=== PATIENT | male | born 1960 | race Caucasian/White ===

== ENCOUNTER 2016-05-18 10:57 | Inpatient (IN) | payer BC ==
[2016-05-18 11:50] VITALS: BMI 34.9
--- NOTE | 2016-05-18 12:47 | PDOC ---
History of Present Illness - General History Source: Patient Exam Limitations: No Limitations - History of Present Illness Initial Comments: 05/18/16 19:03 The patient is a 56 year old male, with a significant past medical history of afib, NIDDM, HTN, HLD, hypothyroidism, afib s/p cardiac ablation (by in 2012), nonischemic cardiomyopathy which improved post ablation, nonobstructive CAD who was sent by his PCP and presents to the emergency department with congestion and a O2 sat of 88% with unknown etiology. Patient notes he normally runs very low and notes taking oxygen at home (3L at home and runs 98% when on O2). Patient reports having sinus congestion for about a month. He denies any sick contacts. He denies chest pain and shortness of breath. He denies fever, chills, headache and dizziness. He denies nausea, vomit, diarrhea and constipation. He denies dysuria, frequency, urgency and hematuria. Allergies: NKA Social History: Nonsmoker. Denies EtOH and drug abuse. PCP: Dr.James Cruz <Mitchell Chris - Last Filed: 05/18/16 19:03> - General History Source: Patient Exam Limitations: No Limitations <AureaJovani - Last Filed: 05/18/16 21:41> - General Chief Complaint: Respiratory Stated Complaint: PCP SENT, CONGESTED Time Seen by Provider: 05/18/16 12:11 Past History <Mitchell Chris - Last Filed: 05/18/16 19:03> - Past Medical History Anemia: No Asthma: No Cancer: No Cardiac Disorders: Yes (A FIB/FLUTTER) CVA: No COPD: No CHF: Yes Dementia: No Diabetes: Yes (TYPE II) GI Disorders: No Disorders: No HTN: Yes Hypercholesterolemia: Yes Liver Disease: No Suicide Attempt (Hx): No Seizures: No Thyroid Disease: Yes (HYPO) - Surgical History Abdominal Surgery: No Appendectomy: No Cardiac Surgery: Yes (ABLATION: 2012) Cholecystectomy: No Lung Surgery: No Neurologic Surgery: No Orthopedic Surgery: No - Psycho/Social/Smoking Cessation Hx Anxiety: No Suicidal Ideation: No Smoking Status: No Smoking History: Never smoked Have you smoked in the past 12 months: No Number of Cigarettes Smoked Daily: 0 If you are a former smoker, when did you quit?: 13 YRS AGO Hx Alcohol Use: No Drug/Substance Use Hx: No Substance Use Type: None Hx Substance Use Treatment: No <Jovani Villar - Last Filed: 05/18/16 21:41> - Past Medical History Allergies/Adverse Reactions: Allergies Allergy/AdvReac Type Severity Reaction Status Date / Time No Known Allergies Allergy Verified 05/18/16 11:45 Home Medications: Ambulatory Orders Insulin (Levemir) [Levemir Flexpen -] 45 units SQ AM 07/05/13 Aspirin Coated [Ecotrin -] 325 mg PO DAILY #30 tablet. 08/16/14 Levothyroxine [Synthroid -] 50 mcg PO DAILY@0700 #30 tablet 08/16/14 Albuterol 2.5/Ipratropium 0.5 [Duoneb -] 1 neb NEB Q4H PRN #30 vial 12/26/14 Fenofibrate 160 mg PO DAILY #30 tablet 12/26/14 Canagliflozin [Invokana] 300 mg PO DAILY 05/18/16 Fluticasone/Salmeterol [Advair 250-50 Diskus] 1 each IH BID 05/18/16 Furosemide [Lasix -] 40 mg PO BID 05/18/16 Linagliptin/Metformin HCl [Jentadueto 2.5 mg-500 mg Tab] 1 each PO BID 05/18/16 Metoprolol Tartrate [Lopressor -] 50 mg PO BID 05/18/16 Silodosin [Rapaflo] 8 mg PO DAILY 05/18/16 Review of Systems - Review of Systems Able to Perform ROS?: Yes Comments:: 05/18/16 19:03 CONSTITUTIONAL: No reported: Fever, Chills, Diaphoresis, Generalized Weakness, Malaise, Loss of Appetite HEENT: No reported: Rhinorrhea, Throat Pain, Throat Swelling, Difficulty Swallowing, Mouth Swelling, Ear Pain, Eye Pain, Visual Changes CARDIOVASCULAR: No reported: Chest Pain, Syncope, Palpitations, Irregular Heart Rate, Lightheadedness, Peripheral Edema RESPIRATORY: Reported: hypoxia. No reported: Cough, Shortness of Breath, SOB with Exertion, Orthopnea, Wheezing, Stridor, Hemoptysis GASTROINTESTINAL: No reported: Abdominal pain, Abdominal Distension, Nausea, Vomiting, Diarrhea, Constipation, Melena, Hematochezia GENITOURINARY: No reported: Dysuria, Frequency, Urgency, Hesitancy, Flank Pain, Genital Pain MUSCULOSKELETAL: No reported: Myalgia, Arthralgia, Joint Swelling, Back pain, Neck Pain SKIN: No reported: Rash, Itching, Pallor HEMEATOLOGIC/IMMUNOLOGIC: No reported: Easy Bleeding, Easy Bruising, Lymphadenopathy, Frequent infections ENDOCRINE: No reported: Unexplained Weight Gain, Unexplained Weight Loss, Heat Intolerance , Cold Intolerance NEUROLOGIC: No reported: Headache, Focal Weakness, Paresthesias, Vertigo, Lightheadedness, Unsteady Gait, Seizure, Mental Status Changes, Incontinence PSYCHIATRIC: No reported: Anxiety, Depression <Mitchell Chris - Last Filed: 05/18/16 19:03> *Physical Exam - Vital Signs Last Vital Signs Temp Pulse Resp BP Pulse Ox 98.5 F 84 20 138/75 93 L 05/18/16 11:45 05/18/16 12:43 05/18/16 12:43 05/18/16 11:45 05/18/16 12:43 - Physical Exam Comments: 05/18/16 19:03 GENERAL: The patient is awake, alert, and fully oriented, Nontoxic - in no acute distress. HEAD: Normocephalic, atraumatic. EYES: extraocular movements intact, sclera anicteric, conjunctiva clear. ENT: Normal voice, Moist mucous membranes. NECK: Normal range of motion, supple LUNGS: Scattered wheezing. No rhonchi, no rales. HEART: Regular rate and rhythm, without murmur, rub or gallop. ABDOMEN: Soft, nontender, normoactive bowel sounds. No guarding, no rebound.No CVA tenderness EXTREMITIES: Trace pitting edema bilaterally. Normal range of motion. No clubbing or cyanosis. No cords, erythema, or tenderness. NEUROLOGICAL: No facial asymmetry, Normal speech. PSYCH: Normal mood, normal affect. SKIN: Warm, Dry, normal turgor. <Mitchell Chris - Last Filed: 05/18/16 19:03> - Vital Signs Last Vital Signs Temp Pulse Resp BP Pulse Ox 98.5 F 92 H 20 138/75 91 L 05/18/16 11:45 05/18/16 11:45 05/18/16 11:45 05/18/16 11:45 05/18/16 11:45 <Jovani Villar - Last Filed: 05/18/16 21:41> Heart Score/ECG Review - ECG Impressions Comment:: 05/18/16 21:22 Twelve-lead EKG was performed and reviewed by me. There is normal sinus rhythm with a normal rate. rate of 91 incomplete RBBB nonspecific t wave abnormality prolonged qt <Jovani Villar - Last Filed: 05/18/16 21:41> ED Treatment Course - LABORATORY CBC & Chemistry Diagram: 05/18/16 12:52 05/18/16 12:52 - ADDITIONAL ORDERS Additional order review: Laboratory Results 05/18/16 05/18/16 13:00 12:52 VBG pH 7.41 POC VBG pCO2 60.9 H* POC VBG pO2 42.7 H Sodium 139 Potassium 4.1 Chloride 92 L Carbon Dioxide 38 H Anion Gap 9 BUN 29 H D Creatinine 1.2 D Creat Clearance w eGFR > 60 Random Glucose 149 H Calcium 9.6 Total Bilirubin 0.4 D AST 8 L D ALT 19 D Alkaline Phosphatase 72 D Creatine Kinase 53 Troponin I < 0.02 B-Natriuretic Peptide 202.96 H Total Protein 8.1 Albumin 4.5 D 05/18/16 12:52 RBC 7.67 H D MCV 76.0 L MCHC 30.3 L RDW 18.6 H D MPV 10.1 Neutrophils % 84.0 H Lymphocytes % 8.6 Monocytes % 6.0 Eosinophils % 0.8 Basophils % 0.6 - RADIOLOGY Radiograph Interpretation: 05/18/16 15:15 CHEST PA & LAT impressions reported by : Large heart. Prominent nathalie. No acute chest pathology. CHEST CTA impressions reported by : 1. No evidence 2. Trace pericardial effusion 3. Left basilar atelectasis, no acute pathology within the chest. - Medications Given in the ED: ED Medications Discontinued Medications Generic Name Dose Route Start Last Admin Trade Name Freq PRN Reason Stop Dose Admin Albuterol/Ipratropium 1 amp 05/18/16 13:11 05/18/16 13:47 Duoneb - NEB 05/18/16 13:12 1 amp ONCE ONE Administration <Mitchell Chris - Last Filed: 05/18/16 19:03> - LABORATORY CBC & Chemistry Diagram: 05/18/16 12:52 05/18/16 12:52 <Jovani Villar - Last Filed: 05/18/16 21:41> Medical Decision Making - Medical Decision Making 05/18/16 15:14 Call made to 's office will call back. 05/18/16 16:01 Call made to 's office will call back. 05/18/16 16:17 Call back from case discussed. <Mitchell Chris - Last Filed: 05/18/16 19:03> - Medical Decision Making 05/18/16 13:12 56y M hx of DM, hypothyroidism, htn, afib/flutter s/p ablation, chf, on chronic 3L NC o2 secondary to hypoxia of unkonwn etiology (works in mortuary) sent to the ED from PMD office for hypoxia (pt was off his normal o2). Pt endorses having nasal congestion and cough for appox 1 month, but denies any fever/chills , no new/worsenined RAYMOND, n/v, diaphoresis. On exam pt wll appearing in no acute disteress, with mild wheezing, and trace pitting edema. will obtain xray to r/o pna will give duoneb dr. ortiz was bedside here evaluating the patient. A portion of this note was documented by scribe services under my direction. I have reviewed the details of the note, within reason, and agree with the documentation with the following case summary and management plan written by me 05/18/16 15:18 labs reviewed venous gas shows elevated pco2 cxcr and cta negative will admit for further mangement of hypoxemia and pulm consult will admit under dr. mackey service pt curretly asypohomatic 05/18/16 16:18 case d/w dr. howell agreed with admission stable for tele Case discussed in detail with admitting physician including history, physical exam and ancillary studies. Admitting physician has assumed care for the patient, will follow all pending diagnostics and will complete the evaluation and treatment. <Jovani Villar - Last Filed: 05/18/16 21:41> *DC/Admit/Observation/Transfer - Attestations Scribe Attestion: 05/18/16 19:01 Documentation prepared by Mitchell Chris, acting as medical radiation dosimetrist for Jovani Villar MD. <Mitchell Chris - Last Filed: 05/18/16 19:03> - Discharge Dispostion Admit: Yes <Jovani Villar - Last Filed: 05/18/16 21:41> Diagnosis at time of Disposition: Hypoxia - Discharge Dispostion Condition at time of disposition: Stable - Referrals
--- NOTE | 2016-05-18 12:52 | PN ---
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 Yessy Cruz for hypoxia on room air (85-88%) and several weeks of chest congestion despite outpatient course of abx, oral steroids. IMP: Chronic hypoxia of unclear etiology- possibly occupational lung dz Non-obstructive CAD SHEKHAR on CPAP AFlutter s/p ablation REC: Admit to telemetry Pulmonary consult (with Dr. Cancino, was seeing Dr. Wray in as outpatient). Check BNP. Continue home cardiac meds. Would obtain CT chest. Further work up including possible transfer to [facility] for lung bx after initial diagnostics completed.
[2016-05-18 13:10] LABS: VENOUS BLOOD GAS HCO3 38.1 meq/L (22-29); VENOUS PH 7.41 (7.31-7.41)
[2016-05-18] MEDS ORDERED: ALBUTEROL SO4 2.5/IPRATROPIUM 0.5 INH SOL 3 ML VIAL.NEB. NEB ONE ×2 (13:11→13:16)
[2016-05-18 13:35] LABS: ALBUMIN 4.5 g/dl (3.4-5.0); ANION GAP 9 (8-16); CALCIUM 9.6 mg/dL (8.5-10.1); CO2 38 mmol/L (21-32); CREATININE 1.2 mg/dL (0.7-1.3); GLUCOSE,RANDOM 149 mg/dL (74-106); SGOT/AST 8 U/L (15-37); SGPT/ALT 19 U/L (12-78)
[2016-05-18 13:36] LABS: BILIRUBIN,TOTAL 0.4 mg/dL (0.2-1.0); TOT PROT 8.1 g/dl (6.4-8.2)
[2016-05-18 13:39] LABS: ALK PHOS 72 U/L (45-117); TROPONIN I < 0.02 ng/ml (0.00-0.05)
[2016-05-18 13:42] LABS: BASOPHIL 0.6 % (0-2.0); EOSINOPHIL 0.8 % (0-4.5); MCHC 30.3 g/dl (32.0-35.9); MEAN PLT VOLUME 10.1 fl (7.5-11.1); PLATELET COUNT 194 K/MM3 (134-434); RDW 18.6 % (11.9-15.9); WHITE BLOOD COUNT 11.2 K/mm3 (4.0-10.0)
--- NOTE | 2016-05-18 14:08 | CONS ---
DATE OF CONSULTATION: 05/18/2016 Consultation is requested by Dr. Jovani Villar in the emergency department. The patient is sent from Dr. Brandon Cruz's office for hypoxemia. He is a 56-year-old male with history of hypertension, type 2 diabetes, hyperlipidemia, atrial flutter status post ablation, tachycardia-induced cardiomyopathy, non-ischemic cardiomyopathy, which improved after ablation with normalized EF, nonobstructive CAD, and chronic recurrent hypoxemia of unknown etiology. He has had a full cardiac workup for his hypoxemia, which has been unrevealing. He does have chronic obesity and sleep apnea and uses CPAP. He is on home oxygen but only when he is at home. 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 Today he came in to the office to follow up on several weeks of cough, nonproductive, feeling congested. He was found to be hypoxic on room air at 85% to 88%. He is short of breath with minimal exertion. He denies chest pain, palpitations, lightheadedness, dizziness, syncope or near syncope. He has not had fevers or chills. He denies PND, orthopnea, or increase in lower extremity edema. His medications include aspirin 81 daily, Toprol XL 50 in the morning, 25 in the evening, Lasix 40 b.i.d., Synthroid, fenofibrate, Levemir, Invokana, Jentadueto b.i.d., Rapaflo, Advair b.i.d. He was recently started on oral steroids by Dr. Cruz, and completed an outpatient course of antibiotics with no improvement. He has no known drug allergies. SOCIAL HISTORY: Nonsmoker. No alcohol. No illegal drugs. Works in a [employer] and previously worked in a [employer] but stopped doing that portion of his job for fear of possible toxin exposure. FAMILY HISTORY: No known history of MD or sudden cardiac . PHYSICAL EXAMINATION: General: He is comfortable, alert, oriented, afebrile. Vital signs: Temperature 98.5, pulse 92, blood pressure 138/75, O2 saturation 93 on 3 L. He weighs 230 pounds. Neck: There is no JVD, no bruits. Heart: Regular without murmurs. Chest: Decreased breath sounds bilaterally. No wheezing, no rales. Abdomen: Obese, soft, nontender. Extremities: No significant pitting edema. His EKG showed sinus rhythm at 91 beats per minute with a chronic right bundle-branch block. Chest x-ray and labs are currently pending. IMPRESSION: 1. Chronic hypoxemia of unclear etiology, possibly occupational lung disease. 2. Nonobstructive coronary artery disease. 3. Obstructive sleep apnea, on CPAP. 4. History of atrial flutter, status post ablation. RECOMMENDATIONS: 1. Admit to telemetry with pulmonary consultation. Will ask Dr. Cancino's team to see him for any recommendations as patient was seeing Dr. Wray from [facility] as an outpatient. 2. Check BNP. 3. Will continue home cardiac medications. Does not seem to need IV Lasix at this time. 4. Would obtain CTA of the chest to rule out pulmonary embolism and assess for chronic interstitial/parenchymal lung disease. 5. Further workup including possible transfer to [facility] for lung biopsy after initial diagnostics are completed. Thank you for the consultation. CAITLIN REYES M.D. [id number]
[2016-05-18] MEDS ORDERED: FUROSEMIDE 40 MG TABLET (FP) ONE (14:30)
[2016-05-18] MEDS: FUROSEMIDE 40 MG TABLET (FP) PO SCH (14:34)
[2016-05-19 00:09] LABS: TROPONIN I < 0.02 ng/ml (0.00-0.05)
[2016-05-19] MEDS ORDERED: ALBUTEROL SO4 2.5/IPRATROPIUM 0.5 INH SOL 3 ML VIAL.NEB. NEB PRN (02:15)
[2016-05-19] MEDS ORDERED: ENOXAPARIN NA (PORCINE) 100 MG/1 ML DISP.SYRIN SQ ONE ×2 (03:14→03:19)
[2016-05-19] MEDS ORDERED: METOPROLOL SUCCINATE 50 MG TAB.SR.24H (FP) ONE (03:14)
[2016-05-19] MEDS ORDERED: METOPROLOL SUCCINATE 50 MG TAB.SR.24H (FP) PO ONE (03:18)
[2016-05-19] MEDS ORDERED: FUROSEMIDE 40 MG/4 ML INJECTABLE VIAL ONE (06:58)
[2016-05-19] MEDS: FUROSEMIDE 40 MG TABLET (FP) PO SCH (07:01)
[2016-05-19 07:11] LABS: ALBUMIN 4.3 g/dl (3.4-5.0); ANION GAP 5 (8-16); CALCIUM 9.6 mg/dL (8.5-10.1); CO2 40 mmol/L (21-32); CREATININE 1.2 mg/dL (0.7-1.3); GLUCOSE,RANDOM 126 mg/dL (74-106); SGOT/AST 12 U/L (15-37); SGPT/ALT 21 U/L (12-78)
[2016-05-19 07:13] LABS: ALK PHOS 61 U/L (45-117); BILIRUBIN,TOTAL 0.7 mg/dL (0.2-1.0); TOT PROT 7.6 g/dl (6.4-8.2)
[2016-05-19 07:16] LABS: THYROID STIMULATING HORMONE 6.21 uIU/ml (0.358-3.74); TROPONIN I < 0.02 ng/ml (0.00-0.05)
[2016-05-19 07:35] LABS: BASOPHIL 0.4 % (0-2.0); EOSINOPHIL 2.6 % (0-4.5); MCH 23.1 pg (25.7-33.7); MCHC 30.6 g/dl (32.0-35.9); MEAN CELL VOLUME 75.6 fl (80-96); MEAN PLT VOLUME 9.7 fl (7.5-11.1); NEUTROPHILS 69.4 % (42.8-82.8); PLATELET COUNT 176 K/MM3 (134-434); WHITE BLOOD COUNT 10.5 K/mm3 (4.0-10.0)
--- NOTE | 2016-05-19 08:49 | PN ---
Progress Note, Physician History of Present Illness: seen and examined today in [facility]. states he is feeling better but did not sleep last night as he was in er all night. episodes of tachycardia noted overnight, ekgs c/w SVT likely Aflutter with RVR. - Current Medication List Current Medications: Active Medications Albuterol/Ipratropium (Duoneb -) 1 amp NEB Q6H PRN PRN Reason: SHORTNESS OF BREATH Aspirin (Asa -) 81 mg PO DAILY [facility] Furosemide (Lasix -) 40 mg PO BID@0600,1400 [facility] Last Admin: 05/19/16 07:01 Dose: 40 mg Metoprolol Succinate (Toprol Xl -) 50 mg PO DAILY [facility] Metoprolol Succinate (Toprol Xl -) 25 mg PO DAILY@1800 [facility] - Objective Vital Signs: Vital Signs Temperature 97.8 F 05/19/16 02:59 Pulse Rate 89 05/19/16 03:38 Respiratory Rate 18 05/19/16 02:59 Blood Pressure 119/78 05/19/16 02:59 O2 Sat by Pulse Oximetry (%) 95 05/19/16 02:59 Constitutional: Yes: No Distress, Calm, Obese Eyes: Yes: EOM Intact HENT: Yes: WNL, Atraumatic, Normocephalic Neck: Yes: WNL, Supple, Trachea Midline Cardiovascular: Yes: WNL, Regular Rate and Rhythm, S1, S2. No: Bradycardia, Tachycardia, Pulse Irregular, Bruit, JVD, Gallop, Murmur, Rub, S3, S4, Varicosities Respiratory: Yes: Regular, Diminished, Wheezes. No: Rales, Rhonchi Gastrointestinal: Yes: WNL, Normal Bowel Sounds, Soft. No: Distention, Tenderness Musculoskeletal: Yes: WNL Extremities: Yes: WNL Edema: No Peripheral Pulses WNL: Yes Peripheral Pulses: Left Doralis Pedis: 2+, Right Dorsalis Pedis: 2+ Integumentary: Yes: WNL Neurological: Yes: WNL, Alert, Oriented, Cran Nerves II-XII Intact ...Motor Strength: WNL Psychiatric: Yes: WNL, Alert, Oriented Labs: CBC, BMP 05/19/16 05:45 05/19/16 05:45 - ....Imaging Chest X-ray: Report Reviewed, Image Reviewed EKG: Report Reviewed, Image Reviewed Other: Report Reviewed, Image Reviewed (tele-nsr, episodes of aflutter with rVR) Assessment/Plan IMP: Chronic hypoxia of unclear etiology- possibly occupational lung dz Non-obstructive CAD SHEKHAR on CPAP AFlutter s/p ablation h/o NICM presumed aflutter induced with recovery of LV function after ablation REC: Episodes of tachycardia overnight appears c/w SVT likely aflutter with RVR given 1 dose of Lovenox at 3am, next dose would be for 3pm today, if he is still here at that time would give dose then CTA chest showed no PE, no significant pathology Will transfer to [facility] hospital today for right and left heart cardiac cath Will also be evaluated by EPS for consideration for SVT ablation
[2016-05-19] MEDS ORDERED: ALBUTEROL SO4 2.5/IPRATROPIUM 0.5 INH SOL 3 ML VIAL.NEB. NEB ONE (09:43)
[2016-05-19] MEDS ORDERED: METOPROLOL SUCCINATE 50 MG TAB.SR.24H (FP) PO SCH (10:00)
[2016-05-19] MEDS ORDERED: HEPARIN NA (PORCINE) 5,000 UNITS/ML 1ML VIAL SQ SCH (10:00)
[2016-05-19] MEDS ORDERED: ASPIRIN 81 MG CHEWABLE TABLETS PO SCH (10:00)
--- NOTE | 2016-05-19 11:04 | EKG ---
Test Reason : Blood Pressure : / mmHG Vent. Rate : 091 BPM Atrial Rate : 091 BPM P-R Int : 146 ms QRS Dur : 112 ms QT Int : 380 ms P-R-T Axes : 066 -25 008 degrees QTc Int : 467 ms NORMAL SINUS RHYTHM BIATRIAL ENLARGEMENT INCOMPLETE RIGHT BUNDLE BRANCH BLOCK NONSPECIFIC T WAVE ABNORMALITY PROLONGED QT ABNORMAL ECG WHEN COMPARED WITH ECG OF 23-DEC-2014 08:41, T WAVE INVERSION NOW EVIDENT IN ANTERIOR LEADS Confirmed by HORACIO AYALA MD ([id number]) on 05/19/2016 11:03:25 AM Referred By: Confirmed By:HORACIO AYALA MD
[2016-05-19 11:07] VITALS: BP 123/74; PULSE 89; TEMP 98.1
--- NOTE | 2016-05-19 16:54 | HP ---
Admitting History and Physical - Past Medical History Cardiovascular: Yes: CAD (mild CAD), HTN, Hyperlipdemia, Other (atrial flutter s /p ablation) Pulmonary: Yes: COPD, Sleep Apnea Endocrine: Yes: Diabetes Mellitus - Smoking History Smoking history: Former smoker Have you smoked in the past 12 months: No Aproximately how many cigarettes per day: 0 If you are a former smoker, when did you quit?: 13 YRS AGO - Alcohol/Substance Use Hx Alcohol Use: No History of Substance Use: reports: None - Social History ADL: Independent Occupation: works at [employer] History of Recent Travel: No Home Medications - Allergies Allergies/Adverse Reactions: Allergies Allergy/AdvReac Type Severity Reaction Status Date / Time No Known Allergies Allergy Verified 05/18/16 11:45 - Home Medications Home Medications: Ambulatory Orders Insulin (Levemir) [Levemir Flexpen -] 45 units SQ AM 07/05/13 Aspirin Coated [Ecotrin -] 325 mg PO DAILY #30 tablet. 08/16/14 Levothyroxine [Synthroid -] 50 mcg PO DAILY@0700 #30 tablet 08/16/14 Albuterol 2.5/Ipratropium 0.5 [Duoneb -] 1 neb NEB Q4H PRN #30 vial 12/26/14 Fenofibrate 160 mg PO DAILY #30 tablet 12/26/14 Canagliflozin [Invokana] 300 mg PO DAILY 05/18/16 Fluticasone/Salmeterol [Advair 250-50 Diskus] 1 each IH BID 05/18/16 Furosemide [Lasix -] 40 mg PO BID 05/18/16 Linagliptin/Metformin HCl [Jentadueto 2.5 mg-500 mg Tab] 1 each PO BID 05/18/16 Metoprolol Tartrate [Lopressor -] 50 mg PO BID 05/18/16 Silodosin [Rapaflo] 8 mg PO DAILY 05/18/16 Physical Examination Vital Signs: Vital Signs Temperature 98.1 F 05/19/16 11:05 Pulse Rate 89 05/19/16 11:05 Respiratory Rate 18 05/19/16 11:05 Blood Pressure 123/74 05/19/16 11:05 O2 Sat by Pulse Oximetry (%) 98 05/19/16 11:05 Labs: CBC, BMP 05/19/16 05:45 05/19/16 05:45
[2016-05-19] MEDS ORDERED: METOPROLOL SUCCINATE 25 MG TAB.SR.24H (FP) PO SCH (18:00)
--- NOTE | 2016-05-20 16:33 | EKG ---
Test Reason : Blood Pressure : / mmHG Vent. Rate : 122 BPM Atrial Rate : 131 BPM P-R Int : 000 ms QRS Dur : 130 ms QT Int : 380 ms P-R-T Axes : 000 075 029 degrees QTc Int : 541 ms SUPRAVENTRICULAR TACHYCARDIA NON-SPECIFIC INTRA-VENTRICULAR CONDUCTION BLOCK T WAVE ABNORMALITY, CONSIDER ANTEROLATERAL ISCHEMIA OR DIGITALIS EFFECT ABNORMAL ECG WHEN COMPARED WITH ECG OF 18-MAY-2016 12:12, ATRIAL FIBRILLATION HAS REPLACED SINUS RHYTHM ST ELEVATION NOW PRESENT IN INFERIOR LEADS NON-SPECIFIC CHANGE IN ST SEGMENT IN ANTERIOR LEADS Confirmed by OSIEL HURLEY MD ([id number]) on 05/20/2016 4:32:30 PM Referred By: Confirmed By:OSIEL HURLEY MD
== END 2016-05-19 12:00 | disposition short-term general hospital (02) | DRG 310 ==
LOC: JER 10:57 → JERBED 15:44 → J5S 18:20
PROVIDERS: ADMIT Internal Medicine; ATTEND Internal Medicine
DX: I48.92 Unspecified atrial flutter (principal); R00.0 Tachycardia, unspecified; I25.10 Atherosclerotic heart disease of native coronary artery without angina pectoris; I10 Essential (primary) hypertension; E78.5 Hyperlipidemia, unspecified; J44.9 Chronic obstructive pulmonary disease, unspecified; E11.9 Type 2 diabetes mellitus without complications; G47.30 Sleep apnea, unspecified; I42.8 Other cardiomyopathies; R09.02 Hypoxemia; E03.9 Hypothyroidism, unspecified; Z87.891 Personal history of nicotine dependence; Z99.81 Dependence on supplemental oxygen
CPT/HCPCS: 36415; 71020-TC; 71275-TC; 80053; 82550; 82803; 83880; 84443; 84484; 85025; 93005; 93010; 99285-25

== ENCOUNTER 2017-01-05 11:19 | Day surgery (SDC) | payer BC ==
[2017-01-04 10:13] VITALS: BMI 34.0
--- NOTE | 2017-01-05 09:40 | OP ---
Operative Note - Note: Operative Date: 01/05/17 Pre-Operative Diagnosis: 57yo m gross hematuria and passing clots Operation: cysto bladder bx turbt Post-Operative Diagnosis: Same as Pre-op Surgeon: Mitra Cruz Drains & Tubes with Location: [facility] Operative Report Dictated: Yes
--- NOTE | 2017-01-05 09:43 | PN ---
Progress Note (short form) - Note Progress Note: 57 yom wioth gross hematuria for or today h/o cardiac dz, s/p ablation for cysto bladder bx possible turbt pt has h/o of 2nd hand smoke exposure plan: as above will be d/c on keflex and percocet hold plavix until bleeding stops f/u with pmd 24 hours post d/c f/u in office tuesday
[~2017-01-05 11:19] MED LIST: ALBUTEROL SO4 2.5/IPRATROPIUM 0.5 INH SOL 3 ML VIAL.NEB. NEB PRN; FENOFIBRIC ACID 135 MG CAP PO SCH; FUROSEMIDE 20 MG TABLET (FP) PO SCH; PATIENT'S OWN MEDICATION (NON-FORMULARY) (Canagliflozin [Invokana] 300 MG) PO SCH; TAMSULOSIN HCL 0.4 MG CAP.ER.24H (FP) PO SCH; sitaGLIPtin PHOSPHATE 100 MG TABLET (FP) PO SCH
[2017-01-05] MEDS ORDERED: MIDAZOLAM HCL 2 MG/2 ML SINGLE DOSE VIAL ONE (13:10)
[2017-01-05] MEDS ORDERED: PROPOFOL 20 ML ONE ×2 (14:34)
[2017-01-05] MEDS ORDERED: ETOMIDATE 20 MG/10 ML AMPUL IVPUSH ONE (14:34)
[2017-01-05] MEDS ORDERED: DESFLURANE GAS 240 ML BOTTLE IH ONE (14:38)
[2017-01-05] MEDS ORDERED: ceFAZolin SODIUM 1 GM VIAL ONE (14:40)
[2017-01-05] MEDS ORDERED: ceFAZolin SODIUM 1 GM VIAL IVPB ONE (14:41)
[2017-01-05] MEDS ORDERED: ONDANSETRON 4 MG/2 ML VIAL IVPUSH PRN (15:53)
[2017-01-05] MEDS: CEPHALEXIN MONOHYDRATE 500 MG CAPSULE (UD) PO SCH ×2 (18:53→23:10)
[2017-01-05] MEDS: oxyCODONE HCL 5 MG TABLET PO PRN (20:20)
[2017-01-05] MEDS: ACETAMINOPHEN 325 MG TABLET (FP) PO PRN (20:21)
[2017-01-05] MEDS: LACTATED RINGERS SOLUTION 1,000 ML IV SCH (21:40)
[2017-01-05] MEDS: METOPROLOL TARTRATE 50 MG TABLET (FP) PO SCH (21:42)
[2017-01-05] MEDS ORDERED: INSULIN DETEMIR 100 UNITS/ML MDV SQ SCH (22:00)
[2017-01-05] MEDS: BUDESONIDE/FORMETEROL FUMARATE 80/4.5 mcg INHALER IH SCH (23:09)
[2017-01-06] MEDS: metFORMIN HCL 500 MG TABLET (FP) PO SCH ×2 (06:21→17:17)
[2017-01-06] MEDS: CEPHALEXIN MONOHYDRATE 500 MG CAPSULE (UD) PO SCH (06:22)
[2017-01-06] MEDS: oxyCODONE HCL 5 MG TABLET PO PRN (06:56)
[2017-01-06] MEDS: ACETAMINOPHEN 325 MG TABLET (FP) PO PRN (06:57)
[2017-01-06] MEDS ORDERED: LEVOTHYROXINE NA 50 MCG TABLET (FP) PO SCH (07:00)
--- NOTE | 2017-01-06 09:01 | OP ---
DATE OF OPERATION: 01/05/2017 Patient is a 56-year-old male with history of severe prostatism and several episodes of gross total painless hematuria. SURGEON: Mago Middleton MD PREOPERATIVE DIAGNOSIS: Rule out bladder lesion. POSTOPERATIVE DIAGNOSIS: Deep urethral stricture disease, benign prostatic hypertrophy, bladder trabeculation. OPERATIVE PROCEDURE: Attempted cystoscopy, retrograde urethrogram, cystogram, optical internal urethrotomy, collection of urine for cytology and culture and sensitivity, and placement of 18-[place] Brown catheter. ANESTHESIA: General. DESCRIPTION OF PROCEDURE: Under above stated anesthesia, patient was prepped and draped in the usual sterile manner. He was placed in the dorsal lithotomy position. External genitalia appeared to be within normal limits. The phallus was circumcised and meatus was adequate. Testes were normal in size and consistency. A continuous-flow 30-degree scope was introduced under direct vision. The deep bulbous urethra came to a complete stop. No lumen was noticed. Multiple attempts at passage of the catheter were unsuccessful. Therefore, A Glidewire was passed, and after several attempts, the wire was placed into the bladder. An open-end catheter was placed over the wire and into the bladder. Contrast material was injected. This revealed a normal urinary bladder. Therefore, the urethrotome was inserted, and the stricture area in the deep bulbous urethra was excised at the 12 o'clock position. This was carried on up to the corpora spongiosum. No extravasation or bleeding was noted. The bladder was entered. Approximately 500 mL of dark concentrated urine was drained. This was sent for both cytology as well as culture and sensitivity. Inspection of the bladder revealed a grade 3 trabeculation throughout. Ureteral orifices revealed efflux of clear urine. There were no overt lesions in the bladder. Therefore, the bladder was emptied, the scope was removed, and an 18-[place] 10-mL Brown was inserted. This was connected to a leg bag. The patient tolerated the procedure well. He returned to the recovery room in good condition. MAGO MIDDLETON M.D. [id number]
[2017-01-06] MEDS: BUDESONIDE/FORMETEROL FUMARATE 80/4.5 mcg INHALER IH SCH (09:17)
[2017-01-06] MEDS: METOPROLOL TARTRATE 50 MG TABLET (FP) PO SCH (09:17)
[2017-01-06] MEDS: LACTATED RINGERS SOLUTION 1,000 ML IV SCH (11:00)
--- NOTE | 2017-01-06 11:11 | PN ---
Progress Note (short form) - Note Progress Note: Anesthesia Post op Pt seen and examined S:alert and awake O: Vital Signs Temperature 98.9 F 01/06/17 09:30 Pulse Rate 70 01/06/17 09:30 Respiratory Rate 18 01/06/17 09:30 Blood Pressure 131/71 01/06/17 09:30 O2 Sat by Pulse Oximetry (%) 95 01/05/17 18:30 a/p:s/p cysto urethroscopy Doing well post op Continue current care Jacinto Schmitt
[2017-01-06 19:19] VITALS: BP 131/69; PULSE 77; TEMP 97.5
--- NOTE | 2017-01-07 13:45 | PATH ---
Cytology Non-Gynecological Report Patient Name: MASON GIBBS [facility]. Rec. #: [id number] /Age/Gender: 1960 (Age: 56) / M Account: [id number] Location: AMBULATORY SURG Taken: 01/05/2017 Received: 01/06/2017 Reported: 01/07/2017 Physicians: Mitra Cruz M.D. Specimen(s) Received URINE Clinical History None given Final Diagnosis URINE FOR CYTOLOGY: SATISFACTORY FOR EVALUATION. BENIGN (NO MALIGNANT CELLS IDENTIFIED). ABUNDANT RED BLOOD CELLS, ALONG WITH BENIGN, REACTIVE, AND DEGENERATING UROTHELIAL CELLS PRESENT. Comment: Recommend correlation with clinical and radiologic findings and follow up as clinically indicated. Electronically Signed Nathan Meeks M.D. Gross Description Approximately 100 cc of red fluid received fresh. Two cytofunnel and one cellblock prepared.
== END 2017-01-06 20:11 | disposition home or self-care (01) ==
LOC: JASU-SURG 11:19 → JASUSAT 11:19 → J5S 18:00 → JASUSAT 01-06 20:11
PROVIDERS: ATTEND Urology
PROC: 0TND8ZZ Release Urethra, Via Natural or Artificial Opening Endoscopic (ICD-10-PCS; principal; 2017-01-05 13:00)
DX: N35.9 Urethral stricture, unspecified (principal); N40.0 Benign prostatic hyperplasia without lower urinary tract symptoms; N32.89 Other specified disorders of bladder
CPT/HCPCS: 76000-TC; 88108; 88305-TC; 94010; 94760

== ENCOUNTER 2017-06-15 06:25 | Inpatient (IN) | payer BC ==
[2017-06-15] MEDS ORDERED: LIDOCAINE HCL 2% JELLY 10 ML CARTRIDGE ONE ×2 (08:50→11:00)
--- NOTE | 2017-06-15 08:58 | PDOC ---
History of Present Illness - General Chief Complaint: Urinary Problem Stated Complaint: UNABLE TO URINATE Time Seen by Provider: 06/15/17 07:16 History Source: Patient - History of Present Illness Timing/Duration: reports: getting worse Past History - Past Medical History Allergies/Adverse Reactions: Allergies Allergy/AdvReac Type Severity Reaction Status Date / Time No Known Allergies Allergy Verified 06/15/17 09:13 Home Medications: Ambulatory Orders Insulin (Levemir) [Levemir Flexpen -] 20 units SQ HS 07/05/13 Levothyroxine [Synthroid -] 50 mcg PO DAILY@0700 #30 tablet 08/16/14 Albuterol 2.5/Ipratropium 0.5 [Duoneb -] 1 neb NEB Q4H PRN #30 vial 12/26/14 Fenofibrate 160 mg PO DAILY #30 tablet 12/26/14 Canagliflozin [Invokana] 300 mg PO DAILY 05/18/16 Fluticasone/Salmeterol [Advair 250-50 Diskus] 1 each IH BID 05/18/16 Furosemide [Lasix -] 20 mg PO DAILY 05/18/16 Linagliptin/Metformin HCl [Jentadueto 2.5 mg-500 mg Tab] 1 each PO BID 05/18/16 Metoprolol Tartrate [Lopressor -] 50 mg PO BID 05/18/16 Silodosin [Rapaflo] 8 mg PO DAILY 05/18/16 Aspirin [ASA -] 81 mg PO DAILY 01/04/17 Clopidogrel Bisulfate [Plavix -] 75 mg PO DAILY 01/04/17 Colchicine 0.6 mg PO DAILY 01/05/17 Anemia: No Asthma: No Cancer: No Cardiac Disorders: Yes (A FIB/FLUTTER) CVA: No COPD: No CHF: Yes (ANGIOPLASTY WITH STENT INSERTION X2) Dementia: No Diabetes: Yes (TYPE II) GI Disorders: No Disorders: No HTN: Yes Hypercholesterolemia: Yes Liver Disease: No Seizures: No Thyroid Disease: Yes (HYPO) - Surgical History Abdominal Surgery: No Appendectomy: No Cardiac Surgery: Yes (ABLATION: 2012) Cholecystectomy: No Lung Surgery: No (STENTS X2 05/2016) Neurologic Surgery: No Orthopedic Surgery: No - Suicide/Smoking/Psychosocial Hx Smoking Status: No Smoking History: Never smoked Have you smoked in the past 12 months: No Number of Cigarettes Smoked Daily: 0 If you are a former smoker, when did you quit?: 13 YRS AGO Hx Alcohol Use: No Drug/Substance Use Hx: No Substance Use Type: None Hx Substance Use Treatment: No Review of Systems - Review of Systems Constitutional: No: Chills, Fever ABD/GI: No: Nausea, Vomiting, Abdominal cramping : Yes: Dysuria. No: Flank Pain, Hematuria *Physical Exam - Physical Exam General Appearance: Yes: Appropriately Dressed. No: Apparent Distress HEENT: positive: Normal Voice Neck: positive: Supple Respiratory/Chest: negative: Respiratory Distress Gastrointestinal/Abdominal: positive: Soft. negative: Tender, Distended Musculoskeletal: negative: CVA Tenderness Integumentary: positive: Dry, Warm Neurologic: positive: Fully Oriented, Alert, Normal Mood/Affect ED Treatment Course - LABORATORY CBC & Chemistry Diagram: 06/15/17 09:00 06/15/17 09:00 - RADIOLOGY Radiology Studies Ordered: Category Date Time Status CHEST X-RAY PORTABLE* [RAD] Stat Radiology 06/15/17 08:50 Ordered Medical Decision Making - Medical Decision Making 06/15/17 08:53 57-year-old male history of insulin-dependent diabetes, hypertension, CAD with stents, ?ILD, uses oxygen PRN at home, BPH, on meds, s/p urethral stricture last year, w/ dilation, here with urinary retention 2 weeks and now complaining of dysuria. No hematuria, flank pain, nausea, vomiting, fever or chills. Saw Dr Cruz of urology 3 days ago with significant postvoid residual and states he is scheduled for unknown procedure this Tuesday, but was told to come to ED if symptoms worsen in the interim. No n/v See exam Urinary retention History of stricture in BPH Stable in ED with benign abdomen, but large distended bladder on bedside ultrasound performed with Dr. Dowd -Stephanie ordonez. -Labs - consult -dispo pending 06/15/17 10:30 Retrocardiac opacity seen on chest x-ray. Clinically, no evidence of pneumonia. No cough, shortness of breath, chest pain, fever or chills and no leukocytosis on labs. As noted above, patient has history of possible interstitial lung disease and uses oxygen at home PRN 06/15/17 10:32 Pt able to void ~50cc urine w/ UA with leuks and >400 WBCs. Chem wnl. Bedside ultrasound shows large distended bladder. ED nurse and Dr. Dowd unable to place Brown in ED, despite multiple attempts. At this time still have not heard back from Dr. Cruz after multiple pages. Will hold off on antibiotics until discussed with Ade 06/15/17 10:[address] Mitra Cruz who wants pt listed to Dr Quinones for possible recurrent urethral stricture. States he will be at the bedside in about an hour and requests that I call central supply to set up tray including 16 Telugu coud and lidojet 06/15/17 11:01 06/15/17 11:59 Dr Quinones aware of admission *DC/Admit/Observation/Transfer Diagnosis at time of Disposition: Urinary retention - Discharge Dispostion Disposition: HOME Condition at time of disposition: Fair Admit: Yes - Referrals - Patient Instructions - Post Discharge Activity
[2017-06-15 09:06] LABS: EOS % 0.2 % (0-4.5); LYMPH % 2.8 % (8-40)
[2017-06-15 09:12] VITALS: BMI 34.7
[2017-06-15 09:12] LABS: BASO % 0.3 % (0-2.0); HEMATOCRIT 50.2 % (35.4-49); HEMOGLOBIN 15.4 GM/dL (11.7-16.9); MCH 23.4 pg (25.7-33.7); MCHC 30.7 g/dl (32.0-35.9); MEAN CELL VOLUME 76.1 fl (80-96); MEAN PLT VOLUME 10.1 fl (7.5-11.1); MONO % 5.9 % (3.8-10.2); NEUT % 90.8 % (42.8-82.8); PLATELET COUNT 146 K/MM3 (134-434); RDW 17.9 % (11.9-15.9); WHITE BLOOD COUNT 10.8 K/mm3 (4.0-10.0)
[2017-06-15] MEDS ORDERED: LORazepam 0.5 MG TABLET PO ONE (09:14)
[2017-06-15 09:34] LABS: ALBUMIN 3.7 g/dl (3.4-5.0); ANION GAP 8 (8-16); BLOOD UREA NITROGEN 16 mg/dL (7-18); CHLORIDE 99 mmol/L (98-107); CO2 33 mmol/L (21-32); GLUCOSE,RANDOM 128 mg/dL (74-106); POTASSIUM 4.2 mmol/L (3.5-5.1); SODIUM 140 mmol/L (136-145)
[2017-06-15 09:35] LABS: ALK PHOS 63 U/L (45-117); CREATININE 1.2 mg/dL (0.7-1.3); SGOT/AST 12 U/L (15-37); SGPT/ALT 21 U/L (12-78)
[2017-06-15] MEDS ORDERED: LORazepam 0.5 MG TABLET ONE (09:35)
[2017-06-15] MEDS ORDERED: SULFAMETHOXAZOLE/TRIMETHOPRIM 800MG/160MG D.S. TABLET PO ONE (09:48)
--- NOTE | 2017-06-15 09:49 | PDOC ---
*Physical Exam - Vital Signs Last Vital Signs Temp Pulse Resp BP Pulse Ox 99.1 F 110 H 20 141/83 98 06/15/17 07:00 06/15/17 09:42 06/15/17 09:42 06/15/17 09:42 06/15/17 09:42 - Physical Exam Comments: 06/15/17 09:49 The patient was examined by [CASS Cameron] under my direct supervision. I personally evaluated the patient. I concur with the above findings and the plan of care. ED Treatment Course - LABORATORY CBC & Chemistry Diagram: 06/22/17 05:35 06/22/17 05:35 - ADDITIONAL ORDERS Additional order review: 06/15/17 09:00 RBC 6.60 H MCV 76.1 L MCHC 30.7 L RDW 17.9 H MPV 10.1 Neutrophils % 90.8 H D Lymphocytes % 2.8 L D Monocytes % 5.9 Eosinophils % 0.2 D Basophils % 0.3 *DC/Admit/Observation/Transfer Diagnosis at time of Disposition: Urinary retention - Discharge Dispostion Disposition: HOME Condition at time of disposition: Fair - Referrals - Patient Instructions - Post Discharge Activity
[2017-06-15] MEDS ORDERED: SULFAMETHOXAZOLE/TRIMETHOPRIM 800MG/160MG D.S. TABLET ONE (09:50)
[2017-06-15 10:05] LABS: URINE APPEARANCE CLOUDY; URINE BILIRUBIN NEGATIVE (NEGATIVE); URINE BLOOD 3+ (NEGATIVE); URINE COLOR RED; URINE GLUCOSE (UA) 3+ (NEGATIVE); URINE KETONE NEGATIVE (NEGATIVE); URINE NITRITE NEGATIVE (NEGATIVE); URINE UROBILINOGEN NEGATIVE mg/dL (0.2-1.0)
[2017-06-15 10:11] LABS: URINE LEUK ESTERASE 3+ (NEGATIVE); URINE PROTEIN 1+ (NEGATIVE)
[2017-06-15] MEDS ORDERED: HYDROmorphone HCL CARPU-JECT 2 MG/1 ML DISP.SYRIN ONE (13:13)
[2017-06-15] MEDS ORDERED: HYDROmorphone HCL CARPU-JECT 2 MG/1 ML DISP.SYRIN IM ONE ×2 (13:15→13:43)
--- NOTE | 2017-06-15 13:36 | CONSULT ---
Consult Consult Specialty:: Nephrology Referred by:: Dr Cruz Reason for Consultation:: elevated creatinine - History of Present Illness Chief Complaint: dysuria History of Present Illness: Pt is a 57 year old male with pmhx of DM, HTN, CAD and BPH who presents to ER with dysuria. I was called by urology to evaluate pt as he had elevate creatinine as outpt. He denies history of CKD. He complains of dysuria and hematuria. He does get shortness of breath at times. He denies nsaid use. He denies fevers or chills. He has had urethral strictures in the past. - History Source History Provided By: Patient, Medical Record - Past Medical History Cardio/Vascular: Yes: CAD (mild CAD), HTN, Hyperlipdemia, Other (atrial flutter s/p ablation) Pulmonary: Yes: COPD, Sleep Apnea Endocrine: Yes: Diabetes Mellitus - Alcohol/Substance Use Hx Alcohol Use: No History of Substance Use: reports: None - Smoking History Smoking history: Never smoked Have you smoked in the past 12 months: No Aproximately how many cigarettes per day: 0 If you are a former smoker, when did you quit?: 13 YRS AGO - Social History Usual Living Arrangement: Alone ADL: Independent Occupation: works at [employer] History of Recent Travel: No Home Medications - Allergies Allergies/Adverse Reactions: Allergies Allergy/AdvReac Type Severity Reaction Status Date / Time No Known Allergies Allergy Verified 06/15/17 09:13 - Home Medications Home Medications: Ambulatory Orders Insulin (Levemir) [Levemir Flexpen -] 20 units SQ HS 07/05/13 Levothyroxine [Synthroid -] 50 mcg PO DAILY@0700 #30 tablet 08/16/14 Albuterol 2.5/Ipratropium 0.5 [Duoneb -] 1 neb NEB Q4H PRN #30 vial 12/26/14 Fenofibrate 160 mg PO DAILY #30 tablet 12/26/14 Canagliflozin [Invokana] 300 mg PO DAILY 05/18/16 Fluticasone/Salmeterol [Advair 250-50 Diskus] 1 each IH BID 05/18/16 Furosemide [Lasix -] 20 mg PO DAILY 05/18/16 Linagliptin/Metformin HCl [Jentadueto 2.5 mg-500 mg Tab] 1 each PO BID 05/18/16 Metoprolol Tartrate [Lopressor -] 50 mg PO BID 05/18/16 Silodosin [Rapaflo] 8 mg PO DAILY 05/18/16 Aspirin [ASA -] 81 mg PO DAILY 01/04/17 Clopidogrel Bisulfate [Plavix -] 75 mg PO DAILY 01/04/17 Colchicine 0.6 mg PO DAILY 01/05/17 Family Disease History - Family Disease History Family History: Denies Review of Systems - Review of Systems Constitutional: reports: Malaise Eyes: reports: No Symptoms HENT: reports: No Symptoms Neck: reports: No Symptoms Cardiovascular: reports: No Symptoms Respiratory: reports: Cough, SOB, SOB on Exertion Gastrointestinal: reports: No Symptoms Genitourinary: reports: Dysuria, Hematuria Musculoskeletal: reports: No Symptoms Integumentary: reports: No Symptoms Neurological: reports: No Symptoms Endocrine: reports: No Symptoms Hematology/Lymphatic: reports: No Symptoms Psychiatric: reports: No Symptoms Physical Exam Vital Signs: Vital Signs Temperature 100.1 F H 06/15/17 12:56 Pulse Rate 117 H 06/15/17 12:56 Respiratory Rate 20 06/15/17 12:56 Blood Pressure 126/66 06/15/17 12:56 O2 Sat by Pulse Oximetry (%) 98 06/15/17 09:42 Constitutional: Yes: Calm Eyes: Yes: Conjunctiva Clear HENT: Yes: Atraumatic Neck: Yes: Supple Cardiovascular: Yes: S1, S2 Respiratory: Yes: CTA Bilaterally Gastrointestinal: Yes: Soft, Abdomen, Obese Renal/: Yes: WNL. No: CVA Tenderness - Left, CVA Tenderness - Right Musculoskeletal: Yes: WNL Edema: No Neurological: Yes: WNL Psychiatric: Yes: Oriented Labs: CBC, BMP 06/15/17 09:00 06/15/17 09:00 Laboratory Tests 06/15/17 06/15/17 06/15/17 09:00 09:00 09:50 WBC 10.8 H Hct 50.2 H D Plt Count 146 Sodium 140 Potassium 4.2 Chloride 99 Carbon Dioxide 33 H Anion Gap 8 BUN 16 D Creatinine 1.2 Urine Protein 1+ H Urine Glucose (UA) 3+ H Urine Blood 3+ H Imaging - Results Chest X-ray: Report Reviewed (cardiomegaly) Problem List - Problems (1) Urinary retention Code(s): R33.9 - RETENTION OF URINE, UNSPECIFIED (2) CHF (congestive heart failure) Code(s): I50.9 - HEART FAILURE, UNSPECIFIED (3) HTN (hypertension) Code(s): I10 - ESSENTIAL (PRIMARY) HYPERTENSION Assessment/Plan Impression 1. urinary retention 2. htn 3. DM 4. proteinuria/hematuria 5. CAD Plan - discussed case with and they will place gautam - bedside ultrasound in ER showed distended bladder - check ultrasound kidneys and bladder - repeat labs in am - will need to repeat ua to evaluate proteinuria once urologic issues are resolved - resume home meds - avoid nsaids - monitor urine output after gautam for signs of post obstructive diuresis - will follow Dr Lynn
--- NOTE | 2017-06-15 14:50 | EKG ---
Test Reason : Blood Pressure : / mmHG Vent. Rate : 113 BPM Atrial Rate : 113 BPM P-R Int : 136 ms QRS Dur : 144 ms QT Int : 352 ms P-R-T Axes : 061 242 004 degrees QTc Int : 482 ms SINUS TACHYCARDIA BIATRIAL ENLARGEMENT RIGHT BUNDLE BRANCH BLOCK ANTEROSEPTAL INFARCT , AGE UNDETERMINED ABNORMAL ECG WHEN COMPARED WITH ECG OF 19-MAY-2016 02:58, SINUS RHYTHM HAS REPLACED ATRIAL FIBRILLATION RIGHT BUNDLE BRANCH BLOCK HAS REPLACED NON-SPECIFIC INTRA-VENTRICULAR CONDUCTION BLOCK ANTEROSEPTAL INFARCT IS NOW PRESENT Confirmed by LUCY SIDHU, HORACIO ([id number]) on 06/15/2017 2:50:13 PM Referred By: Confirmed By:HORACIO AYALA MD
[2017-06-15] MEDS ORDERED: SODIUM CHLORIDE 2,000 ML IV STA ×3 (15:01→15:03)
[2017-06-15] MEDS ORDERED: cefTRIAXone 1 GM/50 ML BAG (PRE-DOCKED) IVPB SCH (15:01)
--- NOTE | 2017-06-15 15:08 | CONS ---
DATE OF CONSULTATION: DATE OF DICTATION: 06/15/2017 HISTORY OF PRESENT ILLNESS: The patient is a 57-year-old male admitted via the emergency room in acute urinary retention. Multiple attempts at placement of Brown were unsuccessful due to posterior urethral stricture and/or bladder neck contracture. The patient was seen in my office several days ago, and postvoid residual revealed 800 mL of residual urine. A Brown was recommended, but the patient refused. In the emergency room, the patient's white count was 10.8, hemoglobin 15.4, hematocrit 50.2, platelets 146. The patient was afebrile. His pulse was 110. Blood pressure was 140/83. Chemistries revealed BUN , creatinine 1.2, random glucose 128. PAST MEDICAL HISTORY: The patient does have history of atherosclerotic heart disease. PAST SURGICAL HISTORY: He has undergone angioplasty at [facility] in June 2015, and underwent placement of 2 stents. The patient also had 2 episodes of radiofrequency ablation for supraventricular tachycardia, at [facility] in 2015 and early last year at [facility]. He denies any other surgical procedures. MEDICATIONS: Presently he is on multiple medications, including Levemir, Synthroid, albuterol, fenofibrate, Invokana, fluticasone/salmeterol (Advair), Lasix, Jentadueto, metoprolol, Rapaflo, aspirin, Plavix, and colchicine. HABITS: He denies ethanolism or tobacco. REVIEW OF SYSTEMS: He states he has been having dribbling and as of last night he was unable to void. He no longer has atrial fibrillation or flutter because of the radiofrequency ablations. He does have dyslipidemia and hypothyroidism. PHYSICAL EXAMINATION: Presently his abdomen is globus. His bladder is distended. The patient is in mild distress. After several attempts at Brown placement, a filiform and follower were introduced. The bladder was dilated to 18 [place], and 1000 mL of dusky urine was drained. The filiform and follower were left in the bladder and secured to the urethra and attached to a drainage bag. IMPRESSION: A 57-year-old male with multiple medical problems and acute urinary retention. RECOMMENDATIONS: He will need a stat cystoscopy and urethral dilation, with placement of a Brown catheter. Ade [id number]
[2017-06-15] MEDS ORDERED: CEFTRIAXONE 1 GM in DEXTROSE 5%-WATER - 50 ML IVPB ONE (15:17)
--- NOTE | 2017-06-15 15:17 | RAPID ---
Physical Examination Vital Signs: Vital Signs Temperature 102.7 F H 06/15/17 14:43 Pulse Rate 120 H 06/15/17 14:43 Respiratory Rate 24 06/15/17 14:43 Blood Pressure 125/72 06/15/17 14:43 O2 Sat by Pulse Oximetry (%) 98 06/15/17 09:42 Labs: CBC, BMP 06/15/17 09:00 06/15/17 09:00 Rapid Response - Rapid Response Assessment: Rapid response were called for pt mentioned after his O2 sat drop to 50 % Pt is AAOx3 laying down on his side , in mild distress. was given 2 gm of Dilauded that might cause to suppress his breathing. Vitals: RR 24, pulse 119, tep 102.7 , BP 126/66, PE: General : AAOx 3 Head NC/AT Neck: supple Lungs: CTA B/L Heart : Normal S1, S2 Abdomen , Obese . soft , non distended, non tender , Brown in place Legs with no edema , pulse +2 A/P ABG CXR CBC, CMP Blood cx Urine cx NS 2 L bolus , NS @ 100 CC/hr 2 gm ivbp Ceftriaxone state now , continue on 1 gm daily for 7 days Transfer to ICU consult Pulmonary Consult ID IV tylenol 1 gm
[2017-06-15] MEDS ORDERED: CEFTRIAXONE 2 GM in DEXTROSE 5%-WATER - 100 ML IVPB ONE (15:21)
[2017-06-15 15:25] LABS: ARTERIAL BLD GAS O2 SATURATION 97.8 % (90-98.9); ARTERIAL BLOOD GAS BASE EXCESS 0.7 meq/l (-2-2); ARTERIAL BLOOD GAS pH 7.24 (7.35-7.45)
[2017-06-15 15:28] LABS: ALLENS TEST POSITIVE
[2017-06-15 15:31] LABS: ARTERIAL BLOOD GAS PCO2 75.4 mmHg (35-45)
--- NOTE | 2017-06-15 15:48 | CONSULT ---
Consult Consult Specialty:: Pulm/CCU Referred by:: Joni Reason for Consultation:: Sepsis, UTI - History of Present Illness Chief Complaint: Fever, hypoxia, hypotension History of Present Illness: 57 year old M with pmh of HTN, DM, CAD, Chronic hypoxic respiratory failure, BPH , SHEKHAR, and urethral stricture who presented to the ED with 2 weeks of urinary retention and with dysuria. Patient was admitted to the floor where he had an episode of hypoxia, fever, and mild hypotension (Sbp around 102). Patient was then transferred to the ICU. History difficult to obtain 2/2 to lethargy from 2mg of dilaudid patient received in the ED. - History Source History Provided By: Patient Limitations to Obtaining History: Unresponsive - Past Medical History Cardio/Vascular: Yes: CAD (mild CAD), HTN, Hyperlipdemia, Other (atrial flutter s/p ablation) Pulmonary: Yes: COPD, Sleep Apnea Endocrine: Yes: Diabetes Mellitus - Alcohol/Substance Use Hx Alcohol Use: No History of Substance Use: reports: None - Smoking History Smoking history: Never smoked Have you smoked in the past 12 months: No Aproximately how many cigarettes per day: 0 If you are a former smoker, when did you quit?: 13 YRS AGO - Social History Usual Living Arrangement: Alone ADL: Independent Occupation: works at [employer] History of Recent Travel: No Home Medications - Allergies Allergies/Adverse Reactions: Allergies Allergy/AdvReac Type Severity Reaction Status Date / Time No Known Allergies Allergy Verified 06/15/17 09:13 - Home Medications Home Medications: Ambulatory Orders Insulin (Levemir) [Levemir Flexpen -] 20 units SQ HS 07/05/13 Levothyroxine [Synthroid -] 50 mcg PO DAILY@0700 #30 tablet 08/16/14 Albuterol 2.5/Ipratropium 0.5 [Duoneb -] 1 neb NEB Q4H PRN #30 vial 12/26/14 Fenofibrate 160 mg PO DAILY #30 tablet 12/26/14 Canagliflozin [Invokana] 300 mg PO DAILY 05/18/16 Fluticasone/Salmeterol [Advair 250-50 Diskus] 1 each IH BID 05/18/16 Furosemide [Lasix -] 20 mg PO DAILY 05/18/16 Linagliptin/Metformin HCl [Jentadueto 2.5 mg-500 mg Tab] 1 each PO BID 05/18/16 Metoprolol Tartrate [Lopressor -] 50 mg PO BID 05/18/16 Silodosin [Rapaflo] 8 mg PO DAILY 05/18/16 Aspirin [ASA -] 81 mg PO DAILY 01/04/17 Clopidogrel Bisulfate [Plavix -] 75 mg PO DAILY 01/04/17 Colchicine 0.6 mg PO DAILY 01/05/17 Family Disease History - Family Disease History Family History: Unable to Obtain Review of Systems Unable to obtain ROS, reason: 2/2 to patient lethargy Physical Exam Vital Signs: Vital Signs Temperature 102.7 F H 06/15/17 14:43 Pulse Rate 120 H 06/15/17 14:43 Respiratory Rate 24 06/15/17 14:43 Blood Pressure 125/72 06/15/17 14:43 O2 Sat by Pulse Oximetry (%) 98 06/15/17 09:42 Constitutional: Yes: Well Nourished, Calm, Other (Lethargic, Arousable) Cardiovascular: Yes: Tachycardia, S1, S2. No: JVD, Murmur Respiratory: Yes: Regular, Diminished. No: Rhonchi, Wheezes Gastrointestinal: Yes: Normal Bowel Sounds, Soft, Abdomen, Obese Renal/: Yes: Bladder Distention, Gautam Present, Hematuria, Scrotal Edema Labs: CBC, BMP 06/15/17 09:00 06/15/17 09:00 Assessment/Plan 57 year old M with pmh of HTN, DM, CAD, Chronic hypoxic respiratory failure, BPH , SHEKHAR, and urethral stricture sent to ICU for fever, hypoxia, and hypotenstion. #CV Hx of CAD HTN DM -Cardiac profile pending -Echo pending given cxr finding -O2 NRB #Resp Acute on chronic hypoxic respiratory failure Long time smoker, O2 sats dropped to 50% on floor -Monitor respiratory status -Monitor O2 -On O2 NRB -Avoid narcotics-- given 2mg of dilaudid in ED -F/u CXR #ID UTI ?Sepsis 2/2 to UTI with potential bacteremia -F/u blood cultures -F/u urine cultures -Flu swab pending -Lactic acid pending -Basic labs pending to monitor H/H given blood loss during gautam insertion -Ceftriaxone 2g given -IVF NS @ 100 cc/hr -Dr. Rahman on board # Urinary retention with BPH and urethral strictures -Gautam in place draining bloody output -F/u Scrotum u/s -Dr. Cruz on board #Renal -Cr elevated -Avoid nephrotoxic medications -repeat UA once urologic issues resolved -Monitor urine output, creatinine -F/u ultrasound of kidneys/bladder -Dr. Lynn on board #FEN/GI -IVF NS @ 100 cc/hr -Monitor BMP -Currently NPO #PPx -SCDs #Dispo: Continue ICU level of care
--- NOTE | 2017-06-15 15:54 | PN ---
Teaching Attending Note Name of Resident: Quirino Ca ATTENDING PHYSICIAN STATEMENT I saw and evaluated the patient. I reviewed the resident's note and discussed the case with the resident. I agree with the resident's findings and plan as documented. SUBJECTIVE: Pt seen and examined in the ICU. Briefly, 57yo male with h/o HTN, DM, CAD s/p stents, chronic hypoxic respiratory failure on home O2, SHEKHAR, BPH s/p ureteral stricture who was admitted with urinary retention and dysuria. Febrile to 102.7 today with hypotension, tachyardia and acute hypoxic episode, transferred to the ICU for further monitoring. Currently lethargic but arousable, unable to provide reliable history at this time. Had received pain medications earlier. OBJECTIVE: Last Vital Signs Temp Pulse Resp BP Pulse Ox 102.7 F H 120 H 24 125/72 98 06/15/17 14:43 06/15/17 14:43 06/15/17 14:43 06/15/17 14:43 06/15/17 09:42 Intake & Output 06/12/17 06/13/17 06/14/17 06/15/17 23:59 23:59 23:59 23:59 Weight 106.594 kg Gen: lethargic but arousable, diaphoretic on NRB Heart: tachycardic, regular Lung: distant breath sounds, no wheezes/rhonchi Abd: soft, nontender Ext: no edema CBC, BMP 06/15/17 09:00 06/15/17 09:00 Active Medications Acetaminophen (Ofirmev Injection -) 1,000 mg IVPB ONCE ONE Stop: 06/15/17 15:01 Hydromorphone HCl (Dilaudid Injection -) 2 mg IM ONCE ONE Stop: 06/15/17 13:44 Last Admin: 06/15/17 14:44 Dose: Not Given Sodium Chloride (Normal Saline -) 2,000 mls @ 1,000 mls/hr IV ASDIR STA Stop: 06/15/17 17:01 Sodium Chloride (Normal Saline -) 1,000 mls @ 100 mls/hr IV ASDIR DEIDRE Ceftriaxone Sodium 2 gm/ (Dextrose) 100 mls @ 200 mls/hr IVPB ONCE ONE Stop: 06/15/17 16:11 Oxycodone/Acetaminophen (Percocet 5/325 -) 1 combo PO Q4H PRN PRN Reason: PAIN LEVEL 1-5 Stop: 06/16/17 13:42 ASSESSMENT AND PLAN: UTI r/o Bacteremia Urinary Retention/BPH/ h/o Strictures Sepsis Acute on Chronic Hypoxic Respiratory Failure CAD s/p stents Obstructive Sleep Apnea HTN DM - send blood cultures - f/u urine culture - lactic acid level - check CBC as large volume bloody output reported during gautam placement - IVF resuscitation - monitor urine output, creatinine - O2 to keep SpO2 >90% - minimize narcotics - f/u - echocardiogram given increased interstitial markings and likely pulmonary HTN and chronic hypoxia - mechanical DVT prophylaxis for now - ICU monitoring Thank you for this consult Nathan Huynh MD
[2017-06-15] MEDS ORDERED: ACETAMINOPHEN 1000 MG/100 ML VIAL (NON FORMULARY) IVPB ONE (16:00)
--- NOTE | 2017-06-15 16:12 | CON.ID ---
Consult Consult Specialty:: infectious diseases Reason for Consultation:: sepsis - History of Present Illness History of Present Illness: 57 year old M with pmh of HTN, DM, CAD, Chronic hypoxic respiratory failure, BPH , SHEKHAR, and urethral stricture who presented to the ED with 2 weeks of urinary retention and with dysuria. In the er patient was tired catheterization which failed patient was then catheterized by urologist which according patient had a lot of blood which was drained Patient then became hypoxic on the floor with fever hypotension and was then transferred to the ICU. patient received diluadid on the floor and currently patient is unable to give any history a rapid response was called on the patient - History Source History Provided By: Medical Record Limitations to Obtaining History: Clinical Condition - Past Medical History Cardio/Vascular: Yes: CAD (mild CAD), HTN, Hyperlipdemia, Other (atrial flutter s/p ablation) Pulmonary: Yes: COPD, Sleep Apnea Endocrine: Yes: Diabetes Mellitus - Alcohol/Substance Use Hx Alcohol Use: No History of Substance Use: reports: None - Smoking History Smoking history: Never smoked Have you smoked in the past 12 months: No Aproximately how many cigarettes per day: 0 If you are a former smoker, when did you quit?: 13 YRS AGO - Social History Usual Living Arrangement: Alone ADL: Independent Occupation: works at [employer] History of Recent Travel: No Home Medications - Allergies Allergies/Adverse Reactions: Allergies Allergy/AdvReac Type Severity Reaction Status Date / Time No Known Allergies Allergy Verified 06/15/17 09:13 - Home Medications Home Medications: Ambulatory Orders Insulin (Levemir) [Levemir Flexpen -] 20 units SQ HS 07/05/13 Levothyroxine [Synthroid -] 50 mcg PO DAILY@0700 #30 tablet 08/16/14 Albuterol 2.5/Ipratropium 0.5 [Duoneb -] 1 neb NEB Q4H PRN #30 vial 12/26/14 Fenofibrate 160 mg PO DAILY #30 tablet 12/26/14 Canagliflozin [Invokana] 300 mg PO DAILY 05/18/16 Fluticasone/Salmeterol [Advair 250-50 Diskus] 1 each IH BID 05/18/16 Furosemide [Lasix -] 20 mg PO DAILY 05/18/16 Linagliptin/Metformin HCl [Jentadueto 2.5 mg-500 mg Tab] 1 each PO BID 05/18/16 Metoprolol Tartrate [Lopressor -] 50 mg PO BID 05/18/16 Silodosin [Rapaflo] 8 mg PO DAILY 05/18/16 Aspirin [ASA -] 81 mg PO DAILY 01/04/17 Clopidogrel Bisulfate [Plavix -] 75 mg PO DAILY 01/04/17 Colchicine 0.6 mg PO DAILY 01/05/17 Review of Systems Unable to obtain ROS, reason: unable Physical Exam Vital Signs: Vital Signs Temperature 102.7 F H 06/15/17 14:43 Pulse Rate 120 H 06/15/17 14:43 Respiratory Rate 24 06/15/17 14:43 Blood Pressure 125/72 06/15/17 14:43 O2 Sat by Pulse Oximetry (%) 98 06/15/17 09:42 Constitutional: Yes: Other HENT: Yes: Atraumatic, Normocephalic Neck: Yes: Supple, Trachea Midline Cardiovascular: Yes: Tachycardia, S1, S2 Respiratory: Yes: Regular, On Nasal O2, Poor Air Entry Gastrointestinal: Yes: Normal Bowel Sounds, Soft, Tenderness (suprapubic) Renal/: Yes: Brown Present Musculoskeletal: Yes: WNL Extremities: Yes: WNL Neurological: Yes: Other Labs: CBC, BMP 06/15/17 09:00 06/15/17 09:00 Imaging - Results Chest X-ray: Report Reviewed, Image Reviewed X-ray: Image Reviewed Assessment/Plan ASSESSMENT AND PLAN: UTI bph/strictures r/o bacteremia resp failure sepsis urinary retention hematuria shekhar htn dm plan will start patient on zosyn await for all cx resp support close monitoring monitor wbc await for u/s prostate results hydration as needed rest as per icu cc time 45 min
[2017-06-15] MEDS ORDERED: CEFTRIAXONE IN IS-OSM DEXTROSE 2 GM/50 ML BAG IVPB ONE (16:15)
[2017-06-15 16:17] LABS: BASO % 0.4 % (0-2.0); EOS % 0.1 % (0-4.5); HEMATOCRIT 50.1 % (35.4-49); HEMOGLOBIN 15.5 GM/dL (11.7-16.9); LYMPH % 4.7 % (8-40); MCH 23.8 pg (25.7-33.7); MCHC 30.9 g/dl (32.0-35.9); MEAN CELL VOLUME 76.9 fl (80-96); MEAN PLT VOLUME 9.5 fl (7.5-11.1); NEUT % 86.8 % (42.8-82.8); PLATELET COUNT 140 K/MM3 (134-434); RBC 6.51 M/mm3 (4.00-5.60); RDW 18.5 % (11.9-15.9); WHITE BLOOD COUNT 8.8 K/mm3 (4.0-10.0)
[2017-06-15] MEDS ORDERED: DEXTROSE 5%-0.45% SALINE 1,000 ML IV SCH (16:30)
[2017-06-15] MEDS ORDERED: ALBUTEROL SO4 2.5/IPRATROPIUM 0.5 INH SOL 3 ML VIAL.NEB. NEB PRN (16:30)
[2017-06-15 16:41] LABS: INR 1.33 (0.82-1.09)
[2017-06-15 16:43] LABS: ACTIVATED PTT 32.5 SECONDS (26.9-34.4)
[2017-06-15 16:51] LABS: ALBUMIN 3.9 g/dl (3.4-5.0); ALK PHOS 68 U/L (45-117); ANION GAP 5 (8-16); BILIRUBIN,TOTAL 0.9 mg/dL (0.2-1.0); BLOOD UREA NITROGEN 19 mg/dL (7-18); CHLORIDE 100 mmol/L (98-107); CO2 32 mmol/L (21-32); CREATININE 1.3 mg/dL (0.7-1.3); GLUCOSE,RANDOM 113 mg/dL (74-106); POTASSIUM 4.3 mmol/L (3.5-5.1); SGOT/AST 19 U/L (15-37); SGPT/ALT 26 U/L (12-78); SODIUM 137 mmol/L (136-145)
[2017-06-15] MEDS ORDERED: SODIUM CHLORIDE 1,000 ML IV SCH (17:01)
[2017-06-15] MEDS: PIPERACILLIN/TAZOB 4.5 GM 4.5 GM in DEXTROSE 5%-WATER - 100 ML IVPB SCH (18:36)
--- NOTE | 2017-06-15 21:01 | HP ---
Admitting History and Physical - Admission History of Present Illness: Pt is a 57 y/o male with pmh significnat for HTN, DM, CAD, Chronic hypoxic respiratory failure, BPH, SHEKHAR, and urethral stricture who presented to the ED with 2 weeks of urinary retention and with dysuria. Pt is lethargic and unable to give a history. Patient was admitted to the floor where he had an episode of hypoxia, fever, and mild hypotension (Sbp around 102). Patient was then transferred to the ICU for sepsis. - Past Medical History Cardiovascular: Yes: CAD (mild CAD), HTN, Hyperlipdemia, Other (atrial flutter s /p ablation) Pulmonary: Yes: COPD, Sleep Apnea Renal/: Yes: BPH Endocrine: Yes: Diabetes Mellitus - Past Surgical History Past Surgical History: Yes: None - Smoking History Smoking history: Never smoked Have you smoked in the past 12 months: No Aproximately how many cigarettes per day: 0 If you are a former smoker, when did you quit?: 13 YRS AGO - Alcohol/Substance Use Hx Alcohol Use: No History of Substance Use: reports: None - Social History ADL: Independent Occupation: works at [email or web address] History of Recent Travel: No Home Medications - Allergies Allergies/Adverse Reactions: Allergies Allergy/AdvReac Type Severity Reaction Status Date / Time No Known Allergies Allergy Verified 06/15/17 09:13 - Home Medications Home Medications: Ambulatory Orders Insulin (Levemir) [Levemir Flexpen -] 20 units SQ HS 07/05/13 Levothyroxine [Synthroid -] 50 mcg PO DAILY@0700 #30 tablet 08/16/14 Albuterol 2.5/Ipratropium 0.5 [Duoneb -] 1 neb NEB Q4H PRN #30 vial 12/26/14 Fenofibrate 160 mg PO DAILY #30 tablet 12/26/14 Canagliflozin [Invokana] 300 mg PO DAILY 05/18/16 Fluticasone/Salmeterol [Advair 250-50 Diskus] 1 each IH BID 05/18/16 Furosemide [Lasix -] 20 mg PO DAILY 05/18/16 Linagliptin/Metformin HCl [Jentadueto 2.5 mg-500 mg Tab] 1 each PO BID 05/18/16 Metoprolol Tartrate [Lopressor -] 50 mg PO BID 01/03/17 Silodosin [Rapaflo] 8 mg PO DAILY 05/18/16 Aspirin [ASA -] 81 mg PO DAILY 01/04/17 Family Disease History - Family Disease History Family History: Unable to Obtain (lethargy) Review of Systems Unable to obtain ROS, reason: Lethargy Physical Examination Vital Signs: Vital Signs Temperature 99.4 F 06/15/17 18:00 Pulse Rate 92 H 06/15/17 20:12 Respiratory Rate 17 06/15/17 20:12 Blood Pressure 126/66 06/15/17 20:12 O2 Sat by Pulse Oximetry (%) 98 06/15/17 20:10 Constitutional: Yes: Well Nourished HENT: Yes: WNL Neck: Yes: WNL, Supple Cardiovascular: Yes: Tachycardia Respiratory: Yes: Diminished Gastrointestinal: Yes: WNL, Normal Bowel Sounds, Soft, Abdomen, Obese Extremities: Yes: WNL Edema: No Neurological: Yes: Lethargy ...Motor Strength: WNL Labs: CBC, BMP 06/15/17 15:45 06/15/17 15:45 Problem List - Problems (1) Sepsis Assessment/Plan: Pt w/ BPH and urinary retention Probable urosepsis/UTI Cont to trend lactic acid IV antibxs Follow cultures ID consult Pt transferred to ICU Code(s): A41.9 - SEPSIS, UNSPECIFIED ORGANISM (2) Respiratory failure Assessment/Plan: Multifactorial Pt also has a h/o sleep apnea/COPD Cont duoneb nebulizer/IV solumedrol Code(s): J96.90 - RESPIRATORY FAILURE, UNSP, UNSP W HYPOXIA OR HYPERCAPNIA (3) BPH (benign prostatic hyperplasia) Assessment/Plan: Cont flomax As per uro Code(s): N40.0 - BENIGN PROSTATIC HYPERPLASIA WITHOUT LOWER URINRY TRACT SYMP (4) Atrial flutter Assessment/Plan: Heart rate controlled Cont cardizem Cont xarelto Code(s): I48.92 - UNSPECIFIED ATRIAL FLUTTER (5) CHF (congestive heart failure) Assessment/Plan: Cont lasix Monitor electrolytes Code(s): I50.9 - HEART FAILURE, UNSPECIFIED (6) Diabetes Assessment/Plan: Cont sliding scale Code(s): E11.9 - TYPE 2 DIABETES MELLITUS WITHOUT COMPLICATIONS (7) HTN (hypertension) Code(s): I10 - ESSENTIAL (PRIMARY) HYPERTENSION (8) CAD (coronary artery disease) Code(s): I25.10 - ATHSCL HEART DISEASE OF [place] CORONARY ARTERY W/O ANG PCTRS (9) Obesity Code(s): E66.9 - OBESITY, UNSPECIFIED (10) SHEKHAR (obstructive sleep apnea) Code(s): G47.33 - OBSTRUCTIVE SLEEP APNEA (ADULT) (PEDIATRIC)
[2017-06-15] MEDS: CHLORHEXIDINE GLUCONATE 4% CLEANSER FOR DECOLONIZATION TP SCH (21:19)
[2017-06-15] MEDS: MUPIROCIN 2% TOPICAL OINTMENT FOR DECOLONIZATION NS SCH (21:19)
[2017-06-15] MEDS: INSULIN SLIDING SCALE (NOVOLOG) 1 VIAL SQ SCH (21:20)
[2017-06-15] MEDS ORDERED: MORPHINE SULFATE 10 MG/1 ML *VIAL IVPUSH PRN (22:27)
[2017-06-15] MEDS: SODIUM CHLORIDE 1,000 ML IV SCH (22:30)
[2017-06-16] MEDS: PIPERACILLIN/TAZOB 4.5 GM 4.5 GM in DEXTROSE 5%-WATER - 100 ML IVPB SCH ×3 (02:36→17:34)
[2017-06-16] MEDS ORDERED: PT OWN MED DRAWER 7, Y5N ONE ×3 (05:28→17:23)
[2017-06-16] MEDS: INSULIN SLIDING SCALE (NOVOLOG) 1 VIAL SQ SCH ×4 (06:08→22:52)
[2017-06-16] MEDS: LEVOTHYROXINE NA 50 MCG TABLET (FP) PO SCH (06:10)
[2017-06-16 06:22] LABS: BASO % 0.4 % (0-2.0); EOS % 0.1 % (0-4.5); HEMATOCRIT 50.9 % (35.4-49); HEMOGLOBIN 15.5 GM/dL (11.7-16.9); LYMPH % 3.4 % (8-40); MCH 23.9 pg (25.7-33.7); MCHC 30.4 g/dl (32.0-35.9); MEAN CELL VOLUME 78.5 fl (80-96); MEAN PLT VOLUME 10.1 fl (7.5-11.1); MONO % 8.2 % (3.8-10.2); NEUT % 87.9 % (42.8-82.8); PLATELET COUNT 143 K/MM3 (134-434); RBC 6.48 M/mm3 (4.00-5.60); RDW 18.3 % (11.9-15.9); WHITE BLOOD COUNT 9.9 K/mm3 (4.0-10.0)
[2017-06-16 06:39] LABS: INR 1.31 (0.82-1.09); PROTHROMBIN TIME (PATIENT) 14.8 SEC (9.98-11.88)
[2017-06-16 06:42] LABS: ACTIVATED PTT 34.4 SECONDS (26.9-34.4)
--- NOTE | 2017-06-16 07:42 | PN ---
Physical Exam: SUBJECTIVE: Patient seen and examined. Blood gases worse this morning on NRB oxygen. Patient says uses home O2 at 2.5L as he is chronically SOB. Has never used BIPAP before. No chest pain or cough. No abdominal pain. Gautam catheter in place, bag empty with traces of blood. OBJECTIVE: Vital Signs Period Temp Pulse Resp BP Sys/Cesar Pulse Ox Last 24 Hr 98.9 F-102.7 F 92-120 16-26 113-160/53-84 98-98 Vital Signs Temp 99.6 F 06/16/17 02:00 Pulse 97 H 06/16/17 06:00 Resp 20 06/16/17 06:00 BP 137/77 06/16/17 06:00 Pulse Ox 98 06/15/17 20:10 Intake & Output 06/13/17 06/14/17 06/15/17 06/16/17 23:59 23:59 23:59 23:59 Intake Total 2433 231 Output Total 1000 Balance 1433 231 Weight 106.594 kg 110.223 kg GENERAL: The patient is awake, but drowsy, in mild respiratory distress on NRB oxygen. HEAD: Normal with no signs of trauma. EYES: PERRL, extraocular movements intact, ENT: oropharynx clear without exudates, moist mucous membranes. NECK: supple. LUNGS: reduced breath sounds on L. HEART: Regular rate and rhythm, S1, S2 ABDOMEN: Mildly distended, firm, but tympanitic above suprapubic area. Dullness over suprapubic area, non tender. EXTREMITIES: 2+ pulses, warm, well-perfused, no edema, bilateral SCDS. NEUROLOGICAL: Cranial nerves II through XII grossly intact. Normal speech, gait not observed. PSYCH: Normal mood, normal affect. Lines:NRB mask, SCDs, LUE peripheral line, gautam catheter ABG Results ABG pH 7.17 (7.35-7.45) L* 06/16/17 11:43 ABG pCO2 at Pt Temp 77.4 mmHg (35-45) H* 06/16/17 11:43 ABG pO2 at Pt Temp 71.9 mmHg (80-100) L D 06/16/17 11:43 ABG HCO3 27.3 meq/L (22-26) H 06/16/17 11:43 ABG O2 Sat (Measured) 92.3 % (90-98.9) 06/16/17 11:43 ABG O2 Content 20.1 % vol (15-22) 06/16/17 11:43 ABG Base Excess -3.7 meq/l (-2-2) L 06/16/17 11:43 Laboratory Results - last 24 hr 06/15/17 06/15/17 06/15/17 09:00 09:00 09:00 WBC 10.8 H RBC 6.60 H Hgb 15.4 D Hct 50.2 H D MCV 76.1 L MCH 23.4 L MCHC 30.7 L RDW 17.9 H Plt Count 146 MPV 10.1 Neutrophils % 90.8 H D Lymphocytes % 2.8 L D Monocytes % 5.9 Eosinophils % 0.2 D Basophils % 0.3 PT with INR INR PTT (Actin FS) Puncture Site Patient Temperature ABG pH ABG pCO2 at Pt Temp ABG pO2 at Pt Temp ABG HCO3 ABG O2 Sat (Measured) ABG O2 Content ABG Base Excess [place] Test O2 Delivery Device Oxygen Flow Rate Sodium 140 Potassium 4.2 Chloride 99 Carbon Dioxide 33 H Anion Gap 8 BUN 16 D Creatinine 1.2 Creat Clearance w eGFR > 60 POC Glucometer Random Glucose 128 H Lactic Acid Calcium 9.0 Total Bilirubin 1.0 D AST 12 L ALT 21 Alkaline Phosphatase 63 Creatine Kinase Troponin I Total Protein 7.0 Albumin 3.7 Urine Color Urine Appearance Urine pH Ur Specific [place] Urine Protein Urine Glucose (UA) Urine Ketones Urine Blood Urine Nitrite Urine Bilirubin Urine Urobilinogen Ur Leukocyte Esterase Urine WBC (Auto) Urine RBC (Auto) Blood Type O POSITIVE Antibody Screen Negative 06/15/17 06/15/17 06/15/17 09:50 10:08 14:50 WBC RBC Hgb Hct MCV MCH MCHC RDW Plt Count MPV Neutrophils % Lymphocytes % Monocytes % Eosinophils % Basophils % PT with INR INR PTT (Actin FS) Puncture Site Patient Temperature ABG pH ABG pCO2 at Pt Temp ABG pO2 at Pt Temp ABG HCO3 ABG O2 Sat (Measured) ABG O2 Content ABG Base Excess [place] Test O2 Delivery Device Oxygen Flow Rate Sodium Potassium Chloride Carbon Dioxide Anion Gap BUN Creatinine Creat Clearance w eGFR POC Glucometer Random Glucose Lactic Acid Calcium Total Bilirubin AST ALT Alkaline Phosphatase Creatine Kinase 68 Troponin I 0.02 Total Protein Albumin Urine Color Red Urine Appearance Cloudy Urine pH 6.0 Ur Specific [place] 1.024 Urine Protein 1+ H Urine Glucose (UA) 3+ H Urine Ketones Negative Urine Blood 3+ H Urine Nitrite Negative Urine Bilirubin Negative Urine Urobilinogen Negative Ur Leukocyte Esterase 3+ H Urine WBC (Auto) 459 Urine RBC (Auto) 1190 Blood Type O POSITIVE Antibody Screen 06/15/17 06/15/17 06/15/17 15:02 15:45 15:45 WBC 8.8 RBC 6.51 H Hgb 15.5 Hct 50.1 H MCV 76.9 L MCH 23.8 L MCHC 30.9 L RDW 18.5 H Plt Count 140 MPV 9.5 Neutrophils % 86.8 H Lymphocytes % 4.7 L D Monocytes % 8.0 Eosinophils % 0.1 Basophils % 0.4 PT with INR INR PTT (Actin FS) Puncture Site Right radial Patient Temperature 102.0 ABG pH 7.24 L* ABG pCO2 at Pt Temp 75.4 H* D ABG pO2 at Pt Temp 137.0 H D ABG HCO3 30.8 H ABG O2 Sat (Measured) 97.8 ABG O2 Content 21.7 ABG Base Excess 0.7 [place] Test Positive O2 Delivery Device Non-rebreath Oxygen Flow Rate 100% Sodium 137 Potassium 4.3 Chloride 100 Carbon Dioxide 32 Anion Gap 5 L BUN 19 H Creatinine 1.3 Creat Clearance w eGFR 56.90 POC Glucometer Random Glucose 113 H Lactic Acid Calcium 8.0 L Total Bilirubin 0.9 AST 19 D ALT 26 D Alkaline Phosphatase 68 Creatine Kinase Troponin I Total Protein 7.0 Albumin 3.9 Urine Color Urine Appearance Urine pH Ur Specific [place] Urine Protein Urine Glucose (UA) Urine Ketones Urine Blood Urine Nitrite Urine Bilirubin Urine Urobilinogen Ur Leukocyte Esterase Urine WBC (Auto) Urine RBC (Auto) Blood Type Antibody Screen 06/15/17 06/15/17 06/15/17 15:45 15:45 15:45 WBC RBC Hgb Hct MCV MCH MCHC RDW Plt Count MPV Neutrophils % Lymphocytes % Monocytes % Eosinophils % Basophils % PT with INR 15.00 H INR 1.33 H PTT (Actin FS) 32.5 D Puncture Site Patient Temperature ABG pH ABG pCO2 at Pt Temp ABG pO2 at Pt Temp ABG HCO3 ABG O2 Sat (Measured) ABG O2 Content ABG Base Excess [place] Test O2 Delivery Device Oxygen Flow Rate Sodium Potassium Chloride Carbon Dioxide Anion Gap BUN Creatinine Creat Clearance w eGFR POC Glucometer Random Glucose Lactic Acid 0.9 Calcium Total Bilirubin AST ALT Alkaline Phosphatase Creatine Kinase Troponin I Total Protein Albumin Urine Color Urine Appearance Urine pH Ur Specific [place] Urine Protein Urine Glucose (UA) Urine Ketones Urine Blood Urine Nitrite Urine Bilirubin Urine Urobilinogen Ur Leukocyte Esterase Urine WBC (Auto) Urine RBC (Auto) Blood Type O POSITIVE Antibody Screen Negative 06/15/17 06/15/17 06/16/17 21:16 22:00 05:09 WBC RBC Hgb Hct MCV MCH MCHC RDW Plt Count MPV Neutrophils % Lymphocytes % Monocytes % Eosinophils % Basophils % PT with INR INR PTT (Actin FS) Puncture Site Patient Temperature ABG pH ABG pCO2 at Pt Temp ABG pO2 at Pt Temp ABG HCO3 ABG O2 Sat (Measured) ABG O2 Content ABG Base Excess [place] Test O2 Delivery Device Oxygen Flow Rate Sodium Potassium Chloride Carbon Dioxide Anion Gap BUN Creatinine Creat Clearance w eGFR POC Glucometer 129.43030 97.36791 Random Glucose Lactic Acid Calcium Total Bilirubin AST ALT Alkaline Phosphatase Creatine Kinase 51 Troponin I 0.06 H D Total Protein Albumin Urine Color Urine Appearance Urine pH Ur Specific [place] Urine Protein Urine Glucose (UA) Urine Ketones Urine Blood Urine Nitrite Urine Bilirubin Urine Urobilinogen Ur Leukocyte Esterase Urine WBC (Auto) Urine RBC (Auto) Blood Type Antibody Screen Scrotum u/s- 0.4 x0.4 solid hyperechoic Rt lesion on epididymal head which is non specific with broad differential including adematoid tumor Active Medications Generic Name Dose Route Start Last Admin Trade Name Vasu PRN Reason Stop Dose Admin Acetaminophen 325 mg 06/15/17 16:05 Tylenol - PO 06/18/17 16:04 Q4H PRN PAIN LEVEL 1-5 Albuterol/Ipratropium 1 amp 06/15/17 16:30 Duoneb - NEB Q4H PRN SHORTNESS OF BREATH Aspirin 81 mg 06/16/17 10:00 Asa - PO DAILY DEIDRE Chlorhexidine Gluconate 1 applic 06/15/17 22:00 06/15/17 21:19 Hibiclens For Decolonization - TP 1 applic HS DEIDRE Administration Fenofibric Acid 135 mg 06/16/17 10:00 Trilipix - PO DAILY DEIDRE Piperacillin Sod/Tazobactam 100 mls @ 200 mls/hr 06/15/17 18:00 06/16/17 02: 36 Sod 4.5 gm/ Dextrose IVPB 200 mls/hr Q8H-IV DEIDRE Administration Protocol Sodium Chloride 1,000 mls @ 33 mls/hr 06/15/17 22:26 06/15/17 22:30 Normal Saline - IV 33 mls/hr ASDIR DEIDRE Administration Insulin Aspart 1 vial 06/15/17 22:00 06/16/17 06:08 Novolog Vial Sliding Scale - SQ Not Given ACHS [facility] Protocol Levothyroxine Sodium 50 mcg 06/16/17 07:00 06/16/17 06:10 Synthroid - PO 50 mcg DAILY@0700 [facility] Administration Morphine Sulfate 1 mg 06/15/17 22:27 06/16/17 00:08 Morphine Injection - IVPUSH 1 mg Q3H PRN Administration PAIN LEVEL 1-5 Mupirocin 1 applic 06/15/17 22:00 06/15/17 21:19 Bactroban Ointment (For Decolonization) - NS 06/20/17 21:59 1 applic BID DEIDRE Administration Oxycodone HCl 5 mg 06/15/17 16:05 Roxicodone - PO Q4H PRN PAIN LEVEL 1-5 Tamsulosin HCl 0.4 mg 06/16/17 08:30 Flomax - PO DAILY@0830 [facility] ASSESSMENT/PLAN: 57 year old M with pmh of HTN, DM, CAD, Chronic hypoxic respiratory failure, BPH , SHEKHAR, and urethral stricture sent to ICU for fever, hypoxia, and hypotenstion. Cardio: Hx of CAD HTN DM Cardiac profile -trops peaked and trending down from 0.06 >>0.03 this am, likely demand ischemia Echo done this am -pending results Was on O2 NRB- with worsening acidosis- was changed to BIPAP at 16/5, RR-16, 50% oxygen Repeat ABG- not signif improved, if worsening may be intubated Pulm: Acute on chronic hypoxic respiratory failure, now hypoxic hypercapneic respiratory failure Long time smoker, O2 sats dropped to 50% on floor On home O2 at 2.5L Also diagnosed with SHEKHAR with AHI index in charts Has never used BIPAP Monitor O2 Was on O2 NRB- with worsening acidosis- was changed to BIPAP at 16/5, RR-16, 50% oxygen BIPAP later changed to 20/10, RR-16, 50% and ABG repeated after wards Repeat ABG- not signif improved, if worsening may be intubated Avoid narcotics-- given 2mg of dilaudid in ED CXR ID: Sepsis 2/2 to UTI with potential bacteremia in setting of obstructive uropathy Pending blood cultures urine cultures- pending organism Flu swab -ve Lactic acid -0.9 Polycytemic (chronic hypoxia) no evidence of anemia given blood loss during gautam insertion Continue Ceftriaxone 2g pending cultures IVF NS @ 100 cc/hr Dr. Rahman on board Genitourinary: Urinary retention with BPH and urethral strictures Gautam in place -blood stained empty bag (disconnection noted later, so urine voided not measurable although bladder scan yielded 351ml ) Scrotum u/s- 0.4 x0.4 solid hyperechoic Rt lesion on epididymal head which is non specific with broad differential including adematoid tumor. Dr. Cruz on board- D/W Dr Cruz due to sepsis procedure is on hold until patient improves Renal: Cr-1.2 today ROCKY R/O CKD likely 2/2 post renal obstruction Avoid nephrotoxic medications repeat UA once urologic issues resolved Monitor urine output, creatinine F/u ultrasound of kidneys/bladder Dr. Lynn on board FEN/GI: 500mls of Normal saline - to challenge kidneys IVF NS @ 100 cc/hr Monitor BMP Currently NPO- spoke with surgeon- Dr Cruz, procedure is postponed til more stable Prophylaxis: SCDs (hx of urethral bleed) Dispo: Continue ICU level of care For intubation if he remains lethargic Visit type - Emergency Visit Emergency Visit: Yes ED Registration Date: 06/15/17 Care time: The patient presented to the Emergency Department on the above date and was hospitalized for further evaluation of their emergent condition. - New Patient This patient is new to me today: Yes Date on this admission: 06/16/17 - Critical Care Critical Care patient: Yes Total Critical Care Time (in minutes): 40 Critical Care Statement: The care of this patient involved high complexity decision making to prevent further life threatening deterioration of the patient 's condition and/or to evaluate & treat vital organ system(s) failure or risk of failure. - Discharge Referral Referred to [facility] No
[2017-06-16 07:51] LABS: ALBUMIN 3.5 g/dl (3.4-5.0); ANION GAP 10 (8-16); BLOOD UREA NITROGEN 26 mg/dL (7-18); CALCIUM 7.8 mg/dL (8.5-10.1); CHLORIDE 101 mmol/L (98-107); CO2 28 mmol/L (21-32); GLUCOSE,RANDOM 107 mg/dL (74-106); MAGNESIUM 2.2 mg/dL (1.8-2.4); POTASSIUM 4.4 mmol/L (3.5-5.1); SODIUM 139 mmol/L (136-145)
[2017-06-16 07:57] LABS: ALK PHOS 74 U/L (45-117); BILIRUBIN,TOTAL 1.2 mg/dL (0.2-1.0); CREATININE 1.2 mg/dL (0.7-1.3); PHOSPHOROUS 5.5 mg/dL (2.5-4.9); SGOT/AST 42 U/L (15-37); SGPT/ALT 39 U/L (12-78); TOT PROT 6.9 g/dl (6.4-8.2)
[2017-06-16 08:27] LABS: ARTERIAL BLD GAS O2 SATURATION 95.7 % (90-98.9); ARTERIAL BLOOD GAS BASE EXCESS -4.8 meq/l (-2-2); ARTERIAL BLOOD GAS PO2 93.7 mmHg (80-100)
[2017-06-16 08:29] LABS: ALLENS TEST POSITIVE
[2017-06-16 08:33] LABS: ARTERIAL BLOOD GAS pH 7.14 (7.35-7.45)
[2017-06-16 08:34] LABS: ARTERIAL BLOOD GAS PCO2 84.8 mmHg (35-45)
[2017-06-16] MEDS: ASPIRIN 81 MG CHEWABLE TABLETS PO SCH (09:37)
[2017-06-16] MEDS: TAMSULOSIN HCL 0.4 MG CAP.ER.24H (FP) PO SCH (09:37)
[2017-06-16] MEDS: FENOFIBRIC ACID 135 MG CAP PO SCH (09:37)
[2017-06-16] MEDS: MUPIROCIN 2% TOPICAL OINTMENT FOR DECOLONIZATION NS SCH ×2 (09:38→22:52)
[2017-06-16] MEDS ORDERED: CLOPIDOGREL BISULFATE 75 MG TABLET (FP) PO SCH (10:00)
[2017-06-16] MEDS ORDERED: CEFTRIAXONE 1 GM in DEXTROSE 5%-WATER - 50 ML IVPB SCH (10:00)
[2017-06-16] MEDS ORDERED: cefTRIAXone 1 GM/50 ML BAG (PRE-DOCKED) IVPB SCH (10:00)
[2017-06-16] MEDS ORDERED: FUROSEMIDE 40 MG TABLET (FP) PO SCH (10:00)
--- NOTE | 2017-06-16 11:44 | CON.CARD ---
Consult Consult Specialty:: Cardiology Referred by:: Dr. 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 hematuria s/p recent procedure with resultant stricture and was planned for further procedure as outpatient admitted with urinary retention , fever, resultant sinus tachycardia, respiratory failure. Pt seen and examined in the ICU today, on bipap, mildly lethargic but wakes up and communicates coherently. - History Source History Provided By: Patient Limitations to Obtaining History: No Limitations - Past Medical History Cardio/Vascular: Yes: CAD (mild CAD), HTN, Hyperlipdemia, Other (atrial flutter s/p ablation) Pulmonary: Yes: COPD, Sleep Apnea Endocrine: Yes: Diabetes Mellitus - Alcohol/Substance Use Hx Alcohol Use: No History of Substance Use: reports: None - Smoking History Smoking history: Never smoked Have you smoked in the past 12 months: No Aproximately how many cigarettes per day: 0 If you are a former smoker, when did you quit?: 13 YRS AGO - Social History Usual Living Arrangement: Alone ADL: Independent Occupation: works at [id number] History of Recent Travel: No Home Medications - Allergies Allergies/Adverse Reactions: Allergies Allergy/AdvReac Type Severity Reaction Status Date / Time No Known Allergies Allergy Verified 06/15/17 09:13 - Home Medications Home Medications: Ambulatory Orders Insulin (Levemir) [Levemir Flexpen -] 20 units SQ HS 07/05/13 Levothyroxine [Synthroid -] 50 mcg PO DAILY@0700 #30 tablet 08/16/14 Albuterol 2.5/Ipratropium 0.5 [Duoneb -] 1 neb NEB Q4H PRN #30 vial 12/26/14 Fenofibrate 160 mg PO DAILY #30 tablet 12/26/14 Canagliflozin [Invokana] 300 mg PO DAILY 05/18/16 Fluticasone/Salmeterol [Advair 250-50 Diskus] 1 each IH BID 05/18/16 Furosemide [Lasix -] 20 mg PO DAILY 05/18/16 Linagliptin/Metformin HCl [Jentadueto 2.5 mg-500 mg Tab] 1 each PO BID 05/18/16 Metoprolol Tartrate [Lopressor -] 50 mg PO BID 05/18/16 Silodosin [Rapaflo] 8 mg PO DAILY 05/18/16 Aspirin [ASA -] 81 mg PO DAILY 01/04/17 Family Disease History - Family Disease History Family History: Denies Review of Systems - Review of Systems Constitutional: reports: Fever, Lethargy, Malaise, Weakness. denies: No Symptoms, Chills, Diaphoresis, Loss of Appetite, Night Sweats, Unintentional Wgt. Loss, Other Eyes: denies: No Symptoms, Blind Spots, Blurred Vision, Double Vision, Eye Pain , Floaters, Photophobia, Recent Change in Vision, Other HENT: denies: No Symptoms, Difficult Swallowing, Ear Discharge, Ear Pain, Epistaxis, Gingival Bleeding, Hearing Loss, Mouth Swelling, Nasal Congestion, Ocular Prosthesis, Throat Pain, Toothache, Ringing in Ears, Other Neck: denies: No Symptoms, Decreased ROM, Lumps, Pain on Movement, Stiffness, Swollen Glands, Tenderness, Other Cardiovascular: reports: Shortness of Breath. denies: No Symptoms, Chest Pain, Edema, Palpitations, Other Respiratory: reports: Exercise Intolerance, SOB, SOB on Exertion. denies: No Symptoms, Cough, Hemoptysis, Orthopnea, PND, Snoring, Wheezing, Other Gastrointestinal: denies: No Symptoms, Abdominal Pain, Bloating, Constipation, Diarrhea, Dysphagia, Indigestion, Melena, Nausea, Rectal Bleeding, Vomiting, Vomiting Blood, Other Genitourinary: reports: Frequency, Hematuria, Urgency. denies: No Symptoms, Burning, Discharge, Dysuria, Flank Pain, Incontinence, Lesions, Menses, Pain, Testicular Mass, Testicular Pain, Testicular Swelling, Vaginal Bleeding, Other Breasts: denies: No Symptoms Reported, See HPI, Breast Implants, Discharge from Nipple, Lumps, Pain, Skin Changes, Other Musculoskeletal: denies: No Symptoms, Back Pain, Crepitus, Decreased ROM, Extremity Pain, Joint Pain, Joint Swelling, Muscle Pain, Muscle Cramps, Muscle Weakness, Other Integumentary: denies: No Symptoms, Blister, Bruising, Change in Color, Eczema, Erythema, Incision, Lesions, Lump, Pallor, Pruritis, Rash, Wound, Other Neurological: denies: No Symptoms, Change in LOC, Change in Speech, Confusion, Dizziness, Headache, Incoordination, Numbness, Parasthesia, Pre-Existing Deficit , Seizure, Syncope, Tremors, Unsteady Gait, Weakness, Other Endocrine: denies: No Symptoms, Excessive Sweating, Flushing, Increased Hunger, Increased Thirst, Intolerance to Cold, Intolerance to Heat, Unexplained Weight Gain, Unexplained Weight Loss, Other Hematology/Lymphatic: denies: No Symptoms, Easily Bruised, Excessive Bleeding, Swollen Glands, Other Psychiatric: denies: No Symptoms, Altered Sleep Pattern, Anxiety, Depression, Hallucinations, Panic, Paranoia, Suicidal, Other - Risk Factors Known Risk Factors: Yes: Hypercholesterolemia, Hypertension Vital Signs: Vital Signs Temperature 99.6 F 06/16/17 02:00 Pulse Rate 89 06/16/17 09:30 Respiratory Rate 27 H 06/16/17 08:00 Blood Pressure 141/67 06/16/17 08:00 O2 Sat by Pulse Oximetry (%) 94 L 06/16/17 10:53 Constitutional: Yes: No Distress, Calm, Obese Eyes: Yes: WNL, Conjunctiva Clear, EOM Intact, PERRL HENT: Yes: WNL, Atraumatic, Normocephalic Neck: Yes: WNL, Supple, Trachea Midline Respiratory: Yes: Regular, Diminished, On BiPap. No: Rales, Rhonchi, Wheezes Gastrointestinal: Yes: WNL, Normal Bowel Sounds, Soft. No: Distention, Tenderness Renal/: Yes: WNL Cardiovascular: Yes: Tachycardia. No: Regular Rate and Rhythm, Bradycardia, Pulse Irregular, Gallop, Rub, Varicosities JVD: No Carotid Bruit: No PMI: Non-Displaced Heart Sounds: Yes: S1, S2. No: Split S2, S3, S4, Clicks, Gallop, Rub, Bruit Murmur: No: Systolic Murmur, Diastolic Murmur Musculoskeletal: Yes: Muscle Weakness Extremities: Yes: WNL Edema: No Peripheral Pulses WNL: Yes Peripheral Pulses: 2+ Left Doralis Pedis, 2+ Right Dorsalis Pedis Integumentary: Yes: WNL Neurological: Yes: Alert, Oriented, Weakness Psychiatric: Yes: Alert, Oriented - Other Data Labs, Other Data: CBC, BMP 06/16/17 05:05 06/16/17 05:05 INR, PTT INR 1.31 (0.82-1.09) H 06/16/17 05:05 Troponin, BNP 06/15/17 06/15/17 06/16/17 14:50 22:00 05:05 Troponin I 0.02 0.06 H D 0.03 D Troponin, BNP 06/15/17 06/15/17 06/16/17 14:50 22:00 05:05 Troponin I 0.02 0.06 H D 0.03 D ekg-06/15 sinus tach 113bpm rbbb Echo: Report Reviewed Prior Cardiac Procedures: Ablation, PTCA with Stent Ejection Fraction %: LVEF > or = 40 % Imaging - Results Chest X-ray: Report Reviewed, Image Reviewed EKG: Report Reviewed, Image Reviewed Other: Report Reviewed, Image Reviewed (tele-nsr, sinus tach) Assessment/Plan 57 year old man with a history of hypertension, diabetes, hyperlipidemia, typical atrial flutter status post ablation in 2012, 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 hematuria s/p recent procedure with resultant stricture and was planned for further procedure as outpatient admitted with urinary retention , fever, resultant sinus tachycardia, respiratory failure. Urinary retention -no cardiac contraindication to procedures that are necessary -if possible would continue Aspirin Tachycardia-sinus tach, no sign of recurrent arrhythmia on ekg or tele thus far -treat underlying source of tachycardia, fever, sepsis, sob, hypoxia SOB-respiratory failure -History of Hypoxia/SOB-recurrent, uncertain etiology, component of acute on chronic diastolic CHF but not fully explained by this -some undiagnosed chronic lung disease, possible exposure from working in [employer] has been considered -currently euvolemic -cont bipap -intubate if necessary -hold off on diuresis for now, can use lasix prn Coronary artery disease, history of drug-eluting stent to LAD May 2016. -cont ASA 81mg daily -ok to stop Plavix as >1 year since stent -resume home bblocker when tolerates -resume home statin Atrial flutter status post two ablations last one was May 2016. - He has been off Xarelto since 06/22/2016. - Three-week event monitor was done showed no recurrence of arrhythmia. - He was recommended to have a loop recorder implanted, but he declined. - Continue Toprol and aspirin for this. Cardiomyopathy- History of nonischemic cardiomyopathy, but likely arrhythmia induced with recovery of LV function after atrial flutter ablation. -Euvolemic -echo showed normal LV systolic function -management as above
--- NOTE | 2017-06-16 11:59 | PN ---
Teaching Attending Note Name of Resident: Kacey Kim ATTENDING PHYSICIAN STATEMENT I saw and evaluated the patient. I reviewed the resident's note and discussed the case with the resident. I agree with the resident's findings and plan as documented. SUBJECTIVE: Pt seen and examined in the ICU. Remains lethargic, placed on BiPAP this AM after ABG showing worsening respiratory acidosis on NRB. Fever curve trending down. OBJECTIVE: Last Vital Signs Temp Pulse Resp BP Pulse Ox 99.6 F 89 27 H 141/67 94 L 06/16/17 02:00 06/16/17 09:30 06/16/17 08:00 06/16/17 08:00 06/16/17 10:53 Intake & Output 06/13/17 06/14/17 06/15/17 06/16/17 23:59 23:59 23:59 23:59 Intake Total 2433 231 Output Total 1000 Balance 1433 231 Weight 106.594 kg 110.223 kg Gen: lethargic on BiPAP Heart: RRR Lung: distant breath sounds Abd: soft, nontender Ext: no edema CBC, BMP 06/16/17 05:05 06/16/17 05:05 Active Medications Acetaminophen (Tylenol -) 325 mg PO Q4H PRN PRN Reason: PAIN LEVEL 1-5 Stop: 06/18/17 16:04 Albuterol/Ipratropium (Duoneb -) 1 amp NEB Q4H [facility] Aspirin (Asa -) 81 mg PO DAILY [facility] Last Admin: 06/16/17 09:37 Dose: 81 mg Chlorhexidine Gluconate (Hibiclens For Decolonization -) 1 applic TP HS [facility] Last Admin: 06/15/17 21:19 Dose: 1 applic Fenofibric Acid (Trilipix -) 135 mg PO DAILY [facility] Last Admin: 06/16/17 09:37 Dose: 135 mg Piperacillin Sod/Tazobactam (Sod 4.5 gm/ Dextrose) 100 mls @ 200 mls/hr IVPB Q8H-IV [facility] PRN Reason: Protocol Last Admin: 06/16/17 09:37 Dose: 200 mls/hr Sodium Chloride (Normal Saline -) 1,000 mls @ 33 mls/hr IV ASDIR [facility] Last Admin: 06/15/17 22:30 Dose: 33 mls/hr Insulin Aspart (Novolog Vial Sliding Scale -) 1 vial SQ ACHS [facility] PRN Reason: Protocol Last Admin: 06/16/17 06:08 Dose: Not Given Levothyroxine Sodium (Synthroid -) 50 mcg PO DAILY@0700 [facility] Last Admin: 06/16/17 06:10 Dose: 50 mcg Methylprednisolone Sodium Succinate (Solu-Medrol -) 60 mg IVPUSH Q8H-IV [facility] Morphine Sulfate (Morphine Injection -) 1 mg IVPUSH Q3H PRN PRN Reason: PAIN LEVEL 1-5 Last Admin: 06/16/17 00:08 Dose: 1 mg Mupirocin (Bactroban Ointment (For Decolonization) -) 1 applic NS BID [facility] Stop: 06/20/17 21:59 Last Admin: 06/16/17 09:38 Dose: 1 applic Oxycodone HCl (Roxicodone -) 5 mg PO Q4H PRN PRN Reason: PAIN LEVEL 1-5 Tamsulosin HCl (Flomax -) 0.4 mg PO DAILY@0830 [facility] Last Admin: 06/16/17 09:37 Dose: 0.4 mg ASSESSMENT AND PLAN: UTI r/o Bacteremia Urinary Retention/BPH/ h/o Strictures Sepsis Acute on Chronic Hypoxic Respiratory Failure CAD s/p stents Obstructive Sleep Apnea HTN DM - continue antibiotics - f/u cultures - IVF challenge - monitor urine output, creatinine - O2 to keep SpO2 >90% - BIPAP - monitor ABG - if worsening respiratory acidosis on BiPAP, will need to be intubated - start empiric medrol - standing inhaled bronchodilators - minimize narcotics - f/u - mechanical DVT prophylaxis for now - ICU monitoring critical care time spent in reviewing chart, evaluating patient and formulating plan 35 min
[2017-06-16 12:17] LABS: ARTERIAL BLD GAS O2 SATURATION 92.3 % (90-98.9); ARTERIAL BLOOD GAS BASE EXCESS -3.7 meq/l (-2-2); ARTERIAL BLOOD GAS PO2 71.9 mmHg (80-100)
[2017-06-16 12:21] LABS: ALLENS TEST POSITIVE
[2017-06-16 12:24] LABS: ARTERIAL BLOOD GAS PCO2 77.4 mmHg (35-45); ARTERIAL BLOOD GAS pH 7.17 (7.35-7.45)
--- NOTE | 2017-06-16 12:28 | PN ---
Progress Note, Physician History of Present Illness: Pt seen and examined at bedside. He is now in the ICU. He was hypoxic yesterday. - Current Medication List Current Medications: Active Medications Acetaminophen (Tylenol -) 325 mg PO Q4H PRN PRN Reason: PAIN LEVEL 1-5 Stop: 06/18/17 16:04 Albuterol/Ipratropium (Duoneb -) 1 amp NEB Q4H [facility] Aspirin (Asa -) 81 mg PO DAILY [facility] Last Admin: 06/16/17 09:37 Dose: 81 mg Chlorhexidine Gluconate (Hibiclens For Decolonization -) 1 applic TP HS [facility] Last Admin: 06/15/17 21:19 Dose: 1 applic Fenofibric Acid (Trilipix -) 135 mg PO DAILY [facility] Last Admin: 06/16/17 09:37 Dose: 135 mg Piperacillin Sod/Tazobactam (Sod 4.5 gm/ Dextrose) 100 mls @ 200 mls/hr IVPB Q8H-IV [facility] PRN Reason: Protocol Last Admin: 06/16/17 09:37 Dose: 200 mls/hr Sodium Chloride (Normal Saline -) 1,000 mls @ 33 mls/hr IV ASDIR [facility] Last Admin: 06/15/17 22:30 Dose: 33 mls/hr Insulin Aspart (Novolog Vial Sliding Scale -) 1 vial SQ ACHS [facility] PRN Reason: Protocol Last Admin: 06/16/17 12:13 Dose: Not Given Levothyroxine Sodium (Synthroid -) 50 mcg PO DAILY@0700 [facility] Last Admin: 06/16/17 06:10 Dose: 50 mcg Methylprednisolone Sodium Succinate (Solu-Medrol -) 60 mg IVPUSH Q8H-IV [facility] Morphine Sulfate (Morphine Injection -) 1 mg IVPUSH Q3H PRN PRN Reason: PAIN LEVEL 1-5 Last Admin: 06/16/17 00:08 Dose: 1 mg Mupirocin (Bactroban Ointment (For Decolonization) -) 1 applic NS BID [facility] Stop: 06/20/17 21:59 Last Admin: 06/16/17 09:38 Dose: 1 applic Oxycodone HCl (Roxicodone -) 5 mg PO Q4H PRN PRN Reason: PAIN LEVEL 1-5 Tamsulosin HCl (Flomax -) 0.4 mg PO DAILY@0830 [facility] Last Admin: 06/16/17 09:37 Dose: 0.4 mg - Objective Vital Signs: Vital Signs Temperature 99.6 F 06/16/17 02:00 Pulse Rate 89 06/16/17 09:30 Respiratory Rate 27 H 06/16/17 08:00 Blood Pressure 141/67 06/16/17 08:00 O2 Sat by Pulse Oximetry (%) 94 L 06/16/17 10:53 Constitutional: Yes: Calm Eyes: Yes: Conjunctiva Clear HENT: Yes: Atraumatic Neck: Yes: Supple Cardiovascular: Yes: S1, S2 Respiratory: Yes: On BiPap Gastrointestinal: Yes: Soft Genitourinary: Yes: Gautam Present Musculoskeletal: Yes: WNL Edema: No Neurological: Yes: Oriented Psychiatric: Yes: Oriented Labs: CBC, BMP 06/16/17 05:05 06/16/17 05:05 INR, PTT INR 1.31 (0.82-1.09) H 06/16/17 05:05 - ....Imaging Chest X-ray: Report Reviewed Problem List - Problems (1) Urinary retention Code(s): R33.9 - RETENTION OF URINE, UNSPECIFIED (2) CHF (congestive heart failure) Code(s): I50.9 - HEART FAILURE, UNSPECIFIED (3) HTN (hypertension) Code(s): I10 - ESSENTIAL (PRIMARY) HYPERTENSION Assessment/Plan Current Medications Generic Name Dose Route Start Last Admin Trade Name Freq PRN Reason Stop Dose Admin Acetaminophen 325 mg 06/15/17 16:05 Tylenol - PO 06/18/17 16:04 Q4H PRN PAIN LEVEL 1-5 Albuterol/Ipratropium 1 amp 06/16/17 12:00 Duoneb - NEB Q4H [facility] Aspirin 81 mg 06/16/17 10:00 06/16/17 09:37 Asa - PO 81 mg DAILY [facility] Administration Chlorhexidine Gluconate 1 applic 06/15/17 22:00 06/15/17 21:19 Hibiclens For Decolonization - TP 1 applic HS [facility] Administration Fenofibric Acid 135 mg 06/16/17 10:00 06/16/17 09:37 Trilipix - PO 135 mg DAILY [facility] Administration Piperacillin Sod/Tazobactam 100 mls @ 200 mls/hr 06/15/17 18:00 06/16/17 09: 37 Sod 4.5 gm/ Dextrose IVPB 200 mls/hr Q8H-IV [facility] Administration Protocol Sodium Chloride 1,000 mls @ 33 mls/hr 06/15/17 22:26 06/15/17 22:30 Normal Saline - IV 33 mls/hr ASDIR [facility] Administration Insulin Aspart 1 vial 06/15/17 22:00 06/16/17 12:13 Novolog Vial Sliding Scale - SQ Not Given ACHS [facility] Protocol Levothyroxine Sodium 50 mcg 06/16/17 07:00 06/16/17 06:10 Synthroid - PO 50 mcg DAILY@0700 [facility] Administration Methylprednisolone Sodium Succinate 60 mg 06/16/17 12:00 Solu-Medrol - IVPUSH Q8H-IV [facility] Morphine Sulfate 1 mg 06/15/17 22:27 06/16/17 00:08 Morphine Injection - IVPUSH 1 mg Q3H PRN Administration PAIN LEVEL 1-5 Mupirocin 1 applic 06/15/17 22:00 06/16/17 09:38 Bactroban Ointment (For Decolonization) - NS 06/20/17 21:59 1 applic BID [facility] Administration Oxycodone HCl 5 mg 06/15/17 16:05 Roxicodone - PO Q4H PRN PAIN LEVEL 1-5 Tamsulosin HCl 0.4 mg 06/16/17 08:30 06/16/17 09:37 Flomax - PO 0.4 mg DAILY@0830 [facility] Administration Impression 1. urinary retention 2. htn 3. DM 4. proteinuria/hematuria 5. CAD Plan - follow cultures - cont abx - bladder scan shows over 300 cc of urine in bladder and no urine in gautam, recall urology - cont fluids - check ultrasound kidneys and bladder - will need to repeat ua to evaluate proteinuria once urologic issues are resolved - avoid nsaids - will follow Dr Lynn
[2017-06-16] MEDS: methylPREDNISolone NA SUCC 40 MG/1 ML VIAL IVPUSH SCH ×2 (12:29→17:33)
--- NOTE | 2017-06-16 12:50 | PN ---
Teaching Attending Note Name of Resident: Taqueria Pena ATTENDING PHYSICIAN STATEMENT I saw and evaluated the patient. I reviewed the resident's note and discussed the case with the resident. I agree with the resident's findings and plan as documented.
[2017-06-16] MEDS ORDERED: SODIUM CHLORIDE 0.9% 1000 ML INFUS.BAG IV ONE (13:27)
[2017-06-16] MEDS: CEFTRIAXONE IN IS-OSM DEXTROSE 2 GM/50 ML BAG IVPB SCH (13:30)
[2017-06-16] MEDS ORDERED: CEFTRIAXONE 2 GM in DEXTROSE 5%-WATER - 100 ML IVPB SCH (13:30)
[2017-06-16] MEDS: ALBUTEROL SO4 2.5/IPRATROPIUM 0.5 INH SOL 3 ML VIAL.NEB. NEB SCH ×2 (16:25→20:59)
--- NOTE | 2017-06-16 16:55 | PN ---
Progress Note, Physician History of Present Illness: mentally patient slightly better awake and alert family in room wbc normalized - Current Medication List Current Medications: Active Medications Acetaminophen (Tylenol -) 325 mg PO Q4H PRN PRN Reason: PAIN LEVEL 1-5 Stop: 06/18/17 16:04 Albuterol/Ipratropium (Duoneb -) 1 amp NEB Q4H [facility] BEDS [facility] Last Admin: 06/16/17 16:25 Dose: 1 amp Aspirin (Asa -) 81 mg PO DAILY [facility] 234 BEDS AT [facility] Last Admin: 06/16/17 09:37 Dose: 81 mg Chlorhexidine Gluconate (Hibiclens For Decolonization -) 1 applic TP HS [facility] 234 BEDS AT [facility] Last Admin: 06/15/17 21:19 Dose: 1 applic Fenofibric Acid (Trilipix -) 135 mg PO DAILY [facility] 234 BEDS AT [facility] Last Admin: 06/16/17 09:37 Dose: 135 mg Piperacillin Sod/Tazobactam (Sod 4.5 gm/ Dextrose) 100 mls @ 200 mls/hr IVPB Q8H-IV [facility] PRN Reason: Protocol Last Admin: 06/16/17 09:37 Dose: 200 mls/hr Sodium Chloride (Normal Saline -) 1,000 mls @ 33 mls/hr IV ASDIR [facility]S INCLUDE 234 BEDS AT THE [facility] Last Admin: 06/15/17 22:30 Dose: 33 mls/hr CEFTRIAXONE IN IS-OSM DEXTROSE (Ceftriaxone 2 Gm-D5w Bag) 2 gm in 50 mls @ 100 mls/hr IVPB DAILY [facility]CLUDE 234 BEDS AT THE [facility] Insulin Aspart (Novolog Vial Sliding Scale -) 1 vial SQ ACHS [facility] 234 BEDS AT [facility] PRN Reason: Protocol Last Admin: 06/16/17 12:13 Dose: Not Given Levothyroxine Sodium (Synthroid -) 50 mcg PO DAILY@0700 [facility]CLUDE 234 BEDS AT [facility] Last Admin: 06/16/17 06:10 Dose: 50 mcg Methylprednisolone Sodium Succinate (Solu-Medrol -) 60 mg IVPUSH Q8H-IV [facility]CLUDE 234 BEDS AT [facility] Last Admin: 06/16/17 12:29 Dose: 60 mg Morphine Sulfate (Morphine Injection -) 1 mg IVPUSH Q3H PRN PRN Reason: PAIN LEVEL 1-5 Last Admin: 06/16/17 00:08 Dose: 1 mg Mupirocin (Bactroban Ointment (For Decolonization) -) 1 applic NS BID [facility] 234 BEDS AT [facility] Stop: 06/20/17 21:59 Last Admin: 06/16/17 09:38 Dose: 1 applic Oxycodone HCl (Roxicodone -) 5 mg PO Q4H PRN PRN Reason: PAIN LEVEL 1-5 Tamsulosin HCl (Flomax -) 0.4 mg PO DAILY@0830 [facility] Last Admin: 06/16/17 09:37 Dose: 0.4 mg - Objective Vital Signs: Vital Signs Temperature 98.0 F 06/16/17 14:00 Pulse Rate 97 H 06/16/17 16:00 Respiratory Rate 25 H 06/16/17 16:00 Blood Pressure 125/64 06/16/17 16:00 O2 Sat by Pulse Oximetry (%) 89 L 06/16/17 16:24 Constitutional: Yes: No Distress, Calm Cardiovascular: Yes: Regular Rate and Rhythm Respiratory: Yes: Regular, On Venti-Mask Gastrointestinal: Yes: Normal Bowel Sounds, Soft Genitourinary: Yes: Brown Present (hematuria still present) Musculoskeletal: Yes: WNL Extremities: Yes: WNL Neurological: Yes: Alert, Oriented Psychiatric: Yes: Alert, Oriented Labs: CBC, BMP 06/16/17 05:05 06/16/17 05:05 INR, PTT INR 1.31 (0.82-1.09) H 06/16/17 05:05 Assessment/Plan ASSESSMENT AND PLAN: UTI bph/strictures r/o bacteremia resp failure sepsis urinary retention hematuria loyda htn dm plan continue abx cx result noted has been afebrile if catheter gets blocked might have to change it rest as per icu monitor h and h cc time 40 min
[2017-06-16] MEDS: oxyCODONE HCL 5 MG TABLET PO PRN (17:50)
--- NOTE | 2017-06-16 22:05 | PN ---
Progress Note (short form) - Note Progress Note: UROLOGY NOTE. pt. with h/o urinary retention pt. had filiform and followers placed yesterday. catheter fell out this evening' pt. unable to void . after uretheral dilation a 16f 10cc gautam passed and 400cc of urine drained.plan- gautam to bag, elavate scrotum while in bed. will need gu ambrose after medically ok
--- NOTE | 2017-06-16 22:06 | PN ---
Progress Note, Physician History of Present Illness: Pt still lethargic - Current Medication List Current Medications: Active Medications Acetaminophen (Tylenol -) 325 mg PO Q4H PRN PRN Reason: PAIN LEVEL 1-5 Stop: 06/18/17 16:04 Albuterol/Ipratropium (Duoneb -) 1 amp NEB Q4H [facility] Last Admin: 06/16/17 20:59 Dose: 1 amp Aspirin (Asa -) 81 mg PO DAILY [facility] Last Admin: 06/16/17 09:37 Dose: 81 mg Chlorhexidine Gluconate (Hibiclens For Decolonization -) 1 applic TP HS [facility] Last Admin: 06/15/17 21:19 Dose: 1 applic Fenofibric Acid (Trilipix -) 135 mg PO DAILY [facility] Last Admin: 06/16/17 09:37 Dose: 135 mg Piperacillin Sod/Tazobactam (Sod 4.5 gm/ Dextrose) 100 mls @ 200 mls/hr IVPB Q8H-IV [facility] PRN Reason: Protocol Last Admin: 06/16/17 17:34 Dose: 200 mls/hr Sodium Chloride (Normal Saline -) 1,000 mls @ 33 mls/hr IV ASDIR [facility] Last Admin: 06/15/17 22:30 Dose: 33 mls/hr CEFTRIAXONE IN IS-OSM DEXTROSE (Ceftriaxone 2 Gm-D5w Bag) 2 gm in 50 mls @ 100 mls/hr IVPB DAILY [facility] Last Admin: 06/16/17 13:30 Dose: 100 mls/hr Insulin Aspart (Novolog Vial Sliding Scale -) 1 vial SQ ACHS [facility] PRN Reason: Protocol Last Admin: 06/16/17 17:44 Dose: 4 units Levothyroxine Sodium (Synthroid -) 50 mcg PO DAILY@0700 [facility] Last Admin: 06/16/17 06:10 Dose: 50 mcg Methylprednisolone Sodium Succinate (Solu-Medrol -) 60 mg IVPUSH Q8H-IV [facility] Last Admin: 06/16/17 17:33 Dose: 60 mg Morphine Sulfate (Morphine Injection -) 1 mg IVPUSH Q3H PRN PRN Reason: PAIN LEVEL 1-5 Last Admin: 06/16/17 00:08 Dose: 1 mg Mupirocin (Bactroban Ointment (For Decolonization) -) 1 applic NS BID [facility] Stop: 06/20/17 21:59 Last Admin: 06/16/17 09:38 Dose: 1 applic Oxycodone HCl (Roxicodone -) 5 mg PO Q4H PRN PRN Reason: PAIN LEVEL 1-5 Last Admin: 06/16/17 17:50 Dose: 5 mg Tamsulosin HCl (Flomax -) 0.4 mg PO DAILY@0830 [facility] Last Admin: 06/16/17 09:37 Dose: 0.4 mg - Objective Vital Signs: Vital Signs Temperature 98.0 F 06/16/17 14:00 Pulse Rate 99 H 06/16/17 20:00 Respiratory Rate 21 06/16/17 20:00 Blood Pressure 139/82 06/16/17 20:00 O2 Sat by Pulse Oximetry (%) 98 06/16/17 20:38 HENT: Yes: WNL Neck: Yes: WNL, Supple Cardiovascular: Yes: Tachycardia Respiratory: Yes: Diminished Gastrointestinal: Yes: WNL, Normal Bowel Sounds, Soft, Abdomen, Obese Extremities: Yes: WNL Edema: No Labs: CBC, BMP 06/16/17 05:05 06/16/17 05:05 INR, PTT INR 1.31 (0.82-1.09) H 06/16/17 05:05 Problem List - Problems (1) Respiratory failure Assessment/Plan: Multifactorial Pt also has a h/o sleep apnea/COPD Cont duoneb nebulizer/IV solumedrol Code(s): J96.90 - RESPIRATORY FAILURE, UNSP, UNSP W HYPOXIA OR HYPERCAPNIA (2) Sepsis Assessment/Plan: Pt w/ BPH and urinary retention Probable urosepsis/UTI Cont to trend lactic acid IV antibxs Follow cultures Code(s): A41.9 - SEPSIS, UNSPECIFIED ORGANISM (3) BPH (benign prostatic hyperplasia) Assessment/Plan: Cont flomax As per uro Code(s): N40.0 - BENIGN PROSTATIC HYPERPLASIA WITHOUT LOWER URINRY TRACT SYMP (4) CAD (coronary artery disease) Assessment/Plan: Cont asa/plavix Code(s): I25.10 - ATHSCL HEART DISEASE OF [place] CORONARY ARTERY W/O ANG PCTRS (5) Atrial flutter Assessment/Plan: Heart rate controlled Cont cardizem Cont xarelto Code(s): I48.92 - UNSPECIFIED ATRIAL FLUTTER (6) CHF (congestive heart failure) Assessment/Plan: Cont lasix Monitor electrolytes Code(s): I50.9 - HEART FAILURE, UNSPECIFIED (7) Diabetes Assessment/Plan: Cont sliding scale Code(s): E11.9 - TYPE 2 DIABETES MELLITUS WITHOUT COMPLICATIONS (8) HTN (hypertension) Assessment/Plan: BP stable Cont lopressor Code(s): I10 - ESSENTIAL (PRIMARY) HYPERTENSION (9) COPD (chronic obstructive pulmonary disease) Assessment/Plan: Cont duoneb Code(s): J44.9 - CHRONIC OBSTRUCTIVE PULMONARY DISEASE, UNSPECIFIED (10) Hypothyroidism Assessment/Plan: Cont levothyroxine Code(s): E03.9 - HYPOTHYROIDISM, UNSPECIFIED (11) SHEKHAR (obstructive sleep apnea) Code(s): G47.33 - OBSTRUCTIVE SLEEP APNEA (ADULT) (PEDIATRIC) (12) Obesity Code(s): E66.9 - OBESITY, UNSPECIFIED
[2017-06-16] MEDS: CHLORHEXIDINE GLUCONATE 4% CLEANSER FOR DECOLONIZATION TP SCH (22:52)
[2017-06-17] MEDS ORDERED: PT OWN MED DRAWER 7, Y5N ONE ×3 (00:40→21:24)
[2017-06-17] MEDS: methylPREDNISolone NA SUCC 40 MG/1 ML VIAL IVPUSH SCH ×3 (02:01→17:41)
[2017-06-17] MEDS: PIPERACILLIN/TAZOB 4.5 GM 4.5 GM in DEXTROSE 5%-WATER - 100 ML IVPB SCH ×3 (02:01→17:42)
[2017-06-17] MEDS: ACETAMINOPHEN 325 MG TABLET (FP) PO PRN ×3 (03:57→13:50)
[2017-06-17] MEDS: oxyCODONE HCL 5 MG TABLET PO PRN ×2 (03:58→11:53)
[2017-06-17] MEDS: SODIUM CHLORIDE 1,000 ML IV SCH (05:46)
[2017-06-17] MEDS: LEVOTHYROXINE NA 50 MCG TABLET (FP) PO SCH (06:05)
[2017-06-17] MEDS: INSULIN SLIDING SCALE (NOVOLOG) 1 VIAL SQ SCH ×4 (06:06→22:02)
[2017-06-17 07:03] LABS: ARTERIAL BLOOD GAS BASE EXCESS -0.8 meq/l (-2-2); ARTERIAL BLOOD GAS PO2 66.6 mmHg (80-100); ARTERIAL BLOOD GAS pH 7.21 (7.35-7.45)
[2017-06-17 07:14] LABS: ALBUMIN 3.1 g/dl (3.4-5.0); ANION GAP 9 (8-16); BLOOD UREA NITROGEN 40 mg/dL (7-18); CALCIUM 8.3 mg/dL (8.5-10.1); CHLORIDE 95 mmol/L (98-107); CO2 30 mmol/L (21-32); GLUCOSE,RANDOM 216 mg/dL (74-106); MAGNESIUM 2.8 mg/dL (1.8-2.4); PHOSPHOROUS 3.4 mg/dL (2.5-4.9); POTASSIUM 5.3 mmol/L (3.5-5.1); SGOT/AST 24 U/L (15-37); SODIUM 134 mmol/L (136-145)
[2017-06-17 07:17] LABS: ALK PHOS 76 U/L (45-117); BILIRUBIN,TOTAL 0.6 mg/dL (0.2-1.0); CREATININE 1.4 mg/dL (0.7-1.3); SGPT/ALT 41 U/L (12-78); TOT PROT 6.5 g/dl (6.4-8.2)
[2017-06-17 07:35] LABS: BASO % 0.2 % (0-2.0); HEMATOCRIT 48.6 % (35.4-49); HEMOGLOBIN 14.7 GM/dL (11.7-16.9); LYMPH % 4.2 % (8-40); MCH 23.6 pg (25.7-33.7); MCHC 30.2 g/dl (32.0-35.9); MONO % 2.8 % (3.8-10.2); NEUT % 92.8 % (42.8-82.8); PLATELET COUNT 120 K/MM3 (134-434); RBC 6.23 M/mm3 (4.00-5.60); RDW 18.4 % (11.9-15.9)
[2017-06-17 07:50] LABS: ALLENS TEST POSITIVE; ARTERIAL BLOOD GAS PCO2 75.2 mmHg (35-45)
[2017-06-17] MEDS ORDERED: SODIUM POLYSTYRENE SULFONATE 15 GM/60 ML BOTTLE PO ONE (08:04)
[2017-06-17] MEDS ORDERED: SODIUM POLYSTYRENE SULFONATE 15 GM/60 ML BOTTLE ONE (08:18)
[2017-06-17] MEDS: ALBUTEROL SO4 2.5/IPRATROPIUM 0.5 INH SOL 3 ML VIAL.NEB. NEB SCH ×4 (08:21→21:35)
--- NOTE | 2017-06-17 08:26 | PN ---
Physical Exam: SUBJECTIVE: Patient seen and examined. More awake today, still on NC because pt refused BIPAP. Blood gas slightly improved but pt is SHEKHAR refused home CPAP. Issues with clotting of the gautam overnight and had urologist fix. Plan for cystoscopy when stable. OBJECTIVE: Vital Signs Period Temp Pulse Resp BP Sys/Cesar Pulse Ox Last 24 Hr 97.8 F-98.9 F 88-101 18-25 110-139/50-82 89-99 Vital Signs Temp 97.9 F 06/17/17 05:44 Pulse 88 06/17/17 05:44 Resp 20 06/17/17 05:44 BP 132/72 06/17/17 05:44 Pulse Ox 98 06/16/17 20:38 Intake & Output 06/16/17 06/16/17 06/17/17 11:59 23:59 11:59 Intake Total 231 1446 496 Output Total 1600 1000 Balance 231 -154 -504 Weight 110.223 kg 110.8 kg Intake: IV 231 396 396 Normal Saline - 1,000 ml 231 396 396 @ 33 mls/hr IV ASDIR DEIDRE Rx#:[id number] IVPB 150 100 Oral 900 Output: Urine 1600 1000 Gautam 1600 1000 Other: Voiding Method Indwelling Catheter Indwelling Catheter Weight Measurement Method [facility] Intake & Output 06/14/17 06/15/17 06/16/17 06/17/17 23:59 23:59 23:59 23:59 Intake Total 2433 1677 496 Output Total 1000 1600 1000 Balance 1433 77 -504 Weight 106.594 kg 110.223 kg 110.8 kg GENERAL: The patient is awake, more alert, in mild respiratory distress on NC . HEAD: Normal with no signs of trauma. EYES: PERRL, extraocular movements intact, ENT: oropharynx clear without exudates, moist mucous membranes. NECK: supple. LUNGS: reduced breath sounds on L. HEART: Regular rate and rhythm, S1, S2 ABDOMEN: Mildly distended, firm, Non tender. Gautam in place draining clear urine EXTREMITIES: 2+ pulses, warm, well-perfused, no edema, bilateral SCDS. NEUROLOGICAL: Cranial nerves II through XII grossly intact. Normal speech, gait not observed. PSYCH: Normal mood, normal affect. Lines:NC, SCDs, LUE peripheral line, gautam catheter CXR: Congestive infiltrates Echo done 06/16/17 - Normal L ventricle, R ventricle poorly visualized, mildly reduced RV systolic function, mildly reduced RV function, trace TR CBC, BMP 06/17/17 06:30 06/17/17 06:30 ABG Results ABG pH 7.21 (7.35-7.45) L* 06/17/17 06:55 ABG pCO2 at Pt Temp 75.2 mmHg (35-45) H* 06/17/17 06:55 ABG pO2 at Pt Temp 66.6 mmHg (80-100) L 06/17/17 06:55 ABG HCO3 29.2 meq/L (22-26) H 06/17/17 06:55 ABG O2 Sat (Measured) 92.0 % (90-98.9) 06/17/17 06:55 ABG O2 Content 18.7 % vol (15-22) 06/17/17 06:55 ABG Base Excess -0.8 meq/l (-2-2) 06/17/17 06:55 Laboratory Results - last 24 hr 06/16/17 06/16/17 06/16/17 08:20 11:43 11:45 WBC RBC Hgb Hct MCV MCH MCHC RDW Plt Count MPV Neutrophils % Lymphocytes % Monocytes % Eosinophils % Basophils % Puncture Site Right radial Right radial ABG pH 7.14 L* 7.17 L* ABG pCO2 at Pt Temp 84.8 H* 77.4 H* ABG pO2 at Pt Temp 93.7 D 71.9 L D ABG HCO3 27.4 H 27.3 H ABG O2 Sat (Measured) 95.7 92.3 ABG O2 Content 21.0 20.1 ABG Base Excess -4.8 L -3.7 L Devonte Test Positive Positive O2 Delivery Device Non-rebreather Bypap Oxygen Flow Rate 100 50 percent Vent Mode S/t PEEP 0.0 Pressure Support Vent 20/10 Sodium Potassium Chloride Carbon Dioxide Anion Gap BUN Creatinine Creat Clearance w eGFR POC Glucometer 142.21857 Random Glucose Calcium Phosphorus Magnesium Total Bilirubin AST ALT Alkaline Phosphatase Total Protein Albumin 06/16/17 06/16/17 06/17/17 17:42 22:38 05:54 WBC RBC Hgb Hct MCV MCH MCHC RDW Plt Count MPV Neutrophils % Lymphocytes % Monocytes % Eosinophils % Basophils % Puncture Site ABG pH ABG pCO2 at Pt Temp ABG pO2 at Pt Temp ABG HCO3 ABG O2 Sat (Measured) ABG O2 Content ABG Base Excess Devonte Test O2 Delivery Device Oxygen Flow Rate Vent Mode PEEP Pressure Support Vent Sodium Potassium Chloride Carbon Dioxide Anion Gap BUN Creatinine Creat Clearance w eGFR POC Glucometer 226.22405 269.95790 240.12199 Random Glucose Calcium Phosphorus Magnesium Total Bilirubin AST ALT Alkaline Phosphatase Total Protein Albumin 06/17/17 06/17/17 06/17/17 06:30 06:30 06:55 WBC 9.0 RBC 6.23 H Hgb 14.7 Hct 48.6 MCV 78.0 L MCH 23.6 L MCHC 30.2 L RDW 18.4 H Plt Count 120 L MPV 10.0 Neutrophils % 92.8 H Lymphocytes % 4.2 L D Monocytes % 2.8 L Eosinophils % 0.0 D Basophils % 0.2 Puncture Site Right radial ABG pH 7.21 L* ABG pCO2 at Pt Temp 75.2 H* ABG pO2 at Pt Temp 66.6 L ABG HCO3 29.2 H ABG O2 Sat (Measured) 92.0 ABG O2 Content 18.7 ABG Base Excess -0.8 Devonte Test Positive O2 Delivery Device Venti mask Oxygen Flow Rate 40% Vent Mode PEEP Pressure Support Vent Sodium 134 L Potassium 5.3 H D Chloride 95 L Carbon Dioxide 30 Anion Gap 9 BUN 40 H D Creatinine 1.4 H Creat Clearance w eGFR 52.24 POC Glucometer Random Glucose 216 H D Calcium 8.3 L Phosphorus 3.4 D Magnesium 2.8 H D Total Bilirubin 0.6 D AST 24 D ALT 41 Alkaline Phosphatase 76 Total Protein 6.5 Albumin 3.1 L Active Medications Generic Name Dose Route Start Last Admin Trade Name Freq PRN Reason Stop Dose Admin Acetaminophen 325 mg 06/15/17 16:05 06/17/17 03:57 Tylenol - PO 06/18/17 16:04 325 mg Q4H PRN Administration PAIN LEVEL 1-5 Albuterol/Ipratropium 1 amp 06/16/17 12:00 06/16/17 20:59 Duoneb - NEB 1 amp Q4H DEIDRE Administration Aspirin 81 mg 06/16/17 10:00 06/16/17 09:37 Asa - PO 81 mg DAILY [facility]RE Administration Chlorhexidine Gluconate 1 applic 06/15/17 22:00 06/16/17 22:52 Hibiclens For Decolonization - TP 1 applic HS [facility]RE Administration Fenofibric Acid 135 mg 06/16/17 10:00 06/16/17 09:37 Trilipix - PO 135 mg DAILY [facility]IDRE Administration Piperacillin Sod/Tazobactam 100 mls @ 200 mls/hr 06/15/17 18:00 06/17/17 02: 01 Sod 4.5 gm/ Dextrose IVPB 200 mls/hr Q8H-IV DE[facility]RE Administration Protocol Sodium Chloride 1,000 mls @ 33 mls/hr 06/15/17 22:26 06/17/17 05:46 Normal Saline - IV Not Given ASDIR DEIDRE CEFTRIAXONE IN IS-OSM DEXTROSE 2 gm in 50 mls @ 100 mls/hr 06/16/17 14:45 06/02 13:30 Ceftriaxone 2 Gm-D5w Bag IVPB 100 mls/hr DAILY [facility] Administration Insulin Aspart 1 vial 06/15/17 22:00 06/17/17 06:06 Novolog Vial Sliding Scale - SQ 4 units ACHS [facility] Administration Protocol Levothyroxine Sodium 50 mcg 06/16/17 07:00 06/17/17 06:05 Synthroid - PO 50 mcg DAILY@0700 [facility]RE Administration Methylprednisolone Sodium Succinate 60 mg 06/16/17 12:00 06/17/17 02:01 Solu-Medrol - IVPUSH 60 mg Q8H-IV [facility]RE Administration Morphine Sulfate 1 mg 06/15/17 22:27 06/16/17 00:08 Morphine Injection - IVPUSH 1 mg Q3H PRN Administration PAIN LEVEL 1-5 Mupirocin 1 applic 06/15/17 22:00 06/16/17 22:52 Bactroban Ointment (For Decolonization) - NS 06/20/17 21:59 1 applic BID DEIDRE Administration Oxycodone HCl 5 mg 06/15/17 16:05 06/17/17 03:58 Roxicodone - PO 5 mg Q4H PRN Administration PAIN LEVEL 1-5 Sodium Polystyrene Sulfonate 30 gm 06/17/17 08:04 Kayexalate - PO 06/17/17 08:05 ONCE ONE Tamsulosin HCl 0.4 mg 06/16/17 08:30 06/16/17 09:37 Flomax - PO 0.4 mg DAILY@0830 [facility] Administration ASSESSMENT/PLAN: 57 year old M with pmh of HTN, DM, CAD, Chronic hypoxic respiratory failure, BPH , SHEKHAR, and urethral stricture sent to ICU for fever, hypoxia, and hypotension. Cardio: Hx of CAD HTN DM Cardiac profile -trops peaked and trended down from 0.06 >>0.03, likely demand ischemia Echo done 06/16/17 - Normal L ventricle, R ventricle poorly visualized, mildly reduced RV systolic function, mildly reduced RV function, trace TR Bilateral congestive features on CXR Stop fluids Iv lasix 40mg stat Pulm: Acute on chronic hypoxic respiratory failure, now hypoxic hypercapneic respiratory failure Long time smoker, O2 sats dropped to 50% on floor On home O2 at 2.5L Also diagnosed with SHEKHAR with AHI index in charts Has never used BIPAP Monitor O2 On NC- encouraged to try BIPAP at night CXR ID: Sepsis 2/2 to UTI with potential bacteremia in setting of obstructive uropathy Pending blood cultures urine cultures- strep agalactiae- GbB, pending sensitivites Flu swab -ve Lactic acid -0.9 Polycytemic (chronic hypoxia) no evidence of anemia given blood loss during gautam insertion Continue Ceftriaxone 2g pending sensitivities On zosyn 4.5g stop IVF NS @ 100 cc/hr (congested) Dr. Rahman on board Genitourinary/Renal:: Urinary retention with BPH and urethral strictures Gautam in place -draining clear urine Scrotum u/s- 0.4 x0.4 solid hyperechoic Rt lesion on epididymal head which is non specific with broad diff including adematoid tumor Dr. Cruz on board- cystoscopy when stable Cr-1.4 ROCKY R/O CKD likely 2/2 post renal obstruction R/O sepsis Avoid nephrotoxic medications repeat UA once urologic issues resolved Monitor urine output, creatinine F/u ultrasound of kidneys/bladder Dr. Lynn on board iv lasix 40mg stat FEN/GI: stop Normal saline Monitor BMP Continue sodium free diet Prophylaxis: SCDs (hx of urethral bleed) Dispo: Continue ICU level of care For night time BIPAP as patient tolerates Visit type - Emergency Visit Emergency Visit: Yes ED Registration Date: 06/15/17 Care time: The patient presented to the Emergency Department on the above date and was hospitalized for further evaluation of their emergent condition. - New Patient This patient is new to me today: No - Critical Care Critical Care patient: Yes Total Critical Care Time (in minutes): 39 Critical Care Statement: The care of this patient involved high complexity decision making to prevent further life threatening deterioration of the patient 's condition and/or to evaluate & treat vital organ system(s) failure or risk of failure. - Discharge Referral Referred to [facility] Med P.C.: No
[2017-06-17] MEDS: TAMSULOSIN HCL 0.4 MG CAP.ER.24H (FP) PO SCH (08:42)
--- NOTE | 2017-06-17 08:46 | PN ---
Progress Note, Physician Chief Complaint: feeling "better" Denies CP or palps TELE: SR, Sinus tach, IVCD - Current Medication List Current Medications: Active Medications Acetaminophen (Tylenol -) 325 mg PO Q4H PRN PRN Reason: PAIN LEVEL 1-5 Stop: 06/18/17 16:04 Last Admin: 06/17/17 03:57 Dose: 325 mg Albuterol/Ipratropium (Duoneb -) 1 amp NEB Q4H [facility] Last Admin: 06/17/17 08:21 Dose: 1 amp Aspirin (Asa -) 81 mg PO DAILY [facility] Last Admin: 06/16/17 09:37 Dose: 81 mg Chlorhexidine Gluconate (Hibiclens For Decolonization -) 1 applic TP HS [facility] Last Admin: 06/16/17 22:52 Dose: 1 applic Fenofibric Acid (Trilipix -) 135 mg PO DAILY [facility] Last Admin: 06/16/17 09:37 Dose: 135 mg Piperacillin Sod/Tazobactam (Sod 4.5 gm/ Dextrose) 100 mls @ 200 mls/hr IVPB Q8H-IV [facility] PRN Reason: Protocol Last Admin: 06/17/17 02:01 Dose: 200 mls/hr Sodium Chloride (Normal Saline -) 1,000 mls @ 33 mls/hr IV ASDIR [facility] Last Admin: 06/17/17 05:46 Dose: Not Given CEFTRIAXONE IN IS-OSM DEXTROSE (Ceftriaxone 2 Gm-D5w Bag) 2 gm in 50 mls @ 100 mls/hr IVPB DAILY [facility] Last Admin: 06/16/17 13:30 Dose: 100 mls/hr Insulin Aspart (Novolog Vial Sliding Scale -) 1 vial SQ ACHS [facility] PRN Reason: Protocol Last Admin: 06/17/17 06:06 Dose: 4 units Levothyroxine Sodium (Synthroid -) 50 mcg PO DAILY@0700 [facility] Last Admin: 06/17/17 06:05 Dose: 50 mcg Methylprednisolone Sodium Succinate (Solu-Medrol -) 60 mg IVPUSH Q8H-IV [facility] Last Admin: 06/17/17 02:01 Dose: 60 mg Morphine Sulfate (Morphine Injection -) 1 mg IVPUSH Q3H PRN PRN Reason: PAIN LEVEL 1-5 Last Admin: 06/16/17 00:08 Dose: 1 mg Mupirocin (Bactroban Ointment (For Decolonization) -) 1 applic NS BID [facility] Stop: 06/20/17 21:59 Last Admin: 06/16/17 22:52 Dose: 1 applic Oxycodone HCl (Roxicodone -) 5 mg PO Q4H PRN PRN Reason: PAIN LEVEL 1-5 Last Admin: 06/17/17 03:58 Dose: 5 mg Tamsulosin HCl (Flomax -) 0.4 mg PO DAILY@0830 [facility] Last Admin: 06/17/17 08:42 Dose: 0.4 mg - Objective Vital Signs: Vital Signs Temperature 97.9 F 06/17/17 05:44 Pulse Rate 88 06/17/17 05:44 Respiratory Rate 20 06/17/17 05:44 Blood Pressure 132/72 06/17/17 05:44 O2 Sat by Pulse Oximetry (%) 98 06/16/17 20:38 Constitutional: Yes: No Distress Cardiovascular: Yes: Regular Rate and Rhythm Respiratory: Yes: CTA Bilaterally Gastrointestinal: Yes: Soft Edema: No Neurological: Yes: Alert, Oriented Labs: CBC, BMP 06/17/17 06:30 06/17/17 06:30 INR, PTT INR 1.31 (0.82-1.09) H 06/16/17 05:05 Microbiology 06/15/17 15:45 Blood - Peripheral Venous Blood Culture - Preliminary NO GROWTH OBTAINED AFTER 24 HOURS, INCUBATION TO CONTINUE FOR 4 DAYS. 06/15/17 15:45 Blood - Peripheral Venous Blood Culture - Preliminary NO GROWTH OBTAINED AFTER 24 HOURS, INCUBATION TO CONTINUE FOR 4 DAYS. 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 hematuria s/p recent procedure with resultant stricture and was planned for further procedure as outpatient admitted with urinary retention , fever, resultant sinus tachycardia, respiratory failure. Urinary retention -no cardiac contraindication to procedures that are necessary -if possible would continue Aspirin Tachycardia-sinus tach, no sign of recurrent arrhythmia on ekg or tele thus far -treat underlying source of tachycardia, fever, sepsis, sob, hypoxia SOB-respiratory failure -History of Hypoxia/SOB-recurrent, uncertain etiology, component of acute on chronic diastolic CHF but not fully explained by this -some undiagnosed chronic lung disease, possible exposure from working in [employer] has been considered -currently euvolemic -cont bipap -hold off on diuresis for now, can use lasix prn Coronary artery disease, history of drug-eluting stent to LAD May 2016. -cont ASA 81mg daily -ok to stop Plavix as >1 year since stent -resume home bblocker when tolerates -resume home statin Atrial flutter status post two ablations last one was May 2016. - He has been off Xarelto since 06/22/2016. - Three-week event monitor was done showed no recurrence of arrhythmia. - He was recommended to have a loop recorder implanted, but he declined. - Continue Toprol and aspirin for this. Cardiomyopathy- History of nonischemic cardiomyopathy, but likely arrhythmia induced with recovery of LV function after atrial flutter ablation. -Euvolemic -echo showed normal LV systolic function -management as above
[2017-06-17] MEDS: FENOFIBRIC ACID 135 MG CAP PO SCH (10:25)
[2017-06-17] MEDS: ASPIRIN 81 MG CHEWABLE TABLETS PO SCH (10:26)
[2017-06-17] MEDS: MUPIROCIN 2% TOPICAL OINTMENT FOR DECOLONIZATION NS SCH ×2 (10:26→22:02)
[2017-06-17] MEDS: CEFTRIAXONE IN IS-OSM DEXTROSE 2 GM/50 ML BAG IVPB SCH (10:27)
[2017-06-17] MEDS ORDERED: HEMOQUE TEST 1 EACH EACH ONE (11:23)
[2017-06-17] MEDS ORDERED: FUROSEMIDE 40 MG/4 ML INJECTABLE VIAL IVPUSH ONE (11:39)
[2017-06-17] MEDS ORDERED: INSULIN (NOVOLOG) ASPART 100 UNITS/ML 10ML VIAL ONE ×2 (11:52→17:47)
--- NOTE | 2017-06-17 11:57 | PN ---
Teaching Attending Note Name of Resident: Kacey Kim ATTENDING PHYSICIAN STATEMENT I saw and evaluated the patient. I reviewed the resident's note and discussed the case with the resident. I agree with the resident's findings and plan as documented. SUBJECTIVE: Patient seen and examined in the ICU. Awake and alert and reports feeling better. Still with significant Resp Acidosis. Could not tolerate NIPPV. I adjusted the settings. CXR: APE pattern OBJECTIVE: Intake & Output 06/14/17 06/15/17 06/16/17 06/17/17 23:59 23:59 23:59 23:59 Intake Total 2433 1677 496 Output Total 1000 1600 1000 Balance 1433 77 -504 Weight 235 lb 243 lb 244 lb 4.355 oz Last Vital Signs Temp Pulse Resp BP Pulse Ox 97.9 F 88 20 132/72 95 06/17/17 05:44 06/17/17 05:44 06/17/17 09:00 06/17/17 05:44 06/17/17 09:26 Active Medications Acetaminophen (Tylenol -) 325 mg PO Q4H PRN PRN Reason: PAIN LEVEL 1-5 Stop: 06/18/17 16:04 Last Admin: 06/17/17 11:52 Dose: 325 mg Albuterol/Ipratropium (Duoneb -) 1 amp NEB Q4H [facility] Last Admin: 06/17/17 11:44 Dose: 1 amp Aspirin (Asa -) 81 mg PO DAILY [facility] Last Admin: 06/17/17 10:26 Dose: 81 mg Chlorhexidine Gluconate (Hibiclens For Decolonization -) 1 applic TP HS [facility] Last Admin: 06/16/17 22:52 Dose: 1 applic Fenofibric Acid (Trilipix -) 135 mg PO DAILY [facility] Last Admin: 06/17/17 10:25 Dose: 135 mg Piperacillin Sod/Tazobactam (Sod 4.5 gm/ Dextrose) 100 mls @ 200 mls/hr IVPB Q8H-IV [facility] PRN Reason: Protocol Last Admin: 06/17/17 10:25 Dose: 200 mls/hr CEFTRIAXONE IN IS-OSM DEXTROSE (Ceftriaxone 2 Gm-D5w Bag) 2 gm in 50 mls @ 100 mls/hr IVPB DAILY [facility] Last Admin: 06/17/17 10:27 Dose: 100 mls/hr Insulin Aspart (Novolog Vial Sliding Scale -) 1 vial SQ ACHS [facility] PRN Reason: Protocol Last Admin: 06/17/17 11:32 Dose: 2 units Levothyroxine Sodium (Synthroid -) 50 mcg PO DAILY@0700 [facility] Last Admin: 06/17/17 06:05 Dose: 50 mcg Methylprednisolone Sodium Succinate (Solu-Medrol -) 60 mg IVPUSH Q8H-IV [facility] Last Admin: 06/17/17 10:25 Dose: 60 mg Morphine Sulfate (Morphine Injection -) 1 mg IVPUSH Q3H PRN PRN Reason: PAIN LEVEL 1-5 Last Admin: 06/16/17 00:08 Dose: 1 mg Mupirocin (Bactroban Ointment (For Decolonization) -) 1 applic NS BID [facility] Stop: 06/20/17 21:59 Last Admin: 06/17/17 10:26 Dose: 1 applic Oxycodone HCl (Roxicodone -) 5 mg PO Q4H PRN PRN Reason: PAIN LEVEL 1-5 Last Admin: 06/17/17 11:53 Dose: 5 mg Tamsulosin HCl (Flomax -) 0.4 mg PO DAILY@0830 [facility] Last Admin: 06/17/17 08:42 Dose: 0.4 mg Gen: Awake and alert, NAD Heart: RRR Lung: distant breath sounds, few scattered rhonchi Abd: soft, nontender Ext: no edema Intake & Output 06/14/17 06/15/17 06/16/17 06/17/17 23:59 23:59 23:59 23:59 Intake Total 2433 1677 496 Output Total 1000 1600 1000 Balance 1433 77 -504 Weight 235 lb 243 lb 244 lb 4.355 oz Last Vital Signs Temp Pulse Resp BP Pulse Ox 97.9 F 88 20 132/72 95 06/17/17 05:44 06/17/17 05:44 06/17/17 09:00 06/17/17 05:44 06/17/17 09:26 Active Medications Acetaminophen (Tylenol -) 325 mg PO Q4H PRN PRN Reason: PAIN LEVEL 1-5 Stop: 06/18/17 16:04 Last Admin: 06/17/17 11:52 Dose: 325 mg Albuterol/Ipratropium (Duoneb -) 1 amp NEB Q4H [facility] Last Admin: 06/17/17 11:44 Dose: 1 amp Aspirin (Asa -) 81 mg PO DAILY [facility] Last Admin: 06/17/17 10:26 Dose: 81 mg Chlorhexidine Gluconate (Hibiclens For Decolonization -) 1 applic TP HS [facility] Last Admin: 06/16/17 22:52 Dose: 1 applic Fenofibric Acid (Trilipix -) 135 mg PO DAILY [facility] Last Admin: 06/17/17 10:25 Dose: 135 mg Piperacillin Sod/Tazobactam (Sod 4.5 gm/ Dextrose) 100 mls @ 200 mls/hr IVPB Q8H-IV [facility] PRN Reason: Protocol Last Admin: 06/17/17 10:25 Dose: 200 mls/hr CEFTRIAXONE IN IS-OSM DEXTROSE (Ceftriaxone 2 Gm-D5w Bag) 2 gm in 50 mls @ 100 mls/hr IVPB DAILY [facility] Last Admin: 06/17/17 10:27 Dose: 100 mls/hr Insulin Aspart (Novolog Vial Sliding Scale -) 1 vial SQ ACHS [facility] PRN Reason: Protocol Last Admin: 06/17/17 11:32 Dose: 2 units Levothyroxine Sodium (Synthroid -) 50 mcg PO DAILY@0700 [facility] Last Admin: 06/17/17 06:05 Dose: 50 mcg Methylprednisolone Sodium Succinate (Solu-Medrol -) 60 mg IVPUSH Q8H-IV [facility] Last Admin: 06/17/17 10:25 Dose: 60 mg Morphine Sulfate (Morphine Injection -) 1 mg IVPUSH Q3H PRN PRN Reason: PAIN LEVEL 1-5 Last Admin: 06/16/17 00:08 Dose: 1 mg Mupirocin (Bactroban Ointment (For Decolonization) -) 1 applic NS BID [facility] Stop: 06/20/17 21:59 Last Admin: 06/17/17 10:26 Dose: 1 applic Oxycodone HCl (Roxicodone -) 5 mg PO Q4H PRN PRN Reason: PAIN LEVEL 1-5 Last Admin: 06/17/17 11:53 Dose: 5 mg Tamsulosin HCl (Flomax -) 0.4 mg PO DAILY@0830 [facility] Last Admin: 06/17/17 08:42 Dose: 0.4 mg ASSESSMENT AND PLAN: UTI r/o Bacteremia Urinary Retention/BPH/ h/o Strictures Sepsis Acute on Chronic Hypoxic Respiratory Failure CAD s/p stents Obstructive Sleep Apnea HTN DM - continue antibiotics - Lasix - monitor urine output, creatinine - O2 to keep SpO2 >90% - NIPPV settings were adjusted. Advised the patient to use QHS and PRN - monitor ABG - Low threshold for intubation - Continue empiric medrol - standing inhaled bronchodilators - minimize narcotics - VTE prophylaxis - ICU monitoring Dr Buckley Critical care time spent in reviewing chart, evaluating patient and formulating plan 36 min
[2017-06-17] MEDS ORDERED: oxyCODONE HCL 5 MG TABLET PO ONE (13:47)
--- NOTE | 2017-06-17 15:39 | PN ---
Progress Note, Physician History of Present Illness: stable much more awake and alert headache main issue now - Current Medication List Current Medications: Active Medications Acetaminophen (Tylenol -) 325 mg PO Q4H PRN PRN Reason: PAIN LEVEL 1-5 Stop: 06/18/17 16:04 Last Admin: 06/17/17 13:50 Dose: 325 mg Albuterol/Ipratropium (Duoneb -) 1 amp NEB Q4H [facility] Last Admin: 06/17/17 11:44 Dose: 1 amp Aspirin (Asa -) 81 mg PO DAILY [facility] Last Admin: 06/17/17 10:26 Dose: 81 mg Chlorhexidine Gluconate (Hibiclens For Decolonization -) 1 applic TP HS [facility] Last Admin: 06/16/17 22:52 Dose: 1 applic Fenofibric Acid (Trilipix -) 135 mg PO DAILY [facility] Last Admin: 06/17/17 10:25 Dose: 135 mg Piperacillin Sod/Tazobactam (Sod 4.5 gm/ Dextrose) 100 mls @ 200 mls/hr IVPB Q8H-IV [facility] PRN Reason: Protocol Last Admin: 06/17/17 10:25 Dose: 200 mls/hr Insulin Aspart (Novolog Vial Sliding Scale -) 1 vial SQ ACHS [facility] PRN Reason: Protocol Last Admin: 06/17/17 11:32 Dose: 2 units Levothyroxine Sodium (Synthroid -) 50 mcg PO DAILY@0700 [facility] Last Admin: 06/17/17 06:05 Dose: 50 mcg Methylprednisolone Sodium Succinate (Solu-Medrol -) 60 mg IVPUSH Q8H-IV [facility] Last Admin: 06/17/17 10:25 Dose: 60 mg Morphine Sulfate (Morphine Injection -) 1 mg IVPUSH Q3H PRN PRN Reason: PAIN LEVEL 1-5 Last Admin: 06/16/17 00:08 Dose: 1 mg Mupirocin (Bactroban Ointment (For Decolonization) -) 1 applic NS BID [facility] Stop: 06/20/17 21:59 Last Admin: 06/17/17 10:26 Dose: 1 applic Oxycodone HCl (Roxicodone -) 5 mg PO Q4H PRN PRN Reason: PAIN LEVEL 1-5 Last Admin: 06/17/17 11:53 Dose: 5 mg Tamsulosin HCl (Flomax -) 0.4 mg PO DAILY@0830 [facility] Last Admin: 06/17/17 08:42 Dose: 0.4 mg - Objective Vital Signs: Vital Signs Temperature 98.2 F 06/17/17 10:00 Pulse Rate 93 H 06/17/17 12:00 Respiratory Rate 20 06/17/17 12:00 Blood Pressure 143/80 06/17/17 12:00 O2 Sat by Pulse Oximetry (%) 95 06/17/17 09:26 Constitutional: Yes: Calm, Mild Distress Cardiovascular: Yes: Regular Rate and Rhythm Respiratory: Yes: Regular, CTA Bilaterally Gastrointestinal: Yes: Normal Bowel Sounds, Soft Genitourinary: Yes: Brown Present (urine has cleared) Musculoskeletal: Yes: WNL Extremities: Yes: WNL Neurological: Yes: Alert, Oriented Psychiatric: Yes: Alert, Oriented Labs: CBC, BMP 06/17/17 06:30 06/17/17 06:30 INR, PTT INR 1.31 (0.82-1.09) H 06/16/17 05:05 Assessment/Plan ASSESSMENT AND PLAN: UTI bph/strictures r/o bacteremia resp failure sepsis urinary retention hematuria loyda htn dm plan continue abx hematuria resolved continue monitoring rest as per icu urology on case cc time 40 min
--- NOTE | 2017-06-17 16:32 | PN ---
Progress Note, Physician History of Present Illness: Pt seen and examined at bedside. He is awake and alert. He feels much better than he did yesterday. Brown is in place and he is making urine. - Current Medication List Current Medications: Active Medications Acetaminophen (Tylenol -) 325 mg PO Q4H PRN PRN Reason: PAIN LEVEL 1-5 Stop: 06/18/17 16:04 Last Admin: 06/17/17 13:50 Dose: 325 mg Albuterol/Ipratropium (Duoneb -) 1 amp NEB Q4H [facility] Last Admin: 06/17/17 16:25 Dose: 1 amp Aspirin (Asa -) 81 mg PO DAILY [facility] Last Admin: 06/17/17 10:26 Dose: 81 mg Chlorhexidine Gluconate (Hibiclens For Decolonization -) 1 applic TP HS [facility] Last Admin: 06/16/17 22:52 Dose: 1 applic Fenofibric Acid (Trilipix -) 135 mg PO DAILY [facility] Last Admin: 06/17/17 10:25 Dose: 135 mg Piperacillin Sod/Tazobactam (Sod 4.5 gm/ Dextrose) 100 mls @ 200 mls/hr IVPB Q8H-IV [facility] PRN Reason: Protocol Last Admin: 06/17/17 10:25 Dose: 200 mls/hr Insulin Aspart (Novolog Vial Sliding Scale -) 1 vial SQ ACHS [facility] PRN Reason: Protocol Last Admin: 06/17/17 11:32 Dose: 2 units Levothyroxine Sodium (Synthroid -) 50 mcg PO DAILY@0700 [facility] Last Admin: 06/17/17 06:05 Dose: 50 mcg Methylprednisolone Sodium Succinate (Solu-Medrol -) 60 mg IVPUSH Q8H-IV [facility] Last Admin: 06/17/17 10:25 Dose: 60 mg Morphine Sulfate (Morphine Injection -) 1 mg IVPUSH Q3H PRN PRN Reason: PAIN LEVEL 1-5 Last Admin: 06/16/17 00:08 Dose: 1 mg Mupirocin (Bactroban Ointment (For Decolonization) -) 1 applic NS BID [facility] Stop: 06/20/17 21:59 Last Admin: 06/17/17 10:26 Dose: 1 applic Oxycodone HCl (Roxicodone -) 5 mg PO Q4H PRN PRN Reason: PAIN LEVEL 1-5 Last Admin: 06/17/17 11:53 Dose: 5 mg Tamsulosin HCl (Flomax -) 0.4 mg PO DAILY@0830 [facility] Last Admin: 06/17/17 08:42 Dose: 0.4 mg - Objective Vital Signs: Vital Signs Temperature 98.2 F 06/17/17 10:00 Pulse Rate 93 H 06/17/17 12:00 Respiratory Rate 20 06/17/17 12:00 Blood Pressure 143/80 06/17/17 12:00 O2 Sat by Pulse Oximetry (%) 95 06/17/17 09:26 Constitutional: Yes: Calm Eyes: Yes: Conjunctiva Clear HENT: Yes: Atraumatic Neck: Yes: Supple Cardiovascular: Yes: S1, S2 Respiratory: Yes: CTA Bilaterally, On Nasal O2 Gastrointestinal: Yes: Soft, Abdomen, Obese Genitourinary: Yes: Brown Present Musculoskeletal: Yes: WNL Edema: No Neurological: Yes: Oriented Psychiatric: Yes: Oriented Labs: CBC, BMP 06/17/17 06:30 06/17/17 06:30 INR, PTT INR 1.31 (0.82-1.09) H 06/16/17 05:05 Problem List - Problems (1) Urinary retention Code(s): R33.9 - RETENTION OF URINE, UNSPECIFIED (2) CHF (congestive heart failure) Code(s): I50.9 - HEART FAILURE, UNSPECIFIED (3) HTN (hypertension) Code(s): I10 - ESSENTIAL (PRIMARY) HYPERTENSION Assessment/Plan Current Medications Generic Name Dose Route Start Last Admin Trade Name Freq PRN Reason Stop Dose Admin Acetaminophen 325 mg 06/15/17 16:05 06/17/17 13:50 Tylenol - PO 06/18/17 16:04 325 mg Q4H PRN Administration PAIN LEVEL 1-5 Albuterol/Ipratropium 1 amp 06/16/17 12:00 06/17/17 16:25 Duoneb - NEB 1 amp Q4H [facility] Administration Aspirin 81 mg 06/16/17 10:00 06/17/17 10:26 Asa - PO 81 mg DAILY [facility] Administration Chlorhexidine Gluconate 1 applic 06/15/17 22:00 06/16/17 22:52 Hibiclens For Decolonization - TP 1 applic HS [facility] Administration Fenofibric Acid 135 mg 06/16/17 10:00 06/17/17 10:25 Trilipix - PO 135 mg DAILY [facility] Administration Piperacillin Sod/Tazobactam 100 mls @ 200 mls/hr 06/15/17 18:00 06/17/17 10: 25 Sod 4.5 gm/ Dextrose IVPB 200 mls/hr Q8H-IV [facility] Administration Protocol Insulin Aspart 1 vial 06/15/17 22:00 06/17/17 11:32 Novolog Vial Sliding Scale - SQ 2 units ACHS [facility] Administration Protocol Levothyroxine Sodium 50 mcg 06/16/17 07:00 06/17/17 06:05 Synthroid - PO 50 mcg DAILY@0700 [facility] Administration Methylprednisolone Sodium Succinate 60 mg 06/16/17 12:00 06/17/17 10:25 Solu-Medrol - IVPUSH 60 mg Q8H-IV [facility] Administration Morphine Sulfate 1 mg 06/15/17 22:27 06/16/17 00:08 Morphine Injection - IVPUSH 1 mg Q3H PRN Administration PAIN LEVEL 1-5 Mupirocin 1 applic 06/15/17 22:00 06/17/17 10:26 Bactroban Ointment (For Decolonization) - NS 06/20/17 21:59 1 applic BID [facility] Administration Oxycodone HCl 5 mg 06/15/17 16:05 06/17/17 11:53 Roxicodone - PO 5 mg Q4H PRN Administration PAIN LEVEL 1-5 Tamsulosin HCl 0.4 mg 06/16/17 08:30 06/17/17 08:42 Flomax - PO 0.4 mg DAILY@0830 [facility] Administration Impression 1. urinary retention 2. htn 3. DM 4. proteinuria/hematuria 5. CAD 6. hyperkalemia Plan - cont current management - repeat cxr in am - potassium treated medically - will follow - will re-order renal ultrasound - will need to repeat ua to evaluate proteinuria once urologic issues are resolved - avoid nsaids - will follow Dr Lynn
[2017-06-17] MEDS: CHLORHEXIDINE GLUCONATE 4% CLEANSER FOR DECOLONIZATION TP SCH (22:02)
[2017-06-17] MEDS ORDERED: AMIODARONE HCL 150 MG/3 ML VIAL IVPUSH ONE (23:23)
--- NOTE | 2017-06-17 23:32 | PN ---
Progress Note, Physician History of Present Illness: Pt more responsive - Current Medication List Current Medications: Active Medications Acetaminophen (Tylenol -) 325 mg PO Q4H PRN PRN Reason: PAIN LEVEL 1-5 Stop: 06/18/17 16:04 Last Admin: 06/17/17 13:50 Dose: 325 mg Albuterol/Ipratropium (Duoneb -) 1 amp NEB Q4H [facility] Last Admin: 06/17/17 21:35 Dose: 1 amp Aspirin (Asa -) 81 mg PO DAILY [facility] Last Admin: 06/17/17 10:26 Dose: 81 mg Chlorhexidine Gluconate (Hibiclens For Decolonization -) 1 applic TP HS [facility] Last Admin: 06/17/17 22:02 Dose: 1 applic Fenofibric Acid (Trilipix -) 135 mg PO DAILY [facility] Last Admin: 06/17/17 10:25 Dose: 135 mg Piperacillin Sod/Tazobactam (Sod 4.5 gm/ Dextrose) 100 mls @ 200 mls/hr IVPB Q8H-IV [facility] PRN Reason: Protocol Last Admin: 06/17/17 17:42 Dose: 200 mls/hr Insulin Aspart (Novolog Vial Sliding Scale -) 1 vial SQ ACHS [facility] PRN Reason: Protocol Last Admin: 06/17/17 22:02 Dose: 10 units Levothyroxine Sodium (Synthroid -) 50 mcg PO DAILY@0700 [facility] Last Admin: 06/17/17 06:05 Dose: 50 mcg Methylprednisolone Sodium Succinate (Solu-Medrol -) 60 mg IVPUSH Q8H-IV [facility] Last Admin: 06/17/17 17:41 Dose: 60 mg Morphine Sulfate (Morphine Injection -) 1 mg IVPUSH Q3H PRN PRN Reason: PAIN LEVEL 1-5 Last Admin: 06/16/17 00:08 Dose: 1 mg Mupirocin (Bactroban Ointment (For Decolonization) -) 1 applic NS BID [facility] Stop: 06/20/17 21:59 Last Admin: 06/17/17 22:02 Dose: 1 applic Oxycodone HCl (Roxicodone -) 5 mg PO Q4H PRN PRN Reason: PAIN LEVEL 1-5 Last Admin: 06/17/17 11:53 Dose: 5 mg Tamsulosin HCl (Flomax -) 0.4 mg PO DAILY@0830 [facility] Last Admin: 06/17/17 08:42 Dose: 0.4 mg - Objective Vital Signs: Vital Signs Temperature 98.8 F 06/17/17 14:00 Pulse Rate 95 H 06/17/17 18:00 Respiratory Rate 19 06/17/17 18:00 Blood Pressure 137/68 06/17/17 18:00 O2 Sat by Pulse Oximetry (%) 94 L 06/17/17 18:36 Constitutional: Yes: Well Nourished Neck: Yes: WNL, Supple Cardiovascular: Yes: Tachycardia Respiratory: Yes: Diminished Gastrointestinal: Yes: WNL, Normal Bowel Sounds, Soft, Abdomen, Obese Musculoskeletal: Yes: WNL Extremities: Yes: WNL Edema: No Labs: CBC, BMP 06/17/17 06:30 06/17/17 06:30 INR, PTT INR 1.31 (0.82-1.09) H 06/16/17 05:05 Problem List - Problems (1) BPH (benign prostatic hyperplasia) Code(s): N40.0 - BENIGN PROSTATIC HYPERPLASIA WITHOUT LOWER URINRY TRACT SYMP (2) CAD (coronary artery disease) Code(s): I25.10 - ATHSCL HEART DISEASE OF [place] CORONARY ARTERY W/O ANG PCTRS (3) COPD (chronic obstructive pulmonary disease) Code(s): J44.9 - CHRONIC OBSTRUCTIVE PULMONARY DISEASE, UNSPECIFIED (4) HTN (hypertension) Code(s): I10 - ESSENTIAL (PRIMARY) HYPERTENSION (5) Hypothyroidism Code(s): E03.9 - HYPOTHYROIDISM, UNSPECIFIED (6) SHEKHAR (obstructive sleep apnea) Code(s): G47.33 - OBSTRUCTIVE SLEEP APNEA (ADULT) (PEDIATRIC) (7) Respiratory failure Code(s): J96.90 - RESPIRATORY FAILURE, UNSP, UNSP W HYPOXIA OR HYPERCAPNIA (8) Sepsis Code(s): A41.9 - SEPSIS, UNSPECIFIED ORGANISM (9) Atrial flutter Code(s): I48.92 - UNSPECIFIED ATRIAL FLUTTER (10) Obesity Code(s): E66.9 - OBESITY, UNSPECIFIED
[2017-06-18] MEDS ORDERED: AMIODARONE HCL 150 MG/3 ML VIAL ONE (01:05)
[2017-06-18] MEDS ORDERED: dilTIAZem HCL 125 MG/25 ML - 5 ML VIAL ONE (01:21)
[2017-06-18] MEDS: methylPREDNISolone NA SUCC 40 MG/1 ML VIAL IVPUSH SCH ×4 (01:32→21:49)
[2017-06-18] MEDS: PIPERACILLIN/TAZOB 4.5 GM 4.5 GM in DEXTROSE 5%-WATER - 100 ML IVPB SCH ×3 (01:32→19:19)
[2017-06-18] MEDS: DILTIAZEM INJECTION 125 MG in DEXTROSE 5%-WATER - 100 ML IVPB SCH (01:36)
[2017-06-18] MEDS ORDERED: AMIODARONE HCL 150 MG/3 ML VIAL IVPUSH ONE (05:48)
[2017-06-18] MEDS ORDERED: ALBUTEROL SO4 2.5/IPRATROPIUM 0.5 INH SOL 3 ML VIAL.NEB. NEB SCH (06:00)
[2017-06-18 06:07] LABS: ARTERIAL BLD GAS O2 SATURATION 94.3 % (90-98.9); ARTERIAL BLOOD GAS BASE EXCESS 6.5 meq/l (-2-2); ARTERIAL BLOOD GAS PO2 68.4 mmHg (80-100); ARTERIAL BLOOD GAS pH 7.36 (7.35-7.45)
[2017-06-18 06:16] LABS: ALLENS TEST POSITIVE
[2017-06-18 06:17] LABS: HEMATOCRIT 44.7 % (35.4-49); LYMPH % 2.6 % (8-40); MCH 23.9 pg (25.7-33.7); MCHC 31.4 g/dl (32.0-35.9); MEAN CELL VOLUME 76.1 fl (80-96); MEAN PLT VOLUME 10.3 fl (7.5-11.1); MONO % 4.2 % (3.8-10.2); NEUT % 93.2 % (42.8-82.8); PLATELET COUNT 146 K/MM3 (134-434); RBC 5.88 M/mm3 (4.00-5.60); RDW 18.1 % (11.9-15.9); WHITE BLOOD COUNT 9.7 K/mm3 (4.0-10.0)
[2017-06-18 06:18] LABS: ARTERIAL BLOOD GAS PCO2 60.7 mmHg (35-45)
[2017-06-18] MEDS: AMIODARONE IN DEXTROSE,ISO-OSM 360 MG/200 ML BAG IVPB SCH (06:47)
[2017-06-18] MEDS: LEVOTHYROXINE NA 50 MCG TABLET (FP) PO SCH (06:48)
[2017-06-18 06:50] LABS: ALBUMIN 3.2 g/dl (3.4-5.0); ANION GAP 6 (8-16); BILIRUBIN,TOTAL 0.7 mg/dL (0.2-1.0); BLOOD UREA NITROGEN 39 mg/dL (7-18); CALCIUM 8.4 mg/dL (8.5-10.1); CHLORIDE 92 mmol/L (98-107); CO2 36 mmol/L (21-32); GLUCOSE,RANDOM 253 mg/dL (74-106); MAGNESIUM 2.8 mg/dL (1.8-2.4); POTASSIUM 4.9 mmol/L (3.5-5.1); SODIUM 134 mmol/L (136-145)
[2017-06-18] MEDS: INSULIN SLIDING SCALE (NOVOLOG) 1 VIAL SQ SCH ×4 (06:52→21:49)
[2017-06-18 06:53] LABS: ALK PHOS 71 U/L (45-117); PHOSPHOROUS 2.7 mg/dL (2.5-4.9); SGOT/AST 17 U/L (15-37); TOT PROT 6.4 g/dl (6.4-8.2)
[2017-06-18 07:40] LABS: SGPT/ALT 36 U/L (12-78)
--- NOTE | 2017-06-18 08:18 | PN ---
Progress Note, Physician Chief Complaint: went into Rapid AF last night Now in NSR after IV amio CXR shows increased PVC - Current Medication List Current Medications: Active Medications Acetaminophen (Tylenol -) 325 mg PO Q4H PRN PRN Reason: PAIN LEVEL 1-5 Stop: 06/18/17 16:04 Last Admin: 06/17/17 13:50 Dose: 325 mg Albuterol/Ipratropium (Duoneb -) 1 amp NEB Q4H[facility] Last Admin: 06/18/17 05:50 Dose: 1 amp Aspirin (Asa -) 81 mg PO DAILY [facility] Last Admin: 06/17/17 10:26 Dose: 81 mg Chlorhexidine Gluconate (Hibiclens For Decolonization -) 1 applic TP HS [facility] Last Admin: 06/17/17 22:02 Dose: 1 applic Fenofibric Acid (Trilipix -) 135 mg PO DAILY [facility] Last Admin: 06/17/17 10:25 Dose: 135 mg Piperacillin Sod/Tazobactam (Sod 4.5 gm/ Dextrose) 100 mls @ 200 mls/hr IVPB Q8H-IV [facility] PRN Reason: Protocol Last Admin: 06/18/17 01:32 Dose: 200 mls/hr Diltiazem HCl 125 mg/ Dextrose 125 mls @ 5 mls/hr IVPB TITR [facility]; 5 MG/HR PRN Reason: Protocol Last Admin: 06/18/17 01:36 Dose: 5 mg/hr, 5 mls/hr Amiodarone HCl/Dextrose (Nexterone 360 Mg/200 Ml Bag) 360 mg in 200 mls @ 16.667 mls/hr IVPB TITR [facility]; 0.5 MG/MIN PRN Reason: Protocol Last Admin: 06/18/17 06:47 Dose: 0.5 mg/min, 16.667 mls/hr Insulin Aspart (Novolog Vial Sliding Scale -) 1 vial SQ ACHS [facility] PRN Reason: Protocol Last Admin: 06/18/17 06:52 Dose: 6 units Levothyroxine Sodium (Synthroid -) 50 mcg PO DAILY@0700 [facility] Last Admin: 06/18/17 06:48 Dose: 50 mcg Methylprednisolone Sodium Succinate (Solu-Medrol -) 60 mg IVPUSH Q8H-IV [facility] Last Admin: 06/18/17 01:32 Dose: 60 mg Morphine Sulfate (Morphine Injection -) 1 mg IVPUSH Q3H PRN PRN Reason: PAIN LEVEL 1-5 Last Admin: 06/16/17 00:08 Dose: 1 mg Mupirocin (Bactroban Ointment (For Decolonization) -) 1 applic NS BID [facility] Stop: 06/20/17 21:59 Last Admin: 06/17/17 22:02 Dose: 1 applic Oxycodone HCl (Roxicodone -) 5 mg PO Q4H PRN PRN Reason: PAIN LEVEL 1-5 Last Admin: 06/17/17 11:53 Dose: 5 mg Tamsulosin HCl (Flomax -) 0.4 mg PO DAILY@0830 [facility] Last Admin: 06/17/17 08:42 Dose: 0.4 mg - Objective Vital Signs: Vital Signs Temperature 98.4 F 06/18/17 06:00 Pulse Rate 128 H 06/18/17 06:00 Respiratory Rate 22 06/18/17 06:00 Blood Pressure 105/75 06/18/17 06:00 O2 Sat by Pulse Oximetry (%) 94 L 06/17/17 21:00 Constitutional: Yes: No Distress Cardiovascular: Yes: Regular Rate and Rhythm Respiratory: Yes: Other (decreased breath sounds at bases) Gastrointestinal: Yes: Soft, Abdomen, Obese Edema: No Neurological: Yes: Alert, Oriented ...Motor Strength: WNL Labs: CBC, BMP 06/18/17 05:15 06/18/17 05:15 INR, PTT INR 1.31 (0.82-1.09) H 06/16/17 05:05 Microbiology 06/15/17 09:50 Urine - Urine Brown Urine Culture - Final Strep Agalactiae Group B Laboratory Tests 06/18/17 06/18/17 06/18/17 05:15 05:15 05:35 WBC 9.7 Hgb 14.0 Plt Count 146 D ABG pH 7.36 D ABG pCO2 at Pt Temp 60.7 H* ABG pO2 at Pt Temp 68.4 L Sodium 134 L Potassium 4.9 BUN 39 H Creatinine 1.0 D - ....Imaging EKG: Image Reviewed Assessment/Plan 57 year old man with a history of hypertension, diabetes, hyperlipidemia, typical atrial flutter status post ablation in 2012, 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 hematuria s/p recent procedure with resultant stricture and was planned for further procedure as outpatient admitted with urinary retention , fever, resultant sinus tachycardia, respiratory failure. Rapid AF, now back in NSR: -likely precipitated by volume overload -Start Lasix 40mg IV daily -Metoprolol 25mg q6h SOB-respiratory failure -History of Hypoxia/SOB-recurrent, uncertain etiology, component of acute on chronic diastolic CHF but not fully explained by this -some undiagnosed chronic lung disease, possible exposure from working in [place] has been considered -currently euvolemic -cont bipap -start Lasix Coronary artery disease, history of drug-eluting stent to LAD May 2016. -cont ASA 81mg daily -ok to stop Plavix as >1 year since stent -will resume beta nicole -resume home statin Atrial flutter status post two ablations last one was May 2016. - He has been off Xarelto since 06/22/2016. - Three-week event monitor was done showed no recurrence of arrhythmia. - He was recommended to have a loop recorder implanted, but he declined. - Given recurrence of AF, will resume Xarelto Cardiomyopathy- History of nonischemic cardiomyopathy, but likely arrhythmia induced with recovery of LV function after atrial flutter ablation. -Euvolemic -echo showed normal LV systolic function -management as above
[2017-06-18] MEDS ORDERED: PT OWN MED DRAWER 7, Y5N ONE ×3 (08:29→10:48)
[2017-06-18] MEDS: TAMSULOSIN HCL 0.4 MG CAP.ER.24H (FP) PO SCH (08:31)
--- NOTE | 2017-06-18 09:05 | PN ---
Progress Note (short form) - Note Progress Note: PULMONARY/CCM Pt seen and examined in the ICU. Much more alert, awake. Complaining of hiccups. Breathing close to baseline. No abdominal pain. No further fevers. Last Vital Signs Temp Pulse Resp BP Pulse Ox 98.4 F 128 H 22 105/75 94 L 06/18/17 06:00 06/18/17 06:00 06/18/17 06:00 06/18/17 06:00 06/17/17 21:00 Intake & Output 06/15/17 06/16/17 06/17/17 06/18/17 23:59 23:59 23:59 23:59 Intake Total 2433 1677 1428 800 Output Total 1000 1600 5100 2700 Balance 1433 71 -4652 -1900 Weight 106.594 kg 110.223 kg 110.8 kg 111.13 kg Gen: more alert, awake Heart: RRR Lung: distant breath sounds Abd: soft, nontender Ext: no edema CBC, BMP 06/18/17 05:15 06/18/17 05:15 Active Medications Acetaminophen (Tylenol -) 325 mg PO Q4H PRN PRN Reason: PAIN LEVEL 1-5 Stop: 06/18/17 16:04 Last Admin: 06/17/17 13:50 Dose: 325 mg Albuterol/Ipratropium (Duoneb -) 1 amp NEB Q4HPO [facility] Last Admin: 06/18/17 05:50 Dose: 1 amp Aspirin (Asa -) 81 mg PO DAILY [facility] Last Admin: 06/17/17 10:26 Dose: 81 mg Chlorhexidine Gluconate (Hibiclens For Decolonization -) 1 applic TP HS [facility] Last Admin: 06/17/17 22:02 Dose: 1 applic Fenofibric Acid (Trilipix -) 135 mg PO DAILY [facility] Last Admin: 06/17/17 10:25 Dose: 135 mg Furosemide (Lasix Injection -) 40 mg IVPUSH DAILY [facility] Piperacillin Sod/Tazobactam (Sod 4.5 gm/ Dextrose) 100 mls @ 200 mls/hr IVPB Q8H-IV [facility] PRN Reason: Protocol Last Admin: 06/18/17 01:32 Dose: 200 mls/hr Diltiazem HCl 125 mg/ Dextrose 125 mls @ 5 mls/hr IVPB TITR [facility]; 5 MG/HR PRN Reason: Protocol Last Admin: 06/18/17 01:36 Dose: 5 mg/hr, 5 mls/hr Amiodarone HCl/Dextrose (Nexterone 360 Mg/200 Ml Bag) 360 mg in 200 mls @ 16.667 mls/hr IVPB TITR [facility]; 0.5 MG/MIN PRN Reason: Protocol Last Admin: 06/18/17 06:47 Dose: 0.5 mg/min, 16.667 mls/hr Insulin Aspart (Novolog Vial Sliding Scale -) 1 vial SQ ACHS [facility] PRN Reason: Protocol Last Admin: 06/18/17 06:52 Dose: 6 units Levothyroxine Sodium (Synthroid -) 50 mcg PO DAILY@0700 [facility] Last Admin: 06/18/17 06:48 Dose: 50 mcg Methylprednisolone Sodium Succinate (Solu-Medrol -) 60 mg IVPUSH Q8H-IV [facility] Last Admin: 06/18/17 01:32 Dose: 60 mg Metoprolol Tartrate (Lopressor -) 25 mg PO Q6HPO [facility] Morphine Sulfate (Morphine Injection -) 1 mg IVPUSH Q3H PRN PRN Reason: PAIN LEVEL 1-5 Last Admin: 06/16/17 00:08 Dose: 1 mg Mupirocin (Bactroban Ointment (For Decolonization) -) 1 applic NS BID [facility] Stop: 06/20/17 21:59 Last Admin: 06/17/17 22:02 Dose: 1 applic Oxycodone HCl (Roxicodone -) 5 mg PO Q4H PRN PRN Reason: PAIN LEVEL 1-5 Last Admin: 06/17/17 11:53 Dose: 5 mg Rivaroxaban (Xarelto -) 20 mg PO DAILY@1800 [facility] Tamsulosin HCl (Flomax -) 0.4 mg PO DAILY@0830 [facility] Last Admin: 06/17/17 08:42 Dose: 0.4 mg A/P UTI Urinary Retention/BPH/ h/o Strictures Sepsis Acute on Chronic Hypoxic Respiratory Failure improving CAD s/p stents Atrial Fibrillation with RVR now in sinus Acute on Chronic Diastolic Heart Failure Obstructive Sleep Apnea HTN DM - continue antibiotics - IV lasix - monitor urine output, creatinine - rate controlled - anticoagulation per cardiology - O2 to keep SpO2 >90% - BIPAP as needed - taper off medrol - standing inhaled bronchodilators - minimize narcotics - DVT prophylaxis - can monitor on telemetry critical care time spent in reviewing chart, evaluating patient and formulating plan 35 min
[2017-06-18] MEDS: ASPIRIN 81 MG CHEWABLE TABLETS PO SCH (09:07)
[2017-06-18] MEDS: MUPIROCIN 2% TOPICAL OINTMENT FOR DECOLONIZATION NS SCH ×2 (09:08→21:49)
[2017-06-18] MEDS ORDERED: ALBUTEROL SO4 2.5/IPRATROPIUM 0.5 INH SOL 3 ML VIAL.NEB. NEB PRN (09:10)
[2017-06-18] MEDS: FUROSEMIDE 40 MG/4 ML INJECTABLE VIAL IVPUSH SCH (09:13)
[2017-06-18] MEDS: METOPROLOL TARTRATE 25 MG TABLET (FP) PO SCH ×3 (09:21→19:20)
[2017-06-18] MEDS: FENOFIBRIC ACID 135 MG CAP PO SCH (10:49)
--- NOTE | 2017-06-18 14:02 | PN ---
Progress Note, Physician History of Present Illness: Pt seen and examined. Chart reviewed, lab/imaging results noted. Pt states he feels ok. No acute difficulty breathing. Has had hiccups intermittently but no other specific complaints. Tmax 99.6F. Family at bedside. - Current Medication List Current Medications: Active Medications Acetaminophen (Tylenol -) 325 mg PO Q4H PRN PRN Reason: PAIN LEVEL 1-5 Stop: 06/18/17 16:04 Last Admin: 06/17/17 13:50 Dose: 325 mg Albuterol/Ipratropium (Duoneb -) 1 amp NEB Q6H PRN PRN Reason: SHORT OF BREATH/WHEEZING Last Admin: 06/18/17 09:39 Dose: 1 amp Aspirin (Asa -) 81 mg PO DAILY [facility] Last Admin: 06/18/17 09:07 Dose: 81 mg Chlorhexidine Gluconate (Hibiclens For Decolonization -) 1 applic TP HS [facility] Last Admin: 06/17/17 22:02 Dose: 1 applic Fenofibric Acid (Trilipix -) 135 mg PO DAILY [facility] Last Admin: 06/18/17 10:49 Dose: 135 mg Furosemide (Lasix Injection -) 40 mg IVPUSH DAILY [facility] Last Admin: 06/18/17 09:13 Dose: 40 mg Piperacillin Sod/Tazobactam (Sod 4.5 gm/ Dextrose) 100 mls @ 200 mls/hr IVPB Q8H-IV [facility] PRN Reason: Protocol Last Admin: 06/18/17 09:06 Dose: 200 mls/hr Diltiazem HCl 125 mg/ Dextrose 125 mls @ 5 mls/hr IVPB TITR [facility]; 5 MG/HR PRN Reason: Protocol Last Admin: 06/18/17 01:36 Dose: 5 mg/hr, 5 mls/hr Amiodarone HCl/Dextrose (Nexterone 360 Mg/200 Ml Bag) 360 mg in 200 mls @ 16.667 mls/hr IVPB TITR [facility]; 0.5 MG/MIN PRN Reason: Protocol Last Admin: 06/18/17 06:47 Dose: 0.5 mg/min, 16.667 mls/hr Insulin Aspart (Novolog Vial Sliding Scale -) 1 vial SQ ACHS [facility] PRN Reason: Protocol Last Admin: 06/18/17 12:06 Dose: 4 units Levothyroxine Sodium (Synthroid -) 50 mcg PO DAILY@0700 [facility] Last Admin: 06/18/17 06:48 Dose: 50 mcg Methylprednisolone Sodium Succinate (Solu-Medrol -) 40 mg IVPUSH BID [facility] Metoprolol Tartrate (Lopressor -) 25 mg PO Q6HPO [facility] Last Admin: 06/18/17 12:08 Dose: 25 mg Morphine Sulfate (Morphine Injection -) 1 mg IVPUSH Q3H PRN PRN Reason: PAIN LEVEL 1-5 Last Admin: 06/16/17 00:08 Dose: 1 mg Mupirocin (Bactroban Ointment (For Decolonization) -) 1 applic NS BID [facility] Stop: 06/20/17 21:59 Last Admin: 06/18/17 09:08 Dose: 1 applic Oxycodone HCl (Roxicodone -) 5 mg PO Q4H PRN PRN Reason: PAIN LEVEL 1-5 Last Admin: 06/17/17 11:53 Dose: 5 mg Rivaroxaban (Xarelto -) 20 mg PO DAILY@1800 [facility] Tamsulosin HCl (Flomax -) 0.4 mg PO DAILY@0830 [facility] Last Admin: 06/18/17 08:31 Dose: 0.4 mg - Objective Vital Signs: Vital Signs Temperature 99.6 F 06/18/17 10:00 Pulse Rate 66 06/18/17 12:00 Respiratory Rate 20 06/18/17 12:00 Blood Pressure 111/70 06/18/17 12:00 O2 Sat by Pulse Oximetry (%) 94 L 06/18/17 10:00 Constitutional: Yes: No Distress, Calm Eyes: Yes: WNL HENT: Yes: WNL Cardiovascular: Yes: Regular Rate and Rhythm Respiratory: Yes: Diminished (slightly in bases) Gastrointestinal: Yes: Normal Bowel Sounds, Soft Genitourinary: Yes: Brown Present Neurological: Yes: Alert, Oriented Labs: CBC, BMP 06/18/17 05:15 06/18/17 05:15 INR, PTT INR 1.31 (0.82-1.09) H 06/16/17 05:05 Microbiology 06/15/17 15:45 Blood - Peripheral Venous Blood Culture - Preliminary NO GROWTH OBTAINED AFTER 48 HOURS, INCUBATION TO CONTINUE FOR 3 DAYS. 06/15/17 15:45 Blood - Peripheral Venous Blood Culture - Preliminary NO GROWTH OBTAINED AFTER 48 HOURS, INCUBATION TO CONTINUE FOR 3 DAYS. 06/15/17 09:50 Urine - Urine Brown Urine Culture - Final Strep Agalactiae Group B 06/15/17 22:20 Nasopharyngeal Swab Influenza Types A,B Antigen (YENNI) - Final 06/15/17 22:20 Nasopharyngeal Swab - Final - ....Imaging Chest X-ray: Report Reviewed Problem List - Problems (1) Urinary retention Code(s): R33.9 - RETENTION OF URINE, UNSPECIFIED (2) Atrial flutter Code(s): I48.92 - UNSPECIFIED ATRIAL FLUTTER (3) CHF (congestive heart failure) Code(s): I50.9 - HEART FAILURE, UNSPECIFIED (4) Diabetes Code(s): E11.9 - TYPE 2 DIABETES MELLITUS WITHOUT COMPLICATIONS (5) Fever Code(s): R50.9 - FEVER, UNSPECIFIED (6) HTN (hypertension) Code(s): I10 - ESSENTIAL (PRIMARY) HYPERTENSION (7) Hypoxia Code(s): R09.02 - HYPOXEMIA Assessment/Plan UTI/Sepsis Urinary retention s/p hematuria BPH DM HTN s/p Respiratory failure -- continue current antibiotics for now -- monitor temperatures cc time 40min
--- NOTE | 2017-06-18 14:18 | PN ---
Progress Note (short form) - Note Progress Note: UROLOGY NOTE. PT. WITH REC. URINARY RETENTION, 20F 19CC OSCAR PLACED. ABD.SOFT N /T PT. WILL NEED CYSTO POSS. TUVP WHEN MED. STABLE.
--- NOTE | 2017-06-18 16:31 | PN ---
Progress Note, Physician History of Present Illness: Pt seen and examined at bedside. He is awake and alert. He feels better today. He was taking 20 mg of lasix 3 times per day at home. - Current Medication List Current Medications: Active Medications Albuterol/Ipratropium (Duoneb -) 1 amp NEB Q6H PRN PRN Reason: SHORT OF BREATH/WHEEZING Last Admin: 06/18/17 09:39 Dose: 1 amp Aspirin (Asa -) 81 mg PO DAILY [facility] Last Admin: 06/18/17 09:07 Dose: 81 mg Chlorhexidine Gluconate (Hibiclens For Decolonization -) 1 applic TP HS [facility] Last Admin: 06/17/17 22:02 Dose: 1 applic Fenofibric Acid (Trilipix -) 135 mg PO DAILY [facility] Last Admin: 06/18/17 10:49 Dose: 135 mg Furosemide (Lasix Injection -) 40 mg IVPUSH DAILY [facility] Last Admin: 06/18/17 09:13 Dose: 40 mg Piperacillin Sod/Tazobactam (Sod 4.5 gm/ Dextrose) 100 mls @ 200 mls/hr IVPB Q8H-IV [facility] PRN Reason: Protocol Last Admin: 06/18/17 09:06 Dose: 200 mls/hr Diltiazem HCl 125 mg/ Dextrose 125 mls @ 5 mls/hr IVPB TITR [facility]; 5 MG/HR PRN Reason: Protocol Last Admin: 06/18/17 01:36 Dose: 5 mg/hr, 5 mls/hr Amiodarone HCl/Dextrose (Nexterone 360 Mg/200 Ml Bag) 360 mg in 200 mls @ 16.667 mls/hr IVPB TITR [facility]; 0.5 MG/MIN PRN Reason: Protocol Last Admin: 06/18/17 06:47 Dose: 0.5 mg/min, 16.667 mls/hr Insulin Aspart (Novolog Vial Sliding Scale -) 1 vial SQ ACHS [facility] PRN Reason: Protocol Last Admin: 06/18/17 12:06 Dose: 4 units Levothyroxine Sodium (Synthroid -) 50 mcg PO DAILY@0700 [facility] Last Admin: 06/18/17 06:48 Dose: 50 mcg Methylprednisolone Sodium Succinate (Solu-Medrol -) 40 mg IVPUSH BID [facility] Metoprolol Tartrate (Lopressor -) 25 mg PO Q6HPO [facility] Last Admin: 06/18/17 12:08 Dose: 25 mg Morphine Sulfate (Morphine Injection -) 1 mg IVPUSH Q3H PRN PRN Reason: PAIN LEVEL 1-5 Last Admin: 06/16/17 00:08 Dose: 1 mg Mupirocin (Bactroban Ointment (For Decolonization) -) 1 applic NS BID [facility] Stop: 06/20/17 21:59 Last Admin: 06/18/17 09:08 Dose: 1 applic Rivaroxaban (Xarelto -) 20 mg PO DAILY@1800 [facility] Tamsulosin HCl (Flomax -) 0.4 mg PO DAILY@0830 [facility] Last Admin: 06/18/17 08:31 Dose: 0.4 mg - Objective Vital Signs: Vital Signs Temperature 99.0 F 06/18/17 14:00 Pulse Rate 64 06/18/17 14:00 Respiratory Rate 25 H 06/18/17 14:00 Blood Pressure 118/71 06/18/17 14:00 O2 Sat by Pulse Oximetry (%) 94 L 06/18/17 10:00 Constitutional: Yes: Calm Eyes: Yes: Conjunctiva Clear HENT: Yes: Atraumatic Neck: Yes: Supple Cardiovascular: Yes: S1, S2 Respiratory: Yes: CTA Bilaterally, On Nasal O2 Gastrointestinal: Yes: Soft, Abdomen, Obese Genitourinary: Yes: Brown Present Musculoskeletal: Yes: Muscle Weakness Edema: Yes Neurological: Yes: Oriented Psychiatric: Yes: Oriented Labs: CBC, BMP 06/18/17 05:15 06/18/17 05:15 INR, PTT INR 1.31 (0.82-1.09) H 06/16/17 05:05 Problem List - Problems (1) Urinary retention Code(s): R33.9 - RETENTION OF URINE, UNSPECIFIED (2) CHF (congestive heart failure) Code(s): I50.9 - HEART FAILURE, UNSPECIFIED (3) HTN (hypertension) Code(s): I10 - ESSENTIAL (PRIMARY) HYPERTENSION Assessment/Plan Current Medications Generic Name Dose Route Start Last Admin Trade Name Freq PRN Reason Stop Dose Admin Albuterol/Ipratropium 1 amp 06/18/17 09:10 06/18/17 09:39 Duoneb - NEB 1 amp Q6H PRN Administration SHORT OF BREATH/WHEEZING Aspirin 81 mg 06/16/17 10:00 06/18/17 09:07 Asa - PO 81 mg DAILY [facility] Administration Chlorhexidine Gluconate 1 applic 06/15/17 22:00 06/17/17 22:02 Hibiclens For Decolonization - TP 1 applic HS [facility] Administration Fenofibric Acid 135 mg 06/16/17 10:00 06/18/17 10:49 Trilipix - PO 135 mg DAILY [facility] Administration Furosemide 40 mg 06/18/17 10:00 06/18/17 09:13 Lasix Injection - IVPUSH 40 mg DAILY [facility] Administration Piperacillin Sod/Tazobactam 100 mls @ 200 mls/hr 06/15/17 18:00 06/18/17 09: 06 Sod 4.5 gm/ Dextrose IVPB 200 mls/hr Q8H-IV [facility] Administration Protocol Diltiazem HCl 125 mg/ Dextrose 125 mls @ 5 mls/hr 06/18/17 01:30 06/18/17 01: 36 IVPB 5 mg/hr TITR [facility] 5 mls/hr Protocol Administration 5 MG/HR Amiodarone HCl/Dextrose 360 mg in 200 mls @ 16.667 mls/hr 06/18/17 06:45 07/31 06:47 Nexterone 360 Mg/200 Ml Bag IVPB 0.5 mg/min TITR [facility] 16.667 mls/hr Protocol Administration 0.5 MG/MIN Insulin Aspart 1 vial 06/15/17 22:00 06/18/17 12:06 Novolog Vial Sliding Scale - SQ 4 units ACHS [facility] Administration Protocol Levothyroxine Sodium 50 mcg 06/16/17 07:00 06/18/17 06:48 Synthroid - PO 50 mcg DAILY@0700 [facility] Administration Methylprednisolone Sodium Succinate 40 mg 06/18/17 10:00 Solu-Medrol - IVPUSH BID [facility] Metoprolol Tartrate 25 mg 06/18/17 08:30 06/18/17 12:08 Lopressor - PO 25 mg Q6HPO [facility] Administration Morphine Sulfate 1 mg 06/15/17 22:27 06/16/17 00:08 Morphine Injection - IVPUSH 1 mg Q3H PRN Administration PAIN LEVEL 1-5 Mupirocin 1 applic 06/15/17 22:00 06/18/17 09:08 Bactroban Ointment (For Decolonization) - NS 06/20/17 21:59 1 applic BID [facility] Administration Rivaroxaban 20 mg 06/18/17 18:00 Xarelto - PO DAILY@1800 [facility] Tamsulosin HCl 0.4 mg 06/16/17 08:30 06/18/17 08:31 Flomax - PO 0.4 mg DAILY@0830 [facility] Administration Impression 1. urinary retention 2. htn 3. DM 4. proteinuria/hematuria 5. CAD 6. hyperkalemia Plan - cont with IV lasix - repeat labs in am - renal function is stable - will follow - morphologically normal kidneys - will need to repeat ua to evaluate proteinuria once urologic issues are resolved - avoid nsaids - will follow Dr Lynn
[2017-06-18] MEDS: RIVAROXABAN 20 MG TABLET PO SCH (19:20)
[2017-06-18] MEDS: CHLORHEXIDINE GLUCONATE 4% CLEANSER FOR DECOLONIZATION TP SCH (21:49)
--- NOTE | 2017-06-18 22:18 | PN ---
Progress Note, Physician History of Present Illness: Pt developed rapid afib last pm wc has now resolved - Current Medication List Current Medications: Active Medications Albuterol/Ipratropium (Duoneb -) 1 amp NEB Q6H PRN PRN Reason: SHORT OF BREATH/WHEEZING Last Admin: 06/18/17 09:39 Dose: 1 amp Aspirin (Asa -) 81 mg PO DAILY [facility] Last Admin: 06/18/17 09:07 Dose: 81 mg Chlorhexidine Gluconate (Hibiclens For Decolonization -) 1 applic TP HS [facility] Last Admin: 06/18/17 21:49 Dose: 1 applic Fenofibric Acid (Trilipix -) 135 mg PO DAILY [facility] Last Admin: 06/18/17 10:49 Dose: 135 mg Furosemide (Lasix Injection -) 40 mg IVPUSH DAILY [facility] Last Admin: 06/18/17 09:13 Dose: 40 mg Piperacillin Sod/Tazobactam (Sod 4.5 gm/ Dextrose) 100 mls @ 200 mls/hr IVPB Q8H-IV [facility] PRN Reason: Protocol Last Admin: 06/18/17 19:19 Dose: 200 mls/hr Diltiazem HCl 125 mg/ Dextrose 125 mls @ 5 mls/hr IVPB TITR [facility]; 5 MG/HR PRN Reason: Protocol Last Admin: 06/18/17 01:36 Dose: 5 mg/hr, 5 mls/hr Amiodarone HCl/Dextrose (Nexterone 360 Mg/200 Ml Bag) 360 mg in 200 mls @ 16.667 mls/hr IVPB TITR [facility]; 0.5 MG/MIN PRN Reason: Protocol Last Admin: 06/18/17 06:47 Dose: 0.5 mg/min, 16.667 mls/hr Insulin Aspart (Novolog Vial Sliding Scale -) 1 vial SQ ACHS [facility] PRN Reason: Protocol Last Admin: 06/18/17 21:49 Dose: 6 units Levothyroxine Sodium (Synthroid -) 50 mcg PO DAILY@0700 [facility] Last Admin: 06/18/17 06:48 Dose: 50 mcg Methylprednisolone Sodium Succinate (Solu-Medrol -) 40 mg IVPUSH BID [facility] Last Admin: 06/18/17 21:49 Dose: 40 mg Metoprolol Tartrate (Lopressor -) 25 mg PO Q6HPO [facility] Last Admin: 06/18/17 19:20 Dose: 25 mg Morphine Sulfate (Morphine Injection -) 1 mg IVPUSH Q3H PRN PRN Reason: PAIN LEVEL 1-5 Last Admin: 06/16/17 00:08 Dose: 1 mg Mupirocin (Bactroban Ointment (For Decolonization) -) 1 applic NS BID [facility] Stop: 06/20/17 21:59 Last Admin: 06/18/17 21:49 Dose: 1 applic Rivaroxaban (Xarelto -) 20 mg PO DAILY@1800 [facility] Last Admin: 06/18/17 19:20 Dose: 20 mg Tamsulosin HCl (Flomax -) 0.4 mg PO DAILY@0830 [facility] Last Admin: 06/18/17 08:31 Dose: 0.4 mg - Objective Vital Signs: Vital Signs Temperature 98.4 F 06/18/17 22:00 Pulse Rate 60 06/18/17 22:00 Respiratory Rate 22 06/18/17 22:00 Blood Pressure 115/64 06/18/17 22:00 O2 Sat by Pulse Oximetry (%) 98 06/18/17 20:00 Constitutional: Yes: Well Nourished Neck: Yes: WNL, Supple Cardiovascular: Yes: WNL, Regular Rate and Rhythm, Murmur Respiratory: Yes: Diminished Gastrointestinal: Yes: WNL, Normal Bowel Sounds, Soft, Abdomen, Obese Extremities: Yes: WNL Edema: No Labs: CBC, BMP 06/18/17 05:15 06/18/17 05:15 INR, PTT INR 1.31 (0.82-1.09) H 06/16/17 05:05 Problem List - Problems (1) Sepsis Assessment/Plan: Pt w/ BPH and urinary retention Urine culture showed strept agalactiae grp B Cont IV zosyn Blood cultures have been negative Brown as per uro Possible cysto/TURp when medically stable Code(s): A41.9 - SEPSIS, UNSPECIFIED ORGANISM (2) Respiratory failure Assessment/Plan: Multifactorial Pt also has a h/o sleep apnea Code(s): J96.90 - RESPIRATORY FAILURE, UNSP, UNSP W HYPOXIA OR HYPERCAPNIA (3) CHF (congestive heart failure) Code(s): I50.9 - HEART FAILURE, UNSPECIFIED (4) Diabetes Code(s): E11.9 - TYPE 2 DIABETES MELLITUS WITHOUT COMPLICATIONS (5) HTN (hypertension) Code(s): I10 - ESSENTIAL (PRIMARY) HYPERTENSION (6) Obesity Code(s): E66.9 - OBESITY, UNSPECIFIED
[2017-06-19] MEDS: METOPROLOL TARTRATE 25 MG TABLET (FP) PO SCH ×4 (00:25→17:46)
[2017-06-19] MEDS: PIPERACILLIN/TAZOB 4.5 GM 4.5 GM in DEXTROSE 5%-WATER - 100 ML IVPB SCH ×3 (01:34→18:18)
[2017-06-19 05:42] LABS: ARTERIAL BLD GAS O2 SATURATION 97.1 % (90-98.9); ARTERIAL BLOOD GAS PO2 99.3 mmHg (80-100); ARTERIAL BLOOD GAS pH 7.33 (7.35-7.45)
[2017-06-19 05:45] LABS: ALLENS TEST POSITIVE
[2017-06-19 05:46] LABS: ARTERIAL BLOOD GAS PCO2 71.8 mmHg (35-45)
[2017-06-19 06:15] LABS: HEMATOCRIT 45.1 % (35.4-49); HEMOGLOBIN 13.9 GM/dL (11.7-16.9); LYMPH % 2.8 % (8-40); MCH 23.5 pg (25.7-33.7); MCHC 30.9 g/dl (32.0-35.9); MEAN CELL VOLUME 76.2 fl (80-96); MONO % 4.2 % (3.8-10.2); PLATELET COUNT 165 K/MM3 (134-434); RBC 5.92 M/mm3 (4.00-5.60); RDW 18.3 % (11.9-15.9); WHITE BLOOD COUNT 8.7 K/mm3 (4.0-10.0)
[2017-06-19] MEDS: DILTIAZEM INJECTION 125 MG in DEXTROSE 5%-WATER - 100 ML IVPB SCH (06:53)
[2017-06-19] MEDS: AMIODARONE IN DEXTROSE,ISO-OSM 360 MG/200 ML BAG IVPB SCH (06:54)
[2017-06-19] MEDS: INSULIN SLIDING SCALE (NOVOLOG) 1 VIAL SQ SCH ×4 (06:54→22:47)
[2017-06-19] MEDS: LEVOTHYROXINE NA 50 MCG TABLET (FP) PO SCH (06:56)
[2017-06-19 07:45] LABS: CHLORIDE 94 mmol/L (98-107); POTASSIUM 5.1 mmol/L (3.5-5.1); SODIUM 136 mmol/L (136-145)
[2017-06-19 07:58] LABS: ALBUMIN 3.3 g/dl (3.4-5.0); ALK PHOS 64 U/L (45-117); ANION GAP 5 (8-16); BILIRUBIN,TOTAL 0.6 mg/dL (0.2-1.0); BLOOD UREA NITROGEN 42 mg/dL (7-18); CALCIUM 8.7 mg/dL (8.5-10.1); CO2 37 mmol/L (21-32); CREATININE 0.9 mg/dL (0.7-1.3); GLUCOSE,RANDOM 248 mg/dL (74-106); MAGNESIUM 2.7 mg/dL (1.8-2.4); PHOSPHOROUS 2.8 mg/dL (2.5-4.9); SGOT/AST 11 U/L (15-37); SGPT/ALT 31 U/L (12-78); TOT PROT 6.3 g/dl (6.4-8.2)
[2017-06-19] MEDS ORDERED: PT OWN MED DRAWER 7, Y5N ONE ×2 (08:18→08:47)
[2017-06-19] MEDS: TAMSULOSIN HCL 0.4 MG CAP.ER.24H (FP) PO SCH (08:49)
--- NOTE | 2017-06-19 09:23 | PN ---
Progress Note (short form) - Note Progress Note: PULMONARY/CCM Pt seen and examined in the ICU. Mental status remains good. Made >8L urine yesterday. Hiccups resolved. Breathing close to baseline. No abdominal pain. No further fevers. Last Vital Signs Temp Pulse Resp BP Pulse Ox 98.6 F 63 18 122/74 98 06/19/17 06:00 06/19/17 06:00 06/19/17 06:00 06/19/17 06:00 06/18/17 20:00 Intake & Output 06/16/17 06/17/17 06/18/17 06/19/17 23:59 23:59 23:59 23:59 Intake Total 1677 1428 2416.4 416.4 Output Total 1600 5100 8100 1000 Balance 77 -3672 -5683.6 -583.6 Weight 110.223 kg 110.8 kg 111.13 kg 111.221 kg Gen: more alert, awake Heart: RRR Lung: distant breath sounds Abd: soft, nontender Ext: edema decreasing CBC, BMP 06/19/17 05:20 06/19/17 05:20 Active Medications Albuterol/Ipratropium (Duoneb -) 1 amp NEB Q6H PRN PRN Reason: SHORT OF BREATH/WHEEZING Last Admin: 06/18/17 09:39 Dose: 1 amp Aspirin (Asa -) 81 mg PO DAILY [facility] Last Admin: 06/18/17 09:07 Dose: 81 mg Chlorhexidine Gluconate (Hibiclens For Decolonization -) 1 applic TP HS [facility] Last Admin: 06/18/17 21:49 Dose: 1 applic Fenofibric Acid (Trilipix -) 135 mg PO DAILY [facility] Last Admin: 06/18/17 10:49 Dose: 135 mg Furosemide (Lasix Injection -) 40 mg IVPUSH DAILY [facility] Last Admin: 06/18/17 09:13 Dose: 40 mg Piperacillin Sod/Tazobactam (Sod 4.5 gm/ Dextrose) 100 mls @ 200 mls/hr IVPB Q8H-IV [facility] PRN Reason: Protocol Last Admin: 06/19/17 01:34 Dose: 200 mls/hr Diltiazem HCl 125 mg/ Dextrose 125 mls @ 5 mls/hr IVPB TITR [facility]; 5 MG/HR PRN Reason: Protocol Last Admin: 06/19/17 06:53 Dose: Not Given Amiodarone HCl/Dextrose (Nexterone 360 Mg/200 Ml Bag) 360 mg in 200 mls @ 16.667 mls/hr IVPB TITR [facility]; 0.5 MG/MIN PRN Reason: Protocol Last Admin: 06/19/17 06:54 Dose: Not Given Insulin Aspart (Novolog Vial Sliding Scale -) 1 vial SQ ACHS [facility] PRN Reason: Protocol Last Admin: 06/19/17 06:54 Dose: 6 units Levothyroxine Sodium (Synthroid -) 50 mcg PO DAILY@0700 [facility] Last Admin: 06/19/17 06:56 Dose: 50 mcg Methylprednisolone Sodium Succinate (Solu-Medrol -) 40 mg IVPUSH BID [facility] Last Admin: 06/18/17 21:49 Dose: 40 mg Metoprolol Tartrate (Lopressor -) 25 mg PO Q6HPO [facility] Last Admin: 06/19/17 06:54 Dose: 25 mg Mupirocin (Bactroban Ointment (For Decolonization) -) 1 applic NS BID [facility] Stop: 06/20/17 21:59 Last Admin: 06/18/17 21:49 Dose: 1 applic Rivaroxaban (Xarelto -) 20 mg PO DAILY@1800 [facility] Last Admin: 06/18/17 19:20 Dose: 20 mg Tamsulosin HCl (Flomax -) 0.4 mg PO DAILY@0830 [facility] Last Admin: 06/19/17 08:49 Dose: 0.4 mg A/P UTI Urinary Retention/BPH/ h/o Strictures Sepsis Acute on Chronic Hypoxic and Hypercapneic Respiratory Failure improving CAD s/p stents Atrial Fibrillation with RVR now in sinus Acute on Chronic Diastolic Heart Failure Obstructive Sleep Apnea HTN DM - continue antibiotics per ID - IV lasix - monitor urine output, creatinine - rate controlled - anticoagulation per cardiology - O2 to keep SpO2 >90% - BIPAP as needed - taper off medrol - inhaled bronchodilators - minimize narcotics - DVT prophylaxis - can monitor on telemetry critical care time spent in reviewing chart, evaluating patient and formulating plan 35 min
--- NOTE | 2017-06-19 09:29 | PN ---
Progress Note, Physician Chief Complaint: no distress Feels better - Current Medication List Current Medications: Active Medications Albuterol/Ipratropium (Duoneb -) 1 amp NEB Q6H PRN PRN Reason: SHORT OF BREATH/WHEEZING Last Admin: 06/18/17 09:39 Dose: 1 amp Aspirin (Asa -) 81 mg PO DAILY [facility] Last Admin: 06/18/17 09:07 Dose: 81 mg Chlorhexidine Gluconate (Hibiclens For Decolonization -) 1 applic TP HS [facility] Last Admin: 06/18/17 21:49 Dose: 1 applic Fenofibric Acid (Trilipix -) 135 mg PO DAILY [facility] Last Admin: 06/18/17 10:49 Dose: 135 mg Furosemide (Lasix Injection -) 40 mg IVPUSH DAILY [facility] Last Admin: 06/18/17 09:13 Dose: 40 mg Piperacillin Sod/Tazobactam (Sod 4.5 gm/ Dextrose) 100 mls @ 200 mls/hr IVPB Q8H-IV [facility] PRN Reason: Protocol Last Admin: 06/19/17 01:34 Dose: 200 mls/hr Diltiazem HCl 125 mg/ Dextrose 125 mls @ 5 mls/hr IVPB TITR [facility]; 5 MG/HR PRN Reason: Protocol Last Admin: 06/19/17 06:53 Dose: Not Given Amiodarone HCl/Dextrose (Nexterone 360 Mg/200 Ml Bag) 360 mg in 200 mls @ 16.667 mls/hr IVPB TITR [facility]; 0.5 MG/MIN PRN Reason: Protocol Last Admin: 06/19/17 06:54 Dose: Not Given Insulin Aspart (Novolog Vial Sliding Scale -) 1 vial SQ ACHS [facility] PRN Reason: Protocol Last Admin: 06/19/17 06:54 Dose: 6 units Levothyroxine Sodium (Synthroid -) 50 mcg PO DAILY@0700 [facility] Last Admin: 06/19/17 06:56 Dose: 50 mcg Methylprednisolone Sodium Succinate (Solu-Medrol -) 40 mg IVPUSH BID [facility] Last Admin: 06/18/17 21:49 Dose: 40 mg Metoprolol Tartrate (Lopressor -) 25 mg PO Q6HPO [facility] Last Admin: 06/19/17 06:54 Dose: 25 mg Mupirocin (Bactroban Ointment (For Decolonization) -) 1 applic NS BID [facility] Stop: 06/20/17 21:59 Last Admin: 06/18/17 21:49 Dose: 1 applic Rivaroxaban (Xarelto -) 20 mg PO DAILY@1800 [facility] Last Admin: 06/18/17 19:20 Dose: 20 mg Tamsulosin HCl (Flomax -) 0.4 mg PO DAILY@0830 [facility] Last Admin: 06/19/17 08:49 Dose: 0.4 mg - Objective Vital Signs: Vital Signs Temperature 98.6 F 06/19/17 06:00 Pulse Rate 63 06/19/17 06:00 Respiratory Rate 18 06/19/17 06:00 Blood Pressure 122/74 06/19/17 06:00 O2 Sat by Pulse Oximetry (%) 98 06/18/17 20:00 Constitutional: Yes: No Distress Cardiovascular: Yes: Regular Rate and Rhythm Respiratory: Yes: CTA Bilaterally Gastrointestinal: Yes: Soft Edema: Yes Edema: LLE: 1+, RLE: 1+ Neurological: Yes: Alert Labs: CBC, BMP 06/19/17 05:20 06/19/17 05:20 INR, PTT INR 1.31 (0.82-1.09) H 06/16/17 05:05 - ....Imaging EKG: Image Reviewed Assessment/Plan 57 year old man with a history of hypertension, diabetes, hyperlipidemia, typical atrial flutter status post ablation in 2012, 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 hematuria s/p recent procedure with resultant stricture and was planned for further procedure as outpatient admitted with urinary retention , fever, resultant sinus tachycardia, respiratory failure. Rapid AF, now back in NSR: -likely precipitated by volume overload -Cont Lasix 40mg IV daily, clinically improved -Metoprolol 25mg q6h, switch to Toprol XL when Amio drip is completed. SOB-respiratory failure -History of Hypoxia/SOB-recurrent, uncertain etiology, component of acute on chronic diastolic CHF but not fully explained by this -some undiagnosed chronic lung disease, possible exposure from working in [employer] has been considered -currently euvolemic -cont bipap -Cont IV Lasix Coronary artery disease, history of drug-eluting stent to LAD May 2016. -cont ASA 81mg daily -ok to stop Plavix as >1 year since stent -will resume beta nicole -resume home statin Atrial flutter status post two ablations last one was May 2016. - He had been off Xarelto since 06/22/2016, resumed this weekend due to recurrent AF. Cardiomyopathy- History of nonischemic cardiomyopathy, but likely arrhythmia induced with recovery of LV function after atrial flutter ablation. -Euvolemic -echo showed normal LV systolic function -management as above
[2017-06-19] MEDS: ASPIRIN 81 MG CHEWABLE TABLETS PO SCH (10:21)
[2017-06-19] MEDS: FENOFIBRIC ACID 135 MG CAP PO SCH (10:21)
[2017-06-19] MEDS: FUROSEMIDE 40 MG/4 ML INJECTABLE VIAL IVPUSH SCH (10:22)
[2017-06-19] MEDS: methylPREDNISolone NA SUCC 40 MG/1 ML VIAL IVPUSH SCH ×2 (10:25→22:48)
[2017-06-19] MEDS: MUPIROCIN 2% TOPICAL OINTMENT FOR DECOLONIZATION NS SCH ×2 (10:28→22:57)
--- NOTE | 2017-06-19 11:57 | PN ---
Progress Note, Physician History of Present Illness: Pt states he feels better. Sitting up out of bed. Denies any shortness of breath. - Current Medication List Current Medications: Active Medications Albuterol/Ipratropium (Duoneb -) 1 amp NEB Q6H PRN PRN Reason: SHORT OF BREATH/WHEEZING Last Admin: 06/18/17 09:39 Dose: 1 amp Aspirin (Asa -) 81 mg PO DAILY [facility] Last Admin: 06/19/17 10:21 Dose: 81 mg Chlorhexidine Gluconate (Hibiclens For Decolonization -) 1 applic TP HS [facility] Last Admin: 06/18/17 21:49 Dose: 1 applic Fenofibric Acid (Trilipix -) 135 mg PO DAILY [facility] Last Admin: 06/19/17 10:21 Dose: 135 mg Furosemide (Lasix Injection -) 40 mg IVPUSH DAILY [facility] Last Admin: 06/19/17 10:22 Dose: 40 mg Piperacillin Sod/Tazobactam (Sod 4.5 gm/ Dextrose) 100 mls @ 200 mls/hr IVPB Q8H-IV [facility] PRN Reason: Protocol Last Admin: 06/19/17 10:22 Dose: 200 mls/hr Diltiazem HCl 125 mg/ Dextrose 125 mls @ 5 mls/hr IVPB TITR [facility]; 5 MG/HR PRN Reason: Protocol Last Admin: 06/19/17 06:53 Dose: Not Given Amiodarone HCl/Dextrose (Nexterone 360 Mg/200 Ml Bag) 360 mg in 200 mls @ 16.667 mls/hr IVPB TITR [facility]; 0.5 MG/MIN PRN Reason: Protocol Last Admin: 06/19/17 06:54 Dose: Not Given Insulin Aspart (Novolog Vial Sliding Scale -) 1 vial SQ ACHS [facility] PRN Reason: Protocol Last Admin: 06/19/17 06:54 Dose: 6 units Levothyroxine Sodium (Synthroid -) 50 mcg PO DAILY@0700 [facility] Last Admin: 06/19/17 06:56 Dose: 50 mcg Methylprednisolone Sodium Succinate (Solu-Medrol -) 40 mg IVPUSH BID [facility] Last Admin: 06/19/17 10:25 Dose: 40 mg Metoprolol Tartrate (Lopressor -) 25 mg PO Q6HPO [facility] Last Admin: 06/19/17 06:54 Dose: 25 mg Mupirocin (Bactroban Ointment (For Decolonization) -) 1 applic NS BID [facility] Stop: 06/20/17 21:59 Last Admin: 06/19/17 10:28 Dose: 1 applic Rivaroxaban (Xarelto -) 20 mg PO DAILY@1800 [facility] Last Admin: 06/18/17 19:20 Dose: 20 mg Tamsulosin HCl (Flomax -) 0.4 mg PO DAILY@0830 [facility] Last Admin: 06/19/17 08:49 Dose: 0.4 mg - Objective Vital Signs: Vital Signs Temperature 98.3 F 06/19/17 10:00 Pulse Rate 61 06/19/17 10:00 Respiratory Rate 20 06/19/17 10:00 Blood Pressure 131/77 06/19/17 10:00 O2 Sat by Pulse Oximetry (%) 96 06/19/17 10:47 Constitutional: Yes: No Distress Cardiovascular: Yes: Regular Rate and Rhythm Respiratory: Yes: CTA Bilaterally Gastrointestinal: Yes: Normal Bowel Sounds, Soft Integumentary: Yes: WNL Neurological: Yes: Alert, Oriented Labs: CBC, BMP 06/19/17 05:20 06/19/17 05:20 INR, PTT INR 1.31 (0.82-1.09) H 06/16/17 05:05 Problem List - Problems (1) Urinary retention Code(s): R33.9 - RETENTION OF URINE, UNSPECIFIED (2) Atrial flutter Code(s): I48.92 - UNSPECIFIED ATRIAL FLUTTER (3) CHF (congestive heart failure) Code(s): I50.9 - HEART FAILURE, UNSPECIFIED (4) Diabetes Code(s): E11.9 - TYPE 2 DIABETES MELLITUS WITHOUT COMPLICATIONS (5) Fever Code(s): R50.9 - FEVER, UNSPECIFIED (6) HTN (hypertension) Code(s): I10 - ESSENTIAL (PRIMARY) HYPERTENSION (7) Hypoxia Code(s): R09.02 - HYPOXEMIA Assessment/Plan UTI / s/p Sepsis Urinary retention s/p hematuria BPH DM HTN s/p Respiratory failure -- continue antibiotics for now -- monitor vitals, currently afebrile cc time 35 min
[2017-06-19] MEDS: RIVAROXABAN 20 MG TABLET PO SCH (18:18)
--- NOTE | 2017-06-19 18:31 | PN ---
Progress Note, Physician History of Present Illness: Pt seen and examined at bedside. He is now in the [facility]. He denies shortness of breath. - Current Medication List Current Medications: Active Medications Albuterol/Ipratropium (Duoneb -) 1 amp NEB Q6H PRN PRN Reason: SHORT OF BREATH/WHEEZING Last Admin: 06/18/17 09:39 Dose: 1 amp Aspirin (Asa -) 81 mg PO DAILY [facility] Last Admin: 06/19/17 10:21 Dose: 81 mg Chlorhexidine Gluconate (Hibiclens For Decolonization -) 1 applic TP HS [facility] Last Admin: 06/18/17 21:49 Dose: 1 applic Fenofibric Acid (Trilipix -) 135 mg PO DAILY [facility] Last Admin: 06/19/17 10:21 Dose: 135 mg Furosemide (Lasix Injection -) 40 mg IVPUSH DAILY [facility] Last Admin: 06/19/17 10:22 Dose: 40 mg Piperacillin Sod/Tazobactam (Sod 4.5 gm/ Dextrose) 100 mls @ 200 mls/hr IVPB Q8H-IV [facility] PRN Reason: Protocol Last Admin: 06/19/17 18:18 Dose: 200 mls/hr Diltiazem HCl 125 mg/ Dextrose 125 mls @ 5 mls/hr IVPB TITR [facility]; 5 MG/HR PRN Reason: Protocol Last Admin: 06/19/17 06:53 Dose: Not Given Amiodarone HCl/Dextrose (Nexterone 360 Mg/200 Ml Bag) 360 mg in 200 mls @ 16.667 mls/hr IVPB TITR [facility]; 0.5 MG/MIN PRN Reason: Protocol Last Titration: 06/19/17 10:00 Dose: 0 mg/min, 0 mls/hr Insulin Aspart (Novolog Vial Sliding Scale -) 1 vial SQ ACHS [facility] PRN Reason: Protocol Last Admin: 06/19/17 17:46 Dose: 6 units Levothyroxine Sodium (Synthroid -) 50 mcg PO DAILY@0700 [facility] Last Admin: 06/19/17 06:56 Dose: 50 mcg Methylprednisolone Sodium Succinate (Solu-Medrol -) 40 mg IVPUSH BID [facility] Last Admin: 06/19/17 10:25 Dose: 40 mg Metoprolol Tartrate (Lopressor -) 25 mg PO Q6HPO [facility] Last Admin: 06/19/17 17:46 Dose: 25 mg Mupirocin (Bactroban Ointment (For Decolonization) -) 1 applic NS BID [facility] Stop: 06/20/17 21:59 Last Admin: 06/19/17 10:28 Dose: 1 applic Rivaroxaban (Xarelto -) 20 mg PO DAILY@1800 [facility] Last Admin: 06/19/17 18:18 Dose: 20 mg Tamsulosin HCl (Flomax -) 0.4 mg PO DAILY@0830 [facility] Last Admin: 06/19/17 08:49 Dose: 0.4 mg - Objective Vital Signs: Vital Signs Temperature 98.7 F 06/19/17 14:00 Pulse Rate 73 06/19/17 14:00 Respiratory Rate 24 06/19/17 14:00 Blood Pressure 134/71 06/19/17 14:00 O2 Sat by Pulse Oximetry (%) 96 06/19/17 10:47 Constitutional: Yes: Calm Eyes: Yes: Conjunctiva Clear HENT: Yes: Atraumatic Neck: Yes: Supple Cardiovascular: Yes: S1, S2 Respiratory: Yes: CTA Bilaterally, Bradypnea Gastrointestinal: Yes: Soft, Abdomen, Obese Genitourinary: Yes: Gautam Present Musculoskeletal: Yes: WNL Edema: Yes Edema: LLE: 1+, RLE: 1+ Neurological: Yes: Oriented Psychiatric: Yes: Oriented Labs: CBC, BMP 06/19/17 05:20 06/19/17 05:20 INR, PTT INR 1.31 (0.82-1.09) H 06/16/17 05:05 Problem List - Problems (1) Urinary retention Code(s): R33.9 - RETENTION OF URINE, UNSPECIFIED (2) CHF (congestive heart failure) Code(s): I50.9 - HEART FAILURE, UNSPECIFIED (3) HTN (hypertension) Code(s): I10 - ESSENTIAL (PRIMARY) HYPERTENSION Assessment/Plan Current Medications Generic Name Dose Route Start Last Admin Trade Name Freq PRN Reason Stop Dose Admin Albuterol/Ipratropium 1 amp 06/18/17 09:10 06/18/17 09:39 Duoneb - NEB 1 amp Q6H PRN Administration SHORT OF BREATH/WHEEZING Aspirin 81 mg 06/16/17 10:00 06/19/17 10:21 Asa - PO 81 mg DAILY [facility] Administration Chlorhexidine Gluconate 1 applic 06/15/17 22:00 06/18/17 21:49 Hibiclens For Decolonization - TP 1 applic HS [facility] Administration Fenofibric Acid 135 mg 06/16/17 10:00 06/19/17 10:21 Trilipix - PO 135 mg DAILY [facility] Administration Furosemide 40 mg 06/18/17 10:00 06/19/17 10:22 Lasix Injection - IVPUSH 40 mg DAILY [facility] Administration Piperacillin Sod/Tazobactam 100 mls @ 200 mls/hr 06/15/17 18:00 06/19/17 18: 18 Sod 4.5 gm/ Dextrose IVPB 200 mls/hr Q8H-IV [facility] Administration Protocol Diltiazem HCl 125 mg/ Dextrose 125 mls @ 5 mls/hr 06/18/17 01:30 06/19/17 06: 53 IVPB Not Given TITR [facility] Protocol 5 MG/HR Amiodarone HCl/Dextrose 360 mg in 200 mls @ 16.667 mls/hr 06/18/17 06:45 08/31 10:00 Nexterone 360 Mg/200 Ml Bag IVPB 0 mg/min TITR [facility] 0 mls/hr Protocol Titration 0.5 MG/MIN Insulin Aspart 1 vial 06/15/17 22:00 06/19/17 17:46 Novolog Vial Sliding Scale - SQ 6 units ACHS [facility] Administration Protocol Levothyroxine Sodium 50 mcg 06/16/17 07:00 06/19/17 06:56 Synthroid - PO 50 mcg DAILY@0700 [facility] Administration Methylprednisolone Sodium Succinate 40 mg 06/18/17 10:00 06/19/17 10:25 Solu-Medrol - IVPUSH 40 mg BID [facility] Administration Metoprolol Tartrate 25 mg 06/18/17 08:30 06/19/17 17:46 Lopressor - PO 25 mg Q6HPO [facility] Administration Mupirocin 1 applic 06/15/17 22:00 06/19/17 10:28 Bactroban Ointment (For Decolonization) - NS 06/20/17 21:59 1 applic BID [facility] Administration Rivaroxaban 20 mg 06/18/17 18:00 06/19/17 18:18 Xarelto - PO 20 mg DAILY@1800 [facility] Administration Tamsulosin HCl 0.4 mg 06/16/17 08:30 06/19/17 08:49 Flomax - PO 0.4 mg DAILY@0830 [facility] Administration Impression 1. urinary retention 2. htn 3. DM 4. proteinuria/hematuria 5. CAD 6. hyperkalemia Plan - cont lasix - monitor renal function - bmp in am - maintain gautam - will need to repeat ua to evaluate proteinuria once urologic issues are resolved - avoid nsaids - urology follow up - will follow Dr Lynn
--- NOTE | 2017-06-19 19:01 | PN ---
Progress Note, Physician History of Present Illness: No new complaints - Current Medication List Current Medications: Active Medications Albuterol/Ipratropium (Duoneb -) 1 amp NEB Q6H PRN PRN Reason: SHORT OF BREATH/WHEEZING Last Admin: 06/18/17 09:39 Dose: 1 amp Aspirin (Asa -) 81 mg PO DAILY [facility] Last Admin: 06/19/17 10:21 Dose: 81 mg Chlorhexidine Gluconate (Hibiclens For Decolonization -) 1 applic TP HS [facility] Last Admin: 06/18/17 21:49 Dose: 1 applic Fenofibric Acid (Trilipix -) 135 mg PO DAILY [facility] Last Admin: 06/19/17 10:21 Dose: 135 mg Furosemide (Lasix Injection -) 40 mg IVPUSH DAILY [facility] Last Admin: 06/19/17 10:22 Dose: 40 mg Piperacillin Sod/Tazobactam (Sod 4.5 gm/ Dextrose) 100 mls @ 200 mls/hr IVPB Q8H-IV [facility] PRN Reason: Protocol Last Admin: 06/19/17 18:18 Dose: 200 mls/hr Diltiazem HCl 125 mg/ Dextrose 125 mls @ 5 mls/hr IVPB TITR [facility]; 5 MG/HR PRN Reason: Protocol Last Admin: 06/19/17 06:53 Dose: Not Given Amiodarone HCl/Dextrose (Nexterone 360 Mg/200 Ml Bag) 360 mg in 200 mls @ 16.667 mls/hr IVPB TITR [facility]; 0.5 MG/MIN PRN Reason: Protocol Last Titration: 06/19/17 10:00 Dose: 0 mg/min, 0 mls/hr Insulin Aspart (Novolog Vial Sliding Scale -) 1 vial SQ ACHS [facility] PRN Reason: Protocol Last Admin: 06/19/17 17:46 Dose: 6 units Levothyroxine Sodium (Synthroid -) 50 mcg PO DAILY@0700 [facility] Last Admin: 06/19/17 06:56 Dose: 50 mcg Methylprednisolone Sodium Succinate (Solu-Medrol -) 40 mg IVPUSH BID [facility] Last Admin: 06/19/17 10:25 Dose: 40 mg Metoprolol Tartrate (Lopressor -) 25 mg PO Q6HPO [facility] Last Admin: 06/19/17 17:46 Dose: 25 mg Mupirocin (Bactroban Ointment (For Decolonization) -) 1 applic NS BID [facility] Stop: 06/20/17 21:59 Last Admin: 06/19/17 10:28 Dose: 1 applic Rivaroxaban (Xarelto -) 20 mg PO DAILY@1800 [facility] Last Admin: 06/19/17 18:18 Dose: 20 mg Tamsulosin HCl (Flomax -) 0.4 mg PO DAILY@0830 [facility] Last Admin: 06/19/17 08:49 Dose: 0.4 mg - Objective Vital Signs: Vital Signs Temperature 98.7 F 06/19/17 14:00 Pulse Rate 73 06/19/17 14:00 Respiratory Rate 24 06/19/17 14:00 Blood Pressure 134/71 06/19/17 14:00 O2 Sat by Pulse Oximetry (%) 96 06/19/17 10:47 Constitutional: Yes: Well Nourished, Obese HENT: Yes: WNL Neck: Yes: WNL, Supple Cardiovascular: Yes: WNL, Regular Rate and Rhythm Respiratory: Yes: Diminished Gastrointestinal: Yes: WNL, Normal Bowel Sounds, Soft, Abdomen, Obese Labs: CBC, BMP 06/19/17 05:20 06/19/17 05:20 INR, PTT INR 1.31 (0.82-1.09) H 06/16/17 05:05 Problem List - Problems (1) Sepsis Assessment/Plan: Pt w/ BPH and urinary retention Urine culture showed strept agalactiae grp B Cont IV zosyn Blood cultures have been negative Brown as per uro Possible cysto/TURP when medically stable Code(s): A41.9 - SEPSIS, UNSPECIFIED ORGANISM (2) Afib Assessment/Plan: Pt has h/o aflutter w/ ablation Pt in NSR Cont IV amio/cardizem As per cardio Code(s): I48.91 - UNSPECIFIED ATRIAL FIBRILLATION (3) BPH (benign prostatic hyperplasia) Assessment/Plan: Cont flomax As per uro Code(s): N40.0 - BENIGN PROSTATIC HYPERPLASIA WITHOUT LOWER URINRY TRACT SYMP (4) Respiratory failure Assessment/Plan: Resolved Multifactorial Pt also has a h/o sleep apnea/COPD Cont IV solumedrol Cont nebulizers Code(s): J96.90 - RESPIRATORY FAILURE, UNSP, UNSP W HYPOXIA OR HYPERCAPNIA (5) CHF (congestive heart failure) Assessment/Plan: Cont IV lasix Monitor electrolytes Code(s): I50.9 - HEART FAILURE, UNSPECIFIED (6) Diabetes Assessment/Plan: Cont sliding scale Code(s): E11.9 - TYPE 2 DIABETES MELLITUS WITHOUT COMPLICATIONS (7) HTN (hypertension) Assessment/Plan: BP stable Cont lopressor Code(s): I10 - ESSENTIAL (PRIMARY) HYPERTENSION (8) CAD (coronary artery disease) Code(s): I25.10 - ATHSCL HEART DISEASE OF [place] CORONARY ARTERY W/O ANG PCTRS (9) Hypothyroidism Assessment/Plan: Cont levothyroxine Code(s): E03.9 - HYPOTHYROIDISM, UNSPECIFIED (10) Obesity Code(s): E66.9 - OBESITY, UNSPECIFIED (11) COPD (chronic obstructive pulmonary disease) Assessment/Plan: Cont duoneb Code(s): J44.9 - CHRONIC OBSTRUCTIVE PULMONARY DISEASE, UNSPECIFIED
[2017-06-19] MEDS: CHLORHEXIDINE GLUCONATE 4% CLEANSER FOR DECOLONIZATION TP SCH (22:57)
[2017-06-20] MEDS: METOPROLOL TARTRATE 25 MG TABLET (FP) PO SCH ×3 (01:13→11:47)
[2017-06-20] MEDS ORDERED: PT OWN MED DRAWER 7, Y5N ONE (02:42)
[2017-06-20] MEDS: PIPERACILLIN/TAZOB 4.5 GM 4.5 GM in DEXTROSE 5%-WATER - 100 ML IVPB SCH ×3 (03:08→17:19)
[2017-06-20] MEDS: AMIODARONE IN DEXTROSE,ISO-OSM 360 MG/200 ML BAG IVPB SCH (06:00)
[2017-06-20] MEDS: DILTIAZEM INJECTION 125 MG in DEXTROSE 5%-WATER - 100 ML IVPB SCH (06:00)
[2017-06-20] MEDS: LEVOTHYROXINE NA 50 MCG TABLET (FP) PO SCH (06:09)
[2017-06-20] MEDS: INSULIN SLIDING SCALE (NOVOLOG) 1 VIAL SQ SCH ×4 (06:14→22:59)
[2017-06-20 07:17] LABS: ALBUMIN 3.6 g/dl (3.4-5.0); ALK PHOS 69 U/L (45-117); ANION GAP 6 (8-16); BILIRUBIN,TOTAL 0.8 mg/dL (0.2-1.0); BLOOD UREA NITROGEN 37 mg/dL (7-18); CHLORIDE 92 mmol/L (98-107); CO2 38 mmol/L (21-32); CREATININE 0.8 mg/dL (0.7-1.3); GLUCOSE,RANDOM 260 mg/dL (74-106); MAGNESIUM 2.7 mg/dL (1.8-2.4); PHOSPHOROUS 3.1 mg/dL (2.5-4.9); POTASSIUM 5.4 mmol/L (3.5-5.1); SGOT/AST 9 U/L (15-37); SGPT/ALT 32 U/L (12-78); SODIUM 136 mmol/L (136-145); TOT PROT 6.9 g/dl (6.4-8.2)
[2017-06-20] MEDS: TAMSULOSIN HCL 0.4 MG CAP.ER.24H (FP) PO SCH (08:09)
[2017-06-20 08:45] LABS: BASO % 0.7 % (0-2.0); EOS % 0.1 % (0-4.5); HEMATOCRIT 51.3 % (35.4-49); HEMOGLOBIN 15.6 GM/dL (11.7-16.9); LYMPH % 5.6 % (8-40); MCH 23.5 pg (25.7-33.7); MCHC 30.3 g/dl (32.0-35.9); MEAN CELL VOLUME 77.4 fl (80-96); MEAN PLT VOLUME 10.2 fl (7.5-11.1); MONO % 5.2 % (3.8-10.2); NEUT % 88.4 % (42.8-82.8); PLATELET COUNT 165 K/MM3 (134-434); RBC 6.64 M/mm3 (4.00-5.60); RDW 18.5 % (11.9-15.9); WHITE BLOOD COUNT 7.4 K/mm3 (4.0-10.0)
[2017-06-20] MEDS: methylPREDNISolone NA SUCC 40 MG/1 ML VIAL IVPUSH SCH ×2 (10:07→22:59)
[2017-06-20] MEDS: FUROSEMIDE 40 MG/4 ML INJECTABLE VIAL IVPUSH SCH (10:07)
[2017-06-20] MEDS: ASPIRIN 81 MG CHEWABLE TABLETS PO SCH (10:08)
[2017-06-20] MEDS: FENOFIBRIC ACID 135 MG CAP PO SCH (10:08)
[2017-06-20] MEDS ORDERED: INSULIN (NOVOLOG) ASPART 100 UNITS/ML 10ML VIAL ONE (11:33)
--- NOTE | 2017-06-20 12:33 | PN ---
Progress Note, Physician History of Present Illness: seen and examined today in nad. no overnight events. states he is feeling better but still not back to baseline. - Current Medication List Current Medications: Active Medications Albuterol/Ipratropium (Duoneb -) 1 amp NEB Q6H PRN PRN Reason: SHORT OF BREATH/WHEEZING Last Admin: 06/18/17 09:39 Dose: 1 amp Aspirin (Asa -) 81 mg PO DAILY [facility] Last Admin: 06/20/17 10:08 Dose: Not Given Fenofibric Acid (Trilipix -) 135 mg PO DAILY [facility] Last Admin: 06/20/17 10:08 Dose: 135 mg Furosemide (Lasix Injection -) 40 mg IVPUSH DAILY [facility] Last Admin: 06/20/17 10:07 Dose: 40 mg Piperacillin Sod/Tazobactam (Sod 4.5 gm/ Dextrose) 100 mls @ 200 mls/hr IVPB Q8H-IV [facility] PRN Reason: Protocol Last Admin: 06/20/17 10:06 Dose: 200 mls/hr Insulin Aspart (Novolog Vial Sliding Scale -) 1 vial SQ ACHS [facility] PRN Reason: Protocol Last Admin: 06/20/17 11:48 Dose: 10 units Levothyroxine Sodium (Synthroid -) 50 mcg PO DAILY@0700 [facility] Last Admin: 06/20/17 06:09 Dose: 50 mcg Methylprednisolone Sodium Succinate (Solu-Medrol -) 40 mg IVPUSH BID [facility] Last Admin: 06/20/17 10:07 Dose: 40 mg Metoprolol Tartrate (Lopressor -) 25 mg PO Q6HPO [facility] Last Admin: 06/20/17 11:47 Dose: 25 mg Rivaroxaban (Xarelto -) 20 mg PO DAILY@1800 [facility] Last Admin: 06/19/17 18:18 Dose: 20 mg Tamsulosin HCl (Flomax -) 0.4 mg PO DAILY@0830 [facility] Last Admin: 06/20/17 08:09 Dose: 0.4 mg - Objective Vital Signs: Vital Signs Temperature 98.1 F 06/20/17 10:00 Pulse Rate 70 06/20/17 10:00 Respiratory Rate 20 06/20/17 10:00 Blood Pressure 126/66 06/20/17 10:00 O2 Sat by Pulse Oximetry (%) 96 06/20/17 09:45 Constitutional: Yes: No Distress, Calm Eyes: Yes: Conjunctiva Clear, EOM Intact HENT: Yes: Atraumatic, Normocephalic Neck: Yes: Supple, Trachea Midline Cardiovascular: Yes: Regular Rate and Rhythm, S1, S2. No: Bradycardia, Tachycardia, Pulse Irregular, Bruit, JVD, Gallop, Murmur, Rub, S3, S4, Varicosities Respiratory: Yes: Regular, Diminished. No: Rales, Rhonchi, Wheezes Gastrointestinal: Yes: Normal Bowel Sounds, Soft. No: Distention, Tenderness Extremities: Yes: WNL Edema: Yes Edema: LLE: Trace, RLE: Trace Peripheral Pulses WNL: Yes Neurological: Yes: Alert, Oriented Psychiatric: Yes: Alert, Oriented Labs: CBC, BMP 06/20/17 05:35 06/20/17 05:35 INR, PTT INR 1.31 (0.82-1.09) H 06/16/17 05:05 - ....Imaging Chest X-ray: Report Reviewed, Image Reviewed EKG: Report Reviewed, Image Reviewed Other: Report Reviewed, Image Reviewed (tele-nsr, apcs, 4 beats nsvt vs psvt with aberrancy, no further AFib in last 24 hours) Assessment/Plan 57 year old man with a history of hypertension, diabetes, hyperlipidemia, typical atrial flutter status post ablation in 2012, 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 hematuria s/p recent procedure with resultant stricture and was planned for further procedure as outpatient admitted with urinary retention , fever, resultant sinus tachycardia, respiratory failure. AFib with RVR-has remained in NSR for at least past 24hours -precipitated by urinary retension, sepsis, volume overload -amio gtt completed, will hold off on additional amio at this time especially in light of chronic lung disease -likely precipitated by volume overload -Cont Lasix 40mg IV daily, clinically improving -transition to Toprol XL, can start with 25mg bid and if BP tolerates uptitrate to home dose 50mg bid -cont Xarelto for now, can be held for procedures, resume when safe to do so after procedure SOB-respiratory failure -History of Hypoxia/SOB-recurrent, uncertain etiology, component of acute on chronic diastolic CHF but not fully explained by this -presume undiagnosed chronic lung disease, possible exposure from working in [employer] has been considered -currently still mildly volume overloaded but significantly improved close to baseline -cont bipap -Cont IV Lasix -monitor I/Os, electrolytes Coronary artery disease, history of drug-eluting stent to LAD May 2016. -cont ASA 81mg daily -ok to stop Plavix as >1 year since stent -cont beta nicole -resume home statin Atrial flutter status post two ablations last one was May 2016. - He had been off Xarelto since 06/22/2016, resumed this weekend due to recurrent AF. Cardiomyopathy- History of nonischemic cardiomyopathy, but likely arrhythmia induced with recovery of LV function after atrial flutter ablation. -close to Euvolemic -echo showed normal LV systolic function -management as above
--- NOTE | 2017-06-20 12:56 | PN ---
Progress Note, Physician History of Present Illness: stable hiccups - Current Medication List Current Medications: Active Medications Albuterol/Ipratropium (Duoneb -) 1 amp NEB Q6H PRN PRN Reason: SHORT OF BREATH/WHEEZING Last Admin: 06/18/17 09:39 Dose: 1 amp Aspirin (Asa -) 81 mg PO DAILY [facility] Last Admin: 06/20/17 10:08 Dose: Not Given Fenofibric Acid (Trilipix -) 135 mg PO DAILY [facility] Last Admin: 06/20/17 10:08 Dose: 135 mg Furosemide (Lasix Injection -) 40 mg IVPUSH DAILY [facility] Last Admin: 06/20/17 10:07 Dose: 40 mg Piperacillin Sod/Tazobactam (Sod 4.5 gm/ Dextrose) 100 mls @ 200 mls/hr IVPB Q8H-IV [facility] PRN Reason: Protocol Last Admin: 06/20/17 10:06 Dose: 200 mls/hr Insulin Aspart (Novolog Vial Sliding Scale -) 1 vial SQ ACHS [facility] PRN Reason: Protocol Last Admin: 06/20/17 11:48 Dose: 10 units Levothyroxine Sodium (Synthroid -) 50 mcg PO DAILY@0700 [facility] Last Admin: 06/20/17 06:09 Dose: 50 mcg Methylprednisolone Sodium Succinate (Solu-Medrol -) 40 mg IVPUSH BID [facility] Last Admin: 06/20/17 10:07 Dose: 40 mg Metoprolol Succinate (Toprol Xl -) 50 mg PO BID [facility] Rivaroxaban (Xarelto -) 20 mg PO DAILY@1800 [facility] Last Admin: 06/19/17 18:18 Dose: 20 mg Tamsulosin HCl (Flomax -) 0.4 mg PO DAILY@0830 [facility] Last Admin: 06/20/17 08:09 Dose: 0.4 mg - Objective Vital Signs: Vital Signs Temperature 98.1 F 06/20/17 10:00 Pulse Rate 70 06/20/17 10:00 Respiratory Rate 20 06/20/17 10:00 Blood Pressure 126/66 06/20/17 10:00 O2 Sat by Pulse Oximetry (%) 96 06/20/17 09:45 Constitutional: Yes: No Distress, Calm Cardiovascular: Yes: Regular Rate and Rhythm Respiratory: Yes: Regular, CTA Bilaterally Gastrointestinal: Yes: Normal Bowel Sounds, Soft Genitourinary: Yes: Brown Present Musculoskeletal: Yes: WNL Extremities: Yes: WNL Neurological: Yes: Alert, Oriented Psychiatric: Yes: Alert Labs: CBC, BMP 06/20/17 05:35 06/20/17 05:35 INR, PTT INR 1.31 (0.82-1.09) H 06/16/17 05:05 Assessment/Plan ASSESSMENT AND PLAN: UTI bph/strictures r/o bacteremia resp failure sepsis urinary retention hematuria loyda htn dm plan continue abx patient for surgery tomorrow
--- NOTE | 2017-06-20 13:50 | PN ---
Progress Note, Physician History of Present Illness: pulmonary alert,oob-chair,-sob,+occ hiccups - Current Medication List Current Medications: Active Medications Albuterol/Ipratropium (Duoneb -) 1 amp NEB Q6H PRN PRN Reason: SHORT OF BREATH/WHEEZING Last Admin: 06/18/17 09:39 Dose: 1 amp Aspirin (Asa -) 81 mg PO DAILY [facility] Last Admin: 06/20/17 10:08 Dose: Not Given Fenofibric Acid (Trilipix -) 135 mg PO DAILY [facility] Last Admin: 06/20/17 10:08 Dose: 135 mg Furosemide (Lasix Injection -) 40 mg IVPUSH DAILY [facility] Last Admin: 06/20/17 10:07 Dose: 40 mg Piperacillin Sod/Tazobactam (Sod 4.5 gm/ Dextrose) 100 mls @ 200 mls/hr IVPB Q8H-IV [facility] PRN Reason: Protocol Last Admin: 06/20/17 10:06 Dose: 200 mls/hr Insulin Aspart (Novolog Vial Sliding Scale -) 1 vial SQ ACHS [facility] PRN Reason: Protocol Last Admin: 06/20/17 11:48 Dose: 10 units Levothyroxine Sodium (Synthroid -) 50 mcg PO DAILY@0700 [facility] Last Admin: 06/20/17 06:09 Dose: 50 mcg Methylprednisolone Sodium Succinate (Solu-Medrol -) 40 mg IVPUSH BID [facility] Last Admin: 06/20/17 10:07 Dose: 40 mg Metoprolol Succinate (Toprol Xl -) 50 mg PO BID [facility] Rivaroxaban (Xarelto -) 20 mg PO DAILY@1800 [facility] Last Admin: 06/19/17 18:18 Dose: 20 mg Tamsulosin HCl (Flomax -) 0.4 mg PO DAILY@0830 [facility] Last Admin: 06/20/17 08:09 Dose: 0.4 mg - Objective Vital Signs: Vital Signs Temperature 98.5 F 06/20/17 13:31 Pulse Rate 70 06/20/17 13:31 Respiratory Rate 20 06/20/17 13:31 Blood Pressure 131/78 06/20/17 13:31 O2 Sat by Pulse Oximetry (%) 96 06/20/17 09:45 Constitutional: Yes: Well Nourished, Calm Eyes: Yes: WNL HENT: Yes: Nasal Congestion Neck: Yes: WNL Cardiovascular: Yes: Pulse Irregular, S1, S2 Respiratory: Yes: CTA Bilaterally Gastrointestinal: Yes: Normal Bowel Sounds, Soft Extremities: Yes: WNL Edema: Yes Labs: CBC, BMP 06/20/17 05:35 06/20/17 05:35 INR, PTT INR 1.31 (0.82-1.09) H 06/16/17 05:05 Problem List - Problems (1) Afib Code(s): I48.91 - UNSPECIFIED ATRIAL FIBRILLATION (2) COPD (chronic obstructive pulmonary disease) Code(s): J44.9 - CHRONIC OBSTRUCTIVE PULMONARY DISEASE, UNSPECIFIED (3) HTN (hypertension) Code(s): I10 - ESSENTIAL (PRIMARY) HYPERTENSION (4) SHEKHAR (obstructive sleep apnea) Code(s): G47.33 - OBSTRUCTIVE SLEEP APNEA (ADULT) (PEDIATRIC) (5) Respiratory failure Code(s): J96.90 - RESPIRATORY FAILURE, UNSP, UNSP W HYPOXIA OR HYPERCAPNIA (6) Sepsis Code(s): A41.9 - SEPSIS, UNSPECIFIED ORGANISM (7) Urinary retention Code(s): R33.9 - RETENTION OF URINE, UNSPECIFIED (8) CHF (congestive heart failure) Code(s): I50.9 - HEART FAILURE, UNSPECIFIED (9) Fever Code(s): R50.9 - FEVER, UNSPECIFIED (10) Hypoxia Code(s): R09.02 - HYPOXEMIA (11) Obesity Code(s): E66.9 - OBESITY, UNSPECIFIED Assessment/Plan A/P UTI Urinary Retention/BPH/ h/o Strictures Sepsis Acute on Chronic Hypoxic and Hypercapneic Respiratory Failure improving CAD s/p stents Atrial Fibrillation with RVR now in sinus Acute on Chronic Diastolic Heart Failure Obstructive Sleep Apnea HTN DM - antibiotics per ID - IV lasix - monitor urine output, creatinine - rate controlled - anticoagulation - O2 to keep SpO2 >90% - BIPAP as needed - medrol taper - inhaled bronchodilators - minimize narcotics - DVT prophylaxis DR MALHOTRA
--- NOTE | 2017-06-20 15:18 | PN ---
Progress Note, Physician History of Present Illness: Pt seen and examined at bedside. He is awake and alert. He feels that his breathing is improved. - Current Medication List Current Medications: Active Medications Albuterol/Ipratropium (Duoneb -) 1 amp NEB Q6H PRN PRN Reason: SHORT OF BREATH/WHEEZING Last Admin: 06/18/17 09:39 Dose: 1 amp Aspirin (Asa -) 81 mg PO DAILY [facility] Last Admin: 06/20/17 10:08 Dose: Not Given Fenofibric Acid (Trilipix -) 135 mg PO DAILY [facility] Last Admin: 06/20/17 10:08 Dose: 135 mg Furosemide (Lasix Injection -) 40 mg IVPUSH DAILY [facility] Last Admin: 06/20/17 10:07 Dose: 40 mg Piperacillin Sod/Tazobactam (Sod 4.5 gm/ Dextrose) 100 mls @ 200 mls/hr IVPB Q8H-IV [facility] PRN Reason: Protocol Last Admin: 06/20/17 10:06 Dose: 200 mls/hr Insulin Aspart (Novolog Vial Sliding Scale -) 1 vial SQ ACHS [facility] PRN Reason: Protocol Last Admin: 06/20/17 11:48 Dose: 10 units Levothyroxine Sodium (Synthroid -) 50 mcg PO DAILY@0700 [facility] Last Admin: 06/20/17 06:09 Dose: 50 mcg Methylprednisolone Sodium Succinate (Solu-Medrol -) 40 mg IVPUSH BID [facility] Last Admin: 06/20/17 10:07 Dose: 40 mg Metoprolol Succinate (Toprol Xl -) 50 mg PO BID [facility] Rivaroxaban (Xarelto -) 20 mg PO DAILY@1800 [facility] Last Admin: 06/19/17 18:18 Dose: 20 mg Tamsulosin HCl (Flomax -) 0.4 mg PO DAILY@0830 [facility] Last Admin: 06/20/17 08:09 Dose: 0.4 mg - Objective Vital Signs: Vital Signs Temperature 98.5 F 06/20/17 13:31 Pulse Rate 70 06/20/17 13:31 Respiratory Rate 20 06/20/17 13:31 Blood Pressure 131/78 06/20/17 13:31 O2 Sat by Pulse Oximetry (%) 96 06/20/17 13:50 Constitutional: Yes: Calm Eyes: Yes: Conjunctiva Clear HENT: Yes: Atraumatic Neck: Yes: Supple Cardiovascular: Yes: S1, S2 Respiratory: Yes: On Nasal O2 Gastrointestinal: Yes: Soft, Abdomen, Obese Genitourinary: Yes: Gautam Present Musculoskeletal: Yes: WNL Edema: Yes Edema: LLE: 1+, RLE: 1+ Neurological: Yes: Oriented Psychiatric: Yes: Oriented Labs: CBC, BMP 06/20/17 05:35 06/20/17 05:35 INR, PTT INR 1.31 (0.82-1.09) H 06/16/17 05:05 Problem List - Problems (1) Urinary retention Code(s): R33.9 - RETENTION OF URINE, UNSPECIFIED (2) CHF (congestive heart failure) Code(s): I50.9 - HEART FAILURE, UNSPECIFIED (3) HTN (hypertension) Code(s): I10 - ESSENTIAL (PRIMARY) HYPERTENSION Assessment/Plan Current Medications Generic Name Dose Route Start Last Admin Trade Name Freq PRN Reason Stop Dose Admin Albuterol/Ipratropium 1 amp 06/18/17 09:10 06/18/17 09:39 Duoneb - NEB 1 amp Q6H PRN Administration SHORT OF BREATH/WHEEZING Aspirin 81 mg 06/16/17 10:00 06/20/17 10:08 Asa - PO Not Given DAILY [facility] Fenofibric Acid 135 mg 06/16/17 10:00 06/20/17 10:08 Trilipix - PO 135 mg DAILY [facility] Administration Furosemide 40 mg 06/18/17 10:00 06/20/17 10:07 Lasix Injection - IVPUSH 40 mg DAILY [facility] Administration Piperacillin Sod/Tazobactam 100 mls @ 200 mls/hr 06/15/17 18:00 06/20/17 10: 06 Sod 4.5 gm/ Dextrose IVPB 200 mls/hr Q8H-IV [facility] Administration Protocol Insulin Aspart 1 vial 06/15/17 22:00 06/20/17 11:48 Novolog Vial Sliding Scale - SQ 10 units ACHS [facility] Administration Protocol Levothyroxine Sodium 50 mcg 06/16/17 07:00 06/20/17 06:09 Synthroid - PO 50 mcg DAILY@0700 [facility] Administration Methylprednisolone Sodium Succinate 40 mg 06/18/17 10:00 06/20/17 10:07 Solu-Medrol - IVPUSH 40 mg BID [facility] Administration Metoprolol Succinate 50 mg 06/20/17 22:00 Toprol Xl - PO BID [facility] Rivaroxaban 20 mg 06/18/17 18:00 06/19/17 18:18 Xarelto - PO 20 mg DAILY@1800 [facility] Administration Tamsulosin HCl 0.4 mg 06/16/17 08:30 06/20/17 08:09 Flomax - PO 0.4 mg DAILY@0830 [facility] Administration Impression 1. urinary retention 2. htn 3. DM 4. proteinuria/hematuria 5. CAD 6. hyperkalemia Plan - cont IV lasix - lasix should help with potassium - low potassium diet - will defer kayexylate for now - check plasma potassium - maintain gautam - avoid nsaids - urology follow up - will follow Dr Lynn
[2017-06-20 18:31] LABS: ANION GAP 5 (8-16); BLOOD UREA NITROGEN 37 mg/dL (7-18); CALCIUM 9.4 mg/dL (8.5-10.1); CHLORIDE 88 mmol/L (98-107); CO2 40 mmol/L (21-32); POTASSIUM 4.9 mmol/L (3.5-5.1); SODIUM 133 mmol/L (136-145)
[2017-06-20 18:33] LABS: CREATININE 0.9 mg/dL (0.7-1.3)
[2017-06-20 18:51] LABS: GLUCOSE,RANDOM 350 mg/dL (74-106)
--- NOTE | 2017-06-20 20:20 | PN ---
Progress Note, Physician History of Present Illness: No new complaints - Current Medication List Current Medications: Active Medications Albuterol/Ipratropium (Duoneb -) 1 amp NEB Q6H PRN PRN Reason: SHORT OF BREATH/WHEEZING Last Admin: 06/18/17 09:39 Dose: 1 amp Aspirin (Asa -) 81 mg PO DAILY [facility] Last Admin: 06/20/17 10:08 Dose: Not Given Fenofibric Acid (Trilipix -) 135 mg PO DAILY [facility] Last Admin: 06/20/17 10:08 Dose: 135 mg Furosemide (Lasix Injection -) 40 mg IVPUSH DAILY [facility] Last Admin: 06/20/17 10:07 Dose: 40 mg Piperacillin Sod/Tazobactam (Sod 4.5 gm/ Dextrose) 100 mls @ 200 mls/hr IVPB Q8H-IV [facility] PRN Reason: Protocol Last Admin: 06/20/17 17:19 Dose: 200 mls/hr Insulin Aspart (Novolog Vial Sliding Scale -) 1 vial SQ ACHS [facility] PRN Reason: Protocol Last Admin: 06/20/17 16:57 Dose: 8 units Levothyroxine Sodium (Synthroid -) 50 mcg PO DAILY@0700 [facility] Last Admin: 06/20/17 06:09 Dose: 50 mcg Methylprednisolone Sodium Succinate (Solu-Medrol -) 40 mg IVPUSH BID [facility] Last Admin: 06/20/17 10:07 Dose: 40 mg Metoprolol Succinate (Toprol Xl -) 50 mg PO BID [facility] Rivaroxaban (Xarelto -) 20 mg PO DAILY@1800 [facility] Last Admin: 06/19/17 18:18 Dose: 20 mg Tamsulosin HCl (Flomax -) 0.4 mg PO DAILY@0830 [facility] Last Admin: 06/20/17 08:09 Dose: 0.4 mg - Objective Vital Signs: Vital Signs Temperature 97.9 F 06/20/17 18:00 Pulse Rate 61 06/20/17 18:00 Respiratory Rate 20 06/20/17 18:00 Blood Pressure 137/69 06/20/17 18:00 O2 Sat by Pulse Oximetry (%) 96 06/20/17 13:50 Constitutional: Yes: Well Nourished Cardiovascular: Yes: WNL, Regular Rate and Rhythm Respiratory: Yes: WNL, Regular, CTA Bilaterally Gastrointestinal: Yes: WNL, Normal Bowel Sounds, Soft, Abdomen, Obese Extremities: Yes: WNL Edema: Yes Edema: LLE: Trace, RLE: Trace Labs: CBC, BMP 06/20/17 05:35 06/20/17 17:30 INR, PTT INR 1.31 (0.82-1.09) H 06/16/17 05:05 Problem List - Problems (1) Sepsis Assessment/Plan: Pt w/ BPH and urinary retention Urine culture showed strept agalactiae grp B Cont IV zosyn Blood cultures have been negative Brown as per uro Possible cysto/TURP in am Medically cleared for cysto/TURP Hold asa/xarelto Code(s): A41.9 - SEPSIS, UNSPECIFIED ORGANISM (2) Afib Assessment/Plan: Pt has h/o aflutter w/ ablation Rapid AFib now resolved Amio/cardio has been dc'ed Restart xarelto after procedure As per cardio Code(s): I48.91 - UNSPECIFIED ATRIAL FIBRILLATION (3) BPH (benign prostatic hyperplasia) Assessment/Plan: Cont flomax Pt for cysto/TURP in am Keep NPO Hold asa/xarelto Pt medically cleared for procedure Code(s): N40.0 - BENIGN PROSTATIC HYPERPLASIA WITHOUT LOWER URINRY TRACT SYMP (4) Respiratory failure Assessment/Plan: Resolved Multifactorial Pt also has a h/o sleep apnea/COPD Cont IV solumedrol and taper as possible Cont nebulizers Code(s): J96.90 - RESPIRATORY FAILURE, UNSP, UNSP W HYPOXIA OR HYPERCAPNIA (5) CHF (congestive heart failure) Assessment/Plan: Cont IV lasix for volume overload Monitor electrolytes Code(s): I50.9 - HEART FAILURE, UNSPECIFIED (6) Diabetes Assessment/Plan: Cont sliding scale Code(s): E11.9 - TYPE 2 DIABETES MELLITUS WITHOUT COMPLICATIONS (7) HTN (hypertension) Code(s): I10 - ESSENTIAL (PRIMARY) HYPERTENSION (8) CAD (coronary artery disease) Code(s): I25.10 - ATHSCL HEART DISEASE OF [place] CORONARY ARTERY W/O ANG PCTRS (9) Hypothyroidism Code(s): E03.9 - HYPOTHYROIDISM, UNSPECIFIED (10) Obesity Code(s): E66.9 - OBESITY, UNSPECIFIED (11) COPD (chronic obstructive pulmonary disease) Code(s): J44.9 - CHRONIC OBSTRUCTIVE PULMONARY DISEASE, UNSPECIFIED
[2017-06-21] MEDS ORDERED: PT OWN MED DRAWER 7, Y5N ONE ×4 (02:04→21:27)
[2017-06-21] MEDS: PIPERACILLIN/TAZOB 4.5 GM 4.5 GM in DEXTROSE 5%-WATER - 100 ML IVPB SCH ×3 (02:19→17:32)
[2017-06-21] MEDS: INSULIN SLIDING SCALE (NOVOLOG) 1 VIAL SQ SCH ×4 (06:23→22:09)
[2017-06-21] MEDS: LEVOTHYROXINE NA 50 MCG TABLET (FP) PO SCH (06:23)
[2017-06-21 07:34] LABS: ALBUMIN 3.4 g/dl (3.4-5.0); ANION GAP 4 (8-16); BLOOD UREA NITROGEN 32 mg/dL (7-18); CALCIUM 9.2 mg/dL (8.5-10.1); CHLORIDE 92 mmol/L (98-107); CO2 41 mmol/L (21-32); CREATININE 0.8 mg/dL (0.7-1.3); POTASSIUM 5.4 mmol/L (3.5-5.1); SGOT/AST 8 U/L (15-37); SGPT/ALT 28 U/L (12-78); SODIUM 137 mmol/L (136-145)
[2017-06-21 07:36] LABS: ALK PHOS 78 U/L (45-117); BILIRUBIN,TOTAL 0.8 mg/dL (0.2-1.0); TOT PROT 6.4 g/dl (6.4-8.2)
--- NOTE | 2017-06-21 07:39 | PN ---
Progress Note (short form) - Note Progress Note: UROLOGY NOTE. pt with recc. retention. procedure explained to pt.. will go to or today for cysto and prostate vaporization.
[2017-06-21 08:21] LABS: GLUCOSE,RANDOM 315 mg/dL (74-106)
[2017-06-21] MEDS: TAMSULOSIN HCL 0.4 MG CAP.ER.24H (FP) PO SCH (08:57)
--- NOTE | 2017-06-21 09:02 | PN ---
Progress Note, Physician Chief Complaint: no distress TELE: NSR, SVT w/ aberrancy, self limited History of Present Illness: no distress Xarelto held for TURBT - Current Medication List Current Medications: Active Medications Albuterol/Ipratropium (Duoneb -) 1 amp NEB Q6H PRN PRN Reason: SHORT OF BREATH/WHEEZING Last Admin: 06/18/17 09:39 Dose: 1 amp Aspirin (Asa -) 81 mg PO DAILY [facility] Last Admin: 06/20/17 10:08 Dose: Not Given Fenofibric Acid (Trilipix -) 135 mg PO DAILY [facility] Last Admin: 06/20/17 10:08 Dose: 135 mg Furosemide (Lasix Injection -) 40 mg IVPUSH DAILY [facility] Last Admin: 06/20/17 10:07 Dose: 40 mg Piperacillin Sod/Tazobactam (Sod 4.5 gm/ Dextrose) 100 mls @ 200 mls/hr IVPB Q8H-IV [facility] PRN Reason: Protocol Last Admin: 06/21/17 02:19 Dose: 200 mls/hr Insulin Aspart (Novolog Vial Sliding Scale -) 1 vial SQ ACHS [facility] PRN Reason: Protocol Last Admin: 06/21/17 06:23 Dose: Not Given Levothyroxine Sodium (Synthroid -) 50 mcg PO DAILY@0700 [facility] Last Admin: 06/21/17 06:23 Dose: Not Given Methylprednisolone Sodium Succinate (Solu-Medrol -) 40 mg IVPUSH BID [facility] Last Admin: 06/20/17 22:59 Dose: 40 mg Metoprolol Succinate (Toprol Xl -) 50 mg PO BID [facility] Last Admin: 06/20/17 22:59 Dose: 50 mg Rivaroxaban (Xarelto -) 20 mg PO DAILY@1800 [facility] Last Admin: 06/19/17 18:18 Dose: 20 mg Tamsulosin HCl (Flomax -) 0.4 mg PO DAILY@0830 [facility] Last Admin: 06/21/17 08:57 Dose: Not Given - Objective Vital Signs: Vital Signs Temperature 98.5 F 06/21/17 06:00 Pulse Rate 59 L 06/21/17 06:00 Respiratory Rate 20 06/21/17 06:00 Blood Pressure 134/69 06/21/17 06:00 O2 Sat by Pulse Oximetry (%) 96 06/20/17 21:00 Constitutional: Yes: Calm Cardiovascular: Yes: Regular Rate and Rhythm Respiratory: Yes: CTA Bilaterally Gastrointestinal: Yes: Soft, Abdomen, Obese Edema: No Neurological: Yes: Alert, Oriented ...Motor Strength: WNL Labs: CBC, BMP 06/20/17 05:35 06/21/17 05:30 INR, PTT INR 1.31 (0.82-1.09) H 06/16/17 05:05 - ....Imaging EKG: Image Reviewed Assessment/Plan Assessment/Plan 57 year old man with a history of hypertension, diabetes, hyperlipidemia, typical atrial flutter status post ablation in 2012, 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 hematuria s/p recent procedure with resultant stricture and was planned for further procedure as outpatient admitted with urinary retention , fever, resultant sinus tachycardia, respiratory failure. AFib with RVR-has remained in NSR for at least past 24hours -precipitated by urinary retension, sepsis, volume overload -amio gtt completed, will hold off on additional amio at this time especially in light of chronic lung disease -likely precipitated by volume overload -Cont Lasix 40mg IV daily, clinically improving -transitioned to Toprol XL, remains in NSR -cont Xarelto for now, can be held for procedures, resume when safe to do so after procedure SOB-respiratory failure -History of Hypoxia/SOB-recurrent, uncertain etiology, component of acute on chronic diastolic CHF but not fully explained by this -presume undiagnosed chronic lung disease, possible exposure from working in [employer] has been considered -currently euvolemic -cont bipap -Can transition to PO Lasix -monitor I/Os, electrolytes Coronary artery disease, history of drug-eluting stent to LAD May 2016. -cont ASA 81mg daily -ok to stop Plavix as >1 year since stent -cont beta nicole -resume home statin Atrial flutter status post two ablations last one was May 2016. - He had been off Xarelto since 06/22/2016, resumed this weekend due to recurrent AF. Cardiomyopathy- History of nonischemic cardiomyopathy, but likely arrhythmia induced with recovery of LV function after atrial flutter ablation. -close to Euvolemic -echo showed normal LV systolic function -management as above
[2017-06-21] MEDS: methylPREDNISolone NA SUCC 40 MG/1 ML VIAL IVPUSH SCH (09:53)
[2017-06-21] MEDS ORDERED: INSULIN (NOVOLOG) ASPART 100 UNITS/ML 10ML VIAL ONE (11:17)
[2017-06-21] MEDS: FENOFIBRIC ACID 135 MG CAP PO SCH ×2 (12:04→17:42)
[2017-06-21] MEDS: FUROSEMIDE 40 MG TABLET (FP) PO SCH ×2 (12:04→17:34)
--- NOTE | 2017-06-21 13:24 | PN ---
Progress Note (short form) - Note Progress Note: PULMONARY Denies shortness of breath. Going for cystoscopy today. Hiccups back. Last Vital Signs Temp Pulse Resp BP Pulse Ox 98.5 F 56 L 20 117/66 96 06/21/17 10:00 06/21/17 10:00 06/21/17 10:00 06/21/17 10:00 06/21/17 09:00 Intake & Output 06/18/17 06/19/17 06/20/17 06/21/17 23:59 23:59 23:59 23:59 Intake Total 2416.4 1466.2 200 Output Total 8100 4600 8150 1300 Balance -5683.6 -3133.8 -8150 -1100 Weight 111.13 kg 111.221 kg 107.501 kg 105.506 kg Gen: NAD at rest Heart: RRR Lung: distant breath sounds Abd: soft, nontender Ext: edema decreasing CBC, BMP 06/20/17 05:35 06/21/17 05:30 Active Medications Albuterol/Ipratropium (Duoneb -) 1 amp NEB Q6H PRN PRN Reason: SHORT OF BREATH/WHEEZING Last Admin: 06/18/17 09:39 Dose: 1 amp Aspirin (Asa -) 81 mg PO DAILY [facility] Last Admin: 06/20/17 10:08 Dose: Not Given Fenofibric Acid (Trilipix -) 135 mg PO DAILY [facility] Last Admin: 06/21/17 12:04 Dose: Not Given Furosemide (Lasix -) 40 mg PO DAILY [facility] Last Admin: 06/21/17 12:04 Dose: Not Given Piperacillin Sod/Tazobactam (Sod 4.5 gm/ Dextrose) 100 mls @ 200 mls/hr IVPB Q8H-IV [facility] PRN Reason: Protocol Last Admin: 06/21/17 09:52 Dose: 200 mls/hr Insulin Aspart (Novolog Vial Sliding Scale -) 1 vial SQ ACHS [facility] PRN Reason: Protocol Last Admin: 06/21/17 12:04 Dose: Not Given Levothyroxine Sodium (Synthroid -) 50 mcg PO DAILY@0700 [facility] Last Admin: 06/21/17 06:23 Dose: Not Given Methylprednisolone Sodium Succinate (Solu-Medrol -) 40 mg IVPUSH BID [facility] Last Admin: 06/21/17 09:53 Dose: 40 mg Metoprolol Succinate (Toprol Xl -) 50 mg PO BID [facility] Last Admin: 06/21/17 09:53 Dose: 50 mg Rivaroxaban (Xarelto -) 20 mg PO DAILY@1800 [facility] Last Admin: 06/19/17 18:18 Dose: 20 mg Tamsulosin HCl (Flomax -) 0.4 mg PO DAILY@0830 [facility] Last Admin: 06/21/17 08:57 Dose: Not Given A/P UTI Urinary Retention/BPH/ h/o Strictures Sepsis Acute on Chronic Hypoxic and Hypercapneic Respiratory Failure improving CAD s/p stents Atrial Fibrillation with RVR now in sinus Acute on Chronic Diastolic Heart Failure Obstructive Sleep Apnea HTN DM - continue antibiotics per ID - continue lasix - monitor urine output, creatinine - rate controlled - anticoagulation per cardiology - O2 to keep SpO2 >90% - taper off medrol - inhaled bronchodilators - DVT prophylaxis - will start thorazine for hiccups now that pt off amiodarone
[2017-06-21] MEDS ORDERED: ONDANSETRON 4 MG/2 ML VIAL IVPUSH PRN (14:11)
[2017-06-21] MEDS ORDERED: HYDROmorphone HCL CARPU-JECT 1 MG/1 ML DISP.SYRIN IVPUSH PRN (14:11)
[2017-06-21] MEDS ORDERED: MIDAZOLAM HCL 2 MG/2 ML SINGLE DOSE VIAL ONE (14:25)
[2017-06-21] MEDS ORDERED: PROPOFOL 20 ML ONE (14:25)
[2017-06-21] MEDS ORDERED: ceFAZolin SODIUM 1 GM VIAL IVPB ONE (14:35)
[2017-06-21] MEDS ORDERED: ceFAZolin SODIUM 1 GM VIAL ONE (14:38)
--- NOTE | 2017-06-21 14:46 | PN ---
Progress Note, Physician History of Present Illness: stable no issues patient for surgery - Current Medication List Current Medications: Active Medications Albuterol/Ipratropium (Duoneb -) 1 amp NEB Q6H PRN PRN Reason: SHORT OF BREATH/WHEEZING Last Admin: 06/18/17 09:39 Dose: 1 amp Aspirin (Asa -) 81 mg PO DAILY [facility] Last Admin: 06/20/17 10:08 Dose: Not Given Chlorpromazine HCl (Thorazine -) 25 mg PO TID [facility] Fenofibric Acid (Trilipix -) 135 mg PO DAILY [facility] Last Admin: 06/21/17 12:04 Dose: Not Given Fentanyl (Sublimaze Injection -) 25 mcg IVPUSH [id number] PRN PRN Reason: PAIN-PACU ORDER X 4 DOSES ONLY Fentanyl (Sublimaze Injection -) 50 mcg IVPUSH [id number] PRN PRN Reason: PAIN-PACU ORDER X 4 DOSES ONLY Furosemide (Lasix -) 40 mg PO DAILY [facility] Last Admin: 06/21/17 12:04 Dose: Not Given Hydromorphone HCl (Dilaudid Injection -) 0.25 mg IVPUSH [id number] PRN PRN Reason: PAIN-PACU ORDER X 4 DOSES ONLY Piperacillin Sod/Tazobactam (Sod 4.5 gm/ Dextrose) 100 mls @ 200 mls/hr IVPB Q8H-IV [facility] PRN Reason: Protocol Last Admin: 06/21/17 09:52 Dose: 200 mls/hr Sodium Chloride (Normal Saline -) 1,000 mls @ 75 mls/hr IV ASDIR [facility] Insulin Aspart (Novolog Vial Sliding Scale -) 1 vial SQ ACHS [facility] PRN Reason: Protocol Last Admin: 06/21/17 12:04 Dose: Not Given Levothyroxine Sodium (Synthroid -) 50 mcg PO DAILY@0700 [facility] Last Admin: 06/21/17 06:23 Dose: Not Given Methylprednisolone Sodium Succinate (Solu-Medrol -) 40 mg IVPUSH DAILY [facility] Metoprolol Succinate (Toprol Xl -) 50 mg PO BID [facility] Last Admin: 06/21/17 09:53 Dose: 50 mg Ondansetron HCl (Zofran Injection) 4 mg IVPUSH Q6H PRN PRN Reason: NAUSEA AND/OR VOMITING Rivaroxaban (Xarelto -) 20 mg PO DAILY@1800 [facility] Last Admin: 06/19/17 18:18 Dose: 20 mg Tamsulosin HCl (Flomax -) 0.4 mg PO DAILY@0830 [facility] Last Admin: 06/21/17 08:57 Dose: Not Given - Objective Vital Signs: Vital Signs Temperature 98.3 F 06/21/17 12:55 Pulse Rate 60 06/21/17 12:55 Respiratory Rate 16 06/21/17 12:55 Blood Pressure 141/75 06/21/17 12:55 O2 Sat by Pulse Oximetry (%) 96 06/21/17 09:00 Constitutional: Yes: No Distress, Calm Cardiovascular: Yes: Regular Rate and Rhythm Respiratory: Yes: Regular, CTA Bilaterally Gastrointestinal: Yes: Normal Bowel Sounds, Soft Genitourinary: Yes: Brown Present Musculoskeletal: Yes: WNL Extremities: Yes: WNL Neurological: Yes: Alert, Oriented Psychiatric: Yes: Alert, Oriented Labs: CBC, BMP 06/20/17 05:35 06/21/17 05:30 INR, PTT INR 1.31 (0.82-1.09) H 06/16/17 05:05 Assessment/Plan ASSESSMENT AND PLAN: UTI bph/strictures r/o bacteremia resp failure sepsis urinary retention hematuria loyda htn dm plan continue abx patient for surgery stable doing well no issues
--- NOTE | 2017-06-21 14:59 | OP ---
Operative Note - Note: Operative Date: 06/21/17 Pre-Operative Diagnosis: BPH w/ urinary retention Operation: TUVP( Vaporization of prostate) Findings: Trilobar hypertrophy of prostate, grade II trabeculation of bladder. Implants: None Post-Operative Diagnosis: Same as Pre-op Surgeon: Mitra Cruz Anesthesia: General Estimated Blood Loss (mls): 20 Drains & Tubes with Location: [address] gautam Blood Volume Replaced (mls): 0 Fluid Volume Replaced (mls): 0 Operative Report Dictated: Yes
--- NOTE | 2017-06-21 15:11 | PN ---
Progress Note, Physician History of Present Illness: Pt seen and examined at bedside. He is awake and alert. He is going for cysto today. He feels that his breathing is improved. - Current Medication List Current Medications: Active Medications Albuterol/Ipratropium (Duoneb -) 1 amp NEB Q6H PRN PRN Reason: SHORT OF BREATH/WHEEZING Last Admin: 06/18/17 09:39 Dose: 1 amp Aspirin (Asa -) 81 mg PO DAILY [facility] Last Admin: 06/20/17 10:08 Dose: Not Given Budesonide/Formoterol Fumarate (Symbicort 80/4.5mcg -) 2 puff IH BID [facility] Chlorpromazine HCl (Thorazine -) 25 mg PO TID [facility] Fenofibric Acid (Trilipix -) 135 mg PO DAILY [facility] Last Admin: 06/21/17 12:04 Dose: Not Given Fentanyl (Sublimaze Injection -) 25 mcg IVPUSH [id number] PRN PRN Reason: PAIN-PACU ORDER X 4 DOSES ONLY Fentanyl (Sublimaze Injection -) 50 mcg IVPUSH [id number] PRN PRN Reason: PAIN-PACU ORDER X 4 DOSES ONLY Furosemide (Lasix -) 40 mg PO DAILY [facility] Last Admin: 06/21/17 12:04 Dose: Not Given Hydromorphone HCl (Dilaudid Injection -) 0.25 mg IVPUSH [id number] PRN PRN Reason: PAIN-PACU ORDER X 4 DOSES ONLY Piperacillin Sod/Tazobactam (Sod 4.5 gm/ Dextrose) 100 mls @ 200 mls/hr IVPB Q8H-IV [facility] PRN Reason: Protocol Last Admin: 06/21/17 09:52 Dose: 200 mls/hr Sodium Chloride (Normal Saline -) 1,000 mls @ 75 mls/hr IV ASDIR [facility] Insulin Aspart (Novolog Vial Sliding Scale -) 1 vial SQ ACHS [facility] PRN Reason: Protocol Last Admin: 06/21/17 12:04 Dose: Not Given Insulin Detemir (Levemir Vial) 20 units SQ HS [facility] Levothyroxine Sodium (Synthroid -) 50 mcg PO DAILY@0700 [facility] Last Admin: 06/21/17 06:23 Dose: Not Given Methylprednisolone Sodium Succinate (Solu-Medrol -) 40 mg IVPUSH DAILY [facility] Metoprolol Tartrate (Lopressor -) 50 mg PO BID [facility] Non-Formulary Medication (Canagliflozin [Invokana]) 300 mg PO DAILY [facility] Non-Formulary Medication (Linagliptin/Metformin Hcl [Jentadueto 2.5 Mg-500 Mg Tab]) 1 each PO BID [facility] Ondansetron HCl (Zofran Injection) 4 mg IVPUSH Q6H PRN PRN Reason: NAUSEA AND/OR VOMITING Rivaroxaban (Xarelto -) 20 mg PO DAILY@1800 [facility] Last Admin: 06/19/17 18:18 Dose: 20 mg Tamsulosin HCl (Flomax -) 0.4 mg PO DAILY@0830 [facility] Last Admin: 06/21/17 08:57 Dose: Not Given - Objective Vital Signs: Vital Signs Temperature 98.3 F 06/21/17 12:55 Pulse Rate 60 06/21/17 12:55 Respiratory Rate 16 06/21/17 12:55 Blood Pressure 141/75 06/21/17 12:55 O2 Sat by Pulse Oximetry (%) 96 06/21/17 09:00 Constitutional: Yes: Calm Eyes: Yes: Conjunctiva Clear HENT: Yes: Atraumatic Cardiovascular: Yes: S1, S2 Respiratory: Yes: CTA Bilaterally Gastrointestinal: Yes: Soft Genitourinary: Yes: Gautam Present Musculoskeletal: Yes: WNL Edema: Yes Edema: LLE: 1+, RLE: 1+ Neurological: Yes: Oriented Psychiatric: Yes: Oriented Labs: CBC, BMP 06/20/17 05:35 06/21/17 05:30 INR, PTT INR 1.31 (0.82-1.09) H 06/16/17 05:05 Problem List - Problems (1) Urinary retention Code(s): R33.9 - RETENTION OF URINE, UNSPECIFIED (2) CHF (congestive heart failure) Code(s): I50.9 - HEART FAILURE, UNSPECIFIED (3) HTN (hypertension) Code(s): I10 - ESSENTIAL (PRIMARY) HYPERTENSION Assessment/Plan Current Medications Generic Name Dose Route Start Last Admin Trade Name Freq PRN Reason Stop Dose Admin Albuterol/Ipratropium 1 amp 06/18/17 09:10 06/18/17 09:39 Duoneb - NEB 1 amp Q6H PRN Administration SHORT OF BREATH/WHEEZING Aspirin 81 mg 06/16/17 10:00 02/05/18 10:08 Asa - PO Not Given DAILY [facility] Budesonide/Formoterol Fumarate 2 puff 06/21/17 22:00 Symbicort 80/4.5mcg - IH BID [facility] Chlorpromazine HCl 25 mg 06/21/17 14:00 Thorazine - PO TID [facility] Fenofibric Acid 135 mg 06/16/17 10:00 06/21/17 12:04 Trilipix - PO Not Given DAILY [facility] Fentanyl 25 mcg 06/21/17 14:11 Sublimaze Injection - IVPUSH [id number] PRN PAIN-PACU ORDER X 4 DOSES ONLY Fentanyl 50 mcg 06/21/17 14:11 Sublimaze Injection - IVPUSH [id number] PRN PAIN-PACU ORDER X 4 DOSES ONLY Furosemide 40 mg 06/21/17 10:00 06/21/17 12:04 Lasix - PO Not Given DAILY [facility] Hydromorphone HCl 0.25 mg 06/21/17 14:11 Dilaudid Injection - IVPUSH [id number] PRN PAIN-PACU ORDER X 4 DOSES ONLY Piperacillin Sod/Tazobactam 100 mls @ 200 mls/hr 06/15/17 18:00 06/21/17 09: 52 Sod 4.5 gm/ Dextrose IVPB 200 mls/hr Q8H-IV [facility] Administration Protocol Sodium Chloride 1,000 mls @ 75 mls/hr 06/21/17 14:15 Normal Saline - IV ASDIR [facility] Insulin Aspart 1 vial 06/15/17 22:00 06/21/17 12:04 Novolog Vial Sliding Scale - SQ Not Given ACHS [facility] Protocol Insulin Detemir 20 units 06/21/17 22:00 Levemir Vial SQ HS [facility] Levothyroxine Sodium 50 mcg 06/16/17 07:00 06/21/17 06:23 Synthroid - PO Not Given DAILY@0700 [facility] Methylprednisolone Sodium Succinate 40 mg 06/22/17 10:00 Solu-Medrol - IVPUSH DAILY [facility] Metoprolol Tartrate 50 mg 06/21/17 22:00 Lopressor - PO BID [facility] Non-Formulary Medication 300 mg 06/22/17 10:00 Canagliflozin [Invokana] PO DAILY [facility] Non-Formulary Medication 1 each 06/21/17 22:00 Linagliptin/Metformin Hcl [Jentadueto 2.5 Mg-500 Mg Tab] PO BID [facility] Ondansetron HCl 4 mg 06/21/17 14:11 Zofran Injection IVPUSH Q6H PRN NAUSEA AND/OR VOMITING Rivaroxaban 20 mg 06/18/17 18:00 06/19/17 18:18 Xarelto - PO 20 mg DAILY@1800 [facility] Administration Tamsulosin HCl 0.4 mg 06/16/17 08:30 06/21/17 08:57 Flomax - PO Not Given DAILY@0830 [facility] Impression 1. urinary retention 2. htn 3. DM 4. proteinuria/hematuria 5. CAD 6. hyperkalemia Plan - wound continue with lasix - repeat plasma potassium, was normal yesterday - urology follow up - maintain gautam - avoid nsaids - urology follow up - will follow Dr Lynn
[2017-06-21] MEDS ORDERED: ALBUTEROL SO4 2.5/IPRATROPIUM 0.5 INH SOL 3 ML VIAL.NEB. NEB PRN (15:29)
--- NOTE | 2017-06-21 15:52 | OP ---
DATE OF OPERATION: 06/21/2017 PREOPERATIVE DIAGNOSIS: Obstructive uropathy. POSTOPERATIVE DIAGNOSIS: Benign prostatic hypertrophy with recurrent retention. OPERATIVE PROCEDURE: Transurethral vaporization of prostate. ANESTHESIA: General. BLOOD LOSS: 20 mL DRAINAGE: 24-St Lucian, 30-mL, 3-way Brown. DESCRIPTION OF OPERATIVE PROCEDURE: Under general anesthesia, patient was prepped and draped in the usual sterile manner. He was placed in the dorsal lithotomy position. Cystoscopy revealed a normal anterior urethra. Prostatic urethra revealed trilobar hypertrophy with lateral lobe kissing. The bladder was entered. This revealed a grade 2 trabeculation. No lesions were noted. No calculi were seen. Ureteral orifices were within normal limits with efflux of clear urine bilaterally. Dome and lateral romano were clear. A Vaportrode was inserted, and vaporization of the prostate was commenced at the 6 o'clock position of the right lateral lobe. This was carried on up to the 12 o'clock position. The same thing was done to the left lateral lobe. Lastly, the median lobe was vaporized. Hemostasis was secured with electrocoagulation. No active bleeding was noted. Bladder was emptied. Scope was removed. A 24-St Lucian, 30-mL, 3-way Brown was inserted. This was connected to continuous bladder irrigation. Patient tolerated the procedure well. He returned to the recovery room in good condition. Ade [id number]
[2017-06-21] MEDS: SODIUM CHLORIDE 1,000 ML IV SCH (16:00)
[2017-06-21] MEDS ORDERED: sitaGLIPtin PHOSPHATE 100 MG TABLET (FP) PO SCH (16:30)
[2017-06-21] MEDS: chlorproMAZINE HCL 25 MG TABLET PO SCH ×2 (17:11→22:10)
[2017-06-21] MEDS: metFORMIN HCL 500 MG TABLET (FP) PO SCH (17:30)
[2017-06-21] MEDS: RIVAROXABAN 20 MG TABLET PO SCH (19:25)
--- NOTE | 2017-06-21 20:30 | PN ---
Progress Note, Physician - Current Medication List Current Medications: Active Medications Albuterol/Ipratropium (Duoneb -) 1 amp NEB Q6H PRN PRN Reason: SHORT OF BREATH/WHEEZING Last Admin: 06/21/17 16:56 Dose: 1 amp Aspirin (Asa -) 81 mg PO DAILY [facility] Budesonide/Formoterol Fumarate (Symbicort 80/4.5mcg -) 2 puff IH BID [facility] Chlorpromazine HCl (Thorazine -) 25 mg PO TID [facility] Last Admin: 06/21/17 17:11 Dose: 25 mg Fenofibric Acid (Trilipix -) 135 mg PO DAILY [facility] Last Admin: 06/21/17 17:42 Dose: 135 mg Fentanyl (Sublimaze Injection -) 25 mcg IVPUSH [id number] PRN PRN Reason: PAIN-PACU ORDER X 4 DOSES ONLY Fentanyl (Sublimaze Injection -) 50 mcg IVPUSH [id number] PRN PRN Reason: PAIN-PACU ORDER X 4 DOSES ONLY Furosemide (Lasix -) 40 mg PO DAILY [facility] Last Admin: 06/21/17 17:34 Dose: 40 mg Hydromorphone HCl (Dilaudid Injection -) 0.25 mg IVPUSH [id number] PRN PRN Reason: PAIN-PACU ORDER X 4 DOSES ONLY Sodium Chloride (Normal Saline -) 1,000 mls @ 75 mls/hr IV ASDIR [facility] Last Admin: 06/21/17 16:00 Dose: 75 mls/hr Piperacillin Sod/Tazobactam (Sod 4.5 gm/ Dextrose) 100 mls @ 200 mls/hr IVPB Q8H-IV [facility] PRN Reason: Protocol Last Admin: 06/21/17 17:32 Dose: 200 mls/hr Insulin Aspart (Novolog Vial Sliding Scale -) 1 vial SQ ACHS [facility] PRN Reason: Protocol Last Admin: 06/21/17 17:31 Dose: 6 unit Insulin Detemir (Levemir Vial) 20 units SQ HS [facility] Levothyroxine Sodium (Synthroid -) 50 mcg PO DAILY@0700 [facility] Metformin HCl (Glucophage -) 500 mg PO BIDAC [facility] Last Admin: 06/21/17 17:30 Dose: 500 mg Methylprednisolone Sodium Succinate (Solu-Medrol -) 40 mg IVPUSH DAILY [facility] Metoprolol Tartrate (Lopressor -) 50 mg PO BID [facility] Non-Formulary Medication (Canagliflozin [Invokana]) 300 mg PO DAILY [facility] Ondansetron HCl (Zofran Injection) 4 mg IVPUSH Q6H PRN PRN Reason: NAUSEA AND/OR VOMITING Rivaroxaban (Xarelto -) 20 mg PO DAILY@1800 [facility] Last Admin: 06/21/17 19:25 Dose: 20 mg Sitagliptin Phosphate (Januvia -) 100 mg PO DAILY@0700 [facility] Tamsulosin HCl (Flomax -) 0.4 mg PO DAILY@0830 [facility] - Objective Vital Signs: Vital Signs Temperature 98.0 F 06/21/17 16:17 Pulse Rate 64 06/21/17 16:17 Respiratory Rate 20 06/21/17 16:17 Blood Pressure 143/78 06/21/17 16:17 O2 Sat by Pulse Oximetry (%) 97 06/21/17 16:55 Labs: CBC, BMP 06/20/17 05:35 06/21/17 05:30 INR, PTT INR 1.31 (0.82-1.09) H 06/16/17 05:05 Problem List - Problems (1) Sepsis Code(s): A41.9 - SEPSIS, UNSPECIFIED ORGANISM (2) Afib Code(s): I48.91 - UNSPECIFIED ATRIAL FIBRILLATION (3) BPH (benign prostatic hyperplasia) Code(s): N40.0 - BENIGN PROSTATIC HYPERPLASIA WITHOUT LOWER URINRY TRACT SYMP (4) Respiratory failure Code(s): J96.90 - RESPIRATORY FAILURE, UNSP, UNSP W HYPOXIA OR HYPERCAPNIA (5) CHF (congestive heart failure) Code(s): I50.9 - HEART FAILURE, UNSPECIFIED (6) Diabetes Code(s): E11.9 - TYPE 2 DIABETES MELLITUS WITHOUT COMPLICATIONS (7) HTN (hypertension) Code(s): I10 - ESSENTIAL (PRIMARY) HYPERTENSION (8) CAD (coronary artery disease) Code(s): I25.10 - ATHSCL HEART DISEASE OF [place] CORONARY ARTERY W/O ANG PCTRS (9) Hypothyroidism Code(s): E03.9 - HYPOTHYROIDISM, UNSPECIFIED (10) Obesity Code(s): E66.9 - OBESITY, UNSPECIFIED (11) COPD (chronic obstructive pulmonary disease) Code(s): J44.9 - CHRONIC OBSTRUCTIVE PULMONARY DISEASE, UNSPECIFIED
[2017-06-21] MEDS ORDERED: PATIENT'S OWN MEDICATION (NON-FORMULARY) (Linagliptin/Metformin Hcl [Jentadueto 2.5 Mg-500 PO SCH (22:00)
[2017-06-21] MEDS: INSULIN DETEMIR 100 UNITS/ML MDV SQ SCH (22:09)
[2017-06-21] MEDS: METOPROLOL TARTRATE 50 MG TABLET (FP) PO SCH (22:10)
[2017-06-21] MEDS: BUDESONIDE/FORMETEROL FUMARATE 80/4.5 mcg INHALER IH SCH (22:10)
[2017-06-22] MEDS: PIPERACILLIN/TAZOB 4.5 GM 4.5 GM in DEXTROSE 5%-WATER - 100 ML IVPB SCH ×2 (02:07→10:08)
[2017-06-22 07:09] LABS: BASO % 0.1 % (0-2.0); HEMATOCRIT 49.3 % (35.4-49); HEMOGLOBIN 15.2 GM/dL (11.7-16.9); LYMPH % 15.9 % (8-40); MCH 23.5 pg (25.7-33.7); MCHC 30.9 g/dl (32.0-35.9); MEAN CELL VOLUME 75.9 fl (80-96); MEAN PLT VOLUME 9.9 fl (7.5-11.1); MONO % 10.4 % (3.8-10.2); NEUT % 72.6 % (42.8-82.8); PLATELET COUNT 180 K/MM3 (134-434); RBC 6.49 M/mm3 (4.00-5.60); RDW 17.8 % (11.9-15.9); WHITE BLOOD COUNT 9.1 K/mm3 (4.0-10.0)
[2017-06-22] MEDS ORDERED: PT OWN MED DRAWER 7, Y5N ONE ×2 (07:10→21:35)
[2017-06-22] MEDS: chlorproMAZINE HCL 25 MG TABLET PO SCH ×3 (07:17→21:31)
[2017-06-22] MEDS: sitaGLIPtin PHOSPHATE 100 MG TABLET (FP) PO SCH (07:18)
[2017-06-22] MEDS: INSULIN SLIDING SCALE (NOVOLOG) 1 VIAL SQ SCH ×4 (07:18→21:45)
[2017-06-22] MEDS: metFORMIN HCL 500 MG TABLET (FP) PO SCH ×2 (07:18→17:09)
[2017-06-22] MEDS: LEVOTHYROXINE NA 50 MCG TABLET (FP) PO SCH (07:18)
[2017-06-22 07:51] LABS: ALBUMIN 3.1 g/dl (3.4-5.0); BLOOD UREA NITROGEN 30 mg/dL (7-18); CHLORIDE 89 mmol/L (98-107); POTASSIUM 4.7 mmol/L (3.5-5.1); SODIUM 138 mmol/L (136-145)
[2017-06-22 08:00] LABS: ALK PHOS 55 U/L (45-117); BILIRUBIN,TOTAL 0.8 mg/dL (0.2-1.0); CALCIUM 8.9 mg/dL (8.5-10.1); CREATININE 0.8 mg/dL (0.7-1.3); GLUCOSE,RANDOM 228 mg/dL (74-106); SGOT/AST 6 U/L (15-37); SGPT/ALT 21 U/L (12-78); TOT PROT 5.8 g/dl (6.4-8.2)
[2017-06-22] MEDS: SODIUM CHLORIDE 1,000 ML IV SCH (08:00)
--- NOTE | 2017-06-22 09:32 | PN ---
Progress Note, Physician Chief Complaint: feels well no acute complaints History of Present Illness: POD #[address] - Current Medication List Current Medications: Active Medications Albuterol/Ipratropium (Duoneb -) 1 amp NEB Q6H PRN PRN Reason: SHORT OF BREATH/WHEEZING Last Admin: 06/21/17 16:56 Dose: 1 amp Aspirin (Asa -) 81 mg PO DAILY [facility] Budesonide/Formoterol Fumarate (Symbicort 80/4.5mcg -) 2 puff IH BID [facility] Last Admin: 06/21/17 22:10 Dose: 2 puff Chlorpromazine HCl (Thorazine -) 25 mg PO TID [facility] Last Admin: 06/22/17 07:17 Dose: 25 mg Fenofibric Acid (Trilipix -) 135 mg PO DAILY [facility] Last Admin: 06/21/17 17:42 Dose: 135 mg Fentanyl (Sublimaze Injection -) 25 mcg IVPUSH [id number] PRN PRN Reason: PAIN-PACU ORDER X 4 DOSES ONLY Fentanyl (Sublimaze Injection -) 50 mcg IVPUSH [id number] PRN PRN Reason: PAIN-PACU ORDER X 4 DOSES ONLY Furosemide (Lasix -) 40 mg PO DAILY [facility] Last Admin: 06/21/17 17:34 Dose: 40 mg Hydromorphone HCl (Dilaudid Injection -) 0.25 mg IVPUSH [id number] PRN PRN Reason: PAIN-PACU ORDER X 4 DOSES ONLY Sodium Chloride (Normal Saline -) 1,000 mls @ 75 mls/hr IV ASDIR [facility] Last Admin: 06/21/17 16:00 Dose: 75 mls/hr Piperacillin Sod/Tazobactam (Sod 4.5 gm/ Dextrose) 100 mls @ 200 mls/hr IVPB Q8H-IV [facility] PRN Reason: Protocol Last Admin: 06/22/17 02:07 Dose: 200 mls/hr Insulin Aspart (Novolog Vial Sliding Scale -) 1 vial SQ ACHS [facility] PRN Reason: Protocol Last Admin: 06/22/17 07:18 Dose: 4 unit Insulin Detemir (Levemir Vial) 20 units SQ HS [facility] Last Admin: 06/21/17 22:09 Dose: 20 units Levothyroxine Sodium (Synthroid -) 50 mcg PO DAILY@0700 [facility] Last Admin: 06/22/17 07:18 Dose: 50 mcg Metformin HCl (Glucophage -) 500 mg PO BIDAC [facility] Last Admin: 06/22/17 07:18 Dose: 500 mg Methylprednisolone Sodium Succinate (Solu-Medrol -) 40 mg IVPUSH DAILY [facility] Metoprolol Tartrate (Lopressor -) 50 mg PO BID [facility] Last Admin: 06/21/17 22:10 Dose: 50 mg Non-Formulary Medication (Canagliflozin [Invokana]) 300 mg PO DAILY [facility] Ondansetron HCl (Zofran Injection) 4 mg IVPUSH Q6H PRN PRN Reason: NAUSEA AND/OR VOMITING Rivaroxaban (Xarelto -) 20 mg PO DAILY@1800 [facility] Last Admin: 06/21/17 19:25 Dose: 20 mg Sitagliptin Phosphate (Januvia -) 100 mg PO DAILY@0700 [facility] Last Admin: 06/22/17 07:18 Dose: 100 mg Tamsulosin HCl (Flomax -) 0.4 mg PO DAILY@0830 [facility] - Objective Vital Signs: Vital Signs Temperature 97.5 F L 06/22/17 06:00 Pulse Rate 57 L 06/22/17 06:00 Respiratory Rate 20 06/22/17 06:00 Blood Pressure 125/75 06/22/17 06:00 O2 Sat by Pulse Oximetry (%) 97 06/21/17 21:00 Constitutional: Yes: Calm Cardiovascular: Yes: Regular Rate and Rhythm Respiratory: Yes: CTA Bilaterally Gastrointestinal: Yes: Soft, Abdomen, Obese Edema: Yes Edema: LLE: 1+, RLE: 1+ Neurological: Yes: Alert, Oriented Labs: CBC, BMP 06/22/17 05:35 06/22/17 05:35 INR, PTT INR 1.31 (0.82-1.09) H 06/16/17 05:05 - ....Imaging EKG: Image Reviewed Assessment/Plan 7 year old man with a history of hypertension, diabetes, hyperlipidemia, typical atrial flutter status post ablation in 2012, 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 hematuria s/p recent procedure with resultant stricture and was planned for further procedure as outpatient admitted with urinary retention , fever, resultant sinus tachycardia, respiratory failure. AFib with RVR-has remained in NSR for at least past 48 -precipitated by urinary retension, sepsis, volume overload -amio gtt completed, will hold off on additional amio at this time especially in light of chronic lung disease -likely precipitated by volume overload -Cont Lasix PO -transitioned to Toprol XL, remains in NSR -cont Xarelto, unless significant bleeding develops SOB-respiratory failure -History of Hypoxia/SOB-recurrent, uncertain etiology, component of acute on chronic diastolic CHF but not fully explained by this -presume undiagnosed chronic lung disease, possible exposure from working in [employer] has been considered -currently euvolemic -cont bipap -PO Lasix -monitor I/Os, electrolytes Coronary artery disease, history of drug-eluting stent to LAD May 2016. -cont ASA 81mg daily -ok to stop Plavix as >1 year since stent -cont beta nicole -resume home statin Atrial flutter status post two ablations last one was May 2016. - He had been off Xarelto since 06/22/2016, resumed this weekend due to recurrent AF. Cardiomyopathy- History of nonischemic cardiomyopathy, but likely arrhythmia induced with recovery of LV function after atrial flutter ablation. -close to Euvolemic -echo showed normal LV systolic function -management as above
[2017-06-22 09:45] LABS: ANION GAP 4 (8-16); CO2 45 mmol/L (21-32)
[2017-06-22] MEDS ORDERED: methylPREDNISolone NA SUCC 40 MG/1 ML VIAL IVPUSH SCH (10:00)
[2017-06-22] MEDS ORDERED: PATIENT'S OWN MEDICATION (NON-FORMULARY) (Canagliflozin [Invokana] 300 MG) PO SCH (10:00)
[2017-06-22] MEDS: ASPIRIN 81 MG CHEWABLE TABLETS PO SCH (10:08)
[2017-06-22] MEDS: BUDESONIDE/FORMETEROL FUMARATE 80/4.5 mcg INHALER IH SCH ×2 (10:08→21:44)
[2017-06-22] MEDS: METOPROLOL TARTRATE 50 MG TABLET (FP) PO SCH ×2 (10:08→21:43)
[2017-06-22] MEDS: TAMSULOSIN HCL 0.4 MG CAP.ER.24H (FP) PO SCH (10:08)
[2017-06-22] MEDS: FENOFIBRIC ACID 135 MG CAP PO SCH (10:08)
[2017-06-22] MEDS: FUROSEMIDE 40 MG TABLET (FP) PO SCH (10:08)
--- NOTE | 2017-06-22 10:14 | PN ---
Progress Note (short form) - Note Progress Note: UROLOGY NOTE. pt. s/p tuvp yestersay. Dain patent urine clear, abd. soft n/t bs ++ Plan d/c cbi today. Poss will d/c dain in am .
--- NOTE | 2017-06-22 10:59 | EKG ---
Test Reason : Blood Pressure : / mmHG Vent. Rate : 132 BPM Atrial Rate : 119 BPM P-R Int : 000 ms QRS Dur : 148 ms QT Int : 360 ms P-R-T Axes : 000 -50 010 degrees QTc Int : 533 ms POOR DATA QUALITY, INTERPRETATION MAY BE ADVERSELY AFFECTED ATRIAL FIBRILLATION WITH RAPID VENTRICULAR RESPONSE LEFT AXIS DEVIATION RIGHT BUNDLE BRANCH BLOCK T WAVE ABNORMALITY, CONSIDER LATERAL ISCHEMIA ABNORMAL ECG WHEN COMPARED WITH ECG OF 15-JUN-2017 10:04, ATRIAL FIBRILLATION HAS REPLACED SINUS RHYTHM CRITERIA FOR ANTEROSEPTAL INFARCT ARE NO LONGER PRESENT Confirmed by HORACIO AYALA MD ([id number]) on 06/22/2017 10:59:13 AM Referred By: Confirmed By:HORACIO AYALA MD
--- NOTE | 2017-06-22 11:11 | PN ---
Progress Note (short form) - Note Progress Note: POD #1 - s/p cystoscopy/TUVP under general anesthesia. VSS. Pt. doing well, resting comfortably in bed. No complaints. No apparent anesthetic complications noted. Continue current care.
--- NOTE | 2017-06-22 12:45 | PN ---
Progress Note, Physician History of Present Illness: Pt seen and examined at bedside. He says he feels well. He denies shortness of breath. - Current Medication List Current Medications: Active Medications Albuterol/Ipratropium (Duoneb -) 1 amp NEB Q6H PRN PRN Reason: SHORT OF BREATH/WHEEZING Last Admin: 06/21/17 16:56 Dose: 1 amp Aspirin (Asa -) 81 mg PO DAILY [facility] Last Admin: 06/22/17 10:08 Dose: 81 mg Budesonide/Formoterol Fumarate (Symbicort 80/4.5mcg -) 2 puff IH BID [facility] Last Admin: 06/22/17 10:08 Dose: 2 puff Chlorpromazine HCl (Thorazine -) 25 mg PO TID [facility] Last Admin: 06/22/17 07:17 Dose: 25 mg Fenofibric Acid (Trilipix -) 135 mg PO DAILY [facility] Last Admin: 06/22/17 10:08 Dose: 135 mg Fentanyl (Sublimaze Injection -) 25 mcg IVPUSH [id number] PRN PRN Reason: PAIN-PACU ORDER X 4 DOSES ONLY Fentanyl (Sublimaze Injection -) 50 mcg IVPUSH [id number] PRN PRN Reason: PAIN-PACU ORDER X 4 DOSES ONLY Furosemide (Lasix -) 40 mg PO DAILY [facility] Last Admin: 06/22/17 10:08 Dose: 40 mg Hydromorphone HCl (Dilaudid Injection -) 0.25 mg IVPUSH [id number] PRN PRN Reason: PAIN-PACU ORDER X 4 DOSES ONLY Sodium Chloride (Normal Saline -) 1,000 mls @ 75 mls/hr IV ASDIR [facility] Last Admin: 06/21/17 16:00 Dose: 75 mls/hr Piperacillin Sod/Tazobactam (Sod 4.5 gm/ Dextrose) 100 mls @ 200 mls/hr IVPB Q8H-IV DEIDRE PRN Reason: Protocol Last Admin: 06/22/17 10:08 Dose: 200 mls/hr Insulin Aspart (Novolog Vial Sliding Scale -) 1 vial SQ ACHS [facility] PRN Reason: Protocol Last Admin: 06/22/17 12:16 Dose: 4 unit Insulin Detemir (Levemir Vial) 20 units SQ HS [facility] Last Admin: 06/21/17 22:09 Dose: 20 units Levothyroxine Sodium (Synthroid -) 50 mcg PO DAILY@0700 [facility] Last Admin: 06/22/17 07:18 Dose: 50 mcg Metformin HCl (Glucophage -) 500 mg PO BIDAC [facility] Last Admin: 06/22/17 07:18 Dose: 500 mg Methylprednisolone Sodium Succinate (Solu-Medrol -) 40 mg IVPUSH DAILY [facility] Last Admin: 06/22/17 10:08 Dose: 40 mg Metoprolol Tartrate (Lopressor -) 50 mg PO BID [facility] Last Admin: 06/22/17 10:08 Dose: 50 mg Non-Formulary Medication (Canagliflozin [Invokana]) 300 mg PO DAILY [facility] Ondansetron HCl (Zofran Injection) 4 mg IVPUSH Q6H PRN PRN Reason: NAUSEA AND/OR VOMITING Rivaroxaban (Xarelto -) 20 mg PO DAILY@1800 [facility] Last Admin: 06/21/17 19:25 Dose: 20 mg Sitagliptin Phosphate (Januvia -) 100 mg PO DAILY@0700 [facility] Last Admin: 06/22/17 07:18 Dose: 100 mg Tamsulosin HCl (Flomax -) 0.4 mg PO DAILY@0830 [facility] Last Admin: 06/22/17 10:08 Dose: 0.4 mg - Objective Vital Signs: Vital Signs Temperature 97.5 F L 06/22/17 06:00 Pulse Rate 68 06/22/17 09:00 Respiratory Rate 20 06/22/17 09:00 Blood Pressure 104/68 06/22/17 09:00 O2 Sat by Pulse Oximetry (%) 96 06/22/17 09:00 Constitutional: Yes: Calm Eyes: Yes: Conjunctiva Clear HENT: Yes: Atraumatic Neck: Yes: Supple Cardiovascular: Yes: S1, S2 Respiratory: Yes: On Nasal O2 Gastrointestinal: Yes: Soft, Abdomen, Obese Genitourinary: Yes: Other (on CBI) Edema: Yes Edema: LLE: Trace, RLE: Trace Neurological: Yes: Oriented Psychiatric: Yes: Oriented Labs: CBC, BMP 06/22/17 05:35 06/22/17 05:35 INR, PTT INR 1.31 (0.82-1.09) H 06/16/17 05:05 Problem List - Problems (1) Urinary retention Code(s): R33.9 - RETENTION OF URINE, UNSPECIFIED (2) CHF (congestive heart failure) Code(s): I50.9 - HEART FAILURE, UNSPECIFIED (3) HTN (hypertension) Code(s): I10 - ESSENTIAL (PRIMARY) HYPERTENSION Assessment/Plan Current Medications Generic Name Dose Route Start Last Admin Trade Name Freq PRN Reason Stop Dose Admin Albuterol/Ipratropium 1 amp 06/21/17 15:29 06/21/17 16:56 Duoneb - NEB 1 amp Q6H PRN Administration SHORT OF BREATH/WHEEZING Aspirin 81 mg 06/22/17 10:00 06/22/17 10:08 Asa - PO 81 mg DAILY DEIDRE Administration Budesonide/Formoterol Fumarate 2 puff 06/21/17 22:00 06/22/17 10:08 Symbicort 80/4.5mcg - IH 2 puff BID DEIDRE Administration Chlorpromazine HCl 25 mg 06/21/17 14:00 06/22/17 07:17 Thorazine - PO 25 mg TID DEIDRE Administration Fenofibric Acid 135 mg 06/22/17 10:00 06/22/17 10:08 Trilipix - PO 135 mg DAILY DEIDRE Administration Fentanyl 25 mcg 06/21/17 14:11 Sublimaze Injection - IVPUSH [id number] PRN PAIN-PACU ORDER X 4 DOSES ONLY Fentanyl 50 mcg 06/21/17 14:11 Sublimaze Injection - IVPUSH [id number] PRN PAIN-PACU ORDER X 4 DOSES ONLY Furosemide 40 mg 06/21/17 10:00 06/22/17 10:08 Lasix - PO 40 mg DAILY DEIDRE Administration Hydromorphone HCl 0.25 mg 06/21/17 14:11 Dilaudid Injection - IVPUSH [id number] PRN PAIN-PACU ORDER X 4 DOSES ONLY Sodium Chloride 1,000 mls @ 75 mls/hr 06/21/17 14:15 06/21/17 16:00 Normal Saline - IV 75 mls/hr ASDIR DEIDRE Administration Piperacillin Sod/Tazobactam 100 mls @ 200 mls/hr 06/21/17 18:00 06/22/17 10: 08 Sod 4.5 gm/ Dextrose IVPB 200 mls/hr Q8H-IV DEIDRE Administration Protocol Insulin Aspart 1 vial 06/21/17 16:30 06/22/17 12:16 Novolog Vial Sliding Scale - SQ 4 unit ACHS DEIDRE Administration Protocol Insulin Detemir 20 units 06/21/17 22:00 06/21/17 22:09 Levemir Vial SQ 20 units HS DEIDRE Administration Levothyroxine Sodium 50 mcg 06/22/17 07:00 06/22/17 07:18 Synthroid - PO 50 mcg DAILY@0700 DEIDRE Administration Metformin HCl 500 mg 06/21/17 16:30 06/22/17 07:18 Glucophage - PO 500 mg BIDAC DEIDRE Administration Methylprednisolone Sodium Succinate 40 mg 06/22/17 10:00 06/22/17 10:08 Solu-Medrol - IVPUSH 40 mg DAILY DEIDRE Administration Metoprolol Tartrate 50 mg 06/21/17 22:00 06/22/17 10:08 Lopressor - PO 50 mg BID DEIDRE Administration Non-Formulary Medication 300 mg 06/22/17 10:00 Canagliflozin [Invokana] PO DAILY COUNT [facility]CLUDES [facility] Ondansetron HCl 4 mg 06/21/17 14:11 Zofran Injection IVPUSH Q6H PRN NAUSEA AND/OR VOMITING Rivaroxaban 20 mg 06/21/17 18:00 06/21/17 19:25 Xarelto - PO 20 mg DAILY@1800 [facility] Administration Sitagliptin Phosphate 100 mg 06/22/17 07:00 06/22/17 07:18 Januvia - PO 100 mg DAILY@0700 [facility] Administration Tamsulosin HCl 0.4 mg 06/22/17 08:30 06/22/17 10:08 Flomax - PO 0.4 mg DAILY@0830 [facility] Administration Impression 1. urinary retention 2. htn 3. DM 4. proteinuria/hematuria 5. CAD 6. hyperkalemia Plan - change lasix to PO - repeat labs in am - cont CBI per urology - potassium is normal - avoid nsaids - will follow Dr Lynn
--- NOTE | 2017-06-22 13:08 | PN ---
Progress Note, Physician History of Present Illness: PULMONARY ALERT,NAD,S/P TURP - Current Medication List Current Medications: Active Medications Albuterol/Ipratropium (Duoneb -) 1 amp NEB Q6H PRN PRN Reason: SHORT OF BREATH/WHEEZING Last Admin: 06/21/17 16:56 Dose: 1 amp Aspirin (Asa -) 81 mg PO DAILY [facility] Last Admin: 06/22/17 10:08 Dose: 81 mg Budesonide/Formoterol Fumarate (Symbicort 80/4.5mcg -) 2 puff IH BID [facility] Last Admin: 06/22/17 10:08 Dose: 2 puff Chlorpromazine HCl (Thorazine -) 25 mg PO TID [facility] Last Admin: 06/22/17 07:17 Dose: 25 mg Fenofibric Acid (Trilipix -) 135 mg PO DAILY [facility] Last Admin: 06/22/17 10:08 Dose: 135 mg Fentanyl (Sublimaze Injection -) 25 mcg IVPUSH [id number] PRN PRN Reason: PAIN-PACU ORDER X 4 DOSES ONLY Fentanyl (Sublimaze Injection -) 50 mcg IVPUSH [id number] PRN PRN Reason: PAIN-PACU ORDER X 4 DOSES ONLY Furosemide (Lasix -) 40 mg PO DAILY [facility] Last Admin: 06/22/17 10:08 Dose: 40 mg Hydromorphone HCl (Dilaudid Injection -) 0.25 mg IVPUSH [id number] PRN PRN Reason: PAIN-PACU ORDER X 4 DOSES ONLY Sodium Chloride (Normal Saline -) 1,000 mls @ 75 mls/hr IV ASDIR [facility] Last Admin: 06/21/17 16:00 Dose: 75 mls/hr Piperacillin Sod/Tazobactam (Sod 4.5 gm/ Dextrose) 100 mls @ 200 mls/hr IVPB Q8H-IV DEIDRE PRN Reason: Protocol Last Admin: 06/22/17 10:08 Dose: 200 mls/hr Insulin Aspart (Novolog Vial Sliding Scale -) 1 vial SQ ACHS [facility] PRN Reason: Protocol Last Admin: 06/22/17 12:16 Dose: 4 unit Insulin Detemir (Levemir Vial) 20 units SQ HS [facility] Last Admin: 06/21/17 22:09 Dose: 20 units Levothyroxine Sodium (Synthroid -) 50 mcg PO DAILY@0700 [facility] Last Admin: 06/22/17 07:18 Dose: 50 mcg Metformin HCl (Glucophage -) 500 mg PO BIDAC [facility] Last Admin: 06/22/17 07:18 Dose: 500 mg Methylprednisolone Sodium Succinate (Solu-Medrol -) 40 mg IVPUSH DAILY [facility] Last Admin: 06/22/17 10:08 Dose: 40 mg Metoprolol Tartrate (Lopressor -) 50 mg PO BID [facility] Last Admin: 06/22/17 10:08 Dose: 50 mg Non-Formulary Medication (Canagliflozin [Invokana]) 300 mg PO DAILY [facility] Ondansetron HCl (Zofran Injection) 4 mg IVPUSH Q6H PRN PRN Reason: NAUSEA AND/OR VOMITING Rivaroxaban (Xarelto -) 20 mg PO DAILY@1800 [facility] Last Admin: 06/21/17 19:25 Dose: 20 mg Sitagliptin Phosphate (Januvia -) 100 mg PO DAILY@0700 [facility] Last Admin: 06/22/17 07:18 Dose: 100 mg Tamsulosin HCl (Flomax -) 0.4 mg PO DAILY@0830 [facility] Last Admin: 06/22/17 10:08 Dose: 0.4 mg - Objective Vital Signs: Vital Signs Temperature 97.5 F L 06/22/17 06:00 Pulse Rate 68 06/22/17 09:00 Respiratory Rate 20 06/22/17 09:00 Blood Pressure 104/68 06/22/17 09:00 O2 Sat by Pulse Oximetry (%) 96 06/22/17 09:00 Constitutional: Yes: Well Nourished, Calm Eyes: Yes: WNL HENT: Yes: WNL Neck: Yes: WNL Cardiovascular: Yes: Pulse Irregular, S1, S2 Respiratory: Yes: Diminished Gastrointestinal: Yes: Normal Bowel Sounds, Soft Extremities: Yes: WNL Edema: No Labs: CBC, BMP 06/22/17 05:35 06/22/17 05:35 INR, PTT INR 1.31 (0.82-1.09) H 06/16/17 05:05 Problem List - Problems (1) Afib Code(s): I48.91 - UNSPECIFIED ATRIAL FIBRILLATION (2) COPD (chronic obstructive pulmonary disease) Code(s): J44.9 - CHRONIC OBSTRUCTIVE PULMONARY DISEASE, UNSPECIFIED (3) HTN (hypertension) Code(s): I10 - ESSENTIAL (PRIMARY) HYPERTENSION (4) SHEKHAR (obstructive sleep apnea) Code(s): G47.33 - OBSTRUCTIVE SLEEP APNEA (ADULT) (PEDIATRIC) (5) Respiratory failure Code(s): J96.90 - RESPIRATORY FAILURE, UNSP, UNSP W HYPOXIA OR HYPERCAPNIA (6) Sepsis Code(s): A41.9 - SEPSIS, UNSPECIFIED ORGANISM (7) Urinary retention Code(s): R33.9 - RETENTION OF URINE, UNSPECIFIED (8) CHF (congestive heart failure) Code(s): I50.9 - HEART FAILURE, UNSPECIFIED (9) Fever Code(s): R50.9 - FEVER, UNSPECIFIED (10) Hypoxia Code(s): R09.02 - HYPOXEMIA (11) Obesity Code(s): E66.9 - OBESITY, UNSPECIFIED Assessment/Plan A/P UTI Urinary Retention/BPH/ h/o Strictures Sepsis Acute on Chronic Hypoxic and Hypercapneic Respiratory Failure improved CAD s/p stents Atrial Fibrillation with RVR now in sinus Acute on Chronic Diastolic Heart Failure Obstructive Sleep Apnea HTN DM - antibiotics per ID - lasix - monitor urine output, creatinine - rate controlled - anticoagulation - O2 to keep SpO2 >90% - BIPAP as needed - medrol taper - inhaled bronchodilators - DVT prophylaxis DR MALHOTRA
--- NOTE | 2017-06-22 15:59 | PN ---
Progress Note, Physician History of Present Illness: post op doing well feels better foleys with some bloody urine - Current Medication List Current Medications: Active Medications Albuterol/Ipratropium (Duoneb -) 1 amp NEB Q6H PRN PRN Reason: SHORT OF BREATH/WHEEZING Last Admin: 06/21/17 16:56 Dose: 1 amp Aspirin (Asa -) 81 mg PO DAILY [facility] Last Admin: 06/22/17 10:08 Dose: 81 mg Budesonide/Formoterol Fumarate (Symbicort 80/4.5mcg -) 2 puff IH BID [facility] Last Admin: 06/22/17 10:08 Dose: 2 puff Chlorpromazine HCl (Thorazine -) 25 mg PO TID [facility] Last Admin: 06/22/17 14:41 Dose: Not Given Fenofibric Acid (Trilipix -) 135 mg PO DAILY [facility] Last Admin: 06/22/17 10:08 Dose: 135 mg Fentanyl (Sublimaze Injection -) 25 mcg IVPUSH [id number] PRN PRN Reason: PAIN-PACU ORDER X 4 DOSES ONLY Fentanyl (Sublimaze Injection -) 50 mcg IVPUSH [id number] PRN PRN Reason: PAIN-PACU ORDER X 4 DOSES ONLY Furosemide (Lasix -) 40 mg PO DAILY [facility] Last Admin: 06/22/17 10:08 Dose: 40 mg Hydromorphone HCl (Dilaudid Injection -) 0.25 mg IVPUSH [id number] PRN PRN Reason: PAIN-PACU ORDER X 4 DOSES ONLY Sodium Chloride (Normal Saline -) 1,000 mls @ 75 mls/hr IV ASDIR [facility] Last Admin: 06/22/17 08:00 Dose: 75 mls/hr Insulin Aspart (Novolog Vial Sliding Scale -) 1 vial SQ ACHS [facility] PRN Reason: Protocol Last Admin: 06/22/17 12:16 Dose: 4 unit Insulin Detemir (Levemir Vial) 20 units SQ HS [facility] Last Admin: 06/21/17 22:09 Dose: 20 units Levothyroxine Sodium (Synthroid -) 50 mcg PO DAILY@0700 [facility] Last Admin: 06/22/17 07:18 Dose: 50 mcg Metformin HCl (Glucophage -) 500 mg PO BIDAC [facility] Last Admin: 06/22/17 07:18 Dose: 500 mg Methylprednisolone Sodium Succinate (Solu-Medrol -) 40 mg IVPUSH DAILY [facility] Stop: 06/22/17 16:00 Last Admin: 06/22/17 10:08 Dose: 40 mg Metoprolol Tartrate (Lopressor -) 50 mg PO BID [facility] Last Admin: 06/22/17 10:08 Dose: 50 mg Non-Formulary Medication (Canagliflozin [Invokana]) 300 mg PO DAILY [facility] Ondansetron HCl (Zofran Injection) 4 mg IVPUSH Q6H PRN PRN Reason: NAUSEA AND/OR VOMITING Prednisone (Deltasone -) 30 mg PO DAILY [facility] Rivaroxaban (Xarelto -) 20 mg PO DAILY@1800 [facility] Last Admin: 06/21/17 19:25 Dose: 20 mg Sitagliptin Phosphate (Januvia -) 100 mg PO DAILY@0700 [facility] Last Admin: 06/22/17 07:18 Dose: 100 mg Tamsulosin HCl (Flomax -) 0.4 mg PO DAILY@0830 [facility] Last Admin: 06/22/17 10:08 Dose: 0.4 mg - Objective Vital Signs: Vital Signs Temperature 98.3 F 06/22/17 15:06 Pulse Rate 70 06/22/17 15:06 Respiratory Rate 20 06/22/17 15:06 Blood Pressure 100/51 06/22/17 15:06 O2 Sat by Pulse Oximetry (%) 96 06/22/17 09:00 Constitutional: Yes: No Distress, Calm Cardiovascular: Yes: Regular Rate and Rhythm Respiratory: Yes: Regular, CTA Bilaterally Gastrointestinal: Yes: Normal Bowel Sounds, Soft Musculoskeletal: Yes: WNL Extremities: Yes: WNL Neurological: Yes: Alert, Oriented Psychiatric: Yes: Alert, Oriented Labs: CBC, BMP 06/22/17 05:35 06/22/17 05:35 INR, PTT INR 1.31 (0.82-1.09) H 06/16/17 05:05 Assessment/Plan ASSESSMENT AND PLAN: UTI bph/strictures r/o bacteremia resp failure sepsis urinary retention hematuria loyda htn dm plan continue abx post op stable stable doing well no issues
[2017-06-22] MEDS: RIVAROXABAN 20 MG TABLET PO SCH (17:09)
[2017-06-22] MEDS: INSULIN DETEMIR 100 UNITS/ML MDV SQ SCH (21:44)
--- NOTE | 2017-06-22 23:23 | PN ---
Progress Note, Physician - Current Medication List Current Medications: Active Medications Albuterol/Ipratropium (Duoneb -) 1 amp NEB Q6H PRN PRN Reason: SHORT OF BREATH/WHEEZING Last Admin: 06/21/17 16:56 Dose: 1 amp Aspirin (Asa -) 81 mg PO DAILY [facility] Last Admin: 06/22/17 10:08 Dose: 81 mg Budesonide/Formoterol Fumarate (Symbicort 80/4.5mcg -) 2 puff IH BID [facility] Last Admin: 06/22/17 21:44 Dose: 2 puff Chlorpromazine HCl (Thorazine -) 25 mg PO TID [facility] Last Admin: 06/22/17 21:31 Dose: Not Given Fenofibric Acid (Trilipix -) 135 mg PO DAILY [facility] Last Admin: 06/22/17 10:08 Dose: 135 mg Fentanyl (Sublimaze Injection -) 25 mcg IVPUSH [id number] PRN PRN Reason: PAIN-PACU ORDER X 4 DOSES ONLY Fentanyl (Sublimaze Injection -) 50 mcg IVPUSH [id number] PRN PRN Reason: PAIN-PACU ORDER X 4 DOSES ONLY Furosemide (Lasix -) 40 mg PO DAILY [facility] Last Admin: 06/22/17 10:08 Dose: 40 mg Hydromorphone HCl (Dilaudid Injection -) 0.25 mg IVPUSH [id number] PRN PRN Reason: PAIN-PACU ORDER X 4 DOSES ONLY Sodium Chloride (Normal Saline -) 1,000 mls @ 75 mls/hr IV ASDIR [facility] Last Admin: 06/22/17 08:00 Dose: 75 mls/hr Insulin Aspart (Novolog Vial Sliding Scale -) 1 vial SQ ACHS [facility] PRN Reason: Protocol Last Admin: 06/22/17 21:45 Dose: 8 unit Insulin Detemir (Levemir Vial) 20 units SQ HS [facility] Last Admin: 06/22/17 21:44 Dose: 20 units Levothyroxine Sodium (Synthroid -) 50 mcg PO DAILY@0700 [facility] Last Admin: 06/22/17 07:18 Dose: 50 mcg Metformin HCl (Glucophage -) 500 mg PO BIDAC [facility] Last Admin: 06/22/17 17:09 Dose: 500 mg Metoprolol Tartrate (Lopressor -) 50 mg PO BID [facility] Last Admin: 06/22/17 21:43 Dose: 50 mg Non-Formulary Medication (Canagliflozin [Invokana]) 300 mg PO DAILY [facility] Ondansetron HCl (Zofran Injection) 4 mg IVPUSH Q6H PRN PRN Reason: NAUSEA AND/OR VOMITING Prednisone (Deltasone -) 30 mg PO DAILY [facility] Rivaroxaban (Xarelto -) 20 mg PO DAILY@1800 [facility] Last Admin: 06/22/17 17:09 Dose: 20 mg Sitagliptin Phosphate (Januvia -) 100 mg PO DAILY@0700 [facility] Last Admin: 06/22/17 07:18 Dose: 100 mg Tamsulosin HCl (Flomax -) 0.4 mg PO DAILY@0830 [facility] Last Admin: 06/22/17 10:08 Dose: 0.4 mg - Objective Vital Signs: Vital Signs Temperature 97.5 F L 06/22/17 20:30 Pulse Rate 70 06/22/17 20:30 Respiratory Rate 20 06/22/17 20:30 Blood Pressure 110/53 06/22/17 20:30 O2 Sat by Pulse Oximetry (%) 97 06/22/17 20:41 Labs: CBC, BMP 06/22/17 05:35 06/22/17 05:35 INR, PTT INR 1.31 (0.82-1.09) H 06/16/17 05:05 Problem List - Problems (1) Sepsis Code(s): A41.9 - SEPSIS, UNSPECIFIED ORGANISM (2) Afib Code(s): I48.91 - UNSPECIFIED ATRIAL FIBRILLATION (3) BPH (benign prostatic hyperplasia) Code(s): N40.0 - BENIGN PROSTATIC HYPERPLASIA WITHOUT LOWER URINRY TRACT SYMP (4) Respiratory failure Code(s): J96.90 - RESPIRATORY FAILURE, UNSP, UNSP W HYPOXIA OR HYPERCAPNIA (5) CHF (congestive heart failure) Code(s): I50.9 - HEART FAILURE, UNSPECIFIED (6) Diabetes Code(s): E11.9 - TYPE 2 DIABETES MELLITUS WITHOUT COMPLICATIONS (7) HTN (hypertension) Code(s): I10 - ESSENTIAL (PRIMARY) HYPERTENSION (8) CAD (coronary artery disease) Code(s): I25.10 - ATHSCL HEART DISEASE OF [place] CORONARY ARTERY W/O ANG PCTRS (9) Hypothyroidism Code(s): E03.9 - HYPOTHYROIDISM, UNSPECIFIED (10) Obesity Code(s): E66.9 - OBESITY, UNSPECIFIED (11) COPD (chronic obstructive pulmonary disease) Code(s): J44.9 - CHRONIC OBSTRUCTIVE PULMONARY DISEASE, UNSPECIFIED
[2017-06-23] MEDS: sitaGLIPtin PHOSPHATE 100 MG TABLET (FP) PO SCH (06:18)
[2017-06-23] MEDS: metFORMIN HCL 500 MG TABLET (FP) PO SCH ×2 (06:19→17:12)
[2017-06-23] MEDS: INSULIN SLIDING SCALE (NOVOLOG) 1 VIAL SQ SCH ×4 (06:19→21:44)
[2017-06-23] MEDS: LEVOTHYROXINE NA 50 MCG TABLET (FP) PO SCH (06:19)
[2017-06-23] MEDS: chlorproMAZINE HCL 25 MG TABLET PO SCH ×3 (06:19→21:43)
[2017-06-23] MEDS ORDERED: PT OWN MED DRAWER 7, Y5N ONE ×4 (09:03→21:49)
[2017-06-23] MEDS: FUROSEMIDE 40 MG TABLET (FP) PO SCH (09:06)
[2017-06-23] MEDS: FENOFIBRIC ACID 135 MG CAP PO SCH (09:06)
[2017-06-23] MEDS: TAMSULOSIN HCL 0.4 MG CAP.ER.24H (FP) PO SCH (09:06)
[2017-06-23] MEDS: predniSONE 10 MG TABLET (UD) PO SCH (09:06)
[2017-06-23] MEDS: METOPROLOL TARTRATE 50 MG TABLET (FP) PO SCH ×2 (09:06→21:43)
[2017-06-23] MEDS: BUDESONIDE/FORMETEROL FUMARATE 80/4.5 mcg INHALER IH SCH ×2 (09:07→21:44)
[2017-06-23] MEDS: ASPIRIN 81 MG CHEWABLE TABLETS PO SCH (09:07)
--- NOTE | 2017-06-23 10:40 | PN ---
Progress Note, Physician History of Present Illness: seen and examined today in nad. no overnight events. noticed some blood tinged urine today after straining to have a bm. overall feeling better. - Current Medication List Current Medications: Active Medications Albuterol/Ipratropium (Duoneb -) 1 amp NEB Q6H PRN PRN Reason: SHORT OF BREATH/WHEEZING Last Admin: 06/21/17 16:56 Dose: 1 amp Aspirin (Asa -) 81 mg PO DAILY [facility] Last Admin: 06/23/17 09:07 Dose: 81 mg Budesonide/Formoterol Fumarate (Symbicort 80/4.5mcg -) 2 puff IH BID [facility] Last Admin: 06/23/17 09:07 Dose: 2 puff Chlorpromazine HCl (Thorazine -) 25 mg PO TID [facility] Last Admin: 06/23/17 06:19 Dose: Not Given Fenofibric Acid (Trilipix -) 135 mg PO DAILY [facility] Last Admin: 06/23/17 09:06 Dose: 135 mg Fentanyl (Sublimaze Injection -) 25 mcg IVPUSH [id number] PRN PRN Reason: PAIN-PACU ORDER X 4 DOSES ONLY Fentanyl (Sublimaze Injection -) 50 mcg IVPUSH [id number] PRN PRN Reason: PAIN-PACU ORDER X 4 DOSES ONLY Furosemide (Lasix -) 40 mg PO DAILY [facility] Last Admin: 06/23/17 09:06 Dose: 40 mg Hydromorphone HCl (Dilaudid Injection -) 0.25 mg IVPUSH [id number] PRN PRN Reason: PAIN-PACU ORDER X 4 DOSES ONLY Sodium Chloride (Normal Saline -) 1,000 mls @ 75 mls/hr IV ASDIR [facility] Last Admin: 06/22/17 08:00 Dose: 75 mls/hr Insulin Aspart (Novolog Vial Sliding Scale -) 1 vial SQ ACHS [facility] PRN Reason: Protocol Last Admin: 06/23/17 06:19 Dose: Not Given Insulin Detemir (Levemir Vial) 20 units SQ HS [facility] Last Admin: 06/22/17 21:44 Dose: 20 units Levothyroxine Sodium (Synthroid -) 50 mcg PO DAILY@0700 [facility] Last Admin: 06/23/17 06:19 Dose: 50 mcg Metformin HCl (Glucophage -) 500 mg PO BIDAC [facility] Last Admin: 06/23/17 06:19 Dose: 500 mg Metoprolol Tartrate (Lopressor -) 50 mg PO BID [facility] Last Admin: 06/23/17 09:06 Dose: 50 mg Non-Formulary Medication (Canagliflozin [Invokana]) 300 mg PO DAILY [facility] Ondansetron HCl (Zofran Injection) 4 mg IVPUSH Q6H PRN PRN Reason: NAUSEA AND/OR VOMITING Prednisone (Deltasone -) 30 mg PO DAILY [facility] Last Admin: 06/23/17 09:06 Dose: 30 mg Rivaroxaban (Xarelto -) 20 mg PO DAILY@1800 [facility] Last Admin: 06/22/17 17:09 Dose: 20 mg Sitagliptin Phosphate (Januvia -) 100 mg PO DAILY@0700 [facility] Last Admin: 06/23/17 06:18 Dose: 100 mg Tamsulosin HCl (Flomax -) 0.4 mg PO DAILY@0830 [facility] Last Admin: 06/23/17 09:06 Dose: 0.4 mg - Objective Vital Signs: Vital Signs Temperature 98.5 F 06/23/17 05:58 Pulse Rate 60 06/23/17 05:58 Respiratory Rate 20 06/23/17 05:58 Blood Pressure 121/44 06/23/17 05:58 O2 Sat by Pulse Oximetry (%) 97 06/22/17 20:41 Constitutional: Yes: No Distress, Calm, Obese Eyes: Yes: Conjunctiva Clear, EOM Intact, PERRL HENT: Yes: Atraumatic, Normocephalic Neck: Yes: Supple, Trachea Midline Cardiovascular: Yes: Regular Rate and Rhythm, S1, S2. No: Bradycardia, Tachycardia, Pulse Irregular, Bruit, JVD, Gallop, Murmur, Rub, S3, S4, Varicosities Respiratory: Yes: Regular, Diminished, On Nasal O2, Rales. No: Rhonchi, SOB, Wheezes Gastrointestinal: Yes: Normal Bowel Sounds, Soft. No: Distention, Tenderness Genitourinary: Yes: Brown Present, Hematuria Extremities: Yes: WNL Edema: LLE: 1+, RLE: 1+ Peripheral Pulses WNL: Yes Peripheral Pulses: Left Doralis Pedis: 2+, Right Dorsalis Pedis: 2+ Neurological: Yes: Alert, Oriented Psychiatric: Yes: Alert, Oriented Labs: CBC, BMP 06/22/17 05:35 06/22/17 05:35 INR, PTT INR 1.31 (0.82-1.09) H 06/16/17 05:05 - ....Imaging Chest X-ray: Report Reviewed, Image Reviewed EKG: Report Reviewed, Image Reviewed Other: Report Reviewed, Image Reviewed (tele-NSR, SB, APCs, 11beats PSVT with aberrancy vs NSVT) Assessment/Plan 57 year old man with a history of hypertension, diabetes, hyperlipidemia, typical atrial flutter status post ablation in 2012, 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 hematuria s/p recent procedure with resultant stricture and was planned for further procedure as outpatient admitted with urinary retention , fever, resultant sinus tachycardia, respiratory failure. AFib with RVR-has remained in NSR with short runs of either PSVT with aberrancy or NSVT Atrial flutter status post two ablations last one was May 2016. - He had been off Xarelto since 06/22/2016, resumed this admission due to recurrent AF-cont Xarelto, unless significant bleeding develops -likely precipitated by urinary retension, sepsis, volume overload -s/p amio gtt, holding off on additional amio at this time especially in light of chronic lung disease -likely precipitated by volume overload -Cont Lasix PO for now -cont metoprolol SOB-respiratory failure -History of Hypoxia/SOB-recurrent, uncertain etiology, component of acute on chronic diastolic CHF but not fully explained by this -presume undiagnosed chronic lung disease, possible exposure from working in [place] has been considered -trending towards volume overload, reduce fluids if possible, if needed will give additional Lasix prn -cont po Lasix at current dose for now -cont bipap as needed -monitor I/Os, electrolytes Coronary artery disease, history of drug-eluting stent to LAD May 2016. -cont ASA 81mg daily -ok to stop Plavix as >1 year since stent -cont beta nicole -resume home statin Cardiomyopathy- History of nonischemic cardiomyopathy, but likely arrhythmia induced with recovery of LV function after atrial flutter ablation. -volume status as above -echo showed normal LV systolic function -management as above
--- NOTE | 2017-06-23 12:55 | PN ---
Progress Note, Physician History of Present Illness: post op stable off of abx foleys with some blood tinged urine - Current Medication List Current Medications: Active Medications Albuterol/Ipratropium (Duoneb -) 1 amp NEB Q6H PRN PRN Reason: SHORT OF BREATH/WHEEZING Last Admin: 06/21/17 16:56 Dose: 1 amp Aspirin (Asa -) 81 mg PO DAILY [facility] Last Admin: 06/23/17 09:07 Dose: 81 mg Budesonide/Formoterol Fumarate (Symbicort 80/4.5mcg -) 2 puff IH BID [facility] Last Admin: 06/23/17 09:07 Dose: 2 puff Chlorpromazine HCl (Thorazine -) 25 mg PO TID [facility] Last Admin: 06/23/17 06:19 Dose: Not Given Fenofibric Acid (Trilipix -) 135 mg PO DAILY [facility] Last Admin: 06/23/17 09:06 Dose: 135 mg Fentanyl (Sublimaze Injection -) 25 mcg IVPUSH [id number] PRN PRN Reason: PAIN-PACU ORDER X 4 DOSES ONLY Fentanyl (Sublimaze Injection -) 50 mcg IVPUSH [id number] PRN PRN Reason: PAIN-PACU ORDER X 4 DOSES ONLY Furosemide (Lasix -) 40 mg PO DAILY [facility] Last Admin: 06/23/17 09:06 Dose: 40 mg Hydromorphone HCl (Dilaudid Injection -) 0.25 mg IVPUSH [id number] PRN PRN Reason: PAIN-PACU ORDER X 4 DOSES ONLY Sodium Chloride (Normal Saline -) 1,000 mls @ 75 mls/hr IV ASDIR [facility] Last Admin: 06/22/17 08:00 Dose: 75 mls/hr Insulin Aspart (Novolog Vial Sliding Scale -) 1 vial SQ ACHS [facility] PRN Reason: Protocol Last Admin: 06/23/17 12:22 Dose: 2 unit Insulin Detemir (Levemir Vial) 20 units SQ HS [facility] Last Admin: 06/22/17 21:44 Dose: 20 units Levothyroxine Sodium (Synthroid -) 50 mcg PO DAILY@0700 [facility] Last Admin: 06/23/17 06:19 Dose: 50 mcg Metformin HCl (Glucophage -) 500 mg PO BIDAC [facility] Last Admin: 06/23/17 06:19 Dose: 500 mg Metoprolol Tartrate (Lopressor -) 50 mg PO BID [facility] Last Admin: 06/23/17 09:06 Dose: 50 mg Non-Formulary Medication (Canagliflozin [Invokana]) 300 mg PO DAILY [facility] Ondansetron HCl (Zofran Injection) 4 mg IVPUSH Q6H PRN PRN Reason: NAUSEA AND/OR VOMITING Prednisone (Deltasone -) 30 mg PO DAILY [facility] Last Admin: 06/23/17 09:06 Dose: 30 mg Rivaroxaban (Xarelto -) 20 mg PO DAILY@1800 [facility] Last Admin: 06/22/17 17:09 Dose: 20 mg Sitagliptin Phosphate (Januvia -) 100 mg PO DAILY@0700 [facility] Last Admin: 06/23/17 06:18 Dose: 100 mg Tamsulosin HCl (Flomax -) 0.4 mg PO DAILY@0830 [facility] Last Admin: 06/23/17 09:06 Dose: 0.4 mg - Objective Vital Signs: Vital Signs Temperature 97.6 F 06/23/17 10:00 Pulse Rate 61 06/23/17 10:00 Respiratory Rate 18 06/23/17 10:00 Blood Pressure 101/62 06/23/17 10:00 O2 Sat by Pulse Oximetry (%) 99 06/23/17 10:00 Constitutional: Yes: No Distress, Calm Cardiovascular: Yes: Regular Rate and Rhythm Respiratory: Yes: Regular, CTA Bilaterally Gastrointestinal: Yes: Normal Bowel Sounds, Soft Genitourinary: Yes: Brown Present Musculoskeletal: Yes: WNL Extremities: Yes: Deformity Neurological: Yes: Alert, Oriented Psychiatric: Yes: Alert, Oriented Labs: CBC, BMP 06/22/17 05:35 06/22/17 05:35 INR, PTT INR 1.31 (0.82-1.09) H 06/16/17 05:05 Assessment/Plan ASSESSMENT AND PLAN: UTI bph/strictures r/o bacteremia resp failure sepsis urinary retention hematuria loyda htn dm plan stable off of abx continue to monitor stable doing well no issues
[2017-06-23] MEDS: SODIUM CHLORIDE 1,000 ML IV SCH (13:00)
--- NOTE | 2017-06-23 14:22 | PN ---
Progress Note (short form) - Note Progress Note: PULMONARY Denies shortness of breath. No cough or wheezing. Last Vital Signs Temp Pulse Resp BP Pulse Ox 97.6 F 61 18 101/62 99 06/23/17 10:00 06/23/17 10:00 06/23/17 10:00 06/23/17 10:00 06/23/17 10:00 Intake & Output 06/20/17 06/21/17 06/22/17 06/23/17 23:59 23:59 23:59 23:59 Intake Total 4960 6375 600 Output Total 8150 63648 79730 1000 Balance -8150 -5240 -8525 -400 Weight 107.501 kg 105.506 kg 103.419 kg 105.233 kg Gen: NAD at rest Heart: RRR Lung: distant breath sounds Abd: soft, nontender Ext: edema decreasing CBC, BMP 06/22/17 05:35 06/22/17 05:35 Active Medications Albuterol/Ipratropium (Duoneb -) 1 amp NEB Q6H PRN PRN Reason: SHORT OF BREATH/WHEEZING Last Admin: 06/21/17 16:56 Dose: 1 amp Aspirin (Asa -) 81 mg PO DAILY [facility] Last Admin: 06/23/17 09:07 Dose: 81 mg Budesonide/Formoterol Fumarate (Symbicort 80/4.5mcg -) 2 puff IH BID [facility] Last Admin: 06/23/17 09:07 Dose: 2 puff Chlorpromazine HCl (Thorazine -) 25 mg PO TID [facility] Last Admin: 06/23/17 13:17 Dose: Not Given Fenofibric Acid (Trilipix -) 135 mg PO DAILY [facility] Last Admin: 06/23/17 09:06 Dose: 135 mg Fentanyl (Sublimaze Injection -) 25 mcg IVPUSH [id number] PRN PRN Reason: PAIN-PACU ORDER X 4 DOSES ONLY Fentanyl (Sublimaze Injection -) 50 mcg IVPUSH [id number] PRN PRN Reason: PAIN-PACU ORDER X 4 DOSES ONLY Furosemide (Lasix -) 40 mg PO DAILY [facility] Last Admin: 06/23/17 09:06 Dose: 40 mg Hydromorphone HCl (Dilaudid Injection -) 0.25 mg IVPUSH [id number] PRN PRN Reason: PAIN-PACU ORDER X 4 DOSES ONLY Sodium Chloride (Normal Saline -) 1,000 mls @ 75 mls/hr IV ASDIR [facility] Last Admin: 06/22/17 08:00 Dose: 75 mls/hr Insulin Aspart (Novolog Vial Sliding Scale -) 1 vial SQ ACHS [facility] PRN Reason: Protocol Last Admin: 06/23/17 12:22 Dose: 2 unit Insulin Detemir (Levemir Vial) 20 units SQ HS [facility] Last Admin: 06/22/17 21:44 Dose: 20 units Levothyroxine Sodium (Synthroid -) 50 mcg PO DAILY@0700 [facility] Last Admin: 06/23/17 06:19 Dose: 50 mcg Metformin HCl (Glucophage -) 500 mg PO BIDAC [facility] Last Admin: 06/23/17 06:19 Dose: 500 mg Metoprolol Tartrate (Lopressor -) 50 mg PO BID [facility] Last Admin: 06/23/17 09:06 Dose: 50 mg Non-Formulary Medication (Canagliflozin [Invokana]) 300 mg PO DAILY [facility] Ondansetron HCl (Zofran Injection) 4 mg IVPUSH Q6H PRN PRN Reason: NAUSEA AND/OR VOMITING Prednisone (Deltasone -) 30 mg PO DAILY [facility] Last Admin: 06/23/17 09:06 Dose: 30 mg Rivaroxaban (Xarelto -) 20 mg PO DAILY@1800 [facility] Last Admin: 06/22/17 17:09 Dose: 20 mg Sitagliptin Phosphate (Januvia -) 100 mg PO DAILY@0700 [facility] Last Admin: 06/23/17 06:18 Dose: 100 mg Tamsulosin HCl (Flomax -) 0.4 mg PO DAILY@0830 [facility] Last Admin: 06/23/17 09:06 Dose: 0.4 mg A/P UTI Urinary Retention/BPH/ h/o Strictures Sepsis Acute on Chronic Hypoxic and Hypercapneic Respiratory Failure improving CAD s/p stents Atrial Fibrillation with RVR now in sinus Acute on Chronic Diastolic Heart Failure Obstructive Sleep Apnea HTN DM - continue antibiotics per ID - continue lasix - monitor urine output, creatinine - rate controlled - anticoagulation per cardiology - O2 to keep SpO2 >90% - taper off medrol - inhaled bronchodilators - DVT prophylaxis - will stop thorazine as hiccups resolved - will need outpt PFTs for chronic hypoxia and hypercapnea
--- NOTE | 2017-06-23 15:00 | PN ---
Progress Note, Physician History of Present Illness: Pt seen and examined at bedside. He is awake and alert. He denies shortness of breath. - Current Medication List Current Medications: Active Medications Albuterol/Ipratropium (Duoneb -) 1 amp NEB Q6H PRN PRN Reason: SHORT OF BREATH/WHEEZING Last Admin: 06/21/17 16:56 Dose: 1 amp Aspirin (Asa -) 81 mg PO DAILY [facility] Last Admin: 06/23/17 09:07 Dose: 81 mg Budesonide/Formoterol Fumarate (Symbicort 80/4.5mcg -) 2 puff IH BID [facility] Last Admin: 06/23/17 09:07 Dose: 2 puff Chlorpromazine HCl (Thorazine -) 25 mg PO TID [facility] Last Admin: 06/23/17 13:17 Dose: Not Given Fenofibric Acid (Trilipix -) 135 mg PO DAILY [facility] Last Admin: 06/23/17 09:06 Dose: 135 mg Fentanyl (Sublimaze Injection -) 25 mcg IVPUSH [id number] PRN PRN Reason: PAIN-PACU ORDER X 4 DOSES ONLY Fentanyl (Sublimaze Injection -) 50 mcg IVPUSH [id number] PRN PRN Reason: PAIN-PACU ORDER X 4 DOSES ONLY Furosemide (Lasix -) 40 mg PO DAILY [facility] Last Admin: 06/23/17 09:06 Dose: 40 mg Hydromorphone HCl (Dilaudid Injection -) 0.25 mg IVPUSH [id number] PRN PRN Reason: PAIN-PACU ORDER X 4 DOSES ONLY Sodium Chloride (Normal Saline -) 1,000 mls @ 75 mls/hr IV ASDIR [facility] Last Admin: 06/22/17 08:00 Dose: 75 mls/hr Insulin Aspart (Novolog Vial Sliding Scale -) 1 vial SQ ACHS [facility] PRN Reason: Protocol Last Admin: 06/23/17 12:22 Dose: 2 unit Insulin Detemir (Levemir Vial) 20 units SQ HS [facility] Last Admin: 06/22/17 21:44 Dose: 20 units Levothyroxine Sodium (Synthroid -) 50 mcg PO DAILY@0700 [facility] Last Admin: 06/23/17 06:19 Dose: 50 mcg Metformin HCl (Glucophage -) 500 mg PO BIDAC [facility] Last Admin: 06/23/17 06:19 Dose: 500 mg Metoprolol Tartrate (Lopressor -) 50 mg PO BID [facility] Last Admin: 06/23/17 09:06 Dose: 50 mg Non-Formulary Medication (Canagliflozin [Invokana]) 300 mg PO DAILY [facility] Ondansetron HCl (Zofran Injection) 4 mg IVPUSH Q6H PRN PRN Reason: NAUSEA AND/OR VOMITING Prednisone (Deltasone -) 30 mg PO DAILY [facility] Last Admin: 06/23/17 09:06 Dose: 30 mg Rivaroxaban (Xarelto -) 20 mg PO DAILY@1800 [facility] Last Admin: 06/22/17 17:09 Dose: 20 mg Sitagliptin Phosphate (Januvia -) 100 mg PO DAILY@0700 [facility] Last Admin: 06/23/17 06:18 Dose: 100 mg Tamsulosin HCl (Flomax -) 0.4 mg PO DAILY@0830 [facility] Last Admin: 06/23/17 09:06 Dose: 0.4 mg - Objective Vital Signs: Vital Signs Temperature 97.6 F 06/23/17 10:00 Pulse Rate 61 06/23/17 10:00 Respiratory Rate 18 06/23/17 10:00 Blood Pressure 101/62 06/23/17 10:00 O2 Sat by Pulse Oximetry (%) 99 06/23/17 10:00 Constitutional: Yes: Calm Eyes: Yes: Conjunctiva Clear HENT: Yes: Atraumatic Neck: Yes: Supple Cardiovascular: Yes: S1, S2 Respiratory: Yes: CTA Bilaterally, On Nasal O2 Gastrointestinal: Yes: Soft, Abdomen, Obese Genitourinary: Yes: Brown Present, Hematuria Musculoskeletal: Yes: WNL Edema: Yes Edema: LLE: Trace, RLE: Trace Neurological: Yes: Oriented Psychiatric: Yes: Oriented Labs: CBC, BMP 06/22/17 05:35 06/22/17 05:35 INR, PTT INR 1.31 (0.82-1.09) H 06/16/17 05:05 Problem List - Problems (1) Urinary retention Code(s): R33.9 - RETENTION OF URINE, UNSPECIFIED (2) CHF (congestive heart failure) Code(s): I50.9 - HEART FAILURE, UNSPECIFIED (3) HTN (hypertension) Code(s): I10 - ESSENTIAL (PRIMARY) HYPERTENSION Assessment/Plan Current Medications Generic Name Dose Route Start Last Admin Trade Name Freq PRN Reason Stop Dose Admin Albuterol/Ipratropium 1 amp 06/21/17 15:29 06/21/17 16:56 Duoneb - NEB 1 amp Q6H PRN Administration SHORT OF BREATH/WHEEZING Aspirin 81 mg 06/22/17 10:00 06/23/17 09:07 Asa - PO 81 mg DAILY [facility] Administration Budesonide/Formoterol Fumarate 2 puff 06/21/17 22:00 06/23/17 09:07 Symbicort 80/4.5mcg - IH 2 puff BID [facility] Administration Chlorpromazine HCl 25 mg 06/21/17 14:00 06/23/17 13:17 Thorazine - PO Not Given TID [facility] Fenofibric Acid 135 mg 06/22/17 10:00 06/23/17 09:06 Trilipix - PO 135 mg DAILY [facility] Administration Fentanyl 25 mcg 06/21/17 14:11 Sublimaze Injection - IVPUSH [id number] PRN PAIN-PACU ORDER X 4 DOSES ONLY Fentanyl 50 mcg 06/21/17 14:11 Sublimaze Injection - IVPUSH [id number] PRN PAIN-PACU ORDER X 4 DOSES ONLY Furosemide 40 mg 06/21/17 10:00 06/23/17 09:06 Lasix - PO 40 mg DAILY [facility] Administration Hydromorphone HCl 0.25 mg 06/21/17 14:11 Dilaudid Injection - IVPUSH [id number] PRN PAIN-PACU ORDER X 4 DOSES ONLY Sodium Chloride 1,000 mls @ 75 mls/hr 06/21/17 14:15 06/22/17 08:00 Normal Saline - IV 75 mls/hr ASDIR [facility] Administration Insulin Aspart 1 vial 06/21/17 16:30 06/23/17 12:22 Novolog Vial Sliding Scale - SQ 2 unit ACHS [facility] Administration Protocol Insulin Detemir 20 units 06/21/17 22:00 06/22/17 21:44 Levemir Vial SQ 20 units HS [facility] Administration Levothyroxine Sodium 50 mcg 06/22/17 07:00 06/23/17 06:19 Synthroid - PO 50 mcg DAILY@0700 [facility] Administration Metformin HCl 500 mg 06/21/17 16:30 06/23/17 06:19 Glucophage - PO 500 mg BIDAC [facility] Administration Metoprolol Tartrate 50 mg 06/21/17 22:00 06/23/17 09:06 Lopressor - PO 50 mg BID [facility] Administration Non-Formulary Medication 300 mg 06/22/17 10:00 Canagliflozin [Invokana] PO DAILY [facility] Ondansetron HCl 4 mg 06/21/17 14:11 Zofran Injection IVPUSH Q6H PRN NAUSEA AND/OR VOMITING Prednisone 30 mg 06/23/17 10:00 06/23/17 09:06 Deltasone - PO 30 mg DAILY [facility] Administration Rivaroxaban 20 mg 06/21/17 18:00 06/22/17 17:09 Xarelto - PO 20 mg DAILY@1800 [facility] Administration Sitagliptin Phosphate 100 mg 06/22/17 07:00 06/23/17 06:18 Januvia - PO 100 mg DAILY@0700 [facility] Administration Tamsulosin HCl 0.4 mg 06/22/17 08:30 06/23/17 09:06 Flomax - PO 0.4 mg DAILY@0830 [facility] Administration Impression 1. urinary retention 2. htn 3. DM 4. proteinuria/hematuria 5. CAD 6. hyperkalemia Plan - repeat bmp in am - called urology, pt will get voiding trial in am. Spoke to urology - cont PO lasix - check potassium - avoid nsaids - will follow Dr Lynn
[2017-06-23] MEDS: RIVAROXABAN 20 MG TABLET PO SCH (17:12)
--- NOTE | 2017-06-23 20:27 | PN ---
Progress Note, Physician History of Present Illness: No new complaints - Current Medication List Current Medications: Active Medications Albuterol/Ipratropium (Duoneb -) 1 amp NEB Q6H PRN PRN Reason: SHORT OF BREATH/WHEEZING Last Admin: 06/21/17 16:56 Dose: 1 amp Aspirin (Asa -) 81 mg PO DAILY [facility] Last Admin: 06/23/17 09:07 Dose: 81 mg Budesonide/Formoterol Fumarate (Symbicort 80/4.5mcg -) 2 puff IH BID [facility] Last Admin: 06/23/17 09:07 Dose: 2 puff Chlorpromazine HCl (Thorazine -) 25 mg PO TID [facility] Last Admin: 06/23/17 13:17 Dose: Not Given Fenofibric Acid (Trilipix -) 135 mg PO DAILY [facility] Last Admin: 06/23/17 09:06 Dose: 135 mg Fentanyl (Sublimaze Injection -) 25 mcg IVPUSH [id number] PRN PRN Reason: PAIN-PACU ORDER X 4 DOSES ONLY Fentanyl (Sublimaze Injection -) 50 mcg IVPUSH [id number] PRN PRN Reason: PAIN-PACU ORDER X 4 DOSES ONLY Furosemide (Lasix -) 40 mg PO DAILY [facility] Last Admin: 06/23/17 09:06 Dose: 40 mg Hydromorphone HCl (Dilaudid Injection -) 0.25 mg IVPUSH [id number] PRN PRN Reason: PAIN-PACU ORDER X 4 DOSES ONLY Sodium Chloride (Normal Saline -) 1,000 mls @ 75 mls/hr IV ASDIR [facility] Last Admin: 06/23/17 13:00 Dose: 75 mls/hr Insulin Aspart (Novolog Vial Sliding Scale -) 1 vial SQ ACHS [facility] PRN Reason: Protocol Last Admin: 06/23/17 17:12 Dose: 8 unit Insulin Detemir (Levemir Vial) 20 units SQ HS [facility] Last Admin: 06/22/17 21:44 Dose: 20 units Levothyroxine Sodium (Synthroid -) 50 mcg PO DAILY@0700 [facility] Last Admin: 06/23/17 06:19 Dose: 50 mcg Metformin HCl (Glucophage -) 500 mg PO BIDAC [facility] Last Admin: 06/23/17 17:12 Dose: 500 mg Metoprolol Tartrate (Lopressor -) 50 mg PO BID [facility] Last Admin: 06/23/17 09:06 Dose: 50 mg Non-Formulary Medication (Canagliflozin [Invokana]) 300 mg PO DAILY [facility] Ondansetron HCl (Zofran Injection) 4 mg IVPUSH Q6H PRN PRN Reason: NAUSEA AND/OR VOMITING Prednisone (Deltasone -) 30 mg PO DAILY [facility] Last Admin: 06/23/17 09:06 Dose: 30 mg Rivaroxaban (Xarelto -) 20 mg PO DAILY@1800 [facility] Last Admin: 06/23/17 17:12 Dose: 20 mg Sitagliptin Phosphate (Januvia -) 100 mg PO DAILY@0700 [facility] Last Admin: 06/23/17 06:18 Dose: 100 mg Tamsulosin HCl (Flomax -) 0.4 mg PO DAILY@0830 [facility] Last Admin: 06/23/17 09:06 Dose: 0.4 mg - Objective Vital Signs: Vital Signs Temperature 98.5 F 06/23/17 18:00 Pulse Rate 64 06/23/17 18:00 Respiratory Rate 20 06/23/17 18:00 Blood Pressure 117/61 06/23/17 18:00 O2 Sat by Pulse Oximetry (%) 99 06/23/17 10:00 Constitutional: Yes: Well Nourished Neck: Yes: WNL, Supple Cardiovascular: Yes: WNL, Regular Rate and Rhythm Respiratory: Yes: WNL, Regular, CTA Bilaterally Gastrointestinal: Yes: WNL, Normal Bowel Sounds, Soft, Abdomen, Obese Edema: LLE: Trace, RLE: Trace Labs: CBC, BMP 06/22/17 05:35 06/22/17 05:35 INR, PTT INR 1.31 (0.82-1.09) H 06/16/17 05:05 Problem List - Problems (1) Sepsis Assessment/Plan: Pt w/ BPH and urinary retention Urine culture showed strept agalactiae grp B Pt now off antibxs Code(s): A41.9 - SEPSIS, UNSPECIFIED ORGANISM (2) Afib Assessment/Plan: Pt has h/o aflutter w/ ablation Rapid AFib now resolved Cont xarelto Code(s): I48.91 - UNSPECIFIED ATRIAL FIBRILLATION (3) BPH (benign prostatic hyperplasia) Assessment/Plan: Cont flomax S/P cysto/TURP Brown to be dc'ed in am Possible dc planning Code(s): N40.0 - BENIGN PROSTATIC HYPERPLASIA WITHOUT LOWER URINRY TRACT SYMP (4) Respiratory failure Code(s): J96.90 - RESPIRATORY FAILURE, UNSP, UNSP W HYPOXIA OR HYPERCAPNIA (5) CHF (congestive heart failure) Code(s): I50.9 - HEART FAILURE, UNSPECIFIED (6) Diabetes Code(s): E11.9 - TYPE 2 DIABETES MELLITUS WITHOUT COMPLICATIONS (7) HTN (hypertension) Code(s): I10 - ESSENTIAL (PRIMARY) HYPERTENSION (8) CAD (coronary artery disease) Code(s): I25.10 - ATHSCL HEART DISEASE OF [place] CORONARY ARTERY W/O ANG PCTRS (9) Hypothyroidism Code(s): E03.9 - HYPOTHYROIDISM, UNSPECIFIED (10) Obesity Code(s): E66.9 - OBESITY, UNSPECIFIED (11) COPD (chronic obstructive pulmonary disease) Code(s): J44.9 - CHRONIC OBSTRUCTIVE PULMONARY DISEASE, UNSPECIFIED
[2017-06-23] MEDS ORDERED: INSULIN (NOVOLOG) ASPART 100 UNITS/ML 10ML VIAL ONE (21:36)
[2017-06-23] MEDS: INSULIN DETEMIR 100 UNITS/ML MDV SQ SCH (21:43)
[2017-06-24] MEDS: chlorproMAZINE HCL 25 MG TABLET PO SCH ×3 (05:23→22:39)
[2017-06-24] MEDS: metFORMIN HCL 500 MG TABLET (FP) PO SCH ×2 (06:36→17:38)
[2017-06-24] MEDS: sitaGLIPtin PHOSPHATE 100 MG TABLET (FP) PO SCH (06:36)
[2017-06-24] MEDS: LEVOTHYROXINE NA 50 MCG TABLET (FP) PO SCH (06:37)
[2017-06-24] MEDS: INSULIN SLIDING SCALE (NOVOLOG) 1 VIAL SQ SCH ×4 (06:37→22:39)
[2017-06-24] MEDS ORDERED: INSULIN (NOVOLOG) ASPART 100 UNITS/ML 10ML VIAL ONE (06:59)
[2017-06-24 08:22] LABS: BASO % 0.2 % (0-2.0); EOS % 2.9 % (0-4.5); HEMATOCRIT 50.4 % (35.4-49); HEMOGLOBIN 15.4 GM/dL (11.7-16.9); LYMPH % 13.5 % (8-40); MCH 23.4 pg (25.7-33.7); MCHC 30.6 g/dl (32.0-35.9); MEAN CELL VOLUME 76.4 fl (80-96); MEAN PLT VOLUME 9.4 fl (7.5-11.1); MONO % 8.5 % (3.8-10.2); NEUT % 74.9 % (42.8-82.8); PLATELET COUNT 212 K/MM3 (134-434); RDW 17.9 % (11.9-15.9); WHITE BLOOD COUNT 10.7 K/mm3 (4.0-10.0)
[2017-06-24 08:48] LABS: ALBUMIN 3.1 g/dl (3.4-5.0); ANION GAP 2 (8-16); BLOOD UREA NITROGEN 21 mg/dL (7-18); CALCIUM 8.6 mg/dL (8.5-10.1); CHLORIDE 96 mmol/L (98-107); CO2 39 mmol/L (21-32); CREATININE 0.6 mg/dL (0.7-1.3); GLUCOSE,RANDOM 139 mg/dL (74-106); POTASSIUM 4.5 mmol/L (3.5-5.1); SGOT/AST 5 U/L (15-37); SGPT/ALT 17 U/L (12-78); SODIUM 137 mmol/L (136-145)
[2017-06-24 08:50] LABS: ALK PHOS 54 U/L (45-117); BILIRUBIN,TOTAL 0.8 mg/dL (0.2-1.0); TOT PROT 5.7 g/dl (6.4-8.2)
--- NOTE | 2017-06-24 09:16 | PN ---
Progress Note, Physician Chief Complaint: Stephanie was removed, now having bleeding. History of Present Illness: TELE: NSR - Current Medication List Current Medications: Active Medications Albuterol/Ipratropium (Duoneb -) 1 amp NEB Q6H PRN PRN Reason: SHORT OF BREATH/WHEEZING Last Admin: 06/21/17 16:56 Dose: 1 amp Aspirin (Asa -) 81 mg PO DAILY [facility] Last Admin: 06/23/17 09:07 Dose: 81 mg Budesonide/Formoterol Fumarate (Symbicort 80/4.5mcg -) 2 puff IH BID [facility] Last Admin: 06/23/17 21:44 Dose: 2 puff Chlorpromazine HCl (Thorazine -) 25 mg PO TID [facility] Last Admin: 06/24/17 05:23 Dose: Not Given Fenofibric Acid (Trilipix -) 135 mg PO DAILY [facility] Last Admin: 06/23/17 09:06 Dose: 135 mg Fentanyl (Sublimaze Injection -) 25 mcg IVPUSH [id number] PRN PRN Reason: PAIN-PACU ORDER X 4 DOSES ONLY Fentanyl (Sublimaze Injection -) 50 mcg IVPUSH [id number] PRN PRN Reason: PAIN-PACU ORDER X 4 DOSES ONLY Furosemide (Lasix -) 40 mg PO DAILY [facility] Last Admin: 06/23/17 09:06 Dose: 40 mg Hydromorphone HCl (Dilaudid Injection -) 0.25 mg IVPUSH [id number] PRN PRN Reason: PAIN-PACU ORDER X 4 DOSES ONLY Sodium Chloride (Normal Saline -) 1,000 mls @ 75 mls/hr IV ASDIR [facility] Last Admin: 06/23/17 13:00 Dose: 75 mls/hr Insulin Aspart (Novolog Vial Sliding Scale -) 1 vial SQ ACHS [facility] PRN Reason: Protocol Last Admin: 06/24/17 06:37 Dose: Not Given Insulin Detemir (Levemir Vial) 20 units SQ HS [facility] Last Admin: 06/23/17 21:43 Dose: 20 units Levothyroxine Sodium (Synthroid -) 50 mcg PO DAILY@0700 [facility] Last Admin: 06/24/17 06:37 Dose: 50 mcg Metformin HCl (Glucophage -) 500 mg PO BIDAC [facility] Last Admin: 06/24/17 06:36 Dose: 500 mg Metoprolol Tartrate (Lopressor -) 50 mg PO BID [facility] Last Admin: 06/23/17 21:43 Dose: 50 mg Non-Formulary Medication (Canagliflozin [Invokana]) 300 mg PO DAILY [facility] Ondansetron HCl (Zofran Injection) 4 mg IVPUSH Q6H PRN PRN Reason: NAUSEA AND/OR VOMITING Prednisone (Deltasone -) 30 mg PO DAILY [facility] Last Admin: 06/23/17 09:06 Dose: 30 mg Rivaroxaban (Xarelto -) 20 mg PO DAILY@1800 [facility] Last Admin: 06/23/17 17:12 Dose: 20 mg Sitagliptin Phosphate (Januvia -) 100 mg PO DAILY@0700 [facility] Last Admin: 06/24/17 06:36 Dose: 100 mg Tamsulosin HCl (Flomax -) 0.4 mg PO DAILY@0830 [facility] Last Admin: 06/23/17 09:06 Dose: 0.4 mg - Objective Vital Signs: Vital Signs Temperature 97.3 F L 06/24/17 06:00 Pulse Rate 56 L 06/24/17 06:00 Respiratory Rate 18 06/24/17 06:00 Blood Pressure 101/59 06/24/17 06:00 O2 Sat by Pulse Oximetry (%) 98 06/23/17 21:00 Constitutional: Yes: No Distress Cardiovascular: Yes: Regular Rate and Rhythm Respiratory: Yes: CTA Bilaterally Gastrointestinal: Yes: Soft, Abdomen, Obese Edema: Yes Edema: LLE: 1+, RLE: 1+ Neurological: Yes: Alert, Oriented ...Motor Strength: WNL Labs: CBC, BMP 06/24/17 07:45 06/24/17 07:45 INR, PTT INR 1.31 (0.82-1.09) H 06/16/17 05:05 Laboratory Tests 06/19/17 06/19/17 06/19/17 05:20 05:20 05:30 WBC 8.7 Hgb 13.9 Plt Count 165 ABG pH 7.33 L ABG pCO2 at Pt Temp 71.8 H* ABG pO2 at Pt Temp 99.3 D Sodium 136 Potassium 5.1 BUN 42 H Creatinine 0.9 Creat Clearance w eGFR Random Glucose Calcium 06/20/17 06/21/17 06/22/17 05:35 05:30 05:35 WBC 7.4 9.1 Hgb 15.6 D 15.2 Plt Count 165 180 ABG pH ABG pCO2 at Pt Temp ABG pO2 at Pt Temp Sodium Potassium 5.4 H BUN 32 H Creatinine 0.8 Creat Clearance w eGFR Random Glucose Calcium 06/22/17 06/24/17 06/24/17 05:35 07:45 07:45 WBC 10.7 H Hgb 15.4 Plt Count 212 ABG pH ABG pCO2 at Pt Temp ABG pO2 at Pt Temp Sodium 138 137 Potassium 4.7 4.5 BUN 30 H 21 H D Creatinine 0.6 L D Creat Clearance w eGFR > 60 Random Glucose 228 H D 139 H D Calcium 8.9 8.6 - ....Imaging EKG: Image Reviewed Assessment/Plan ssessment/Plan 57 year old man with a history of hypertension, diabetes, hyperlipidemia, typical atrial flutter status post ablation in 2012, 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 hematuria s/p recent procedure with resultant stricture and was planned for further procedure as outpatient admitted with urinary retention , fever, resultant sinus tachycardia, respiratory failure. AFib with RVR-has remained in NSR with short runs of either PSVT with aberrancy or NSVT Atrial flutter status post two ablations last one was May 2016. - He had been off Xarelto since 06/22/2016, resumed this admission due to recurrent AF-will now hold in setting bleeding -Cont Lasix PO for now -cont metoprolol SOB-respiratory failure -History of Hypoxia/SOB-recurrent, uncertain etiology, component of acute on chronic diastolic CHF but not fully explained by this -presume undiagnosed chronic lung disease, possible exposure from working in [employer] has been considered -trending towards volume overload, reduce fluids if possible, if needed will give additional Lasix prn -cont po Lasix at current dose for now -cont bipap as needed -monitor I/Os, electrolytes Coronary artery disease, history of drug-eluting stent to LAD May 2016. -cont ASA 81mg daily. will try to continue and hold Xarelto -ok to stop Plavix as >1 year since stent -cont beta nicole -resume home statin Cardiomyopathy- History of nonischemic cardiomyopathy, but likely arrhythmia induced with recovery of LV function after atrial flutter ablation. -volume status as above -echo showed normal LV systolic function -management as above
[2017-06-24] MEDS ORDERED: PT OWN MED DRAWER 7, Y5N ONE ×2 (09:23→22:31)
[2017-06-24] MEDS: TAMSULOSIN HCL 0.4 MG CAP.ER.24H (FP) PO SCH (09:24)
[2017-06-24] MEDS: FUROSEMIDE 40 MG TABLET (FP) PO SCH (09:29)
[2017-06-24] MEDS: predniSONE 10 MG TABLET (UD) PO SCH (09:29)
[2017-06-24] MEDS: METOPROLOL TARTRATE 50 MG TABLET (FP) PO SCH ×2 (09:30→22:38)
[2017-06-24] MEDS: BUDESONIDE/FORMETEROL FUMARATE 80/4.5 mcg INHALER IH SCH ×2 (09:30→22:40)
[2017-06-24] MEDS: FENOFIBRIC ACID 135 MG CAP PO SCH (09:31)
[2017-06-24] MEDS: ASPIRIN 81 MG CHEWABLE TABLETS PO SCH ×2 (09:33→16:17)
[2017-06-24] MEDS: SODIUM CHLORIDE 1,000 ML IV SCH (13:55)
--- NOTE | 2017-06-24 14:21 | PN ---
Progress Note, Physician History of Present Illness: PULMONARY ALERT,NO RESP DISTRESS - Current Medication List Current Medications: Active Medications Albuterol/Ipratropium (Duoneb -) 1 amp NEB Q6H PRN PRN Reason: SHORT OF BREATH/WHEEZING Last Admin: 06/21/17 16:56 Dose: 1 amp Aspirin (Asa -) 81 mg PO DAILY [facility] Last Admin: 06/24/17 09:33 Dose: Not Given Budesonide/Formoterol Fumarate (Symbicort 80/4.5mcg -) 2 puff IH BID [facility] Last Admin: 06/24/17 09:30 Dose: 2 puff Chlorpromazine HCl (Thorazine -) 25 mg PO TID [facility] Last Admin: 06/24/17 05:23 Dose: Not Given Fenofibric Acid (Trilipix -) 135 mg PO DAILY [facility] Last Admin: 06/24/17 09:31 Dose: 135 mg Fentanyl (Sublimaze Injection -) 25 mcg IVPUSH [id number] PRN PRN Reason: PAIN-PACU ORDER X 4 DOSES ONLY Fentanyl (Sublimaze Injection -) 50 mcg IVPUSH [id number] PRN PRN Reason: PAIN-PACU ORDER X 4 DOSES ONLY Furosemide (Lasix -) 40 mg PO DAILY [facility] Last Admin: 06/24/17 09:29 Dose: 40 mg Sodium Chloride (Normal Saline -) 1,000 mls @ 75 mls/hr IV ASDIR [facility] Last Admin: 06/24/17 13:55 Dose: 75 mls/hr Insulin Aspart (Novolog Vial Sliding Scale -) 1 vial SQ ACHS [facility] PRN Reason: Protocol Last Admin: 06/24/17 11:46 Dose: 2 unit Insulin Detemir (Levemir Vial) 20 units SQ HS [facility] Last Admin: 06/23/17 21:43 Dose: 20 units Levothyroxine Sodium (Synthroid -) 50 mcg PO DAILY@0700 [facility] Last Admin: 06/24/17 06:37 Dose: 50 mcg Metformin HCl (Glucophage -) 500 mg PO BIDAC [facility] Last Admin: 06/24/17 06:36 Dose: 500 mg Metoprolol Tartrate (Lopressor -) 50 mg PO BID [facility] Last Admin: 06/24/17 09:30 Dose: 50 mg Non-Formulary Medication (Canagliflozin [Invokana]) 300 mg PO DAILY [facility] Ondansetron HCl (Zofran Injection) 4 mg IVPUSH Q6H PRN PRN Reason: NAUSEA AND/OR VOMITING Prednisone (Deltasone -) 30 mg PO DAILY [facility] Last Admin: 06/24/17 09:29 Dose: 30 mg Sitagliptin Phosphate (Januvia -) 100 mg PO DAILY@0700 [facility] Last Admin: 06/24/17 06:36 Dose: 100 mg Tamsulosin HCl (Flomax -) 0.4 mg PO DAILY@0830 [facility] Last Admin: 06/24/17 09:24 Dose: 0.4 mg - Objective Vital Signs: Vital Signs Temperature 98.2 F 06/24/17 10:00 Pulse Rate 73 06/24/17 10:00 Respiratory Rate 18 06/24/17 10:00 Blood Pressure 105/60 06/24/17 10:00 O2 Sat by Pulse Oximetry (%) 98 06/24/17 09:00 Constitutional: Yes: Well Nourished, Calm Eyes: Yes: WNL HENT: Yes: WNL Neck: Yes: WNL Cardiovascular: Yes: Regular Rate and Rhythm, S1, S2 Respiratory: Yes: CTA Bilaterally Gastrointestinal: Yes: Normal Bowel Sounds, Soft Extremities: Yes: WNL Edema: Yes Edema: LLE: Trace, RLE: Trace Labs: CBC, BMP 06/24/17 07:45 06/24/17 07:45 INR, PTT INR 1.31 (0.82-1.09) H 06/16/17 05:05 Problem List - Problems (1) Afib Code(s): I48.91 - UNSPECIFIED ATRIAL FIBRILLATION (2) COPD (chronic obstructive pulmonary disease) Code(s): J44.9 - CHRONIC OBSTRUCTIVE PULMONARY DISEASE, UNSPECIFIED (3) HTN (hypertension) Code(s): I10 - ESSENTIAL (PRIMARY) HYPERTENSION (4) SHEKHAR (obstructive sleep apnea) Code(s): G47.33 - OBSTRUCTIVE SLEEP APNEA (ADULT) (PEDIATRIC) (5) Respiratory failure Code(s): J96.90 - RESPIRATORY FAILURE, UNSP, UNSP W HYPOXIA OR HYPERCAPNIA (6) Sepsis Code(s): A41.9 - SEPSIS, UNSPECIFIED ORGANISM (7) Urinary retention Code(s): R33.9 - RETENTION OF URINE, UNSPECIFIED (8) CHF (congestive heart failure) Code(s): I50.9 - HEART FAILURE, UNSPECIFIED (9) Fever Code(s): R50.9 - FEVER, UNSPECIFIED (10) Hypoxia Code(s): R09.02 - HYPOXEMIA (11) Obesity Code(s): E66.9 - OBESITY, UNSPECIFIED Assessment/Plan A/P UTI Urinary Retention/BPH/ h/o Strictures Sepsis Acute on Chronic Hypoxic and Hypercapneic Respiratory Failure improved CAD s/p stents Atrial Fibrillation with RVR now in sinus Acute on Chronic Diastolic Heart Failure Obstructive Sleep Apnea HTN DM Hematuria - lasix - monitor urine output, creatinine - rate controlled - O2 to keep SpO2 >90% - BIPAP as needed - prednisone - inhaled bronchodilators - DVT prophylaxis DR MALHOTRA
--- NOTE | 2017-06-24 15:56 | PN ---
Progress Note, Physician History of Present Illness: patient stable foleys was removed and had to reinsert them patient had bleeding urine currently clear - Current Medication List Current Medications: Active Medications Albuterol/Ipratropium (Duoneb -) 1 amp NEB Q6H PRN PRN Reason: SHORT OF BREATH/WHEEZING Last Admin: 06/21/17 16:56 Dose: 1 amp Aspirin (Asa -) 81 mg PO DAILY [facility] Last Admin: 06/24/17 09:33 Dose: Not Given Budesonide/Formoterol Fumarate (Symbicort 80/4.5mcg -) 2 puff IH BID [facility] Last Admin: 06/24/17 09:30 Dose: 2 puff Chlorpromazine HCl (Thorazine -) 25 mg PO TID [facility] Last Admin: 06/24/17 14:26 Dose: Not Given Fenofibric Acid (Trilipix -) 135 mg PO DAILY [facility] Last Admin: 06/24/17 09:31 Dose: 135 mg Fentanyl (Sublimaze Injection -) 25 mcg IVPUSH [id number] PRN PRN Reason: PAIN-PACU ORDER X 4 DOSES ONLY Fentanyl (Sublimaze Injection -) 50 mcg IVPUSH [id number] PRN PRN Reason: PAIN-PACU ORDER X 4 DOSES ONLY Furosemide (Lasix -) 40 mg PO DAILY [facility] Last Admin: 06/24/17 09:29 Dose: 40 mg Sodium Chloride (Normal Saline -) 1,000 mls @ 75 mls/hr IV ASDIR [facility] Last Admin: 06/24/17 13:55 Dose: 75 mls/hr Insulin Aspart (Novolog Vial Sliding Scale -) 1 vial SQ ACHS [facility] PRN Reason: Protocol Last Admin: 06/24/17 11:46 Dose: 2 unit Insulin Detemir (Levemir Vial) 20 units SQ HS [facility] Last Admin: 06/23/17 21:43 Dose: 20 units Levothyroxine Sodium (Synthroid -) 50 mcg PO DAILY@0700 [facility] Last Admin: 06/24/17 06:37 Dose: 50 mcg Metformin HCl (Glucophage -) 500 mg PO BIDAC [facility] Last Admin: 06/24/17 06:36 Dose: 500 mg Metoprolol Tartrate (Lopressor -) 50 mg PO BID [facility] Last Admin: 06/24/17 09:30 Dose: 50 mg Non-Formulary Medication (Canagliflozin [Invokana]) 300 mg PO DAILY [facility] Ondansetron HCl (Zofran Injection) 4 mg IVPUSH Q6H PRN PRN Reason: NAUSEA AND/OR VOMITING Prednisone (Deltasone -) 30 mg PO DAILY [facility] Last Admin: 06/24/17 09:29 Dose: 30 mg Sitagliptin Phosphate (Januvia -) 100 mg PO DAILY@0700 [facility] Last Admin: 06/24/17 06:36 Dose: 100 mg Tamsulosin HCl (Flomax -) 0.4 mg PO DAILY@0830 [facility] Last Admin: 06/24/17 09:24 Dose: 0.4 mg - Objective Vital Signs: Vital Signs Temperature 98.5 F 06/24/17 15:48 Pulse Rate 65 06/24/17 15:48 Respiratory Rate 18 06/24/17 15:48 Blood Pressure 118/69 06/24/17 15:48 O2 Sat by Pulse Oximetry (%) 98 06/24/17 09:00 Constitutional: Yes: No Distress, Calm Cardiovascular: Yes: Regular Rate and Rhythm Respiratory: Yes: Regular, CTA Bilaterally Gastrointestinal: Yes: Normal Bowel Sounds, Soft Genitourinary: Yes: Brown Present Musculoskeletal: Yes: WNL Extremities: Yes: WNL Neurological: Yes: Alert, Oriented Psychiatric: Yes: Alert, Oriented Labs: CBC, BMP 06/24/17 07:45 06/24/17 07:45 INR, PTT INR 1.31 (0.82-1.09) H 06/16/17 05:05 Assessment/Plan ASSESSMENT AND PLAN: UTI bph/strictures r/o bacteremia resp failure sepsis urinary retention hematuria loyda htn dm plan stable off of abx continue to monitor stable doing well no issues monitor for hematuria
--- NOTE | 2017-06-24 16:00 | PN ---
Progress Note, Physician History of Present Illness: Pt seen and examined at bedside. Brown was removed in am but he developed hematuria. Brown re-inserted. - Current Medication List Current Medications: Active Medications Albuterol/Ipratropium (Duoneb -) 1 amp NEB Q6H PRN PRN Reason: SHORT OF BREATH/WHEEZING Last Admin: 06/21/17 16:56 Dose: 1 amp Aspirin (Asa -) 81 mg PO DAILY [facility] Last Admin: 06/24/17 09:33 Dose: Not Given Budesonide/Formoterol Fumarate (Symbicort 80/4.5mcg -) 2 puff IH BID [facility] Last Admin: 06/24/17 09:30 Dose: 2 puff Chlorpromazine HCl (Thorazine -) 25 mg PO TID [facility] Last Admin: 06/24/17 14:26 Dose: Not Given Fenofibric Acid (Trilipix -) 135 mg PO DAILY [facility] Last Admin: 06/24/17 09:31 Dose: 135 mg Fentanyl (Sublimaze Injection -) 25 mcg IVPUSH [id number] PRN PRN Reason: PAIN-PACU ORDER X 4 DOSES ONLY Fentanyl (Sublimaze Injection -) 50 mcg IVPUSH [id number] PRN PRN Reason: PAIN-PACU ORDER X 4 DOSES ONLY Furosemide (Lasix -) 40 mg PO DAILY [facility] Last Admin: 06/24/17 09:29 Dose: 40 mg Sodium Chloride (Normal Saline -) 1,000 mls @ 75 mls/hr IV ASDIR [facility] Last Admin: 06/24/17 13:55 Dose: 75 mls/hr Insulin Aspart (Novolog Vial Sliding Scale -) 1 vial SQ ACHS [facility] PRN Reason: Protocol Last Admin: 06/24/17 11:46 Dose: 2 unit Insulin Detemir (Levemir Vial) 20 units SQ HS [facility] Last Admin: 06/23/17 21:43 Dose: 20 units Levothyroxine Sodium (Synthroid -) 50 mcg PO DAILY@0700 [facility] Last Admin: 06/24/17 06:37 Dose: 50 mcg Metformin HCl (Glucophage -) 500 mg PO BIDAC [facility] Last Admin: 06/24/17 06:36 Dose: 500 mg Metoprolol Tartrate (Lopressor -) 50 mg PO BID [facility] Last Admin: 06/24/17 09:30 Dose: 50 mg Non-Formulary Medication (Canagliflozin [Invokana]) 300 mg PO DAILY [facility] Ondansetron HCl (Zofran Injection) 4 mg IVPUSH Q6H PRN PRN Reason: NAUSEA AND/OR VOMITING Prednisone (Deltasone -) 30 mg PO DAILY [facility] Last Admin: 06/24/17 09:29 Dose: 30 mg Sitagliptin Phosphate (Januvia -) 100 mg PO DAILY@0700 [facility] Last Admin: 06/24/17 06:36 Dose: 100 mg Tamsulosin HCl (Flomax -) 0.4 mg PO DAILY@0830 [facility] Last Admin: 06/24/17 09:24 Dose: 0.4 mg - Objective Vital Signs: Vital Signs Temperature 98.5 F 06/24/17 15:48 Pulse Rate 65 06/24/17 15:48 Respiratory Rate 18 06/24/17 15:48 Blood Pressure 118/69 06/24/17 15:48 O2 Sat by Pulse Oximetry (%) 98 06/24/17 09:00 Constitutional: Yes: Calm Eyes: Yes: Conjunctiva Clear HENT: Yes: Atraumatic Neck: Yes: Supple Cardiovascular: Yes: S1, S2 Respiratory: Yes: CTA Bilaterally, On Nasal O2 Gastrointestinal: Yes: Soft, Abdomen, Obese Genitourinary: Yes: Brown Present, Hematuria Musculoskeletal: Yes: WNL Edema: LLE: Trace, RLE: Trace Neurological: Yes: Oriented Psychiatric: Yes: Oriented Labs: CBC, BMP 06/24/17 07:45 06/24/17 07:45 INR, PTT INR 1.31 (0.82-1.09) H 06/16/17 05:05 Problem List - Problems (1) Urinary retention Code(s): R33.9 - RETENTION OF URINE, UNSPECIFIED (2) CHF (congestive heart failure) Code(s): I50.9 - HEART FAILURE, UNSPECIFIED (3) HTN (hypertension) Code(s): I10 - ESSENTIAL (PRIMARY) HYPERTENSION Assessment/Plan Current Medications Generic Name Dose Route Start Last Admin Trade Name Freq PRN Reason Stop Dose Admin Albuterol/Ipratropium 1 amp 06/21/17 15:29 06/21/17 16:56 Duoneb - NEB 1 amp Q6H PRN Administration SHORT OF BREATH/WHEEZING Aspirin 81 mg 06/22/17 10:00 06/24/17 09:33 Asa - PO Not Given DAILY [facility] Budesonide/Formoterol Fumarate 2 puff 06/21/17 22:00 06/24/17 09:30 Symbicort 80/4.5mcg - IH 2 puff BID [facility] Administration Chlorpromazine HCl 25 mg 06/21/17 14:00 06/24/17 14:26 Thorazine - PO Not Given TID [facility] Fenofibric Acid 135 mg 06/22/17 10:00 06/24/17 09:31 Trilipix - PO 135 mg DAILY [facility] Administration Fentanyl 25 mcg 06/21/17 14:11 Sublimaze Injection - IVPUSH [id number] PRN PAIN-PACU ORDER X 4 DOSES ONLY Fentanyl 50 mcg 06/21/17 14:11 Sublimaze Injection - IVPUSH [id number] PRN PAIN-PACU ORDER X 4 DOSES ONLY Furosemide 40 mg 06/21/17 10:00 06/24/17 09:29 Lasix - PO 40 mg DAILY [facility] Administration Sodium Chloride 1,000 mls @ 75 mls/hr 06/21/17 14:15 06/24/17 13:55 Normal Saline - IV 75 mls/hr ASDIR [facility] Administration Insulin Aspart 1 vial 06/21/17 16:30 06/24/17 11:46 Novolog Vial Sliding Scale - SQ 2 unit ACHS [facility] Administration Protocol Insulin Detemir 20 units 06/21/17 22:00 06/23/17 21:43 Levemir Vial SQ 20 units HS [facility] Administration Levothyroxine Sodium 50 mcg 06/22/17 07:00 06/24/17 06:37 Synthroid - PO 50 mcg DAILY@0700 [facility] Administration Metformin HCl 500 mg 06/21/17 16:30 06/24/17 06:36 Glucophage - PO 500 mg BIDAC [facility] Administration Metoprolol Tartrate 50 mg 06/21/17 22:00 06/24/17 09:30 Lopressor - PO 50 mg BID [facility] Administration Non-Formulary Medication 300 mg 06/22/17 10:00 Canagliflozin [Invokana] PO DAILY [facility] Ondansetron HCl 4 mg 06/21/17 14:11 Zofran Injection IVPUSH Q6H PRN NAUSEA AND/OR VOMITING Prednisone 30 mg 06/23/17 10:00 06/24/17 09:29 Deltasone - PO 30 mg DAILY [facility] Administration Sitagliptin Phosphate 100 mg 06/22/17 07:00 06/24/17 06:36 Januvia - PO 100 mg DAILY@0700 [facility] Administration Tamsulosin HCl 0.4 mg 06/22/17 08:30 06/24/17 09:24 Flomax - PO 0.4 mg DAILY@0830 [facility] Administration Impression 1. urinary retention 2. htn 3. DM 4. proteinuria/hematuria 5. CAD 6. hyperkalemia 7. hematuria - gross Plan - renal function is stable - pt did not tolerated voiding trial - cont PO lasix - monitor renal function - will follow PRN - can d/c fluids - potassium stable - avoid nsaids Dr Lynn
[2017-06-24] MEDS: INSULIN DETEMIR 100 UNITS/ML MDV SQ SCH (22:39)
--- NOTE | 2017-06-24 23:06 | PN ---
Progress Note, Physician - Current Medication List Current Medications: Active Medications Albuterol/Ipratropium (Duoneb -) 1 amp NEB Q6H PRN PRN Reason: SHORT OF BREATH/WHEEZING Last Admin: 06/21/17 16:56 Dose: 1 amp Aspirin (Asa -) 81 mg PO DAILY [facility] Last Admin: 06/24/17 16:17 Dose: 81 mg Budesonide/Formoterol Fumarate (Symbicort 80/4.5mcg -) 2 puff IH BID [facility] Last Admin: 06/24/17 22:40 Dose: 2 puff Chlorpromazine HCl (Thorazine -) 25 mg PO TID [facility] Last Admin: 06/24/17 22:39 Dose: Not Given Fenofibric Acid (Trilipix -) 135 mg PO DAILY [facility] Last Admin: 06/24/17 09:31 Dose: 135 mg Fentanyl (Sublimaze Injection -) 25 mcg IVPUSH [id number] PRN PRN Reason: PAIN-PACU ORDER X 4 DOSES ONLY Fentanyl (Sublimaze Injection -) 50 mcg IVPUSH [id number] PRN PRN Reason: PAIN-PACU ORDER X 4 DOSES ONLY Furosemide (Lasix -) 40 mg PO DAILY [facility] Last Admin: 06/24/17 09:29 Dose: 40 mg Sodium Chloride (Normal Saline -) 1,000 mls @ 75 mls/hr IV ASDIR [facility] Last Admin: 06/24/17 13:55 Dose: 75 mls/hr Insulin Aspart (Novolog Vial Sliding Scale -) 1 vial SQ ACHS [facility] PRN Reason: Protocol Last Admin: 06/24/17 22:39 Dose: 6 unit Insulin Detemir (Levemir Vial) 20 units SQ HS [facility] Last Admin: 06/24/17 22:39 Dose: 20 units Levothyroxine Sodium (Synthroid -) 50 mcg PO DAILY@0700 [facility] Last Admin: 06/24/17 06:37 Dose: 50 mcg [facility] Last Admin: 06/24/17 17:38 Dose: 500 mg Metoprolol Tartrate (Lopressor -) 50 mg PO BID [facility] Last Admin: 06/24/17 22:38 Dose: 50 mg Non-Formulary Medication (Canagliflozin [Invokana]) 300 mg PO DAILY [facility] Ondansetron HCl (Zofran Injection) 4 mg IVPUSH Q6H PRN PRN Reason: NAUSEA AND/OR VOMITING Prednisone (Deltasone -) 30 mg PO DAILY [facility] Last Admin: 06/24/17 09:29 Dose: 30 mg Sitagliptin Phosphate (Januvia -) 100 mg PO DAILY@0700 [facility] Last Admin: 06/24/17 06:36 Dose: 100 mg Tamsulosin HCl (Flomax -) 0.4 mg PO DAILY@0830 [facility] Last Admin: 06/24/17 09:24 Dose: 0.4 mg - Objective Vital Signs: Vital Signs Temperature 98.2 F 06/24/17 22:00 Pulse Rate 63 06/24/17 22:00 Respiratory Rate 16 06/24/17 22:00 Blood Pressure 116/66 06/24/17 22:00 O2 Sat by Pulse Oximetry (%) 98 06/24/17 09:00 Labs: CBC, BMP 06/24/17 07:45 06/24/17 07:45 INR, PTT INR 1.31 (0.82-1.09) H 06/16/17 05:05 Problem List - Problems (1) Sepsis Code(s): A41.9 - SEPSIS, UNSPECIFIED ORGANISM (2) Afib Code(s): I48.91 - UNSPECIFIED ATRIAL FIBRILLATION (3) BPH (benign prostatic hyperplasia) Code(s): N40.0 - BENIGN PROSTATIC HYPERPLASIA WITHOUT LOWER URINRY TRACT SYMP (4) Respiratory failure Code(s): J96.90 - RESPIRATORY FAILURE, UNSP, UNSP W HYPOXIA OR HYPERCAPNIA (5) CHF (congestive heart failure) Code(s): I50.9 - HEART FAILURE, UNSPECIFIED (6) Diabetes Code(s): E11.9 - TYPE 2 DIABETES MELLITUS WITHOUT COMPLICATIONS (7) HTN (hypertension) Code(s): I10 - ESSENTIAL (PRIMARY) HYPERTENSION (8) CAD (coronary artery disease) Code(s): I25.10 - ATHSCL HEART DISEASE OF [place] CORONARY ARTERY W/O ANG PCTRS (9) Hypothyroidism Code(s): E03.9 - HYPOTHYROIDISM, UNSPECIFIED (10) Obesity Code(s): E66.9 - OBESITY, UNSPECIFIED (11) COPD (chronic obstructive pulmonary disease) Code(s): J44.9 - CHRONIC OBSTRUCTIVE PULMONARY DISEASE, UNSPECIFIED
[2017-06-25] MEDS: sitaGLIPtin PHOSPHATE 100 MG TABLET (FP) PO SCH (07:06)
[2017-06-25] MEDS: LEVOTHYROXINE NA 50 MCG TABLET (FP) PO SCH (07:06)
[2017-06-25] MEDS: INSULIN SLIDING SCALE (NOVOLOG) 1 VIAL SQ SCH ×4 (07:06→21:49)
[2017-06-25] MEDS: chlorproMAZINE HCL 25 MG TABLET PO SCH ×3 (07:06→21:50)
[2017-06-25] MEDS: metFORMIN HCL 500 MG TABLET (FP) PO SCH ×2 (07:06→16:39)
--- NOTE | 2017-06-25 08:59 | PN ---
Progress Note, Physician - Current Medication List Current Medications: Active Medications Albuterol/Ipratropium (Duoneb -) 1 amp NEB Q6H PRN PRN Reason: SHORT OF BREATH/WHEEZING Last Admin: 06/21/17 16:56 Dose: 1 amp Aspirin (Asa -) 81 mg PO DAILY [facility] Last Admin: 06/24/17 16:17 Dose: 81 mg Budesonide/Formoterol Fumarate (Symbicort 80/4.5mcg -) 2 puff IH BID [facility] Last Admin: 06/24/17 22:40 Dose: 2 puff Chlorpromazine HCl (Thorazine -) 25 mg PO TID [facility] Last Admin: 06/25/17 07:06 Dose: Not Given Fenofibric Acid (Trilipix -) 135 mg PO DAILY [facility] Last Admin: 06/24/17 09:31 Dose: 135 mg Fentanyl (Sublimaze Injection -) 25 mcg IVPUSH [id number] PRN PRN Reason: PAIN-PACU ORDER X 4 DOSES ONLY Fentanyl (Sublimaze Injection -) 50 mcg IVPUSH [id number] PRN PRN Reason: PAIN-PACU ORDER X 4 DOSES ONLY Furosemide (Lasix -) 40 mg PO DAILY [facility] Last Admin: 06/24/17 09:29 Dose: 40 mg Sodium Chloride (Normal Saline -) 1,000 mls @ 75 mls/hr IV ASDIR [facility] Last Admin: 06/24/17 13:55 Dose: 75 mls/hr Insulin Aspart (Novolog Vial Sliding Scale -) 1 vial SQ ACHS [facility] PRN Reason: Protocol Last Admin: 06/25/17 07:06 Dose: 2 unit Insulin Detemir (Levemir Vial) 20 units SQ HS [facility] Last Admin: 06/24/17 22:39 Dose: 20 units Levothyroxine Sodium (Synthroid -) 50 mcg PO DAILY@0700 [facility] Last Admin: 06/25/17 07:06 Dose: 50 mcg [facility] Last Admin: 06/25/17 07:06 Dose: 500 mg Metoprolol Tartrate (Lopressor -) 50 mg PO BID [facility] Last Admin: 06/24/17 22:38 Dose: 50 mg Non-Formulary Medication (Canagliflozin [Invokana]) 300 mg PO DAILY [facility] Ondansetron HCl (Zofran Injection) 4 mg IVPUSH Q6H PRN PRN Reason: NAUSEA AND/OR VOMITING Prednisone (Deltasone -) 30 mg PO DAILY [facility] Last Admin: 06/24/17 09:29 Dose: 30 mg Sitagliptin Phosphate (Januvia -) 100 mg PO DAILY@0700 [facility] Last Admin: 06/25/17 07:06 Dose: 100 mg Tamsulosin HCl (Flomax -) 0.4 mg PO DAILY@0830 [facility] Last Admin: 06/24/17 09:24 Dose: 0.4 mg - Objective Vital Signs: Vital Signs Temperature 98.6 F 06/25/17 06:00 Pulse Rate 61 06/25/17 06:00 Respiratory Rate 20 06/25/17 06:00 Blood Pressure 117/60 06/25/17 06:00 O2 Sat by Pulse Oximetry (%) 98 06/24/17 22:00 Eyes: Yes: WNL, Conjunctiva Clear, EOM Intact HENT: Yes: WNL, Atraumatic, Normocephalic Neck: Yes: WNL, Supple, Trachea Midline Cardiovascular: Yes: WNL, Regular Rate and Rhythm Respiratory: Yes: WNL, Regular, CTA Bilaterally Gastrointestinal: Yes: WNL, Normal Bowel Sounds Genitourinary: Yes: WNL Musculoskeletal: Yes: WNL Extremities: Yes: WNL Edema: Yes Edema: LLE: 1+, RLE: 1+ Integumentary: Yes: WNL Neurological: Yes: WNL, Alert, Oriented ...Motor Strength: WNL Psychiatric: Yes: WNL Labs: INR, PTT INR 1.31 (0.82-1.09) H 06/16/17 05:05 Assessment/Plan 57 year old man with a history of hypertension, diabetes, hyperlipidemia, typical atrial flutter status post ablation in 2012, 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 hematuria s/p recent procedure with resultant stricture and was planned for further procedure as outpatient admitted with urinary retention , fever, resultant sinus tachycardia, respiratory failure. AFib with RVR-has remained in NSR with short runs of either PSVT with aberrancy or NSVT Atrial flutter status post two ablations last one was May 2016. - He had been off Xarelto since 06/22/2016, resumed this admission due to recurrent AF-will now hold in setting bleeding -Cont Lasix PO for now -cont metoprolol SOB-respiratory failure -History of Hypoxia/SOB-recurrent, uncertain etiology, component of acute on chronic diastolic CHF but not fully explained by this -presume undiagnosed chronic lung disease, possible exposure from working in [employer] has been considered -trending towards volume overload, reduce fluids if possible, if needed will give additional Lasix prn -cont po Lasix at current dose for now -cont bipap as needed -monitor I/Os, electrolytes Coronary artery disease, history of drug-eluting stent to LAD May 2016. -cont ASA 81mg daily. will try to continue and hold Xarelto -ok to stop Plavix as >1 year since stent -cont beta nicole -resume home statin Cardiomyopathy- History of nonischemic cardiomyopathy, but likely arrhythmia induced with recovery of LV function after atrial flutter ablation. -volume status as above -echo showed normal LV systolic function -management as above
[2017-06-25 09:04] LABS: BASO % 0.2 % (0-2.0); HEMATOCRIT 45.4 % (35.4-49); HEMOGLOBIN 13.9 GM/dL (11.7-16.9); LYMPH % 13.3 % (8-40); MCH 23.1 pg (25.7-33.7); MCHC 30.6 g/dl (32.0-35.9); MEAN CELL VOLUME 75.5 fl (80-96); MEAN PLT VOLUME 9.6 fl (7.5-11.1); NEUT % 76.5 % (42.8-82.8); PLATELET COUNT 195 K/MM3 (134-434); RDW 17.7 % (11.9-15.9); WHITE BLOOD COUNT 9.6 K/mm3 (4.0-10.0)
[2017-06-25 09:06] LABS: ALBUMIN 2.9 g/dl (3.4-5.0); ANION GAP 1 (8-16); BLOOD UREA NITROGEN 19 mg/dL (7-18); CALCIUM 8.8 mg/dL (8.5-10.1); CHLORIDE 97 mmol/L (98-107); CO2 41 mmol/L (21-32); GLUCOSE,RANDOM 131 mg/dL (74-106); POTASSIUM 4.1 mmol/L (3.5-5.1); SODIUM 139 mmol/L (136-145)
[2017-06-25 09:10] LABS: ALK PHOS 48 U/L (45-117); BILIRUBIN,TOTAL 0.7 mg/dL (0.2-1.0); CREATININE 0.6 mg/dL (0.7-1.3); SGOT/AST 7 U/L (15-37); SGPT/ALT 16 U/L (12-78); TOT PROT 5.3 g/dl (6.4-8.2)
[2017-06-25] MEDS ORDERED: PT OWN MED DRAWER 7, Y5N ONE ×3 (09:20→21:43)
[2017-06-25] MEDS: TAMSULOSIN HCL 0.4 MG CAP.ER.24H (FP) PO SCH (09:24)
[2017-06-25] MEDS: FENOFIBRIC ACID 135 MG CAP PO SCH (09:25)
[2017-06-25] MEDS: predniSONE 10 MG TABLET (UD) PO SCH (09:25)
[2017-06-25] MEDS: METOPROLOL TARTRATE 50 MG TABLET (FP) PO SCH ×2 (09:25→21:49)
[2017-06-25] MEDS: ASPIRIN 81 MG CHEWABLE TABLETS PO SCH (09:25)
[2017-06-25] MEDS: FUROSEMIDE 40 MG TABLET (FP) PO SCH (09:25)
[2017-06-25] MEDS: BUDESONIDE/FORMETEROL FUMARATE 80/4.5 mcg INHALER IH SCH ×2 (09:26→21:49)
--- NOTE | 2017-06-25 11:52 | PN ---
Progress Note, Physician History of Present Illness: PULMONARY ALERT,COMFORTABLE,-C/O SOB,-COUGH,-CONGESTION - Current Medication List Current Medications: Active Medications Albuterol/Ipratropium (Duoneb -) 1 amp NEB Q6H PRN PRN Reason: SHORT OF BREATH/WHEEZING Last Admin: 06/21/17 16:56 Dose: 1 amp Aspirin (Asa -) 81 mg PO DAILY [facility] Last Admin: 06/25/17 09:25 Dose: 81 mg Budesonide/Formoterol Fumarate (Symbicort 80/4.5mcg -) 2 puff IH BID [facility] Last Admin: 06/25/17 09:26 Dose: 2 puff Chlorpromazine HCl (Thorazine -) 25 mg PO TID [facility] Last Admin: 06/25/17 07:06 Dose: Not Given Fenofibric Acid (Trilipix -) 135 mg PO DAILY [facility] Last Admin: 06/25/17 09:25 Dose: 135 mg Fentanyl (Sublimaze Injection -) 25 mcg IVPUSH [id number] PRN PRN Reason: PAIN-PACU ORDER X 4 DOSES ONLY Fentanyl (Sublimaze Injection -) 50 mcg IVPUSH [id number] PRN PRN Reason: PAIN-PACU ORDER X 4 DOSES ONLY Furosemide (Lasix -) 40 mg PO DAILY [facility] Last Admin: 06/25/17 09:25 Dose: 40 mg Sodium Chloride (Normal Saline -) 1,000 mls @ 75 mls/hr IV ASDIR [facility] Last Admin: 06/24/17 13:55 Dose: 75 mls/hr Insulin Aspart (Novolog Vial Sliding Scale -) 1 vial SQ ACHS [facility] PRN Reason: Protocol Last Admin: 06/25/17 07:06 Dose: 2 unit Insulin Detemir (Levemir Vial) 20 units SQ HS [facility] Last Admin: 06/24/17 22:39 Dose: 20 units Levothyroxine Sodium (Synthroid -) 50 mcg PO DAILY@0700 [facility] Last Admin: 06/25/17 07:06 Dose: 50 mcg Metformin HCl (Glucophage -) 500 mg PO BIDAC [facility] Last Admin: 06/25/17 07:06 Dose: 500 mg Metoprolol Tartrate (Lopressor -) 50 mg PO BID [facility] Last Admin: 06/25/17 09:25 Dose: 50 mg Non-Formulary Medication (Canagliflozin [Invokana]) 300 mg PO DAILY [facility] Ondansetron HCl (Zofran Injection) 4 mg IVPUSH Q6H PRN PRN Reason: NAUSEA AND/OR VOMITING Prednisone (Deltasone -) 30 mg PO DAILY [facility] Last Admin: 06/25/17 09:25 Dose: 30 mg Sitagliptin Phosphate (Januvia -) 100 mg PO DAILY@0700 [facility] Last Admin: 06/25/17 07:06 Dose: 100 mg Tamsulosin HCl (Flomax -) 0.4 mg PO DAILY@0830 [facility] Last Admin: 06/25/17 09:24 Dose: 0.4 mg - Objective Vital Signs: Vital Signs Temperature 98.2 F 06/25/17 10:00 Pulse Rate 59 L 06/25/17 10:00 Respiratory Rate 20 06/25/17 10:00 Blood Pressure 111/62 06/25/17 10:00 O2 Sat by Pulse Oximetry (%) 98 06/25/17 10:00 Constitutional: Yes: Well Nourished, Calm Eyes: Yes: WNL HENT: Yes: WNL Neck: Yes: WNL Cardiovascular: Yes: Regular Rate and Rhythm, S1, S2 Respiratory: Yes: CTA Bilaterally Gastrointestinal: Yes: Normal Bowel Sounds, Soft Extremities: Yes: WNL Edema: No Labs: CBC, BMP 06/25/17 08:20 06/25/17 08:20 INR, PTT INR 1.31 (0.82-1.09) H 06/16/17 05:05 Problem List - Problems (1) Afib Code(s): I48.91 - UNSPECIFIED ATRIAL FIBRILLATION (2) COPD (chronic obstructive pulmonary disease) Code(s): J44.9 - CHRONIC OBSTRUCTIVE PULMONARY DISEASE, UNSPECIFIED (3) HTN (hypertension) Code(s): I10 - ESSENTIAL (PRIMARY) HYPERTENSION (4) SHEKHAR (obstructive sleep apnea) Code(s): G47.33 - OBSTRUCTIVE SLEEP APNEA (ADULT) (PEDIATRIC) (5) Respiratory failure Code(s): J96.90 - RESPIRATORY FAILURE, UNSP, UNSP W HYPOXIA OR HYPERCAPNIA (6) Sepsis Code(s): A41.9 - SEPSIS, UNSPECIFIED ORGANISM (7) Urinary retention Code(s): R33.9 - RETENTION OF URINE, UNSPECIFIED (8) CHF (congestive heart failure) Code(s): I50.9 - HEART FAILURE, UNSPECIFIED (9) Fever Code(s): R50.9 - FEVER, UNSPECIFIED (10) Hypoxia Code(s): R09.02 - HYPOXEMIA (11) Obesity Code(s): E66.9 - OBESITY, UNSPECIFIED Assessment/Plan A/P UTI Urinary Retention/BPH/ h/o Strictures Sepsis Acute on Chronic Hypoxic and Hypercapneic Respiratory Failure improved CAD s/p stents Atrial Fibrillation with RVR now in sinus Acute on Chronic Diastolic Heart Failure Obstructive Sleep Apnea HTN DM Hematuria - lasix - monitor urine output, creatinine - rate controlled - O2 to keep SpO2 >90% - BIPAP as needed - prednisone - inhaled bronchodilators - DVT prophylaxis DR MALHOTRA
--- NOTE | 2017-06-25 14:01 | PN ---
Progress Note, Physician History of Present Illness: continued to have bleeding xarelto stopped bleeding has stopped from the penile site last couple of hours - Current Medication List Current Medications: Active Medications Albuterol/Ipratropium (Duoneb -) 1 amp NEB Q6H PRN PRN Reason: SHORT OF BREATH/WHEEZING Last Admin: 06/21/17 16:56 Dose: 1 amp Aspirin (Asa -) 81 mg PO DAILY [facility] Last Admin: 06/25/17 09:25 Dose: 81 mg Budesonide/Formoterol Fumarate (Symbicort 80/4.5mcg -) 2 puff IH BID [facility] Last Admin: 06/25/17 09:26 Dose: 2 puff Chlorpromazine HCl (Thorazine -) 25 mg PO TID [facility] Last Admin: 06/25/17 07:06 Dose: Not Given Fenofibric Acid (Trilipix -) 135 mg PO DAILY [facility] Last Admin: 06/25/17 09:25 Dose: 135 mg Fentanyl (Sublimaze Injection -) 25 mcg IVPUSH [id number] PRN PRN Reason: PAIN-PACU ORDER X 4 DOSES ONLY Fentanyl (Sublimaze Injection -) 50 mcg IVPUSH [id number] PRN PRN Reason: PAIN-PACU ORDER X 4 DOSES ONLY Furosemide (Lasix -) 40 mg PO DAILY [facility] Last Admin: 06/25/17 09:25 Dose: 40 mg Sodium Chloride (Normal Saline -) 1,000 mls @ 75 mls/hr IV ASDIR [facility] Last Admin: 06/24/17 13:55 Dose: 75 mls/hr Insulin Aspart (Novolog Vial Sliding Scale -) 1 vial SQ ACHS [facility] PRN Reason: Protocol Last Admin: 06/25/17 12:14 Dose: 2 unit Insulin Detemir (Levemir Vial) 20 units SQ HS [facility] Last Admin: 06/24/17 22:39 Dose: 20 units Levothyroxine Sodium (Synthroid -) 50 mcg PO DAILY@0700 [facility] Last Admin: 06/25/17 07:06 Dose: 50 mcg Metformin [facility] (Glucophage -) [facility] Last Admin: 06/25/17 07:06 Dose: 500 mg Metoprolol Tartrate (Lopressor -) 50 mg PO BID [facility] Last Admin: 06/25/17 09:25 Dose: 50 mg Non-Formulary Medication (Canagliflozin [Invokana]) 300 mg PO DAILY [facility] Ondansetron HCl (Zofran Injection) 4 mg IVPUSH Q6H PRN PRN Reason: NAUSEA AND/OR VOMITING Prednisone (Deltasone -) 30 mg PO DAILY [facility] Last Admin: 06/25/17 09:25 Dose: 30 mg Sitagliptin Phosphate (Januvia -) 100 mg PO DAILY@0700 [facility] Last Admin: 06/25/17 07:06 Dose: 100 mg Tamsulosin HCl (Flomax -) 0.4 mg PO DAILY@0830 [facility] Last Admin: 06/25/17 09:24 Dose: 0.4 mg - Objective Vital Signs: Vital Signs Temperature 98.2 F 06/25/17 10:00 Pulse Rate 59 L 06/25/17 10:00 Respiratory Rate 20 06/25/17 10:00 Blood Pressure 111/62 06/25/17 10:00 O2 Sat by Pulse Oximetry (%) 98 06/25/17 10:00 Constitutional: Yes: No Distress, Calm Cardiovascular: Yes: Regular Rate and Rhythm Respiratory: Yes: Regular, CTA Bilaterally Gastrointestinal: Yes: Normal Bowel Sounds, Soft Genitourinary: Yes: Brown Present Musculoskeletal: Yes: WNL Extremities: Yes: WNL Neurological: Yes: Alert, Oriented Psychiatric: Yes: Alert, Oriented Labs: CBC, BMP 06/25/17 08:20 06/25/17 08:20 INR, PTT INR 1.31 (0.82-1.09) H 06/16/17 05:05 Assessment/Plan ASSESSMENT AND PLAN: UTI bph/strictures r/o bacteremia resp failure sepsis urinary retention hematuria loyda htn dm plan stable off of abx continue to monitor stable doing well no issues urine clean
--- NOTE | 2017-06-25 15:04 | PN ---
Physical Exam: SUBJECTIVE: Patient seen and examined at the bedside. Awake and alert. Denies any c/o of pain. OBJECTIVE: pink tinged urine seen in gautam catheter vault, hmg/hct stable ++ coverage for Dr. Quinones++ Vital Signs Period Temp Pulse Resp BP Sys/Cesar Pulse Ox Last 24 Hr 97.8 F-98.7 F 59-76 16-20 111-124/60-69 98-98 GENERAL: The patient is awake, alert, and fully oriented, in no acute distress. HEAD: Normal with no signs of trauma. EYES: PERRL, extraocular movements intact, sclera anicteric, conjunctiva clear. No ptosis. ENT: Ears normal, nares patent, oropharynx clear without exudates, moist mucous membranes. NECK: Trachea midline, full range of motion, supple. LUNGS: Breath sounds equal, clear to auscultation bilaterally ABDOMEN: Soft, nontender, nondistended, normoactive bowel sounds, no guarding, no rebound, no hepatosplenomegaly, no masses. EXTREMITIES: no edema. NEUROLOGICAL: Normal speech, gait not observed. PSYCH: Normal mood, normal affect. SKIN: Warm, dry, normal turgor, no rashes or lesions noted Laboratory Results - last 24 hr 06/24/17 06/24/17 06/25/17 17:23 22:37 05:56 WBC RBC Hgb Hct MCV MCH MCHC RDW Plt Count MPV Neutrophils % Lymphocytes % Monocytes % Eosinophils % Basophils % Sodium Potassium Chloride Carbon Dioxide Anion Gap BUN Creatinine Creat Clearance w eGFR POC Glucometer 262 263 158 Random Glucose Calcium Total Bilirubin AST ALT Alkaline Phosphatase Total Protein Albumin 06/25/17 06/25/17 06/25/17 08:20 08:20 11:39 WBC 9.6 RBC 6.00 H Hgb 13.9 Hct 45.4 MCV 75.5 L MCH 23.1 L MCHC 30.6 L RDW 17.7 H Plt Count 195 MPV 9.6 Neutrophils % 76.5 Lymphocytes % 13.3 Monocytes % 7.0 Eosinophils % 3.0 Basophils % 0.2 Sodium 139 Potassium 4.1 Chloride 97 L Carbon Dioxide 41 H Anion Gap 1 L BUN 19 H Creatinine 0.6 L Creat Clearance w eGFR > 60 POC Glucometer 189 Random Glucose 131 H Calcium 8.8 Total Bilirubin 0.7 AST 7 L D ALT 16 Alkaline Phosphatase 48 Total Protein 5.3 L Albumin 2.9 L Active Medications Generic Name Dose Route Start Last Admin Trade Name Freq PRN Reason Stop Dose Admin Albuterol/Ipratropium 1 amp 06/21/17 15:29 06/21/17 16:56 Duoneb - NEB 1 amp Q6H PRN Administration SHORT OF BREATH/WHEEZING Aspirin 81 mg 06/22/17 10:00 06/25/17 09:25 Asa - PO 81 mg DAILY [facility] Administration Budesonide/Formoterol Fumarate 2 puff 06/21/17 22:00 06/25/17 09:26 Symbicort 80/4.5mcg - IH 2 puff BID [facility] Administration Chlorpromazine HCl 25 mg 06/21/17 14:00 06/25/17 14:37 Thorazine - PO Not Given TID [facility] Fenofibric Acid 135 mg 06/22/17 10:00 06/25/17 09:25 Trilipix - PO 135 mg DAILY [facility] Administration Fentanyl 25 mcg 06/21/17 14:11 Sublimaze Injection - IVPUSH [id number] PRN PAIN-PACU ORDER X 4 DOSES ONLY Fentanyl 50 mcg 06/21/17 14:11 Sublimaze Injection - IVPUSH [id number] PRN PAIN-PACU ORDER X 4 DOSES ONLY Furosemide 40 mg 06/21/17 10:00 06/25/17 09:25 Lasix - PO 40 mg DAILY [facility] Administration Sodium Chloride 1,000 mls @ 75 mls/hr 06/21/17 14:15 06/24/17 13:55 Normal Saline - IV 75 mls/hr ASDIR [facility] Administration Insulin Aspart 1 vial 06/21/17 16:30 06/25/17 12:14 Novolog Vial Sliding Scale - SQ 2 unit ACHS [facility] Administration Protocol Insulin Detemir 20 units 06/21/17 22:00 06/24/17 22:39 Levemir Vial SQ 20 units HS [facility] Administration Levothyroxine Sodium 50 mcg 06/22/17 07:00 06/25/17 07:06 Synthroid - PO 50 mcg DAILY@0700 [facility] Administration Metformin HCl 500 mg 06/21/17 16:30 06/25/17 07:06 Glucophage - PO 500 mg BIDAC [facility] Administration Metoprolol Tartrate 50 mg 06/21/17 22:00 06/25/17 09:25 Lopressor - PO 50 mg BID [facility] Administration Non-Formulary Medication 300 mg 06/22/17 10:00 Canagliflozin [Invokana] PO DAILY [facility] Ondansetron HCl 4 mg 06/21/17 14:11 Zofran Injection IVPUSH Q6H PRN NAUSEA AND/OR VOMITING Prednisone 30 mg 06/23/17 10:00 06/25/17 09:25 Deltasone - PO 30 mg DAILY [facility] Administration Sitagliptin Phosphate 100 mg 06/22/17 07:00 06/25/17 07:06 Januvia - PO 100 mg DAILY@0700 [facility] Administration Tamsulosin HCl 0.4 mg 06/22/17 08:30 06/25/17 09:24 Flomax - PO 0.4 mg DAILY@0830 [facility] Administration ASSESSMENT/PLAN: Patient is a 57 year old male with a significant past medical history of hypertension, diabetes, CAD, chronic hypoxic respiratory failure, BPH, SHEKHAR, and urethral stricture. He presented to the ED with 2 weeks of urinary retention and with dysuria. Hospitalization further complicated when patient was found septic and was then transferred to the ICU. ID: Sepsis 2/2 to UTI, resolved Currently off antibiotics WBC, labs within normal limits ID following : BPH/with urinary retentin s/p TUVP Gautam reinserted yesterday + blood tinged urine Urology following Monitor kidney function Monitor output Endocrine: Diabetes Monitor BGMs On Metformin, Levemir, Novolog Cardiology: Hypertension, chronic At goal CAD, chronic On ASA 81mg Pulmonary: Chronic hypoxic respiratory failure, resolved Tolerating room air duonebs prn On Prednisone taper F.E.N. Fluids: tolerating PO Electrolytes: monitor Nutrition: diabetic diet Prophylaxis: DVT: ambulatory, no a/c 2/2 to hematuria GI: Protonix while on stds. Disposition: full code. . Visit type - Emergency Visit Emergency Visit: Yes ED Registration Date: 06/15/17 Care time: The patient presented to the Emergency Department on the above date and was hospitalized for further evaluation of their emergent condition. - New Patient This patient is new to me today: Yes Date on this admission: 06/25/17 - Critical Care Critical Care patient: No - Discharge Referral Referred to [facility] Med [facility] No
[2017-06-25] MEDS: SODIUM CHLORIDE 1,000 ML IV SCH (15:49)
[2017-06-25] MEDS: PANTOPRAZOLE 40 MG TABLET (FP) PO SCH (16:39)
[2017-06-25] MEDS ORDERED: INSULIN (NOVOLOG) ASPART 100 UNITS/ML 10ML VIAL ONE (21:45)
[2017-06-25] MEDS: INSULIN DETEMIR 100 UNITS/ML MDV SQ SCH (21:49)
[2017-06-26] MEDS: chlorproMAZINE HCL 25 MG TABLET PO SCH ×2 (06:39→13:58)
[2017-06-26] MEDS: LEVOTHYROXINE NA 50 MCG TABLET (FP) PO SCH (06:40)
[2017-06-26] MEDS: metFORMIN HCL 500 MG TABLET (FP) PO SCH ×2 (06:40→17:09)
[2017-06-26] MEDS: SODIUM CHLORIDE 1,000 ML IV SCH ×2 (06:40→17:09)
[2017-06-26] MEDS: sitaGLIPtin PHOSPHATE 100 MG TABLET (FP) PO SCH (06:40)
[2017-06-26] MEDS: INSULIN SLIDING SCALE (NOVOLOG) 1 VIAL SQ SCH ×4 (06:41→21:40)
[2017-06-26 08:06] LABS: BASO % 0.1 % (0-2.0); EOS % 2.6 % (0-4.5); HEMATOCRIT 43.2 % (35.4-49); HEMOGLOBIN 13.3 GM/dL (11.7-16.9); LYMPH % 17.8 % (8-40); MCH 23.2 pg (25.7-33.7); MCHC 30.7 g/dl (32.0-35.9); MEAN CELL VOLUME 75.4 fl (80-96); MEAN PLT VOLUME 9.6 fl (7.5-11.1); MONO % 9.4 % (3.8-10.2); NEUT % 70.1 % (42.8-82.8); PLATELET COUNT 191 K/MM3 (134-434); RBC 5.73 M/mm3 (4.00-5.60); RDW 17.5 % (11.9-15.9); WHITE BLOOD COUNT 9.5 K/mm3 (4.0-10.0)
[2017-06-26 08:18] LABS: ALBUMIN 2.8 g/dl (3.4-5.0); ANION GAP 2 (8-16); BLOOD UREA NITROGEN 18 mg/dL (7-18); CALCIUM 8.9 mg/dL (8.5-10.1); CHLORIDE 95 mmol/L (98-107); CO2 40 mmol/L (21-32); GLUCOSE,RANDOM 126 mg/dL (74-106); SODIUM 137 mmol/L (136-145)
[2017-06-26 08:22] LABS: ALK PHOS 46 U/L (45-117); BILIRUBIN,TOTAL 0.5 mg/dL (0.2-1.0); CREATININE 0.6 mg/dL (0.7-1.3); SGPT/ALT 15 U/L (12-78); TOT PROT 5.2 g/dl (6.4-8.2)
[2017-06-26 08:24] LABS: SGOT/AST 4 U/L (15-37)
[2017-06-26] MEDS: TAMSULOSIN HCL 0.4 MG CAP.ER.24H (FP) PO SCH (08:47)
--- NOTE | 2017-06-26 08:59 | PN ---
Progress Note, Physician - Current Medication List Current Medications: Active Medications Albuterol/Ipratropium (Duoneb -) 1 amp NEB Q6H PRN PRN Reason: SHORT OF BREATH/WHEEZING Last Admin: 06/21/17 16:56 Dose: 1 amp Aspirin (Asa -) 81 mg PO DAILY [facility] Last Admin: 06/25/17 09:25 Dose: 81 mg Budesonide/Formoterol Fumarate (Symbicort 80/4.5mcg -) 2 puff IH BID [facility] Last Admin: 06/25/17 21:49 Dose: 2 puff Chlorpromazine HCl (Thorazine -) 25 mg PO TID [facility] Last Admin: 06/26/17 06:39 Dose: Not Given Fenofibric Acid (Trilipix -) 135 mg PO DAILY [facility] Last Admin: 06/25/17 09:25 Dose: 135 mg Fentanyl (Sublimaze Injection -) 25 mcg IVPUSH [id number] PRN PRN Reason: PAIN-PACU ORDER X 4 DOSES ONLY Fentanyl (Sublimaze Injection -) 50 mcg IVPUSH [id number] PRN PRN Reason: PAIN-PACU ORDER X 4 DOSES ONLY Furosemide (Lasix -) 40 mg PO DAILY [facility] Last Admin: 06/25/17 09:25 Dose: 40 mg Sodium Chloride (Normal Saline -) 1,000 mls @ 75 mls/hr IV ASDIR [facility] Last Admin: 06/26/17 06:40 Dose: 75 mls/hr Insulin Aspart (Novolog Vial Sliding Scale -) 1 vial SQ ACHS [facility] PRN Reason: Protocol Last Admin: 06/26/17 06:41 Dose: Not Given Insulin Detemir (Levemir Vial) 20 units SQ HS [facility] Last Admin: 06/25/17 21:49 Dose: 20 units Levothyroxine Sodium (Synthroid -) 50 mcg PO DAILY@0700 [facility] Last Admin: 06/26/17 06:40 Dose: 50 mcg [facility] Last Admin: 06/26/17 06:40 Dose: 500 mg Metoprolol Tartrate (Lopressor -) 50 mg PO BID [facility] Last Admin: 06/25/17 21:49 Dose: 50 mg Non-Formulary Medication (Canagliflozin [Invokana]) 300 mg PO DAILY [facility] Ondansetron HCl (Zofran Injection) 4 mg IVPUSH Q6H PRN PRN Reason: NAUSEA AND/OR VOMITING Pantoprazole Sodium (Protonix -) 40 mg PO DAILY [facility] Last Admin: 06/25/17 16:39 Dose: 40 mg Prednisone (Deltasone -) 30 mg PO DAILY [facility] Last Admin: 06/25/17 09:25 Dose: 30 mg Sitagliptin Phosphate (Januvia -) 100 mg PO DAILY@0700 [facility] Last Admin: 06/26/17 06:40 Dose: 100 mg Tamsulosin HCl (Flomax -) 0.4 mg PO DAILY@0830 [facility] Last Admin: 06/26/17 08:47 Dose: 0.4 mg - Objective Vital Signs: Vital Signs Temperature 97.6 F 06/26/17 06:00 Pulse Rate 59 L 06/26/17 06:00 Respiratory Rate 20 06/26/17 06:00 Blood Pressure 106/68 06/26/17 06:00 O2 Sat by Pulse Oximetry (%) 98 06/25/17 23:00 Eyes: Yes: WNL, Conjunctiva Clear, EOM Intact HENT: Yes: WNL, Atraumatic, Normocephalic Neck: Yes: WNL, Supple, Trachea Midline Cardiovascular: Yes: WNL, Regular Rate and Rhythm Respiratory: Yes: WNL, Regular, CTA Bilaterally Gastrointestinal: Yes: WNL, Normal Bowel Sounds Genitourinary: Yes: WNL Musculoskeletal: Yes: WNL Extremities: Yes: WNL Edema: No Integumentary: Yes: WNL Neurological: Yes: WNL, Alert, Oriented ...Motor Strength: WNL Psychiatric: Yes: WNL Labs: CBC, BMP 06/26/17 06:30 06/26/17 06:30 INR, PTT INR 1.31 (0.82-1.09) H 06/16/17 05:05 Assessment/Plan 57 year old man with a history of hypertension, diabetes, hyperlipidemia, typical atrial flutter status post ablation in 2012, 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 hematuria s/p recent procedure with resultant stricture and was planned for further procedure as outpatient admitted with urinary retention , fever, resultant sinus tachycardia, respiratory failure. AFib with RVR-has remained in NSR with short runs of either PSVT with aberrancy or NSVT Atrial flutter status post two ablations last one was May 2016. - He had been off Xarelto since 06/22/2016, resumed this admission due to recurrent AF-will now hold in setting bleeding -Cont Lasix PO for now -cont metoprolol SOB-respiratory failure -History of Hypoxia/SOB-recurrent, uncertain etiology, component of acute on chronic diastolic CHF but not fully explained by this -presume undiagnosed chronic lung disease, possible exposure from working in [employer] (acquired by [employer]) has been considered -trending towards volume overload, reduce fluids if possible, if needed will give additional Lasix prn -cont po Lasix at current dose for now -cont bipap as needed -monitor I/Os, electrolytes Coronary artery disease, history of drug-eluting stent to LAD May 2016. -cont ASA 81mg daily. will try to continue and hold Xarelto -ok to stop Plavix as >1 year since stent -cont beta nicole -resume home statin Cardiomyopathy- History of nonischemic cardiomyopathy, but likely arrhythmia induced with recovery of LV function after atrial flutter ablation. -volume status as above -echo showed normal LV systolic function -management as above
[2017-06-26] MEDS ORDERED: PT OWN MED DRAWER 7, Y5N ONE ×3 (09:16→21:25)
[2017-06-26] MEDS: PANTOPRAZOLE 40 MG TABLET (FP) PO SCH (09:30)
[2017-06-26] MEDS: METOPROLOL TARTRATE 50 MG TABLET (FP) PO SCH ×2 (09:30→21:40)
[2017-06-26] MEDS: ASPIRIN 81 MG CHEWABLE TABLETS PO SCH (09:30)
[2017-06-26] MEDS: BUDESONIDE/FORMETEROL FUMARATE 80/4.5 mcg INHALER IH SCH ×2 (09:31→21:39)
[2017-06-26] MEDS: FENOFIBRIC ACID 135 MG CAP PO SCH (09:31)
[2017-06-26] MEDS: predniSONE 10 MG TABLET (UD) PO SCH (09:31)
[2017-06-26] MEDS: FUROSEMIDE 40 MG TABLET (FP) PO SCH (09:31)
[2017-06-26] MEDS ORDERED: INSULIN (NOVOLOG) ASPART 100 UNITS/ML 10ML VIAL ONE (11:26)
--- NOTE | 2017-06-26 11:39 | PN ---
Physical Exam: SUBJECTIVE: Patient seen and examined at the bedside. Awake and alert. Denies any c/o of pain. OBJECTIVE: coverage for Dr. Quinones pink tinged urine seen in gautam catheter vault but improved since yesterday, hmg /hct stable hypotensive today, asymptomatic: add parameters to BP meds, continue ivf Monitor BP Spoke to patient who is requesting that only urology remove his gautam if it were to be removed inpatient. Vital Signs Period Temp Pulse Resp BP Sys/Cesar Pulse Ox Last 24 Hr 97.5 F-98.7 F 54-76 16-20 90-118/52-69 98-98 GENERAL: The patient is awake, alert, and fully oriented, in no acute distress. HEAD: Normal with no signs of trauma. EYES: PERRL, extraocular movements intact, sclera anicteric, conjunctiva clear. No ptosis. ENT: Ears normal, nares patent, oropharynx clear without exudates, moist mucous membranes. NECK: Trachea midline, full range of motion, supple. LUNGS: Breath sounds equal, clear to auscultation bilaterally ABDOMEN: Soft, nontender, nondistended, normoactive bowel sounds, no guarding, no rebound, no hepatosplenomegaly, no masses. EXTREMITIES: no edema. NEUROLOGICAL: Normal speech, gait not observed. PSYCH: Normal mood, normal affect. SKIN: Warm, dry, normal turgor, no rashes or lesions noted Laboratory Results - last 24 hr 06/25/17 06/25/17 06/25/17 11:39 16:36 21:05 WBC RBC Hgb Hct MCV MCH MCHC RDW Plt Count MPV Neutrophils % Lymphocytes % Monocytes % Eosinophils % Basophils % Sodium Potassium Chloride Carbon Dioxide Anion Gap BUN Creatinine Creat Clearance w eGFR POC Glucometer 189 294 248 Random Glucose Calcium Total Bilirubin AST ALT Alkaline Phosphatase Total Protein Albumin 06/26/17 06/26/17 06/26/17 05:42 06:30 06:30 WBC 9.5 RBC 5.73 H Hgb 13.3 Hct 43.2 MCV 75.4 L MCH 23.2 L MCHC 30.7 L RDW 17.5 H Plt Count 191 MPV 9.6 Neutrophils % 70.1 Lymphocytes % 17.8 D Monocytes % 9.4 Eosinophils % 2.6 Basophils % 0.1 Sodium 137 Potassium 4.0 Chloride 95 L Carbon Dioxide 40 H Anion Gap 2 L BUN 18 Creatinine 0.6 L Creat Clearance w eGFR > 60 POC Glucometer 118 Random Glucose 126 H Calcium 8.9 Total Bilirubin 0.5 D AST 4 L D ALT 15 Alkaline Phosphatase 46 Total Protein 5.2 L Albumin 2.8 L Active Medications Generic Name Dose Route Start Last Admin Trade Name Freq PRN Reason Stop Dose Admin Albuterol/Ipratropium 1 amp 06/21/17 15:29 06/21/17 16:56 Duoneb - NEB 1 amp Q6H PRN Administration SHORT OF BREATH/WHEEZING Aspirin 81 mg 06/22/17 10:00 06/26/17 09:30 Asa - PO 81 mg DAILY [facility] Administration Budesonide/Formoterol Fumarate 2 puff 06/21/17 22:00 06/26/17 09:31 Symbicort 80/4.5mcg - IH 2 puff BID [facility] Administration Chlorpromazine HCl 25 mg 06/21/17 14:00 06/26/17 06:39 Thorazine - PO Not Given TID [facility] Fenofibric Acid 135 mg 06/22/17 10:00 06/26/17 09:31 Trilipix - PO 135 mg DAILY [facility] Administration Fentanyl 25 mcg 06/21/17 14:11 Sublimaze Injection - IVPUSH [id number] PRN PAIN-PACU ORDER X 4 DOSES ONLY Fentanyl 50 mcg 06/21/17 14:11 Sublimaze Injection - IVPUSH [id number] PRN PAIN-PACU ORDER X 4 DOSES ONLY Furosemide 40 mg 06/21/17 10:00 06/26/17 09:31 Lasix - PO 40 mg DAILY [facility] Administration Insulin Aspart 1 vial 06/21/17 16:30 06/26/17 11:33 Novolog Vial Sliding Scale - SQ 2 unit ACHS [facility] Administration Protocol Insulin Detemir 20 units 06/21/17 22:00 06/25/17 21:49 Levemir Vial SQ 20 units HS [facility] Administration Levothyroxine Sodium 50 mcg 06/22/17 07:00 06/26/17 06:40 Synthroid - PO 50 mcg DAILY@0700 [facility] Administration Metformin HCl 500 mg 06/21/17 16:30 06/26/17 06:40 Glucophage - PO 500 mg BIDAC [facility] Administration Metoprolol Tartrate 50 mg 06/21/17 22:00 06/26/17 09:30 Lopressor - PO 50 mg BID [facility] Administration Non-Formulary Medication 300 mg 06/22/17 10:00 Canagliflozin [Invokana] PO DAILY [facility] Ondansetron HCl 4 mg 06/21/17 14:11 Zofran Injection IVPUSH Q6H PRN NAUSEA AND/OR VOMITING Pantoprazole Sodium 40 mg 06/25/17 15:15 06/26/17 09:30 Protonix - PO 40 mg DAILY [facility] Administration Prednisone 30 mg 06/23/17 10:00 06/26/17 09:31 Deltasone - PO 30 mg DAILY [facility] Administration Sitagliptin Phosphate 100 mg 06/22/17 07:00 06/26/17 06:40 Januvia - PO 100 mg DAILY@0700 [facility] Administration Tamsulosin HCl 0.4 mg 06/22/17 08:30 06/26/17 08:47 Flomax - PO 0.4 mg DAILY@0830 [facility] Administration ASSESSMENT/PLAN: Patient is a 57 year old male with a significant past medical history of hypertension, diabetes, CAD, chronic hypoxic respiratory failure, BPH, SHEKHAR, and urethral stricture. He presented to the ED with 2 weeks of urinary retention and with dysuria. Hospitalization further complicated when patient was found septic and was then transferred to the ICU. ID: Sepsis 2/2 to UTI, resolved Currently off antibiotics WBC, labs within normal limits ID following, notes reviewed Monitor labs, vitals : BPH/with urinary retention s/p TUVP Gautam reinserted + blood tinged urine, but improving Urology following Monitor kidney function Monitor output Endocrine: Diabetes Monitor BGMs On Metformin, Levemir, Novolog Cardiology: Hypertension, chronic Hypotensive today, asymptomatic: added parameters to BP meds, continue ivf Monitor BP CAD, chronic On ASA 81mg Pulmonary: Chronic hypoxic respiratory failure, resolved Tolerating room air, supplemental oxygen prn duonebs prn On Prednisone taper as per pulmonary F.E.N. Fluids: tolerating PO Electrolytes: monitor Nutrition: diabetic diet Prophylaxis: DVT: ambulatory, no a/c 2/2 to hematuria - stopped Xarelto as per cardiology GI: Protonix while on stds. Disposition: full code. Visit type - Emergency Visit Emergency Visit: Yes ED Registration Date: 06/15/17 Care time: The patient presented to the Emergency Department on the above date and was hospitalized for further evaluation of their emergent condition. - New Patient This patient is new to me today: No - Critical Care Critical Care patient: No - Discharge Referral Referred to [facility] Med P.C.: No
--- NOTE | 2017-06-26 12:05 | PN ---
Progress Note, Physician History of Present Illness: stable doing well no bleeding noted in the urine - Current Medication List Current Medications: Active Medications Albuterol/Ipratropium (Duoneb -) 1 amp NEB Q6H PRN PRN Reason: SHORT OF BREATH/WHEEZING Last Admin: 06/21/17 16:56 Dose: 1 amp Aspirin (Asa -) 81 mg PO DAILY [facility] Last Admin: 06/26/17 09:30 Dose: 81 mg Budesonide/Formoterol Fumarate (Symbicort 80/4.5mcg -) 2 puff IH BID [facility] Last Admin: 06/26/17 09:31 Dose: 2 puff Chlorpromazine HCl (Thorazine -) 25 mg PO TID [facility] Last Admin: 06/26/17 06:39 Dose: Not Given Fenofibric Acid (Trilipix -) 135 mg PO DAILY [facility] Last Admin: 06/26/17 09:31 Dose: 135 mg Fentanyl (Sublimaze Injection -) 25 mcg IVPUSH [id number] PRN PRN Reason: PAIN-PACU ORDER X 4 DOSES ONLY Fentanyl (Sublimaze Injection -) 50 mcg IVPUSH [id number] PRN PRN Reason: PAIN-PACU ORDER X 4 DOSES ONLY Furosemide (Lasix -) 40 mg PO DAILY [facility] Last Admin: 06/26/17 09:31 Dose: 40 mg Insulin Aspart (Novolog Vial Sliding Scale -) 1 vial SQ ACHS [facility] PRN Reason: Protocol Last Admin: 06/26/17 11:33 Dose: 2 unit Insulin Detemir (Levemir Vial) 20 units SQ HS [facility] Last Admin: 06/25/17 21:49 Dose: 20 units Levothyroxine Sodium (Synthroid -) 50 mcg PO DAILY@0700 [facility] Last Admin: 06/26/17 06:40 Dose: 50 mcg Metformin HCl (Glucophage -) 500 mg PO BIDAC [facility] Last Admin: 06/26/17 06:40 Dose: 500 mg Metoprolol Tartrate (Lopressor -) 50 mg PO BID [facility] Last Admin: 06/26/17 09:30 Dose: 50 mg Non-Formulary Medication (Canagliflozin [Invokana]) 300 mg PO DAILY [facility] Ondansetron HCl (Zofran Injection) 4 mg IVPUSH Q6H PRN PRN Reason: NAUSEA AND/OR VOMITING Pantoprazole Sodium (Protonix -) 40 mg PO DAILY [facility] Last Admin: 06/26/17 09:30 Dose: 40 mg Prednisone (Deltasone -) 30 mg PO DAILY [facility] Last Admin: 06/26/17 09:31 Dose: 30 mg Sitagliptin Phosphate (Januvia -) 100 mg PO DAILY@0700 [facility] Last Admin: 06/26/17 06:40 Dose: 100 mg Tamsulosin HCl (Flomax -) 0.4 mg PO DAILY@0830 [facility] Last Admin: 06/26/17 08:47 Dose: 0.4 mg - Objective Vital Signs: Vital Signs Temperature 98.3 F 06/26/17 09:35 Pulse Rate 64 06/26/17 09:35 Respiratory Rate 20 06/26/17 09:35 Blood Pressure 113/63 06/26/17 09:35 O2 Sat by Pulse Oximetry (%) 98 06/25/17 23:00 Constitutional: Yes: No Distress, Calm Cardiovascular: Yes: S1, S2 Respiratory: Yes: Regular, CTA Bilaterally Gastrointestinal: Yes: Normal Bowel Sounds, Soft Genitourinary: Yes: Brown Present Musculoskeletal: Yes: WNL Extremities: Yes: WNL Neurological: Yes: Alert, Oriented Psychiatric: Yes: Alert, Oriented Labs: CBC, BMP 06/26/17 06:30 06/26/17 06:30 INR, PTT INR 1.31 (0.82-1.09) H 06/16/17 05:05 Assessment/Plan ASSESSMENT AND PLAN: UTI bph/strictures r/o bacteremia resp failure sepsis urinary retention hematuria loyda htn dm plan stable off of abx continue to monitor stable doing well no issues
--- NOTE | 2017-06-26 12:12 | PN ---
Progress Note, Physician History of Present Illness: pulmonary alert,nad,less hematuria. pt w/o sob. O2 sat 95% ra - Current Medication List Current Medications: Active Medications Albuterol/Ipratropium (Duoneb -) 1 amp NEB Q6H PRN PRN Reason: SHORT OF BREATH/WHEEZING Last Admin: 06/21/17 16:56 Dose: 1 amp Aspirin (Asa -) 81 mg PO DAILY [facility] Last Admin: 06/26/17 09:30 Dose: 81 mg Budesonide/Formoterol Fumarate (Symbicort 80/4.5mcg -) 2 puff IH BID [facility] Last Admin: 06/26/17 09:31 Dose: 2 puff Chlorpromazine HCl (Thorazine -) 25 mg PO TID [facility] Last Admin: 06/26/17 06:39 Dose: Not Given Fenofibric Acid (Trilipix -) 135 mg PO DAILY [facility] Last Admin: 06/26/17 09:31 Dose: 135 mg Fentanyl (Sublimaze Injection -) 25 mcg IVPUSH [id number] PRN PRN Reason: PAIN-PACU ORDER X 4 DOSES ONLY Fentanyl (Sublimaze Injection -) 50 mcg IVPUSH [id number] PRN PRN Reason: PAIN-PACU ORDER X 4 DOSES ONLY Furosemide (Lasix -) 40 mg PO DAILY [facility] Last Admin: 06/26/17 09:31 Dose: 40 mg Insulin Aspart (Novolog Vial Sliding Scale -) 1 vial SQ ACHS [facility] PRN Reason: Protocol Last Admin: 06/26/17 11:33 Dose: 2 unit Insulin Detemir (Levemir Vial) 20 units SQ HS [facility] Last Admin: 06/25/17 21:49 Dose: 20 units Levothyroxine Sodium (Synthroid -) 50 mcg PO DAILY@0700 [facility] Last Admin: 06/26/17 06:40 Dose: 50 mcg Metformin HCl (Glucophage -) 500 mg PO BIDAC [facility] Last Admin: 06/26/17 06:40 Dose: 500 mg Metoprolol Tartrate (Lopressor -) 50 mg PO BID [facility] Last Admin: 06/26/17 09:30 Dose: 50 mg Non-Formulary Medication (Canagliflozin [Invokana]) 300 mg PO DAILY [facility] Ondansetron HCl (Zofran Injection) 4 mg IVPUSH Q6H PRN PRN Reason: NAUSEA AND/OR VOMITING Pantoprazole Sodium (Protonix -) 40 mg PO DAILY [facility] Last Admin: 06/26/17 09:30 Dose: 40 mg Prednisone (Deltasone -) 30 mg PO DAILY [facility] Last Admin: 06/26/17 09:31 Dose: 30 mg Sitagliptin Phosphate (Januvia -) 100 mg PO DAILY@0700 [facility] Last Admin: 06/26/17 06:40 Dose: 100 mg Tamsulosin HCl (Flomax -) 0.4 mg PO DAILY@0830 [facility] Last Admin: 06/26/17 08:47 Dose: 0.4 mg - Objective Vital Signs: Vital Signs Temperature 98.3 F 06/26/17 09:35 Pulse Rate 64 06/26/17 09:35 Respiratory Rate 20 06/26/17 09:35 Blood Pressure 113/63 06/26/17 09:35 O2 Sat by Pulse Oximetry (%) 98 06/25/17 23:00 Constitutional: Yes: Well Nourished, Calm Eyes: Yes: WNL HENT: Yes: WNL Neck: Yes: WNL Cardiovascular: Yes: Pulse Irregular, S1, S2 Respiratory: Yes: CTA Bilaterally Gastrointestinal: Yes: Normal Bowel Sounds, Soft Extremities: Yes: WNL Edema: No Labs: CBC, BMP 06/26/17 06:30 06/26/17 06:30 INR, PTT INR 1.31 (0.82-1.09) H 06/16/17 05:05 Problem List - Problems (1) Afib Code(s): I48.91 - UNSPECIFIED ATRIAL FIBRILLATION (2) COPD (chronic obstructive pulmonary disease) Code(s): J44.9 - CHRONIC OBSTRUCTIVE PULMONARY DISEASE, UNSPECIFIED (3) HTN (hypertension) Code(s): I10 - ESSENTIAL (PRIMARY) HYPERTENSION (4) SHEKHAR (obstructive sleep apnea) Code(s): G47.33 - OBSTRUCTIVE SLEEP APNEA (ADULT) (PEDIATRIC) (5) Respiratory failure Code(s): J96.90 - RESPIRATORY FAILURE, UNSP, UNSP W HYPOXIA OR HYPERCAPNIA (6) Sepsis Code(s): A41.9 - SEPSIS, UNSPECIFIED ORGANISM (7) Urinary retention Code(s): R33.9 - RETENTION OF URINE, UNSPECIFIED (8) CHF (congestive heart failure) Code(s): I50.9 - HEART FAILURE, UNSPECIFIED (9) Fever Code(s): R50.9 - FEVER, UNSPECIFIED (10) Hypoxia Code(s): R09.02 - HYPOXEMIA (11) Obesity Code(s): E66.9 - OBESITY, UNSPECIFIED Assessment/Plan A/P UTI Urinary Retention/BPH/ h/o Strictures s/p Sepsis Acute on Chronic Hypoxic and Hypercapneic Respiratory Failure improved CAD s/p stents Atrial Fibrillation with RVR now in sinus Acute on Chronic Diastolic Heart Failure Obstructive Sleep Apnea HTN DM Hematuria - lasix - monitor urine output, creatinine - rate controlled - O2 to keep SpO2 >90% - BIPAP as needed - prednisone taper - inhaled bronchodilators - DVT prophylaxis - sleep screen DR MALHOTRA
[2017-06-26] MEDS: INSULIN DETEMIR 100 UNITS/ML MDV SQ SCH (21:40)
[2017-06-27] MEDS: INSULIN SLIDING SCALE (NOVOLOG) 1 VIAL SQ SCH ×3 (06:13→17:27)
[2017-06-27] MEDS: metFORMIN HCL 500 MG TABLET (FP) PO SCH ×2 (06:13→17:29)
[2017-06-27] MEDS: LEVOTHYROXINE NA 50 MCG TABLET (FP) PO SCH (06:13)
[2017-06-27] MEDS: sitaGLIPtin PHOSPHATE 100 MG TABLET (FP) PO SCH (06:13)
[2017-06-27 07:00] LABS: BASO % 0.3 % (0-2.0); EOS % 2.3 % (0-4.5); HEMATOCRIT 42.3 % (35.4-49); HEMOGLOBIN 13.1 GM/dL (11.7-16.9); LYMPH % 15.5 % (8-40); MCH 23.6 pg (25.7-33.7); MCHC 30.9 g/dl (32.0-35.9); MEAN CELL VOLUME 76.4 fl (80-96); MEAN PLT VOLUME 9.5 fl (7.5-11.1); MONO % 10.1 % (3.8-10.2); NEUT % 71.8 % (42.8-82.8); PLATELET COUNT 178 K/MM3 (134-434); RBC 5.54 M/mm3 (4.00-5.60); RDW 17.3 % (11.9-15.9); WHITE BLOOD COUNT 9.5 K/mm3 (4.0-10.0)
[2017-06-27 07:16] LABS: ALBUMIN 2.7 g/dl (3.4-5.0); ANION GAP 2 (8-16); BILIRUBIN,TOTAL 0.5 mg/dL (0.2-1.0); BLOOD UREA NITROGEN 20 mg/dL (7-18); CALCIUM 8.6 mg/dL (8.5-10.1); CHLORIDE 95 mmol/L (98-107); CO2 41 mmol/L (21-32); CREATININE 0.8 mg/dL (0.7-1.3); GLUCOSE,RANDOM 115 mg/dL (74-106); SGOT/AST 7 U/L (15-37); SGPT/ALT 15 U/L (12-78); SODIUM 138 mmol/L (136-145); TOT PROT 5.2 g/dl (6.4-8.2)
[2017-06-27 07:18] LABS: ALK PHOS 47 U/L (45-117)
[2017-06-27] MEDS ORDERED: PT OWN MED DRAWER 7, Y5N ONE ×2 (09:24→17:55)
[2017-06-27] MEDS: predniSONE 10 MG TABLET (UD) PO SCH (09:32)
[2017-06-27] MEDS: FUROSEMIDE 40 MG TABLET (FP) PO SCH (09:32)
[2017-06-27] MEDS: BUDESONIDE/FORMETEROL FUMARATE 80/4.5 mcg INHALER IH SCH (09:32)
[2017-06-27] MEDS: ASPIRIN 81 MG CHEWABLE TABLETS PO SCH (09:33)
[2017-06-27] MEDS: FENOFIBRIC ACID 135 MG CAP PO SCH (09:33)
[2017-06-27] MEDS: METOPROLOL TARTRATE 50 MG TABLET (FP) PO SCH (09:33)
[2017-06-27] MEDS: TAMSULOSIN HCL 0.4 MG CAP.ER.24H (FP) PO SCH (09:33)
[2017-06-27] MEDS: PANTOPRAZOLE 40 MG TABLET (FP) PO SCH (09:33)
--- NOTE | 2017-06-27 12:13 | PN ---
Progress Note, Physician History of Present Illness: pulmonary alert,nad,-cp,-sob,-cough,still with hematuria - Current Medication List Current Medications: Active Medications Aspirin (Asa -) 81 mg PO DAILY [facility] Last Admin: 06/27/17 09:33 Dose: 81 mg Budesonide/Formoterol Fumarate (Symbicort 80/4.5mcg -) 2 puff IH BID [facility] Last Admin: 06/27/17 09:32 Dose: 2 puff Fenofibric Acid (Trilipix -) 135 mg PO DAILY [facility] Last Admin: 06/27/17 09:33 Dose: 135 mg Furosemide (Lasix -) 40 mg PO DAILY [facility] Last Admin: 06/27/17 09:32 Dose: 40 mg Sodium Chloride (Normal Saline -) 1,000 mls @ 75 mls/hr IV ASDIR [facility] Last Admin: 06/26/17 17:09 Dose: 75 mls/hr Insulin Aspart (Novolog Vial Sliding Scale -) 1 vial SQ ACHS [facility] PRN Reason: Protocol Last Admin: 06/27/17 11:48 Dose: 4 unit Insulin Detemir (Levemir Vial) 20 units SQ HS [facility] Last Admin: 06/26/17 21:40 Dose: 20 units Levothyroxine Sodium (Synthroid -) 50 mcg PO DAILY@0700 [facility] Last Admin: 06/27/17 06:13 Dose: 50 mcg Metformin HCl (Glucophage -) 500 mg PO BIDAC [facility] Last Admin: 06/27/17 06:13 Dose: 500 mg Metoprolol Tartrate (Lopressor -) 50 mg PO BID [facility] Last Admin: 06/27/17 09:33 Dose: 50 mg Non-Formulary Medication (Canagliflozin [Invokana]) 300 mg PO DAILY [facility] Ondansetron HCl (Zofran Injection) 4 mg IVPUSH Q6H PRN PRN Reason: NAUSEA AND/OR VOMITING Pantoprazole Sodium (Protonix -) 40 mg PO DAILY [facility] Last Admin: 06/27/17 09:33 Dose: 40 mg Prednisone (Deltasone -) 30 mg PO DAILY [facility] Last Admin: 06/27/17 09:32 Dose: 30 mg Sitagliptin Phosphate (Januvia -) 100 mg PO DAILY@0700 [facility] Last Admin: 06/27/17 06:13 Dose: 100 mg Tamsulosin HCl (Flomax -) 0.4 mg PO DAILY@0830 [facility] Last Admin: 06/27/17 09:33 Dose: 0.4 mg - Objective Vital Signs: Vital Signs Temperature 98.5 F 06/27/17 09:31 Pulse Rate 59 L 06/27/17 09:31 Respiratory Rate 18 06/27/17 09:31 Blood Pressure 130/72 06/27/17 09:31 O2 Sat by Pulse Oximetry (%) 97 06/26/17 21:00 Constitutional: Yes: Well Nourished, Calm Eyes: Yes: WNL HENT: Yes: WNL Neck: Yes: WNL Cardiovascular: Yes: Pulse Irregular, S1, S2 Respiratory: Yes: Diminished Gastrointestinal: Yes: Normal Bowel Sounds, Soft Extremities: Yes: WNL Edema: Yes Labs: CBC, BMP 06/27/17 06:37 06/27/17 06:37 INR, PTT INR 1.31 (0.82-1.09) H 06/16/17 05:05 Problem List - Problems (1) Afib Code(s): I48.91 - UNSPECIFIED ATRIAL FIBRILLATION (2) COPD (chronic obstructive pulmonary disease) Code(s): J44.9 - CHRONIC OBSTRUCTIVE PULMONARY DISEASE, UNSPECIFIED (3) HTN (hypertension) Code(s): I10 - ESSENTIAL (PRIMARY) HYPERTENSION (4) SHEKHAR (obstructive sleep apnea) Code(s): G47.33 - OBSTRUCTIVE SLEEP APNEA (ADULT) (PEDIATRIC) (5) Respiratory failure Code(s): J96.90 - RESPIRATORY FAILURE, UNSP, UNSP W HYPOXIA OR HYPERCAPNIA (6) Sepsis Code(s): A41.9 - SEPSIS, UNSPECIFIED ORGANISM (7) Urinary retention Code(s): R33.9 - RETENTION OF URINE, UNSPECIFIED (8) CHF (congestive heart failure) Code(s): I50.9 - HEART FAILURE, UNSPECIFIED (9) Fever Code(s): R50.9 - FEVER, UNSPECIFIED (10) Hypoxia Code(s): R09.02 - HYPOXEMIA (11) Obesity Code(s): E66.9 - OBESITY, UNSPECIFIED Assessment/Plan A/P UTI Urinary Retention/BPH/ h/o Strictures s/p Sepsis Acute on Chronic Hypoxic and Hypercapneic Respiratory Failure improved CAD s/p stents Atrial Fibrillation with RVR now in sinus Acute on Chronic Diastolic Heart Failure Obstructive Sleep Apnea HTN DM Hematuria - lasix - monitor urine output, creatinine - rate controlled - O2 to keep SpO2 >90% - BIPAP as needed - prednisone taper - inhaled bronchodilators - DVT prophylaxis - sleep screen DR MALHOTRA
--- NOTE | 2017-06-27 12:16 | PN ---
Progress Note, Physician History of Present Illness: seen and examined today in nad. no overnight events. had hematuria over the weekend after the gautam was removed, thus gautam placed again and Xarelto was stopped. - Current Medication List Current Medications: Active Medications Aspirin (Asa -) 81 mg PO DAILY [facility] Last Admin: 06/27/17 09:33 Dose: 81 mg Budesonide/Formoterol Fumarate (Symbicort 80/4.5mcg -) 2 puff IH BID [facility] Last Admin: 06/27/17 09:32 Dose: 2 puff Fenofibric Acid (Trilipix -) 135 mg PO DAILY [facility] Last Admin: 06/27/17 09:33 Dose: 135 mg Furosemide (Lasix -) 40 mg PO DAILY [facility] Last Admin: 06/27/17 09:32 Dose: 40 mg Sodium Chloride (Normal Saline -) 1,000 mls @ 75 mls/hr IV ASDIR [facility] Last Admin: 06/26/17 17:09 Dose: 75 mls/hr Insulin Aspart (Novolog Vial Sliding Scale -) 1 vial SQ [facility] PRN Reason: Protocol Last Admin: 06/27/17 11:48 Dose: 4 unit Insulin Detemir (Levemir Vial) 20 units SQ HS [facility] Last Admin: 06/26/17 21:40 Dose: 20 units Levothyroxine Sodium (Synthroid -) 50 mcg PO DAILY@0700 [facility] Last Admin: 06/27/17 06:13 Dose: 50 mcg Metformin HCl (Glucophage -) 500 mg PO BIDAC [facility] Last Admin: 06/27/17 06:13 Dose: 500 mg Metoprolol Tartrate (Lopressor -) 50 mg PO BID [facility] Last Admin: 06/27/17 09:33 Dose: 50 mg Non-Formulary Medication (Canagliflozin [Invokana]) 300 mg PO DAILY [facility] Ondansetron HCl (Zofran Injection) 4 mg IVPUSH Q6H PRN PRN Reason: NAUSEA AND/OR VOMITING Pantoprazole Sodium (Protonix -) 40 mg PO DAILY [facility] Last Admin: 06/27/17 09:33 Dose: 40 mg Prednisone (Deltasone -) 30 mg PO DAILY [facility] Last Admin: 06/27/17 09:32 Dose: 30 mg Sitagliptin Phosphate (Januvia -) 100 mg PO DAILY@0700 [facility] Last Admin: 06/27/17 06:13 Dose: 100 mg Tamsulosin HCl (Flomax -) 0.4 mg PO DAILY@0830 [facility] Last Admin: 06/27/17 09:33 Dose: 0.4 mg - Objective Vital Signs: Vital Signs Temperature 98.5 F 06/27/17 09:31 Pulse Rate 59 L 06/27/17 09:31 Respiratory Rate 18 06/27/17 09:31 Blood Pressure 130/72 06/27/17 09:31 O2 Sat by Pulse Oximetry (%) 97 06/26/17 21:00 Constitutional: Yes: No Distress, Calm Eyes: Yes: Conjunctiva Clear, EOM Intact HENT: Yes: Atraumatic, Normocephalic Neck: Yes: Supple, Trachea Midline Cardiovascular: Yes: Regular Rate and Rhythm, S1, S2. No: Bradycardia, Tachycardia, Pulse Irregular, Bruit, JVD, Gallop, Murmur, Rub, S3, S4, Varicosities Respiratory: Yes: Regular, Diminished, Rales (mild b/l bases). No: Rhonchi, Wheezes Gastrointestinal: Yes: Normal Bowel Sounds, Soft. No: Distention, Tenderness Musculoskeletal: Yes: WNL Extremities: Yes: WNL Edema: Yes Edema: LLE: Trace, RLE: Trace Peripheral Pulses WNL: Yes Peripheral Pulses: Left Doralis Pedis: 2+, Right Dorsalis Pedis: 2+ Neurological: Yes: Alert, Oriented, Cran Nerves II-XII Intact Psychiatric: Yes: Alert, Oriented Labs: CBC, BMP 06/27/17 06:37 06/27/17 06:37 INR, PTT INR 1.31 (0.82-1.09) H 06/16/17 05:05 - ....Imaging Chest X-ray: Report Reviewed, Image Reviewed EKG: Report Reviewed, Image Reviewed Other: Report Reviewed, Image Reviewed (tele-nsr, SB, PVCs, APCs) Assessment/Plan 57 year old man with a history of hypertension, diabetes, hyperlipidemia, typical atrial flutter status post ablation in 2012, 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 hematuria s/p recent procedure with resultant stricture and was planned for further procedure as outpatient admitted with urinary retention , fever, resultant sinus tachycardia, respiratory failure. AFib with RVR-has remained in NSR with short runs of either PSVT with aberrancy or NSVT Atrial flutter status post two ablations last one was May 2016. - He had been off Xarelto since 06/22/2016, resumed this admission due to recurrent AF-now again on hold in setting of bleeding -No choice but to hold full AC at this point -if cleared by to resume at some point in the future will resume -cont ASA 81mg daily -Cont Lasix PO for now -cont metoprolol SOB-respiratory failure, improved -History of Hypoxia/SOB-recurrent, uncertain etiology, component of acute on chronic diastolic CHF but not fully explained by this -presume undiagnosed chronic lung disease, possible exposure from working in [employer] has been considered -Volume status is stable currently, same as last week. -cont po Lasix at current dose for now -reduce IV fluids if possible -cont bipap as needed -monitor I/Os, electrolytes Coronary artery disease, history of drug-eluting stent to LAD May 2016. -cont ASA 81mg daily. will try to continue and hold Xarelto -ok to stop Plavix as >1 year since stent -cont beta nicole -resume home statin Cardiomyopathy- History of nonischemic cardiomyopathy, but likely arrhythmia induced with recovery of LV function after atrial flutter ablation. -volume status as above -echo showed normal LV systolic function -management as above No additional planned inpatient cardiac work up, when ready from standpoint pt can be discharged and will f/up closely in the office
[2017-06-27 14:06] VITALS: BP 107/55; PULSE 70; TEMP 98.3
--- NOTE | 2017-06-27 14:11 | PN ---
Progress Note, Physician History of Present Illness: stable doing well no bleeding noted in the urine worried about bleeding - Current Medication List Current Medications: Active Medications Aspirin (Asa -) 81 mg PO DAILY [facility] Last Admin: 06/27/17 09:33 Dose: 81 mg Budesonide/Formoterol Fumarate (Symbicort 80/4.5mcg -) 2 puff IH BID [facility] Last Admin: 06/27/17 09:32 Dose: 2 puff Fenofibric Acid (Trilipix -) 135 mg PO DAILY [facility] Last Admin: 06/27/17 09:33 Dose: 135 mg Furosemide (Lasix -) 40 mg PO DAILY [facility] Last Admin: 06/27/17 09:32 Dose: 40 mg Sodium Chloride (Normal Saline -) 1,000 mls @ 75 mls/hr IV ASDIR [facility] Last Admin: 06/26/17 17:09 Dose: 75 mls/hr Insulin Aspart (Novolog Vial Sliding Scale -) 1 vial SQ [facility] PRN Reason: Protocol Last Admin: 06/27/17 11:48 Dose: 4 unit Insulin Detemir (Levemir Vial) 20 units SQ HS [facility] Last Admin: 06/26/17 21:40 Dose: 20 units Levothyroxine Sodium (Synthroid -) 50 mcg PO DAILY@0700 [facility] Last Admin: 06/27/17 06:13 Dose: 50 mcg Metformin HCl (Glucophage -) 500 mg PO BIDAC [facility] Last Admin: 06/27/17 06:13 Dose: 500 mg Metoprolol Tartrate (Lopressor -) 50 mg PO BID [facility] Last Admin: 06/27/17 09:33 Dose: 50 mg Non-Formulary Medication (Canagliflozin [Invokana]) 300 mg PO DAILY [facility] Ondansetron HCl (Zofran Injection) 4 mg IVPUSH Q6H PRN PRN Reason: NAUSEA AND/OR VOMITING Pantoprazole Sodium (Protonix -) 40 mg PO DAILY [facility] Last Admin: 06/27/17 09:33 Dose: 40 mg Prednisone (Deltasone -) 20 mg PO DAILY [facility] Sitagliptin Phosphate (Januvia -) 100 mg PO DAILY@0700 [facility] Last Admin: 06/27/17 06:13 Dose: 100 mg Tamsulosin HCl (Flomax -) 0.4 mg PO DAILY@0830 [facility] Last Admin: 02/12/18 09:33 Dose: 0.4 mg - Objective Vital Signs: Vital Signs Temperature 98.3 F 06/27/17 14:04 Pulse Rate 70 06/27/17 14:04 Respiratory Rate 20 06/27/17 14:04 Blood Pressure 107/55 06/27/17 14:04 O2 Sat by Pulse Oximetry (%) 96 06/27/17 09:00 Constitutional: Yes: No Distress, Calm Cardiovascular: Yes: S1, S2 Respiratory: Yes: Regular, CTA Bilaterally Gastrointestinal: Yes: Normal Bowel Sounds, Soft Genitourinary: Yes: Brown Present Musculoskeletal: Yes: WNL Extremities: Yes: WNL Neurological: Yes: Alert, Oriented Psychiatric: Yes: Alert, Oriented Labs: CBC, BMP 06/27/17 06:37 06/27/17 06:37 INR, PTT INR 1.31 (0.82-1.09) H 06/16/17 05:05 Assessment/Plan ASSESSMENT AND PLAN: UTI bph/strictures r/o bacteremia resp failure sepsis urinary retention hematuria loyda htn dm plan continue to monitor stable doing well no issues
[2017-06-27] MEDS: SODIUM CHLORIDE 1,000 ML IV SCH (17:30)
[2017-06-28] MEDS ORDERED: predniSONE 20 MG TABLET (UD) PO SCH (10:00)
== END 2017-06-27 18:31 | disposition home or self-care (01) | DRG 853 ==
LOC: JER 06:25 → JERBED 10:59 → J5S 12:40 → JICU 15:31 → J4S 06-19 14:56
PROVIDERS: ADMIT Internal Medicine; ATTEND Internal Medicine
PROC: 5A09357 Assistance with Respiratory Ventilation, Less than 24 Consecutive Hours, Continuous Positive Airway Pressure (ICD-10-PCS; 2017-06-16)
PROC: 0T9B70Z Drainage of Bladder with Drainage Device, Via Natural or Artificial Opening (ICD-10-PCS; principal; 2017-06-18)
PROC: 0V508ZZ Destruction of Prostate, Via Natural or Artificial Opening Endoscopic (ICD-10-PCS; 2017-06-21 14:00)
DX: A41.9 Sepsis, unspecified organism (principal); J96.21 Acute and chronic respiratory failure with hypoxia; I50.33 Acute on chronic diastolic (congestive) heart failure; I48.92 Unspecified atrial flutter; J96.11 Chronic respiratory failure with hypoxia; N39.0 Urinary tract infection, site not specified; I42.8 Other cardiomyopathies; E87.2 Acidosis; I11.0 Hypertensive heart disease with heart failure; E03.9 Hypothyroidism, unspecified; I48.91 Unspecified atrial fibrillation; E11.9 Type 2 diabetes mellitus without complications; E78.00 Pure hypercholesterolemia, unspecified; I25.10 Atherosclerotic heart disease of native coronary artery without angina pectoris; N13.9 Obstructive and reflux uropathy, unspecified; F17.200 Nicotine dependence, unspecified, uncomplicated; J44.9 Chronic obstructive pulmonary disease, unspecified; G47.33 Obstructive sleep apnea (adult) (pediatric); R00.0 Tachycardia, unspecified; E87.5 Hyperkalemia; I95.89 Other hypotension; B95.1 Streptococcus, group B, as the cause of diseases classified elsewhere; N35.8 Other urethral stricture; R31.0 Gross hematuria; N40.1 Benign prostatic hyperplasia with lower urinary tract symptoms; R33.8 Other retention of urine; Z99.81 Dependence on supplemental oxygen; Z95.5 Presence of coronary angioplasty implant and graft; E66.8 Other obesity; Z68.33 Body mass index [BMI] 33.0-33.9, adult
CPT/HCPCS: 36415; 36600; 71045-TC; 76775-TC; 76856-TC; 76870-TC; 80048; 80053; 81003; 81015; 82550; 82803; 82962; 83605; 83735; 84100; 84132; 84484; 85025; 85610; 85730; 86850; 86900; 86901; 87040; 87086; 87186; 87804; 93005; 93010; 93306-TC; 94640; 94660; 99281-25

== ENCOUNTER 2018-05-26 11:51 | Day surgery (SDC) | payer BC ==
[2018-05-25 15:58] VITALS: BMI 34.0
[2018-05-26] MEDS ORDERED: BUPIVACAINE HCL/PF 0.25% (2.5MG/ML) 10 ML VIAL ONE (15:14)
[2018-05-26] MEDS ORDERED: MIDAZOLAM HCL 2 MG/2 ML SINGLE DOSE VIAL ONE (15:37)
[2018-05-26] MEDS ORDERED: ceFAZolin SODIUM 1 GM VIAL ONE (15:39)
[2018-05-26] MEDS ORDERED: ceFAZolin SODIUM 1 GM VIAL IVPB ONE (15:40)
[2018-05-26] MEDS ORDERED: GENTAMICIN 80MG PREMIX BAG IVPB ONE (15:40)
[2018-05-26] MEDS ORDERED: GENTAMICIN SO4 80 MG/2 ML VIAL ONE (15:41)
[2018-05-26] MEDS ORDERED: ONDANSETRON 4 MG/2 ML VIAL IVPUSH PRN (15:53)
[2018-05-26] MEDS ORDERED: ACETAMINOPHEN 325 MG TABLET (FP) PO PRN (15:53)
[2018-05-26] MEDS ORDERED: LACTATED RINGERS SOLUTION 1,000 ML IV SCH (16:00)
--- NOTE | 2018-05-26 16:01 | OP ---
Operative Note - Note: Operative Date: 05/26/18 Pre-Operative Diagnosis: abn. yrn, ^psa Operation: trasrectal prostate bx. Findings: firm rt. apex of prostate Post-Operative Diagnosis: Same as Pre-op Senior Java Engineer: Mitra Cruz Anesthesia: Spinal Specimens Removed: prostate tissue Estimated Blood Loss (mls): 0 Drains, Volume Out (mls): 0 Blood Volume Replaced (mls): 0 Fluid Volume Replaced (mls): 0 Operative Report Dictated: Yes
[2018-05-26 18:07] VITALS: TEMP 97.3
[2018-05-26 19:17] VITALS: BP 132/77; PULSE 107
--- NOTE | 2018-05-30 16:24 | PATH ---
Surgical Pathology Report Patient Name: MASON GIBBS [facility]. Rec. #: [id number] /Age/Gender: 1960 (Age: 58) / M Account: [id number] Location: [facility] SURGICAL Taken: 05/26/2018 Received: 05/29/2018 Reported: 05/30/2018 Physicians: Mitra Cruz M.D. Specimen(s) Received A: RIGHT BASE B: RIGHT MIDDLE C: RIGHT APEX D: LEFT BASE E: LEFT MIDDLE F: LEFT APEX Clinical History Elevated PSA Final Diagnosis A. PROSTATE, RIGHT BASE, CORE BIOPSY: BENIGN PROSTATIC TISSUE WITH GLANDULAR HYPERPLASIA AND FOCAL CHRONIC INFLAMMATION. NO CARCINOMA OR HIGH-GRADE PROSTATIC INTRAEPITHELIAL NEOPLASIA (HGPIN) IDENTIFIED. B. PROSTATE, RIGHT MIDDLE, CORE BIOPSY: BENIGN PROSTATIC TISSUE WITH GLANDULAR HYPERPLASIA. NO CARCINOMA OR HIGH-GRADE PROSTATIC INTRAEPITHELIAL NEOPLASIA (HGPIN) IDENTIFIED. P63 IMMUNOHISTOCHEMICAL STAIN HIGHLIGHTS BASAL CELLS. C. PROSTATE, RIGHT APEX, CORE BIOPSY: BENIGN FIBROADIPOSE, NEUROVASCULAR, AND STROMAL TISSUE. NO PROSTATIC GLANDULAR COMPONENT IDENTIFIED. D. PROSTATE, LEFT BASE, CORE BIOPSY: BENIGN FIBROADIPOSE, NEUROVASCULAR, AND STROMAL TISSUE. RARE SMALL BENIGN PROSTATIC GLANDS IDENTIFIED. E. PROSTATE, LEFT MIDDLE, CORE BIOPSY: BENIGN FIBROADIPOSE, NEUROVASCULAR, AND STROMAL TISSUE. NO PROSTATIC GLANDULAR COMPONENT IDENTIFIED. F. PROSTATE, LEFT APEX, CORE BIOPSY: BENIGN FIBROADIPOSE AND STROMAL TISSUE. NO PROSTATIC GLANDULAR COMPONENT IDENTIFIED. Electronically Signed Maame Randhawa M.D. Gross Description A. Received in formalin labeled "right base," is a 2.0 cm in length x 0.1 cm in diameter a bland, cylindrical portion of soft tissue. The specimen is submitted in toto in one cassette. B. Received in formalin labeled "right middle," is a 1.2 cm in length x 0.1 cm in diameter bland, cylindrical portion of soft tissue. The specimen is submitted in toto in one cassette. C. Received in formalin labeled "right apex," is a 0.1 cm in greatest dimension bland soft tissue fragment. The specimen is submitted in toto in one cassette. D. Received in formalin labeled "left base," is a 1.2 cm in length x 0.1 cm in diameter bland, cylindrical portion of soft tissue. The specimen is submitted in toto in one cassette. E. Received in formalin labeled "left middle," are 2 bland, cylindrical portions of soft tissue measuring 0.2 and 1.0 cm in length and averaging 0.1 cm in diameter. The specimens are submitted in toto in one cassette. F. Received in formalin labeled "left apex," are 2 bland, cylindrical portions of soft tissue measuring 0.3 and 1.3 cm in length and averaging 0.1 cm in diameter. The specimens are submitted in toto in one cassette. 05/29/2018 [facility]05/29/2018
--- NOTE | 2018-05-31 13:55 | OP ---
DATE OF OPERATION: 05/26/2018 SURGEON: Mago Middleton MD PREOPERATIVE DIAGNOSIS: Abnormal digital rectal exam, elevated prostate-specific antigen. OPERATIVE PROCEDURE: Transrectal biopsy of prostate. ANESTHESIA: General. DESCRIPTION OF PROCEDURE: Under above stated anesthesia, patient was prepped and draped in the usual sterile manner. He was placed in the dorsal lithotomy position. After proper rectal prepping with a Fleet enema and preoperative antibiotics, a rectal exam revealed an induration at the right base of the prostate. Therefore, using a biopsy gun, the right base of the prostate was biopsied transrectally. The middle portion of the right lobe was also biopsied. The apex was lastly biopsied. The same thing was done on the left side at the base, mid portion, and apex. No active bleeding was noted. The patient tolerated the procedure well. He returned to the recovery room in good condition. MAGO MIDDLETON M.D. [id number]
== END 2018-05-26 19:20 | disposition home or self-care (01) ==
LOC: JASU-SURG 11:51
PROVIDERS: ATTEND Urology
PROC: 0VB03ZX Excision of Prostate, Percutaneous Approach, Diagnostic (ICD-10-PCS; principal; 2018-05-26 13:00)
DX: N40.0 Benign prostatic hyperplasia without lower urinary tract symptoms (principal); R97.20 Elevated prostate specific antigen [PSA]; E11.9 Type 2 diabetes mellitus without complications; I10 Essential (primary) hypertension; I48.91 Unspecified atrial fibrillation; Z79.01 Long term (current) use of anticoagulants
CPT/HCPCS: 82962; 88305-TC; 88342-TC; 94760

== ENCOUNTER 2021-06-20 08:37 | Emergency (ER) | payer OTHER, BC ==
[2021-06-20 08:54] VITALS: BP 132/79; PULSE 101; TEMP 98.2; BMI 20.7
== END 2021-06-20 10:44 | disposition home or self-care (01) ==
LOC: JER 08:37
DX: R58 Hemorrhage, not elsewhere classified (principal)
CPT/HCPCS: 99281-25

== ENCOUNTER 2022-12-16 18:32 | Emergency (ER) | payer OTHER, BC ==
[2022-12-16 18:39] VITALS: BP 147/79; PULSE 69; RESP 18; TEMP 98.2; BMI 33.5
[2022-12-16 20:28] LABS: BASO % 0.6 % (0-2.0); EOS % 2.1 % (0-4.5); LYMPH % 15.4 % (8-40); MCH 22.1 pg (25.7-33.7); MEAN CELL VOLUME 69.1 fl (80-96); MEAN PLT VOLUME 8.6 fl (7.5-11.1); MONO % 6.8 % (3.8-10.2); NEUT % 75.1 % (42.8-82.8); PLATELET COUNT 160 10^3/uL (134-434); WHITE BLOOD COUNT 9.2 K/mm3 (4.0-10.0)
[2022-12-16 20:31] LABS: RBC 7.23 M/mm3 (4.00-5.60)
[2022-12-16 20:35] LABS: INR 1.17 (0.83-1.09); PROTHROMBIN TIME (PATIENT) 13.6 SEC (9.7-13.0)
[2022-12-16 20:38] LABS: ACTIVATED PTT 37.2 SECONDS (25.2-36.5)
[2022-12-16 20:49] LABS: POTASSIUM 4.1 mmol/L (3.5-5.1)
[2022-12-16 20:52] LABS: ALBUMIN 4.1 g/dl (3.4-5.0); BLOOD UREA NITROGEN 16.4 mg/dL (7-18); CALCIUM 9.3 mg/dL (8.5-10.1)
[2022-12-16 20:55] LABS: CREATININE 0.8 mg/dL (0.55-1.3)
[2022-12-16 20:57] LABS: BILIRUBIN,TOTAL 0.9 mg/dL (0.2-1); TOT PROT 7.5 g/dl (6.4-8.2)
[2022-12-16 21:32] LABS: EPI CELLS 7 /uL (0-25.1); HYALINE CASTS 0 /uL (0-3.1); PH,URINE 5.5 (5.0-8.0); URINE APPEARANCE CLEAR; URINE BACTERIA 4 /uL (0-1359); URINE BILIRUBIN NEGATIVE (NEGATIVE); URINE COLOR YELLOW; URINE GLUCOSE (UA) 3+ (NEGATIVE); URINE KETONE NEGATIVE (NEGATIVE); URINE LEUK ESTERASE TRACE (NEGATIVE); URINE NITRITE NEGATIVE (NEGATIVE); URINE PROTEIN NEGATIVE (NEGATIVE); URINE RBC 452 /uL (0-23.9); URINE UROBILINOGEN 0.2 mg/dL (0.2-1.0); URINE WBC 68 /uL (0-25.8)
[2022-12-16 22:06] LABS: ANISOCYTOSIS 2+; MACROCYTOSIS 0; OVALOCYTE 1+
== END 2022-12-16 22:00 | disposition home or self-care (01) ==
LOC: JER 18:32
DX: R31.9 Hematuria, unspecified (principal)
CPT/HCPCS: 36415; 80053; 81003; 85025; 85610; 85730; 86850; 86900; 86901; 87086; 99283-25